=== PATIENT | male | born 1940 | race Caucasian/White ===

== ENCOUNTER 2017-06-21 17:42 | Inpatient (IN) ==
[2017-06-21] MEDS ORDERED: Nitroglycerin 0.4 MG TAB.SUBL SL ONE (17:59)
[2017-06-21] MEDS ORDERED: Nitroglycerin 1 INCH/GM PACKET TP ONE (18:01)
[2017-06-21] MEDS ORDERED: Furosemide 40 MG/4 ML VIAL IVP ONE (18:01)
[2017-06-21 18:12] LABS: Basophils # 0.1 K/mcL (0.0-0.2); Basophils % 1.2 %; Eosinophils # 0.5 K/mcL (0.0-0.6); Eosinophils % 6.7 %; Hematocrit 47.9 % (37.5-50.1); Hemoglobin 15.5 g/dL (12.9-16.9); Immature Granulocytes % 0.5 % (0-4); Lymphocytes # 1.6 K/mcL (0.6-4.6); Lymphocytes % 21.3 %; Mean Corpuscular HGB Conc 32.4 g/dL (31.6-35.5); Mean Corpuscular Hemoglobin 28.2 pg (28.0-33.3); Mean Corpuscular Volume 87.1 fL (83.0-100.0); Mean Platelet Volume 10.9 fL (9.4-12.4); Monocytes # 0.7 K/mcL (0.0-1.3); Monocytes % 9.5 %; Neutrophils # 4.5 K/mcL (1.6-8.9); Platelet Count 228 K/mcL (140-400); Red Cell Distribution Width 13.2 % (11.5-14.5); Segmented Neutrophils % 60.8 %
[2017-06-21] MEDS ORDERED: Ipratropium/Albuterol Neb 3 ML IH ONE (18:12)
--- NOTE | 2017-06-21 18:15 | Emergency Department Note ---
Disposition Clinical Impression: Chest pain Qualifiers: Chest pain type: unspecified Qualified Code(s): R07.9 - Chest pain, unspecified Disposition: Admitted As Inpatient Condition: Fair Chest Pain HPI - General Chief Complaint: ED Chest Pain Stated Complaint: Chest Pain Time Seen by Provider: 06/21/17 17:48 Source: family Vital Signs Reviewed: Yes Nursing Notes Reviewed: Yes - History of Present Illness HPI Narrative: Presents with chest pain and he is not able to describe the character and it began at 3:30 today and is constant and is worse with exertion. No radiation. No pleuritic aspect. Does have increased lower extremity peripheral edema. The patient was put on water pills one week ago and had the dose increased on Thursday, 2 days ago. I did review the previous record and he did have an echocardiogram in October of this year showing ejection fraction of 55%. He does have shortness of breath and this had been occurring intermittently for the last 1 month and had been on a course of antibiotics without improvement. He does have positive orthopnea. He does have a cough and rhinorrhea no hemoptysis. No sneezing. No fever or blurred vision. No blood in the urine or stool. No pain or numbness of the extremities. No skin rash or bruising of the skin. Social history: Stopped smoking 20 years ago. Is here with his Severity scale (1-10): 5 - Related Data Home Medications Medication Instructions Recorded Confirmed Aspirin [Lo-Dose Aspirin EC] 81 mg PO 06/21/17 Atorvastatin [Lipitor] 80 mg PO HS 06/21/17 06/21/17 Carvedilol 12.5 mg PO 06/21/17 Exenatide [Byetta] 10 mcg SQ 06/21/17 Ferrous Sulfate [Iron] 325 mg PO 06/21/17 Finasteride [Proscar] 5 mg PO 06/21/17 GlipiZIDE [Glipizide Xl] 5 mg PO 06/21/17 Quinapril HCl [Accupril] 20 mg PO 06/21/17 hydroCHLOROthiazide 12.5 mg PO 06/21/17 [Hydrochlorothiazide] Allergies Allergy/AdvReac Type Severity Reaction Status Date / Time No Known Allergies Allergy Verified 01/09/16 17:56 Review of Systems: As Per HPI Chest Pain PMH - Past Medical History Medical history: Reports: CVA, diabetes Psychiatric history: Reports: no psych history - Social History Smoking Status: Former smoker Alcohol use: Reports: none Drug use: Reports: none Physical Exam CONSTITUTIONAL: Alert and oriented X3, well-nourished, well appearing, in no apparent distress HEAD: Normocephalic; atraumatic. EYES: PERRL, no scleral icterus. NOSE: The nose is normal in appearance without rhinorrhea RESP: Normal chest excursion with respiration; breath sounds with bilateral wheezing which is symmetric CARD: Regular rhythm, without murmurs, rub or gallop ABD: Non-distended; non-tender, soft,without rigidity, rebound or guarding SKIN: Normal for age and race; warm and dry; no apparent lesions Extremities: Pulses 2+ and equal 4 extremities, does have 2+ bilateral lower extremity pretibial pitting edema, no calf muscle pain. No erythema or signs of infection - General General appearance: alert, anxious Course Vital Signs Temperature 98.8 F 06/21/17 17:46 Pulse Rate 77 06/21/17 17:46 Respiratory Rate 22 06/21/17 17:46 Blood Pressure 230/105 06/21/17 17:46 O2 Sat by Pulse Oximetry 92 06/21/17 17:46 Temperature 98.8 F 06/21/17 20:35 Pulse Rate 60 06/21/17 19:38 Respiratory Rate 18 06/21/17 20:35 Blood Pressure 162/82 06/21/17 20:35 O2 Sat by Pulse Oximetry 94 06/21/17 19:38 Oxygen Delivery Oxygen Delivery Room Air Chest Pain - MDM Narrative Medical decision making narrative: I did review the patient's EKG showing normal sinus rhythm with rate of 70 with evidence of anterior ST depression and T-wave inversion. Does have right bundle -branch block similar to previous EKG which was from June 2014. I did review the chest x-ray and the patient will be started on Lasix 40 mg IV as well as sublingual nitroglycerin and nitroglycerin paste. Likely symptoms are from either congestive heart failure or COPD exacerbation so the patient will receive a DuoNeb also. BNP level is pending. The patient did have significant respiratory difficulty when he arrived although this did improve when he sat up. Her oxygen saturation went from 90 on room air to 95 on 2 L nasal cannula. The patient will be admitted for further inpatient evaluation and management. 1816 We did speak with the hospitalist who accepted the patient for admission. Concerned about acute coronary syndrome with his history of CABG. Does have some pleural effusion but this is seem stable. 2010 - Lab Data Result diagrams: 06/21/17 17:53 06/21/17 17:53 Lab Results 06/21/17 06/21/17 06/21/17 Range/Units 17:53 17:53 17:53 WBC 7.5 (4.3-11.1) K/mcL RBC 5.50 (4.19-5.50) M/mcL Hgb 15.5 (12.9-16.9) g/dL Hct 47.9 (37.5-50.1) % MCV 87.1 (83.0-100.0) fL MCH 28.2 (28.0-33.3) pg MCHC 32.4 (31.6-35.5) g/dL RDW 13.2 (11.5-14.5) % Plt Count 228 (140-400) K/mcL MPV 10.9 (9.4-12.4) fL Immature Gran % 0.5 (0-4) % Seg Neutrophils % 60.8 % Lymphocytes % 21.3 % Monocytes % 9.5 % Eosinophils % 6.7 % Basophils % 1.2 % Neutrophils # 4.5 (1.6-8.9) K/mcL Lymphocytes # 1.6 (0.6-4.6) K/mcL Monocytes # 0.7 (0.0-1.3) K/mcL Eosinophils # 0.5 (0.0-0.6) K/mcL Basophils # 0.1 (0.0-0.2) K/mcL Sodium 140 (136-145) mEq/L Potassium 3.4 L (3.5-4.5) mEq/L Chloride 98 (98-109) mEq/L Carbon Dioxide 35 H (19-29) mEq/L BUN 19 (8-26) mg/dL Creatinine 1.56 H (0.72-1.25) mg/dL Est GFR ( Amer) 53 L (> 60) Est GFR (Non-Af Amer) 44 L (> 60) BUN/Creatinine Ratio 12 (6-26) Glucose 195 H (70-99) mg/dL Calculated Osmolality 298 (280-300) Calcium 9.5 (8.6-10.8) mg/dL Troponin I 0.03 (0-0.03) ng/mL B-Natriuretic Peptide (0-100) pg/mL Urine Color (Yellow) Urine Clarity (Clear) Urine pH (5.0-8.0) pH Units Ur Specific [place] (1.010-1.025) Urine Protein (Neg-Trace) mg/dL Urine Glucose (UA) (Normal) mg/dL Urine Ketones (Negative) mg/dL Urine Blood (Negative) Urine Nitrite (Negative) Urine Bilirubin (Negative) Urine Urobilinogen (Normal) mg/dL Ur Leukocyte Esterase (Negative) Urine Microscopic RBC (0-3) per hpf Urine Microscopic WBC (0-3) per hpf Ur Squamous Epith Cells (None-Few) per lpf Urine Bacteria (None-Few) per hpf Hyaline Casts (None-Few) per lpf 06/21/17 06/21/17 Range/Units 17:53 18:41 WBC (4.3-11.1) K/mcL RBC (4.19-5.50) M/mcL Hgb (12.9-16.9) g/dL Hct (37.5-50.1) % MCV (83.0-100.0) fL MCH (28.0-33.3) pg MCHC (31.6-35.5) g/dL RDW (11.5-14.5) % Plt Count (140-400) K/mcL MPV (9.4-12.4) fL Immature Gran % (0-4) % Seg Neutrophils % % Lymphocytes % % Monocytes % % Eosinophils % % Basophils % % Neutrophils # (1.6-8.9) K/mcL Lymphocytes # (0.6-4.6) K/mcL Monocytes # (0.0-1.3) K/mcL Eosinophils # (0.0-0.6) K/mcL Basophils # (0.0-0.2) K/mcL Sodium (136-145) mEq/L Potassium (3.5-4.5) mEq/L Chloride (98-109) mEq/L Carbon Dioxide (19-29) mEq/L BUN (8-26) mg/dL Creatinine (0.72-1.25) mg/dL Est GFR ( Amer) (> 60) Est GFR (Non-Af Amer) (> 60) BUN/Creatinine Ratio (6-26) Glucose (70-99) mg/dL Calculated Osmolality (280-300) Calcium (8.6-10.8) mg/dL Troponin I (0-0.03) ng/mL B-Natriuretic Peptide 282 H (0-100) pg/mL Urine Color Yellow (Yellow) Urine Clarity Clear (Clear) Urine pH 6.5 (5.0-8.0) pH Units Ur Specific [place] 1.011 (1.010-1.025) Urine Protein 30 H (Neg-Trace) mg/dL Urine Glucose (UA) Normal (Normal) mg/dL Urine Ketones Negative (Negative) mg/dL Urine Blood Negative (Negative) Urine Nitrite Negative (Negative) Urine Bilirubin Negative (Negative) Urine Urobilinogen Normal (Normal) mg/dL Ur Leukocyte Esterase Negative (Negative) Urine Microscopic RBC 0-3 (0-3) per hpf Urine Microscopic WBC 0-3 (0-3) per hpf Ur Squamous Epith Cells None Seen (None-Few) per lpf Urine Bacteria None Seen (None-Few) per hpf Hyaline Casts None Seen (None-Few) per lpf
[2017-06-21 18:32] LABS: Calcium 9.5 mg/dL (8.6-10.8); Potassium 3.4 mEq/L (3.5-4.5)
[2017-06-21 18:53] LABS: Bilirubin,Urine Negative (Negative); Blood,Urine Negative (Negative); Clarity,Urine Clear (Clear); Color,Urine Yellow (Yellow); Glucose,Urine (UA) Normal (Normal); Ketones,Urine Negative (Negative); Leukocyte Esterase,Urine Negative (Negative); Nitrite,Urine Negative (Negative); PH,Urine 6.5 pH Units (5.0-8.0); Protein,Urine 30 mg/dL (Neg-Trace); Specific Gravity,Urine 1.011 (1.010-1.025); Urobilinogen,Urine Normal (Normal)
[2017-06-21 18:56] LABS: Bacteria,Urine None Seen per hpf (None-Few); Hyaline Casts,Urine None Seen per lpf (None-Few); RBC,Urine 0-3 per hpf (0-3); Squamous Epithelial Cell,Urine None Seen per lpf (None-Few); WBC,Urine 0-3 per hpf (0-3)
[2017-06-21] MEDS ORDERED: Albuterol 2.5 MG/3 ML NEBULIZER IH PRN ×2 (21:33→21:59)
[2017-06-21] MEDS ORDERED: methylPREDNISolone 125 MG/2 ML VIAL IVP ONE (21:34)
[2017-06-21] MEDS ORDERED: Naloxone 0.4 MG/ML INJ IVP PRN (21:41)
[2017-06-21] MEDS ORDERED: Dextrose Gel 15 GM PO PRN ×2 (21:43)
[2017-06-21] MEDS ORDERED: *HR* Dextrose 50 % in Water (Syg) 50 ML SYRINGE IVP PRN (21:43)
[2017-06-21] MEDS ORDERED: D5% in Water 1,000 ML IVC PRN (21:43)
--- NOTE | 2017-06-21 21:48 | Internal Med History&Physical ---
<Alfonso Reyes - Last Filed: 06/21/17 21:45> Date of Encounter: 06/21/17 Time of Encounter: 21:45 Assessment and Plan (1) COPD exacerbation Current visit: Yes Status: Acute Patient continues to have inspiratory and expiratory wheezing throughout anterior and posterior bilateral lobes. Does not wear oxygen at home however does continue to require 2 L nasal cannula to maintain his saturations. He originally presented with chest pressure/tightness which has improved with bronchodilator. Appears to have acute exacerbation of COPD. Teeth in October 2013 indicated he had moderate restrictive pulmonary disease. Symptoms do not appear to be cardiac related at this time. Continue trend troponins, continuous telemetry for the rule out cardiac cause Continue bronchodilators, DuoNeb nebs every 4 hours scheduled Albuterol nebulizer every 2 hours when necessary 40 mg Solu-Medrol every 8 hours first dose now Continues to wear support, 2 L nasal cannula titrated as needed Continuous telemetry, continuous O2 monitoring CBC, BMP in the morning (2) Diabetes Current visit: Yes Status: Acute Discontinue oral hypoglycemic agents while inpatient. Start low-dose sliding scale insulin coverage with before meals and at bedtime Accu-Cheks and diabetic/ cardiac diet Qualifiers: Diabetes mellitus type: type 2 Diabetes mellitus complication status: without complication Diabetes mellitus care home insulin use: without intermediate frame tender use Qualified Code(s): E11.9 - Type 2 diabetes mellitus without complications (3) Chest pain Current visit: Yes Status: Resolved Denies any chest pain, however admitted that he did have chest pressure/ tightness which has resolved since treatment with bronchodilators. Troponin negative thus far. Continue to trend troponins, continuous telemetry Qualifiers: Chest pain type: unspecified Qualified Code(s): R07.9 - Chest pain, unspecified (4) CAD (coronary artery disease) Current visit: Yes Status: Acute Continue aspirin and statin. Qualifiers: Qualified Code(s): I25.10 - Atherosclerotic heart disease of [place] coronary artery without angina pectoris (5) DVT prophylaxis Current visit: Yes Status: Acute Heparin 5000 units subcutaneous twice a day Internal Medicine - H&P: HPI Chief complaint: difficulty breathing, cough x1m Admitted From: Home Plans for Post Hospital Care: Home History of present illness: Mr. Gayle is a 76 year old male with a PMH of CVA, DM, COPD, CABG, CKD with one kidney and CAD. He presents today to her and see with a one-month history of cough, wheezing, shortness of breath and chest pressure which began at 3:30 this afternoon. The patient reports that he has had chest discomfort described as a pressure, midsternal without radiation. Chest pressure does not increase with exertion but shortness of breath does. He denies any fever, chills, diaphoresis, nausea, unilateral extremity swelling or pain, abdominal pain. His primary care provider placed him on a Z-Jace in early May without resolution of symptoms. He has seen another nurse practitioner in addition to that which placed him on oral prednisone which she received minimal relief symptoms resuming shortly thereafter. No leukocytosis noted, chest x-ray shows chronic left pleural effusion. He was given a DuoNeb treatment in the emergency department reports feeling no longer has chest pressure/tightness but he does remain short of breath. Past Med Surg Social Fam HX - Past Medical History Medical history: CVA, diabetes Psychiatric history: no psych history - Past Surgical History Surgical History: cholecystectomy - Social History Smoking Status: Former smoker Smokeless Tobacco Status: No Alcohol use: none Drug use: none - Family History Father Hx Family Cardiac Disorders: Yes (HTN) Mother Hx Family Cancer: Yes (Pancreatic) Internal Medicine - H&P: Meds Aspirin [Lo-Dose Aspirin EC] 81 mg PO 06/21/17 [History] Atorvastatin [Lipitor] 80 mg PO HS 06/21/17 [History] Carvedilol 12.5 mg PO 06/21/17 [History] Exenatide [Byetta] 10 mcg SQ 06/21/17 [History] Ferrous Sulfate [Iron] 325 mg PO 06/21/17 [History] Finasteride [Proscar] 5 mg PO 06/21/17 [History] GlipiZIDE [Glipizide Xl] 5 mg PO 06/21/17 [History] Quinapril HCl [Accupril] 20 mg PO 06/21/17 [History] hydroCHLOROthiazide [Hydrochlorothiazide] 12.5 mg PO 06/21/17 [History] 3 Allergy/AdvReac Type Severity Reaction Status Date / Time No Known Allergies Allergy Verified 01/09/16 17:56 All Systems PM: A 10-system review of systems was performed and is negative for pertinent findings except as documented above in the HPI. - Constitutional Constitutional: fatigue, no chills, no fever(s), no night sweats, no weight gain , no weight loss - EENT Eyes: no change in vision, no discharge, no pain, no photophobia Ears: no ear discharge, no ear pain, no tinnitus Nose, mouth and throat: no dysphagia, no nasal discharge, no neck pain, no sore throat - Cardiovascular Cardiovascular ROS IM: chest pain (Pressure/tightness), dyspnea on exertion, edema, no diaphoresis, no dyspnea, no irregular heart rhythm, no lightheadedness , no palpitations, no syncope - Respiratory Respiratory: cough (Minimally productive with clear/foamy sputum), dyspnea on exertion, wheezing, no dyspnea, no hemoptysis, no stridor, no pain on inspiration, no chest congestion, no excessive phlegm production, no change in phlegm color, no pain with cough - Gastrointestinal Gastrointestinal: no abdominal pain, no diarrhea, no hematemesis, no hematochezia, no melena, no nausea, no vomiting - Musculoskeletal Musculoskeletal ROS IM: no numbness, no tingling - Integumentary Integumentary IM: no rash, no unusual bruising - Neurological Neurological ROS: no confusion, no convulsions, no focal weakness, no numbness, no tingling, no tremor(s) - Hematologic/Lymphatic Hematologic/Lymphatic: no easy bruising - Constitutional Vitals: Temp Pulse Resp BP Pulse Ox 98.8 F 60 18 162/82 94 06/21/17 20:35 06/21/17 19:38 06/21/17 20:35 06/21/17 20:35 06/21/17 19:38 General appearance: Present: cooperative, A&O X 3, no acute distress, answers questions appropriately - Head Head exam: Present: atraumatic, normocephalic - Neck Neck exam general surgery: Present: supple, trachea midline. Absent: lymphadenopathy - Respiratory Respiratory exam: Present: prolonged expiratory phase, respiratory distress ( Mild; difficulty conversation due to SOB), wheezes, tachypnea. Absent: rhonchi , stridor - Cardiovascular Cardiovascular exam: Present: RRR, +S1, +S2. Absent: diastolic murmur, gallop, rubs, systolic murmur - GI/Abdominal GI/Abdominal exam: Present: normal bowel sounds, soft, no peritoneal signs. Absent: distended, tenderness - Extremities Exam Extremities exam: Present: warm, radial pulses palpable and symmetrical. Absent : calf tenderness, cyanotic, pedal edema - Neurological Exam Neurological exam: Present: alert, oriented X3, no focal deficits. Absent: pronater drift, facial droop, speech deficit - Skin Skin exam: Present: dry, intact Internal Med - H&P Results - Labs CBC & Chem 7: 06/21/17 17:53 06/21/17 17:53 - EKG Data -: EKG Interpreted by Myself EKG shows normal: sinus rhythm Rate: normal - Diagnostic Studies Chest x-ray Status: image reviewed by me Additional comments: Chronic left pleural effusion. Left basilar opacities either atelectasis or possible aspiration pneumonia. <Hector Vera - Last Filed: 06/21/17 23:14> Date of Encounter: 06/21/17 Time of Encounter: 22:05 - Constitutional Constitutional: no chills, no fever(s) - Cardiovascular Cardiovascular ROS IM: chest pain, dyspnea on exertion - Respiratory Respiratory: cough, wheezing, chest congestion, no pain on inspiration, no excessive phlegm production - Genitourinary Genitourinary ROS male: no dysuria, no flank pain, no hematuria - Musculoskeletal Musculoskeletal ROS IM: no back pain, no myalgias - Neurological Neurological ROS: no dizziness, no focal weakness, no frequent falls, no headache(s) - Psychiatric Psychiatric: no anxiety, no depression - Endocrine Endocrine IM: no polydipsia, no polyuria - Allergic/Immunologic Allergic/Immunologic: wheezing, no GI upset with certain foods - Constitutional Vitals: Temp Pulse Resp BP Pulse Ox 98.3 F 57 16 162/83 96 06/21/17 22:09 06/21/17 22:09 06/21/17 22:09 06/21/17 22:09 06/21/17 22:09 General appearance: Present: A&O X 3, no acute distress - ENT ENT exam: Present: mucous membranes dry, normal exam - Neck Neck exam general surgery: Present: supple. Absent: tenderness - Respiratory Respiratory exam: Present: prolonged expiratory phase, respiratory distress ( mild), wheezes, tachypnea. Absent: chest wall tenderness, rales, rhonchi - Cardiovascular Cardiovascular exam: Present: RRR, +S1, +S2. Absent: diastolic murmur, systolic murmur - GI/Abdominal GI/Abdominal exam: Present: soft. Absent: tenderness - Extremities Exam Extremities exam: Present: warm, radial pulses palpable and symmetrical. Absent : pedal edema Internal Med - H&P Results - Labs CBC & Chem 7: 06/21/17 17:53 06/21/17 17:53 - EKG Data -: EKG Interpreted by Myself - EKG Data Prior EKG available for review: yes When compared to previous EKG: there is no significant change EKG comments: 06/21/17 23:06 NSR; old RBBB; unchanged - Diagnostic Studies Chest x-ray Status: image reviewed by me (negative; chronic left small effusion) - Attending Attestation I discussed the patient ALEKNAGIK, PMH, ROS, lab data, and exam findings with Alfonso Reyes CNP. I then saw and examined patient independently as well. Patient history and are consistent with AECOPD. He has no formal diagnosis of COPD, but he has a 40 pack year history of smoking (quit 20 years ago) and PFT's in the recent past confirming + bronchodilator response. As such, we'll treat him with steroids, aerosols, and antibiotics. He is not fluid overloaded and does not appear to be in CHF. He is chest pain free now. We will cycle troponins and consult cardiology if findings are concerning for ischemia. I suspect, however, his symptoms are mediated by respiratory compromise form COPD. Discussed with patient, , and RN. Other than my comments above and noted exam findings, I agree with Alfonso's assessment and plan.
[2017-06-21] MEDS: MethylPREDNISolone 40 MG/ML VIAL IVP SCH (22:17)
[2017-06-21] MEDS: Insulin LISPRO 300 UNITS/3 ML VIAL SQ SCH (22:18)
[2017-06-21] MEDS: Ipratropium/Albuterol Neb 3 ML IH SCH (23:03)
[2017-06-21] MEDS: Levofloxacin 500 MG/100 ML 500 MG/100 ML BAG IVPB SCH (23:55)
[2017-06-22 03:25] LABS: Basophils # 0.1 K/mcL (0.0-0.2); Basophils % 0.8 %; Eosinophils % 0.5 %; Hematocrit 41.8 % (37.5-50.1); Hemoglobin 13.5 g/dL (12.9-16.9); Immature Granulocytes % 0.6 % (0-4); Lymphocytes # 0.5 K/mcL (0.6-4.6); Lymphocytes % 6.8 %; Mean Corpuscular HGB Conc 32.3 g/dL (31.6-35.5); Mean Corpuscular Volume 86.5 fL (83.0-100.0); Mean Platelet Volume 11.3 fL (9.4-12.4); Monocytes # 0.2 K/mcL (0.0-1.3); Monocytes % 1.9 %; Neutrophils # 7.1 K/mcL (1.6-8.9); Platelet Count 196 K/mcL (140-400); Red Blood Count 4.83 M/mcL (4.19-5.50); Red Cell Distribution Width 13.3 % (11.5-14.5); Segmented Neutrophils % 89.4 %
[2017-06-22 03:40] LABS: Albumin 3.4 g/dL (3.5-5.0); Albumin/Globulin Ratio 0.9 (1.1-2.2); Bilirubin,Total 1.4 mg/dL (0.2-1.2); Calcium 8.8 mg/dL (8.6-10.8); Globulin 3.9 g/dL (2.4-3.5); Potassium 3.5 mEq/L (3.5-4.5); Total Protein 7.3 g/dL (6.0-8.3)
[2017-06-22] MEDS: Ipratropium/Albuterol Neb 3 ML IH SCH ×6 (04:17→23:01)
[2017-06-22] MEDS: *HR* Heparin 5,000 UNIT/ML VIAL SQ SCH ×2 (05:38→17:32)
[2017-06-22] MEDS: MethylPREDNISolone 40 MG/ML VIAL IVP SCH ×3 (05:38→21:19)
[2017-06-22] MEDS ORDERED: MethylPREDNISolone 40 MG/ML VIAL IVP SCH (06:00)
[2017-06-22] MEDS: Insulin LISPRO 300 UNITS/3 ML VIAL SQ SCH ×4 (08:12→20:26)
--- NOTE | 2017-06-22 16:13 | Internal Med Progress Note ---
Date of Encounter: 06/22/17 Time of Encounter: 16:09 - Assessment and plan (1) COPD exacerbation Current Visit: Yes Status: Acute Assessment and plan: Symptomatic with worsening shortness of breath and diffuse wheezing. CXR non- acute. Cont IV ATBs, steroids and breathing treatments (2) Essential hypertension Current Visit: Yes Status: Acute Assessment and plan: per hx. BP uncontrolled with SBP's in 200s. Home DANITA and HCTZ stopped with worsening renal function. Add amlodipine. Nephrology consulted (3) CKD (chronic kidney disease) Current Visit: Yes Status: Acute Assessment and plan: hx RCC with right nephrectomy. Follows with Nephrology. Cr peaked at 1.7 which appears worse than baseline. Holding home DANITA and HCTZ. Give small IV bolus. Nephrology consulted Qualifiers: Chronic kidney disease stage: stage 3 (moderate) Qualified Code(s): N18.3 - Chronic kidney disease, stage 3 (moderate) (4) CAD (coronary artery disease) Current Visit: Yes Status: Acute Assessment and plan: per hx. denied chest pain however reported chest tightness with cough. Suspect respiratory etiology. Serial troponin negative, EKG without acute ST changes. Continue home ASA, statin. Monitor on tele Qualifiers: Qualified Code(s): I25.10 - Atherosclerotic heart disease of [place] coronary artery without angina pectoris (5) Diabetes Current Visit: Yes Status: Acute Assessment and plan: per hx. Holding home oral hypoglycemics. SSI. Monitor sugar and titrate PRN Qualifiers: Diabetes mellitus type: type 2 Diabetes mellitus complication status: without complication Diabetes mellitus mcfp insulin use: without mcfp use Qualified Code(s): E11.9 - Type 2 diabetes mellitus without complications (6) DVT prophylaxis Current Visit: Yes Status: Acute Assessment and plan: Heparin - Subjective Interval history: Seen and examined at bedside. Patient is new to me, information obtained from chart review and patient report. Sitting up on edge of bed, patient says he feels significantly improved from when he presented. Still short of breath but overall better. No chest pain. - Constitutional Vitals: Temp Pulse Resp BP Pulse Ox 98.3 F 90 18 179/85 92 06/22/17 14:52 06/22/17 14:52 06/22/17 14:52 06/22/17 14:52 06/22/17 14:52 General appearance: Present: mild distress, A&O X 3, no acute distress - Head Head exam: Present: atraumatic, normocephalic - Eye Eye exam: Present: PERRL, conjuntiva pink, sclera anicteric Pupils: Present: PERRL - Neck Neck exam general surgery: Present: supple, trachea midline. Absent: lymphadenopathy - Respiratory Respiratory exam: Present: CTAB. Absent: accessory muscle use, rales, rhonchi, wheezes - Cardiovascular Cardiovascular exam: Present: RRR, +S1, +S2. Absent: diastolic murmur, gallop, rubs, systolic murmur - GI/Abdominal GI/Abdominal exam: Present: normal bowel sounds, soft, no peritoneal signs. Absent: distended, tenderness - Extremities Exam Extremities exam: Present: warm, radial pulses palpable and symmetrical. Absent : calf tenderness, cyanotic, pedal edema - Neurological Exam Neurological exam: Present: CN II-XII intact, oriented X3, no focal deficits. Absent: pronater drift, facial droop, speech deficit - Skin Skin exam: Present: dry, intact Internal Medicine: Result - Labs CBC & Chem 7: 06/22/17 02:47 06/22/17 02:47 Labs: Short CBC 06/22/17 Range/Units 02:47 WBC 7.9 (4.3-11.1) K/mcL Hgb 13.5 D (12.9-16.9) g/dL Hct 41.8 (37.5-50.1) % Plt Count 196 (140-400) K/mcL Neutrophils # 7.1 (1.6-8.9) K/mcL BMP 06/22/17 02:47 Sodium 141 Potassium 3.5 Chloride 97 L Carbon Dioxide 33 H BUN 22 Creatinine 1.71 H Glucose 321 H Calcium 8.8 Cardiac Enzymes 06/22/17 06/22/17 Range/Units 02:47 07:59 Troponin I 0.02 0.02 (0-0.03) ng/mL Liver Function 06/22/17 Range/Units 02:47 Total Bilirubin 1.4 H (0.2-1.2) mg/dL AST 21 (5-34) Units/L ALT 24 (0-55) Units/L Alkaline Phosphatase 98 (38-126) Units/L Albumin 3.4 L (3.5-5.0) g/dL - VTE Documentation of Mechanical Device: Graduated compression elastic hosiery Consult Discharge Plan - Plan Referrals: Vicki Fletcher, [employer] [Primary Care Provider] -
[2017-06-22] MEDS ORDERED: 0.9 % Sodium Chloride 500 ML IVC ONE (16:37)
[2017-06-22] MEDS: amLODIPine 5 MG TABLET PO SCH (17:17)
[2017-06-22] MEDS ORDERED: Lisinopril 20 MG TABLET PO SCH (21:00)
[2017-06-22] MEDS: Levofloxacin 500 MG/100 ML 500 MG/100 ML BAG IVPB SCH (23:30)
[2017-06-23] MEDS: Ipratropium/Albuterol Neb 3 ML IH SCH ×6 (04:09→23:05)
[2017-06-23 05:26] LABS: Calcium 9.2 mg/dL (8.6-10.8); Hematocrit 40.2 % (37.5-50.1); Hemoglobin 13.3 g/dL (12.9-16.9); Mean Corpuscular HGB Conc 33.1 g/dL (31.6-35.5); Mean Corpuscular Hemoglobin 27.9 pg (28.0-33.3); Mean Corpuscular Volume 84.5 fL (83.0-100.0); Mean Platelet Volume 11.2 fL (9.4-12.4); Platelet Count 208 K/mcL (140-400); Potassium 3.7 mEq/L (3.5-4.5); Red Blood Count 4.76 M/mcL (4.19-5.50); Red Cell Distribution Width 13.2 % (11.5-14.5)
[2017-06-23] MEDS: MethylPREDNISolone 40 MG/ML VIAL IVP SCH ×3 (06:09→21:40)
[2017-06-23] MEDS: *HR* Heparin 5,000 UNIT/ML VIAL SQ SCH ×2 (06:09→18:14)
[2017-06-23] MEDS ORDERED: hydroCHLOROthiazide 25 MG TABLET PO SCH (09:00)
[2017-06-23] MEDS: Insulin LISPRO 300 UNITS/3 ML VIAL SQ SCH ×5 (09:57→20:51)
[2017-06-23] MEDS: Aspirin Enteric Coated 81 MG Tablet PO SCH (09:59)
[2017-06-23] MEDS: Finasteride 5 MG TABLET PO SCH (09:59)
[2017-06-23] MEDS: amLODIPine 5 MG TABLET PO SCH (09:59)
[2017-06-23] MEDS ORDERED: Insulin LISPRO 300 UNITS/3 ML VIAL SQ SCH (12:16)
[2017-06-23] MEDS ORDERED: 0.9 % Sodium Chloride 1,000 ML IVC ONE (12:18)
--- NOTE | 2017-06-23 12:34 | Nephrology Consult Note ---
Date of Encounter: 06/23/17 Time of Encounter: 12:32 Assessment and Plan (1) Chronic kidney disease, stage III (moderate) Current Visit: Yes Status: Acute Patient has stage III chronic kidney disease in the setting of a solitary right kidney, hypertension, and insulin requiring diabetes. Blood pressure is poorly controlled both here in the hospital and at home his renal function is slightly worse than his usual baseline. The DANITA inhibitor hydrochlorothiazide and been placed on hold. We will make other adjustments to his antihypertensive regimen to try to improve his blood pressure control. We will monitor his renal function while he is here in the hospital. Nephrotoxins should be avoided. (2) Benign hypertension with chronic kidney disease, stage III Current Visit: Yes Status: Acute (3) COPD exacerbation Current Visit: Yes Status: Acute History of Present Illness - History of Present Illness This is a 76-year-old male who is followed as an outpatient for stage III chronic kidney disease and hypertension. Patient was admitted with worsening shortness of breath. His been diagnosed with an exacerbation of COPD. Here in the hospital his creatinine has gone up a little bit over his previous baseline. Current creatinine is 1.75. Baseline creatinine is 1.5-1.6. Blood pressure is been poorly controlled both in the hospital and at home. When he was admitted to the hospital to lisinopril and hydrochlorothiazide were placed on hold and was placed on amlodipine. Blood pressure at home ranges from 150- 180 systolic according to the patient. Current blood pressure here is 160/61. Patient is status post left nephrectomy and about 5 years ago. Moods coronary artery disease, status post CABG, COPD, and hypertension. Patient also reports she recently had a small stroke. He also has a history of insulin-requiring diabetes. Patient continues to experience exertional dyspnea, cough, and orthopnea. He denies any lower extremity swelling. He denies any difficulty in emptying his bladder. He does not have significant nocturia. Urinalysis is benign. Past Med Surg Social Fam HX - Past Medical History Medical history: CVA, diabetes Psychiatric history: no psych history - Past Surgical History Surgical History: cholecystectomy - Social History Smoking Status: Former smoker Smokeless Tobacco Status: No Alcohol use: none Drug use: none - Family History Mother Living Status: Age at : 67 Cause of : pancreatic cancer Hx Family Cardiac Disorders: No Hx Family Respiratory Disorders: Yes (asthma) Hx Family Cancer: Yes (pancreatic) Hx Family GI Disorders: No Hx Family Genitourinary Disorders: No Hx Family Endocrine Disorder: No Hx Family Musculoskeletal Disorders: No Hx Family Neuromuscular Disorders: No Hx Family Neurologic Disorders: No Hx Family HEENT Disorders: No Hx Family Autoimmune Disorders: No Hx Family Reproductive Disorders: No Hx Family Psychosocial Disorders: No Hx Family Medical Disorders: No Father Living Status: Age at : 79 Cause of : NE Hx Family Cardiac Disorders: Yes (NE, HTN) Hx Family Respiratory Disorders: No Hx Family Cancer: No Hx Family GI Disorders: No Hx Family Genitourinary Disorders: No Hx Family Endocrine Disorder: No Hx Family Musculoskeletal Disorders: No Hx Family Neuromuscular Disorders: No Hx Family Neurologic Disorders: No Hx Family HEENT Disorders: No Hx Family Autoimmune Disorders: No Hx Family Reproductive Disorders: No Hx Family Psychosocial Disorders: No Hx Family Medical Disorders: No Medications and Allergies Aspirin [Lo-Dose Aspirin EC] 81 mg PO DAILY 06/21/17 [History] Atorvastatin [Lipitor] 80 mg PO HS 06/21/17 [History] Exenatide [Byetta] 10 mcg SQ BID 06/21/17 [History] Finasteride [Proscar] 5 mg PO DAILY 06/21/17 [History] GlipiZIDE [Glipizide Xl] 5 mg PO BID 06/21/17 [History] Quinapril HCl [Accupril] 20 mg PO BID 06/21/17 [History] hydroCHLOROthiazide [Hydrochlorothiazide] 12.5 mg PO DAILY 06/21/17 [History] Albuterol Sulfate [Ventolin Hfa] 2 puff IH TID PRN 06/22/17 [History] Carvedilol [Coreg] 25 mg PO BID 06/22/17 [History] Ferrous Gluconate 324 mg PO DAILY 06/22/17 [History] Furosemide [Lasix] 20 mg PO DAILY 06/22/17 [History] Nitroglycerin [Nitrostat] 0.4 mg SL Q5M PRN 06/22/17 [History] hydrALAZINE [HydrALAZINE] 25 mg PO TID 06/22/17 [History] 3 Allergy/AdvReac Type Severity Reaction Status Date / Time No Known Allergies Allergy Verified 01/09/16 17:56 Review of Systems Constitutional: as per HPI Eyes: bilateral: blurred vision (patient denies), diplopia (patient denies) Nose, mouth and throat: no dizziness, no headache(s) Cardiovascular: chest pain, chest pain at rest, dyspnea, dyspnea on exertion, orthopnea Respiratory: cough, dyspnea, dyspnea on exertion Gastrointestinal: no abdominal pain, no change in bowel habits Musculoskeletal: no muscle weakness, no numbness Integumentary: no hirsutism, no striae Neurological: as per HPI Psychiatric: no depression, no difficulty concentrating Endocrine: as per HPI Hematologic/Lymphatic: no easy bruising, no lymphadenopathy Exam - Vital Signs Vital signs: Initial Vital Signs Temp Pulse Resp BP Pulse Ox 98.8 F 77 22 230/105 92 06/21/17 17:46 12 17:46 06/21/17 17:46 06/21/17 17:46 06/21/17 17:46 Vital Signs - Last 8 Hours Temp Pulse Resp BP Pulse Ox 06/23/17 11:30 16 92 06/23/17 11:10 98.2 F 75 16 160/61 92 06/23/17 07:51 15 91 06/23/17 06:54 97.9 F 73 15 189/81 91 Intake and Output 06/22/17 06/23/17 06/23/17 23:59 07:59 15:59 Intake Total 500 / 500 840 / 840 Output Total 1010 / 1010 900 / 900 Balance -510 / -510 -900 / -900 840 / 840 Intake: Oral 500 / 500 840 / 840 Output: Urine 1010 / 1010 900 / 900 Other: Meal Breakfast Percent of Meal Consumed 100% Weight 90.265 kg Blood Glucose* [phone] Patient Weight 06/23/17 23:59 Weight 90.265 kg - General Appearance Exam: Patient is alert and oriented. He is in no acute distress. Blood pressure is 160/61. Admitting blood pressure was 230/105. Neck is supple. Lungs demonstrate bilateral wheezing and rhonchi. Heart regular rate and rhythm. Abdomen shows normal bowel sounds bruits masses, megaly or tenderness. There is no significant lower extremity swelling. Results - Lab Results 06/23/17 04:46 06/23/17 04:46 Most recent lab results Calcium 9.2 mg/dL (8.6-10.8) 06/23/17 04:46 Consult Discharge Plan - Plan Referrals: Vicki Fletcher CNP [Primary Care Provider] - 07/07/17 10:40 am
--- NOTE | 2017-06-23 13:41 | Internal Med Progress Note ---
Date of Encounter: 06/23/17 Time of Encounter: 09:20 - Assessment and plan (1) COPD exacerbation Current Visit: Yes Status: Acute Assessment and plan: Pt reports 1 month history of cough, congestion, ARZATE, and wheezing. Pt does not wear home 02, was requiring supplemental 02 on admission, has been weaned since and is maintaining his sats > 92%. Pt with expiratory wheezing and productive cough. Chest xray shows atelectasis vs aspiration vs pneumonia. Continue 02 prn Continue Duonebs Continue Levaquin IV Continue Solumedrol 40mg IVP q8h Chest X-Ray 06/21/17 17:59 IMPRESSION: No substantial change in chronic left pleural effusion. Left basilar opacities favored to reflect a combination of atelectasis and fluid although difficult to exclude superimposed aspiration or pneumonia. D/ / Gerard Riley / Gerard Riley Interpreting Provider: Gerard Riley (2) Diabetes Current Visit: Yes Status: Acute Assessment and plan: Continue sliding scale insulin, diabetic diet, Accu-Cheks before meals at bedtime. Well controlled. A1c is 6.6% in March. Continue home medications on discharge. Qualifiers: Diabetes mellitus type: type 2 Diabetes mellitus complication status: without complication Diabetes mellitus jail insulin use: without jail use Qualified Code(s): E11.9 - Type 2 diabetes mellitus without complications (3) CAD (coronary artery disease) Current Visit: Yes Status: Acute Assessment and plan: Patient denies chest pain, does report chest tightness with cough. It is not reproducible with movement, deep inspiration, or palpation. Most likely respiratory in etiology. Troponins were negative, EKG without ST changes. Continue telemetry Continue aspirin, statin. Qualifiers: Qualified Code(s): I25.10 - Atherosclerotic heart disease of [place] coronary artery without angina pectoris (4) CKD (chronic kidney disease) Current Visit: Yes Status: Acute Assessment and plan: Serum creatinine 1.75, GFR 38. Patient states that he follows with primary care for CKD. Avoid nephrotoxins and NSAIDs. Gentle IVF hydration Qualifiers: Chronic kidney disease stage: stage 3 (moderate) Qualified Code(s): N18.3 - Chronic kidney disease, stage 3 (moderate) (5) Essential hypertension Current Visit: Yes Status: Acute Assessment and plan: Well controlled. Continue home medications. (6) DVT prophylaxis Current Visit: Yes Status: Acute Assessment and plan: Heparin SQ - Time Spent With Patient less than 15 minutes - Subjective Interval history: She was seen and assessed at bedside at 9:20 AM. Denies use of home oxygen and he is not wearing oxygen at this time. He reports having upper mid chest pain, cough, dyspnea on exertion, and shortness of breath at rest for the last month, the became worse over the last few days. Patient states that he is a former smoker, he quit approximately 20 years ago. He reports productive cough. He denies fever, chills, nausea, vomiting, diarrhea above his baseline. She reports that he has diarrhea daily. He denies blurred vision or headache, no dizziness. - Constitutional Vitals: Temp Pulse Resp BP Pulse Ox 98.2 F 75 16 160/61 92 06/23/17 11:10 06/23/17 11:10 06/23/17 11:30 06/23/17 11:10 06/23/17 11:30 General appearance: Present: cooperative, mild distress, A&O X 3, no acute distress, answers questions appropriately - Head Head exam: Present: atraumatic, normal inspection, normocephalic - Eye Eye exam: Present: normal appearance, conjuntiva pink, sclera anicteric - Neck Neck exam general surgery: Present: normal inspection, supple, trachea midline. Absent: lymphadenopathy - Respiratory Respiratory exam: Present: CTAB. Absent: accessory muscle use, rales, respiratory distress, rhonchi, wheezes - Cardiovascular Cardiovascular exam: Present: RRR, +S1, +S2. Absent: diastolic murmur, gallop, rubs, systolic murmur - GI/Abdominal GI/Abdominal exam: Present: normal bowel sounds, soft, no peritoneal signs. Absent: distended, hepatomegaly, tenderness - Extremities Exam Extremities exam: Present: warm, radial pulses palpable and symmetrical. Absent : calf tenderness, cyanotic, pedal edema, tenderness - Neurological Exam Neurological exam: Present: CN II-XII intact, oriented X3, no focal deficits. Absent: pronater drift, facial droop, speech deficit - Skin Skin exam: Present: dry, intact, normal color, warm. Absent: rash Internal Medicine: Result - Labs CBC & Chem 7: 06/23/17 04:46 06/23/17 04:46 Labs: Short CBC 06/23/17 Range/Units 04:46 WBC 12.7 H D (4.3-11.1) K/mcL Hgb 13.3 (12.9-16.9) g/dL Hct 40.2 (37.5-50.1) % Plt Count 208 (140-400) K/mcL BMP 06/23/17 04:46 Sodium 138 Potassium 3.7 Chloride 97 L Carbon Dioxide 29 BUN 32 H D Creatinine 1.75 H Glucose 399 H Calcium 9.2 - VTE Documentation of Mechanical Device: Graduated compression elastic hosiery Consult Discharge Plan - Plan Referrals: Vicki Fletcher CNP [Primary Care Provider] - 07/07/17 10:40 am
[2017-06-23] MEDS: hydrALAZINE 25 MG TABLET PO SCH ×2 (18:14→23:20)
[2017-06-23] MEDS: Levofloxacin 500 MG/100 ML 500 MG/100 ML BAG IVPB SCH (23:20)
[2017-06-24] MEDS: Ipratropium/Albuterol Neb 3 ML IH SCH ×6 (03:48→23:22)
[2017-06-24 04:49] LABS: Hematocrit 41.7 % (37.5-50.1); Hemoglobin 13.4 g/dL (12.9-16.9); Mean Corpuscular HGB Conc 32.1 g/dL (31.6-35.5); Mean Corpuscular Hemoglobin 27.4 pg (28.0-33.3); Mean Corpuscular Volume 85.3 fL (83.0-100.0); Mean Platelet Volume 11.3 fL (9.4-12.4); Platelet Count 195 K/mcL (140-400); Red Blood Count 4.89 M/mcL (4.19-5.50); Red Cell Distribution Width 13.4 % (11.5-14.5)
[2017-06-24 04:51] LABS: Calcium 9.2 mg/dL (8.6-10.8); Potassium 3.7 mEq/L (3.5-4.5)
[2017-06-24] MEDS: MethylPREDNISolone 40 MG/ML VIAL IVP SCH ×4 (05:34→18:07)
[2017-06-24] MEDS: *HR* Heparin 5,000 UNIT/ML VIAL SQ SCH ×2 (05:34→18:00)
--- NOTE | 2017-06-24 07:47 | Nephrology Progress Note ---
Date of Encounter: 06/24/17 Time of Encounter: 07:46 - Assessment and Plan (1) Chronic kidney disease, stage III (moderate) Current Visit: Yes Status: Acute The patient's renal function is stable. He is close to his baseline. Blood pressure remains suboptimal. I am going to resume his lisinopril. (2) Benign hypertension with chronic kidney disease, stage III Current Visit: Yes Status: Acute (3) COPD exacerbation Current Visit: Yes Status: Acute Subjective Interval history: The patient continues to experience coughing wheezing and shortness of breath. Blood pressure remains suboptimal. Renal function is slightly improved with a creatinine of 1.66 which is close to the patient's baseline. Objective - Vital Signs Vital signs: Vital Signs Temp Pulse Resp BP Pulse Ox 06/24/17 06:44 98.1 F 92 16 174/92 92 06/24/17 03:48 16 92 06/24/17 03:22 97.9 F 80 15 180/91 93 06/23/17 23:05 16 92 06/23/17 23:03 98.2 F 88 15 180/80 93 06/23/17 19:37 16 89 06/23/17 19:06 98.4 F 17 176/81 93 06/23/17 16:10 98.7 F 97 16 182/82 95 06/23/17 16:01 16 92 06/23/17 11:30 16 92 06/23/17 11:10 98.2 F 75 16 160/61 92 06/23/17 07:51 15 91 Intake and Output 06/23/17 06/23/17 06/24/17 15:59 23:59 07:59 Intake Total 960 / 960 Output Total 1450 / 1450 1300 / 1300 Balance 960 / 960 -1450 / -1450 -1300 / -1300 Intake: Oral 960 / 960 Output: Urine 1450 / 1450 1300 / 1300 Other: Meal Lunch Percent of Meal Consumed 100% Weight 95.98 kg Blood Glucose* [phone] Patient Weight 06/24/17 23:59 Weight 95.98 kg - General Appearance Exam: The patient is alert and oriented. He is in no acute distress. Lungs bilateral rhonchi and wheezing. Heart regular rate and rhythm. Abdomen is benign. There is no peripheral edema. - Lab 06/24/17 03:38 06/24/17 03:38 Most recent lab results Calcium 9.2 mg/dL (8.6-10.8) 06/24/17 03:38 - VTE Documentation of Mechanical Device: Graduated compression elastic hosiery Consult Discharge Plan - Plan Referrals: Vicki Fletcher, GUIDO [Primary Care Provider] - 07/07/17 10:40 am
[2017-06-24] MEDS: Aspirin Enteric Coated 81 MG Tablet PO SCH (07:49)
[2017-06-24] MEDS: Finasteride 5 MG TABLET PO SCH (07:49)
[2017-06-24] MEDS: amLODIPine 5 MG TABLET PO SCH (07:49)
[2017-06-24] MEDS: hydrALAZINE 25 MG TABLET PO SCH ×2 (07:50→15:32)
[2017-06-24] MEDS: Insulin LISPRO 300 UNITS/3 ML VIAL SQ SCH ×4 (07:50→20:43)
[2017-06-24 08:03] LABS: Adenovirus Not Detected (Not Detect); Bordetella Pertussis Not Detected (Not Detect); Chlamydophila pneumoniae Not Detected (Not Detect); Coronavirus 229E Not Detected (Not Detect); Coronavirus HKU1 Not Detected (Not Detect); Coronavirus NL63 Not Detected (Not Detect); Coronavirus OC43 Not Detected (Not Detect); Human Metapneumovirus Not Detected (Not Detect); Human Rhinovirus/Enterovirus Not Detected (Not Detect); Influenza A Subtype 2009 H1 Not Detected (Not Detect); Influenza A Untypeable Not Detected (Not Detect); Influenza B Not Detected (Not Detect); Mycoplasma pneumoniae Not Detected (Not Detect); Parainfluenza Virus 1 Not Detected (Not Detect); Parainfluenza Virus 2 Not Detected (Not Detect); Parainfluenza Virus 3 Not Detected (Not Detect); Parainfluenza Virus 4 Not Detected (Not Detect); Respiratory Syncytial Virus Not Detected (Not Detect)
[2017-06-24] MEDS: Lisinopril 20 MG TABLET PO SCH (09:17)
[2017-06-24] MEDS ORDERED: Benzonatate 100 MG CAPSULE PO PRN (16:13)
--- NOTE | 2017-06-24 16:36 | Internal Med Progress Note ---
Date of Encounter: 06/24/17 Time of Encounter: 09:50 - Assessment and plan (1) COPD exacerbation Current Visit: Yes Status: Acute (2) Diabetes Current Visit: Yes Status: Acute Qualifiers: Diabetes mellitus type: type 2 Diabetes mellitus complication status: without complication Diabetes mellitus group home insulin use: without terminologist use Qualified Code(s): E11.9 - Type 2 diabetes mellitus without complications (3) CAD (coronary artery disease) Current Visit: Yes Status: Acute Qualifiers: Qualified Code(s): I25.10 - Atherosclerotic heart disease of [place] coronary artery without angina pectoris (4) CKD (chronic kidney disease) Current Visit: Yes Status: Acute Qualifiers: Chronic kidney disease stage: stage 3 (moderate) Qualified Code(s): N18.3 - Chronic kidney disease, stage 3 (moderate) (5) Essential hypertension Current Visit: Yes Status: Acute (6) DVT prophylaxis Current Visit: Yes Status: Acute - Subjective Interval history: She was seen and assessed at bedside at 9:50 AM. He denies fever, chills, nausea, vomiting, diarrhea above his baseline. He denies blurred vision or headache, no dizziness. Pt with hyperglycemia currently, will monitor blood sugars overnight. I have decreased the IV steroids and will add IVF. Primary RN states that he has been eating orange sherbet frequently and I discussed his carb intake with this evening. - Constitutional Vitals: Temp Pulse Resp BP Pulse Ox 98.6 F 85 16 146/69 92 06/24/17 15:16 06/24/17 15:16 06/24/17 15:16 06/24/17 15:16 06/24/17 15:16 General appearance: Present: cooperative, mild distress, A&O X 3, no acute distress, answers questions appropriately Internal Medicine: Result - Labs CBC & Chem 7: 06/24/17 03:38 06/24/17 03:38 Labs: Short CBC 06/24/17 Range/Units 03:38 WBC 11.1 (4.3-11.1) K/mcL Hgb 13.4 (12.9-16.9) g/dL Hct 41.7 (37.5-50.1) % Plt Count 195 (140-400) K/mcL BMP 06/24/17 03:38 Sodium 137 Potassium 3.7 Chloride 97 L Carbon Dioxide 27 BUN 37 H Creatinine 1.66 H Glucose 364 H Calcium 9.2 - VTE Documentation of Mechanical Device: Graduated compression elastic hosiery Consult Discharge Plan - Plan Referrals: Vicki Fletcher CNP [Primary Care Provider] - 07/07/17 10:40 am
[2017-06-24] MEDS ORDERED: 0.9 % Sodium Chloride 1,000 ML IVC SCH (16:45)
--- NOTE | 2017-06-24 18:04 | Electrocardiograph Report ---
[place] [id number] Test Date: 2017-06-21 Pat Name: Landen Gayle Department: 104 Room: 3B24 Gender: M [employer]: SCOTT : 1940 Requested By: Sorin Smith Order Number: [id number] Reading MD: Mitch Hyman DO Measurements Intervals Calvin Rate: 70 P: 84 OR: 206 QRS: -74 QRSD: 152 T: 33 QT: 433 QTc: 453 Interpretive Statements SINUS RHYTHM RIGHT BUNDLE BRANCH BLOCK [120+ ms QRS DURATION, UPRIGHT V1, 40+ ms S IN I/aVL/V4/V5/V6] LEFT ANTERIOR FASCICULAR BLOCK [QRS AXIS <= -45, QR IN I, RS IN II] Electronically Signed On 06-24-2017 18:02:51 EST by Mitch Hyman DO
[2017-06-25] MEDS: hydrALAZINE 25 MG TABLET PO SCH ×3 (00:16→16:48)
[2017-06-25] MEDS: MethylPREDNISolone 40 MG/ML VIAL IVP SCH ×2 (00:16→06:06)
[2017-06-25] MEDS: Ipratropium/Albuterol Neb 3 ML IH SCH ×4 (03:29→15:38)
[2017-06-25 05:14] LABS: Hematocrit 39.8 % (37.5-50.1); Hemoglobin 12.8 g/dL (12.9-16.9); Mean Corpuscular HGB Conc 32.2 g/dL (31.6-35.5); Mean Corpuscular Hemoglobin 27.6 pg (28.0-33.3); Platelet Count 183 K/mcL (140-400); Red Blood Count 4.63 M/mcL (4.19-5.50); Red Cell Distribution Width 13.5 % (11.5-14.5)
[2017-06-25 05:24] LABS: Calcium 8.8 mg/dL (8.6-10.8); Potassium 4.1 mEq/L (3.5-4.5)
[2017-06-25] MEDS: *HR* Heparin 5,000 UNIT/ML VIAL SQ SCH (06:08)
[2017-06-25] MEDS: Aspirin Enteric Coated 81 MG Tablet PO SCH (08:06)
[2017-06-25] MEDS: amLODIPine 5 MG TABLET PO SCH (08:06)
[2017-06-25] MEDS: Finasteride 5 MG TABLET PO SCH (08:06)
[2017-06-25] MEDS: Lisinopril 20 MG TABLET PO SCH (08:06)
[2017-06-25] MEDS: Insulin LISPRO 300 UNITS/3 ML VIAL SQ SCH ×3 (08:12→16:49)
--- NOTE | 2017-06-25 08:44 | Nephrology Progress Note ---
Date of Encounter: 06/25/17 Time of Encounter: 08:10 - Assessment and Plan (1) CKD (chronic kidney disease) Current Visit: Yes Status: Acute Renal fct stable, not quite at baseline. SBP suboptimal 158-162. Will increase Lisinopril. Will stop IV fluids. Recommend evaluation for complaints of dysphagia times one month. Qualifiers: Chronic kidney disease stage: stage 3 (moderate) Qualified Code(s): N18.3 - Chronic kidney disease, stage 3 (moderate) (2) Essential hypertension Current Visit: Yes Status: Acute Subjective Interval history: Sitting up in chair, at bedside. States slept abot 3-4 hours in chair last night. Denies EMIL this morning. States feels swollen. IV 0.9 NS at 60cc/hr. Also presents new concern of dysphagia times one months that is worse in morning and improves as day progresses. States difficulty swallowing liquids and solids. Objective - Vital Signs Vital signs: Vital Signs Temp Pulse Resp BP Pulse Ox 06/25/17 08:01 97.6 F 98 15 181/85 91 06/25/17 07:45 18 93 06/25/17 03:06 98.0 F 78 18 162/74 90 06/24/17 23:58 98.0 F 83 16 157/72 92 06/24/17 23:25 16 91 06/24/17 20:15 98.2 F 93 16 173/87 91 06/24/17 19:47 18 91 Intake and Output 06/24/17 06/25/17 06/25/17 23:59 07:59 15:59 Other: Blood Glucose* [phone] - General Appearance General appearance: Present: well-developed, well-nourished, appears started age , obese EENT: Present: mucous membranes moist Neck: Present: no JVD Respiratory: Present: wheezing, rhonchi Cardiology: Present: edema, regular rate, regular rhythm Additional Comments: mild generalized swelling. Gastrointestinal: Present: normoactive bowel sounds, no tenderness Integumentary: Present: warm and dry Neurologic: Present: alert and oriented x3 Psychiatric: Present: mood/affect appropriate, cooperative - Lab 06/25/17 04:34 06/25/17 04:34 Most recent lab results Calcium 8.8 mg/dL (8.6-10.8) 06/25/17 04:34 - VTE Documentation of Mechanical Device: Intermittent pneumatic compression device Consult Discharge Plan - Plan Referrals: Vicki Fletcher CNP [Primary Care Provider] - 07/07/17 10:40 am
[2017-06-25] MEDS ORDERED: predniSONE 20 MG TABLET PO SCH (09:00)
[2017-06-25] MEDS ORDERED: levoFLOXacin 500 MG TABLET PO SCH (09:00)
[2017-06-25] MEDS ORDERED: Insulin DETEMIR 100 UNIT/ML X5UNITS SQ ONE (10:38)
[2017-06-25 14:56] VITALS: BP 135/65
[2017-06-25] MEDS ORDERED: Insulin DETEMIR 100 UNIT/ML X5UNITS SQ SCH (15:00)
--- NOTE | 2017-06-25 15:13 | Discharge Summary ---
Date of Encounter: 06/25/17 Time of Encounter: 08:45 - Discharge Diagnosis (1) COPD exacerbation Priority: Primary Status: Acute Comments: Patient reported one month history of cough, congestion, dyspnea on exertion, and wheezing. Patient does not wear home O2 and was requiring submental oxygen on admission, has been weaned off and is tolerating well. He is maintaining his sats greater than 92%. He has been ambulatory throughout the unit without any difficulty and is not requiring supplemental oxygen. Patient did not qualify for home oxygen. Initially, patient had expiratory wheezing and productive cough. Today his lungs are clear, but diminished without wheezing, rales, rhonchi or any respiratory distress. He reports that cough has improved. Chest x-ray showed atelectasis versus aspiration versus pneumonia. He has been treated with IV Levaquin, DuoNeb nebs, when necessary oxygen, and IV steroids. IV medications have been transitioned to by mouth medications. Patient will be sent home with prescriptions for by mouth Levaquin, by mouth Solu-Medrol, and Tessalon Perles. (2) Diabetes Priority: Secondary Status: Acute Comments: The diabetes is well controlled at home. His A1c was 6.6% in March. Continue home medications after discharge. Patient has been hyperglycemic, most likely due to steroids. He has been treated with basal insulin, as well as sliding scale. Accu-Chek was 245 on discharge. Qualifiers: Diabetes mellitus type: type 2 Diabetes mellitus complication status: without complication Diabetes mellitus detention insulin use: without detention use Qualified Code(s): E11.9 - Type 2 diabetes mellitus without complications (3) CAD (coronary artery disease) Priority: Secondary Status: Chronic Comments: Patient denies chest pain, he did report chest tightness with cough, this has resolved. It was not reproducible with movement, deep inspiration, or palpation. This is most likely respiratory in etiology. Troponins were negative, EKG without any ST changes. Patient will continue aspirin and statin after discharge. Qualifiers: Coronary Disease-Associated Artery/Lesion type: unspecified vessel or lesion type [place] vs. transplanted heart: [place] heart Associated angina: without angina Qualified Code(s): I25.10 - Atherosclerotic heart disease of [place] coronary artery without angina pectoris (4) CKD (chronic kidney disease) Priority: Secondary Status: Chronic Comments: Both serum creatinine and GFR have been at patient's baseline. Patient reports that he follows with primary care for his kidney disease. Continue to avoid nephrotoxins and NSAIDs at home. Patient was seen by nephrology while he was admitted. His renal function is stable. They have increased his lisinopril since systolic blood pressure is suboptimal. IV fluids have been stopped. Follow-up with primary care. Qualifiers: Chronic kidney disease stage: stage 3 (moderate) Qualified Code(s): N18.3 - Chronic kidney disease, stage 3 (moderate) (5) Essential hypertension Priority: Secondary Status: Chronic Comments: Patient has been borderline hypertensive. Nephrology has adjusted medications. Lisinopril was increased, blood pressure is within normal limits. (6) DVT prophylaxis Priority: Secondary Status: Acute Comments: Heparin subcutaneous daily. Patient has been ambulatory throughout the unit. (7) Dysphagia Priority: Secondary Status: Chronic Comments: Patient reports dysphasia "forever." Patient reports that happens every morning when he first awakens, it resolves within an hour or so of when he awakens. He has no difficulty containing fluids in his mouth, he is able to swallow, , he states he feels like things get stuck. He has had no significant weight loss due to this, he is not having to spit his saliva, he has no other deficits. He reports that he has been told in the past that he has scar tissue status post tonsillectomy and this is causing the problem. We will refer to ENT. Qualifiers: Dysphagia type: unspecified Qualified Code(s): R13.10 - Dysphagia, unspecified - Discharge Medications Prescriptions: Benzonatate [Tessalon] 200 mg PO TID PRN #30 capsule PRN Reason: Cough levoFLOXacin [Levaquin] 500 mg PO DAILY #5 tablet predniSONE [PredniSONE] 10 mg PO DAILY #19 tablet Home Medications: Aspirin [Lo-Dose Aspirin EC] 81 mg PO DAILY 06/21/17 [History] Atorvastatin [Lipitor] 80 mg PO HS 06/21/17 [History] Exenatide [Byetta] 10 mcg SQ BID 06/21/17 [History] Finasteride [Proscar] 5 mg PO DAILY 06/21/17 [History] GlipiZIDE [Glipizide Xl] 5 mg PO BID 06/21/17 [History] Quinapril HCl [Accupril] 20 mg PO BID 06/21/17 [History] hydroCHLOROthiazide [Hydrochlorothiazide] 12.5 mg PO DAILY 06/21/17 [History] Albuterol Sulfate [Ventolin Hfa] 2 puff IH TID PRN 06/22/17 [History] Carvedilol [Coreg] 25 mg PO BID 06/22/17 [History] Ferrous Gluconate 324 mg PO DAILY 06/22/17 [History] Furosemide [Lasix] 20 mg PO DAILY 06/22/17 [History] Nitroglycerin [Nitrostat] 0.4 mg SL Q5M PRN 06/22/17 [History] hydrALAZINE [HydrALAZINE] 25 mg PO TID 06/22/17 [History] Benzonatate [Tessalon] 200 mg PO TID PRN #30 capsule 06/25/17 [Rx] amLODIPine [Norvasc] 10 mg PO DAILY #0 tablet 06/25/17 [Rx] levoFLOXacin [Levaquin] 500 mg PO DAILY #5 tablet 06/25/17 [Rx] predniSONE [PredniSONE] 10 mg PO DAILY #19 tablet 06/25/17 [Rx] Allergies/Adverse Reactions: 3 Allergy/AdvReac Type Severity Reaction Status Date / Time No Known Allergies Allergy Verified 01/09/16 17:56 Date of admission: 06/24/17 18:24 Primary care physician: Vicki Fletcher CNP Discharging clinician: Rosa Lerma Anticipated date of discharge: 06/25/17 - Patient Status Disposition: Home, Self-Care Condition: Good Functional capacity at discharge: independent ambulation Overall status at discharge: patient is progressing back to baseline - Discharge Instructions Follow Up With: Vicki Fletcher CNP [Primary Care Provider] - 07/07/17 10:40 am Additional Instructions: Please follow-up with her primary care provider in the next 7-10 days for recheck. Closely monitor your blood sugar and maintain a lower calorie, lower carbohydrate diet. Make sure you are drinking plenty of fluids. Return to the ER as needed for any other problems or concerns, or if your symptoms return or worsen. REturn to your normal activities as tolerated. Your prescriptions are at your pharmacy. - Diet and Activity Activity: increase activity as tolerated Diet: diabetic diet Hospital course: Mr. Gayle is a 76 year old male with past medical history of stage III C KD, hypertension, diabetes, coronary artery disease. He presented to the emergency room with dyspnea on exertion and increasing shortness of breath. He was treated for COPD exacerbation with IV steroids, IV Levaquin, breathing treatments. He has improved significantly over the course of his visit and will be sent home with by mouth Levaquin, by mouth steroids, and Tessalon Perles. Patient has had hyperglycemia, most likely due to steroid use. He is treated with basal insulin and will be sent home to continue his normal medications. I am giving him a prescription for a new glucometer, strips, and lancets. Patient has agreed to closely monitor his blood sugars while he is on steroids. He reports a lengthy history of dysphagia first thing in the morning, every morning. This resolves on its own shortly after he awakens. He does not have any weight loss, he is able to swallow fluids, he is able to keep fluids in his mouth. He does not have difficulty with speech or chewing. He will be referred to ENT. Renal function is back at baseline. He will follow with primary care and nephrology for this. Patient is stable for discharge. - Time Spent with Patient Total time spent providing and/or coordinating discharge services: Less than 30 minutes - Constitutional Vitals: Temp Pulse Resp BP Pulse Ox 98.0 F 73 16 135/65 93 06/25/17 14:53 06/25/17 14:53 06/25/17 14:53 06/25/17 14:53 06/25/17 14:53 General appearance: Present: cooperative, mild distress, A&O X 3, pleasant, no acute distress, answers questions appropriately - Head Head exam: Present: atraumatic, normal inspection, normocephalic - Eye Eye exam: Present: normal appearance, conjuntiva pink, sclera anicteric - Neck Neck exam general surgery: Present: supple, trachea midline. Absent: lymphadenopathy - Respiratory Respiratory exam: Present: decreased breath sounds, CTAB. Absent: accessory muscle use, chest wall tenderness, rales, respiratory distress, rhonchi, wheezes - Cardiovascular Cardiovascular exam: Present: RRR, +S1, +S2. Absent: diastolic murmur, gallop, rubs, systolic murmur - GI/Abdominal GI/Abdominal exam: Present: normal bowel sounds, soft. Absent: distended, hepatomegaly, tenderness - Extremities Exam Extremities exam: Present: normal capillary refill, warm, radial pulses palpable and symmetrical. Absent: calf tenderness, cyanotic, pedal edema, tenderness - Neurological Exam Neurological exam: Present: alert, oriented X3, no focal deficits. Absent: altered, facial droop, speech deficit - Skin Skin exam: Present: dry, intact, normal color, warm. Absent: rash - VTE Documentation of Mechanical Device: Intermittent pneumatic compression device
[2017-06-25] MEDS ORDERED: Lisinopril 20 MG TABLET PO SCH (21:00)
== END 2017-06-25 17:59 | disposition home or self-care (01) | DRG 192 ==
LOC: 3BNU 17:42 → EMEROO 17:42 → 3BNU 20:37
PROVIDERS: ADMIT Internal Medicine Hematology & Oncology; ATTEND Registered Nurse

== ENCOUNTER 2017-07-16 08:08 | Observation (INO) ==
[2017-07-16] MEDS ORDERED: Ipratropium/Albuterol Neb 3 ML IH ONE (08:24)
[2017-07-16] MEDS ORDERED: methylPREDNISolone 125 MG/2 ML VIAL IVP ONE (08:24)
--- NOTE | 2017-07-16 08:29 | Emergency Department Note ---
Disposition Clinical Impression: COPD (chronic obstructive pulmonary disease) Qualifiers: COPD type: unspecified COPD Qualified Code(s): J44.9 - Chronic obstructive pulmonary disease, unspecified Dyspnea Qualifiers: Dyspnea type: dyspnea on exertion Qualified Code(s): R06.09 - Other forms of dyspnea Chronic kidney disease Qualifiers: Chronic kidney disease stage: unspecified stage Qualified Code(s): N18.9 - Chronic kidney disease, unspecified Disposition: Admitted As Inpatient Condition: Fair General Adult HPI - General Chief complaint: ED Shortness of Breath/Dyspnea Stated complaint: SOB/Cough Time Seen by Provider: 07/16/17 08:15 Source: patient, family Mode of arrival: ambulatory Limitations: no limitations Nursing Notes Reviewed: Yes Vital Signs Reviewed: Yes - History of Present Illness HPI Narrative: 76-year-old male with a history of hypertension, diabetes, chronic kidney disease (with one kidney) presents for evaluation of dyspnea. Patient states and to monitor was a couple days ago. States he has had a recent hospitalization 2 weeks ago where he was released after diagnosis of COPD. Patient is a former smoker. Patient's not oxygen dependent. Patient states that he was sent home on steroids as well as albuterol. States he has been using his albuterol every 4 hours. Notes a white productive cough. Denies fevers. Denies chest pain. Denies nausea vomiting or abdominal pain. Patient states that his dyspnea is worse on exertion. Denies history of DVTs or PEs. Pain Scale: 7 - Related Data Home Medications Medication Instructions Recorded Confirmed Aspirin [Lo-Dose Aspirin EC] 81 mg PO DAILY 06/21/17 07/16/17 Atorvastatin [Lipitor] 80 mg PO HS 06/21/17 07/16/17 Exenatide [Byetta] 10 mcg SQ BID 06/21/17 07/16/17 Finasteride [Proscar] 5 mg PO DAILY 06/21/17 07/16/17 GlipiZIDE [Glipizide Xl] 5 mg PO BID 06/21/17 07/16/17 Quinapril HCl [Accupril] 20 mg PO BID 06/21/17 07/16/17 hydroCHLOROthiazide 12.5 mg PO DAILY 06/21/17 07/16/17 [Hydrochlorothiazide] Albuterol Sulfate [Ventolin Hfa] 2 puff IH TID PRN 06/22/17 07/16/17 Carvedilol [Coreg] 25 mg PO BID 06/22/17 07/16/17 Ferrous Gluconate 324 mg PO DAILY 06/22/17 07/16/17 Nitroglycerin [Nitrostat] 0.4 mg SL Q5M PRN 06/22/17 07/16/17 hydrALAZINE [HydrALAZINE] 25 mg PO TID 06/22/17 07/16/17 Ascorbate Calcium [Vitamin C] 500 mg PO DAILY 07/16/17 07/16/17 Tiotropium [place] [Spiriva 2.5 mcg IH DAILY 07/16/17 07/16/17 Respimat] Previous Rx's Medication Instructions Recorded Benzonatate [Tessalon] 200 mg PO TID PRN #30 capsule 06/25/17 Allergies Allergy/AdvReac Type Severity Reaction Status Date / Time No Known Allergies Allergy Verified 01/09/16 17:56 All systems ED: reviewed and negative except as stated. Constitutional: Reports: as per HPI. Denies: fever Eyes: Reports: as per HPI ENT ED: Reports: as per HPI Cardiovascular: Reports: as per HPI. Denies: chest pain Respiratory: Reports: as per HPI, cough, dyspnea, sputum production Gastrointestinal: Reports: as per HPI. Denies: abdominal pain, nausea, vomiting Genitourinary: Reports: as per HPI Musculoskeletal: Reports: as per HPI Integumentary: Reports: as per HPI Neurological: Reports: as per HPI Psychiatric: Reports: as per HPI Endocrine: Reports: as per HPI Hematological/Lymphatic: Reports: as per HPI Past Medical History - Past Medical History Medical history: Reports: COPD, CVA, diabetes Surgical history: Reports: cholecystectomy Psychiatric history: Reports: no psych history - Social History Smoking Status: Former smoker Smokeless Tobacco Status: No Alcohol use: Reports: none Drug use: Reports: none Physical Exam - General Limitations: no limitations General appearance: alert, in no apparent distress - Head Head exam: atraumatic, normocephalic, normal inspection - Eye Eye exam: Present: normal appearance, EOMI. Absent: scleral icterus - ENT ENT exam: normal exam, mucous membranes moist - Neck Neck exam: Present: normal inspection. Absent: trachea midline - Chest Chest inspection: Present: normal inspection - Respiratory Respiratory exam: Present: wheezes (Scattered inspiratory expiratory wheezes), prolonged expiratory phase. Absent: respiratory distress - Cardiovascular Cardiovascular exam: Present: regular rate, normal rhythm. Absent: systolic murmur - Abdominal Exam Abdominal exam: Present: soft, Non-Tender. Absent: guarding, rebound - Extremities Exam Extremities exam: Present: normal inspection. Absent: pedal edema - Back Exam Back exam: Present: normal inspection - Neurological Exam Neurological exam: Present: alert, oriented X3 - Skin Skin exam: Present: warm, dry, intact, normal color Course Course Narrative: Patient seen and examined. Patient appears to be in no acute distress. Patient started requiring any oxygen supplementation. Patient does have scattered wheezing throughout. Patient will get aerosols, steroids, cardiopulmonary evaluation EKG, chest x-ray and labs. Disposition pending. - Reevaluation(s) Reevaluation #1: Patient seen and examined. Patient's lungs still sound tight. Patient will get a repeat breathing treatment. He given the patient's symptoms have not significantly improved. Pulmonary movement is also in the differential. Patient does have chronic kidney disease with one kidney. Patient will get a VQ scan. Time: 09:55 Reevaluation #2: Patient's lung seemed to slightly improve on aerosols. Patient was resting and was 88-90% on room air. Patient would likely be hypoxic with room air ambulation trial. Given the patient's symptoms patient would likely need a more thorough cardiopulmonary evaluation which would require admission. Patient is agreeable. Time: 11:19 Vital Signs Temperature 97.3 F L 07/16/17 08:12 Pulse Rate 70 07/16/17 08:12 Respiratory Rate 18 07/16/17 08:12 Blood Pressure 193/88 07/16/17 08:12 O2 Sat by Pulse Oximetry 94 07/16/17 08:12 Temperature 97.9 F 07/16/17 16:31 Pulse Rate 73 07/16/17 16:31 Respiratory Rate 24 07/16/17 16:31 Blood Pressure 168/78 07/16/17 16:31 O2 Sat by Pulse Oximetry 92 07/16/17 16:31 Oxygen Delivery Oxygen Delivery Room Air Medical Decision Making - [facility] Narrative Medical decision making narrative: 76-year-old male presents for dyspnea. Patient was recently hospitalized with a COPD exacerbation. completed a steroid taper as well as Levaquin. Patient required aerosols as well as steroids in the emergency department. Patient was found to be hypoxic on room air. Given the patient's symptoms the patient would likely require admission with a more thorough cardiopulmonary evaluation. Patient's chest x-ray was not suggestive pneumonia patient recently completed an antibiotic course. Antibiotics were not given in emergency department and was discussed with the hospitalist. Patient also had a VQ scan concerns of hypoxia which was negative. Patient will get influenza swab in the emergency department at the request of the hospitalist. - Lab Data Lab results reviewed: Yes I reviewed the patient's lab results. Result diagrams: 07/16/17 08:46 07/16/17 08:46 Lab Results 07/16/17 07/16/17 07/16/17 Range/Units 08:46 08:46 08:46 WBC 7.2 (4.3-11.1) K/mcL RBC 4.76 (4.19-5.50) M/mcL Hgb 13.2 (12.9-16.9) g/dL Hct 41.3 (37.5-50.1) % MCV 86.8 (83.0-100.0) fL MCH 27.7 L (28.0-33.3) pg MCHC 32.0 (31.6-35.5) g/dL RDW 14.0 (11.5-14.5) % Plt Count 175 (140-400) K/mcL MPV 10.2 (9.4-12.4) fL Immature Gran % 1.0 (0-4) % Seg Neutrophils % 81.0 % Lymphocytes % 6.6 % Monocytes % 5.9 % Eosinophils % 5.1 % Basophils % 0.4 % Neutrophils # 5.9 (1.6-8.9) K/mcL Lymphocytes # 0.5 L (0.6-4.6) K/mcL Monocytes # 0.4 (0.0-1.3) K/mcL Eosinophils # 0.4 (0.0-0.6) K/mcL Basophils # 0.0 (0.0-0.2) K/mcL D-Dimer (0-500) ng/mLFEU Sodium 137 (136-145) mEq/L Potassium 3.7 (3.5-5.1) mEq/L Chloride 101 (98-107) mEq/L Carbon Dioxide 31 H (23-29) mEq/L BUN 18 (8-23) mg/dL Creatinine 1.54 H (0.70-1.30) mg/dL Est GFR ( Amer) 54 L (> 60) Est GFR (Non-Af Amer) 44 L (> 60) BUN/Creatinine Ratio 12 (6-26) Glucose 316 H (70-105) mg/dL Calculated Osmolality 298 (280-300) Lactic Acid 1.3 (0.5-2.2) mmol/L Calcium 9.1 (8.6-10.3) mg/dL Troponin I (< 0.04) ng/mL B-Natriuretic Peptide (Less than 100) pg/mL 07/16/17 07/16/17 07/16/17 Range/Units 08:46 08:46 08:46 WBC (4.3-11.1) K/mcL RBC (4.19-5.50) M/mcL Hgb (12.9-16.9) g/dL Hct (37.5-50.1) % MCV (83.0-100.0) fL MCH (28.0-33.3) pg MCHC (31.6-35.5) g/dL RDW (11.5-14.5) % Plt Count (140-400) K/mcL MPV (9.4-12.4) fL Immature Gran % (0-4) % Seg Neutrophils % % Lymphocytes % % Monocytes % % Eosinophils % % Basophils % % Neutrophils # (1.6-8.9) K/mcL Lymphocytes # (0.6-4.6) K/mcL Monocytes # (0.0-1.3) K/mcL Eosinophils # (0.0-0.6) K/mcL Basophils # (0.0-0.2) K/mcL D-Dimer 1512 H (0-500) ng/mLFEU Sodium (136-145) mEq/L Potassium (3.5-5.1) mEq/L Chloride (98-107) mEq/L Carbon Dioxide (23-29) mEq/L BUN (8-23) mg/dL Creatinine (0.70-1.30) mg/dL Est GFR ( Amer) (> 60) Est GFR (Non-Af Amer) (> 60) BUN/Creatinine Ratio (6-26) Glucose (70-105) mg/dL Calculated Osmolality (280-300) Lactic Acid (0.5-2.2) mmol/L Calcium (8.6-10.3) mg/dL Troponin I 0.03 (< 0.04) ng/mL B-Natriuretic Peptide 302 H (Less than 100) pg/mL - Radiology Data Radiology results reviewed: Yes I reviewed the patient's radiology results. Chest X-Ray 07/16/17 08:25 IMPRESSION: Stable examination without acute focal process. Stable chronic left pleural effusion. D/ / Tru Zapata MD / Tru Zapata MD Interpreting Provider: Tru Zapata MD - EKG Data EKG #1 EKG attestation: Yes I reviewed and interpreted this EKG. EKG shows normal: sinus rhythm Rate: normal Rhythm: NSR Mildred/QRS: IVCD T wave inversions noted in: v1, v2, v3 Interpretation: unchanged when compared to prior tracing (date) (06/21/17) STheo - Kervin.Vinicio Situation: Demographics Background: Presenting Complaint Assessment: Vital Signs, Course and respsone to treatment, Patient/Family Expectation Recommendation: Barrier(s) to disposition, Recommendation based on pending studies, treatments, or consults S.Vinicio Report Given to: Hospitalist Pranav Repor Time: 11:17 Attestation Statement - Attestation Attestation: I examined this patient and my medical decision-making was reviewed with the Resident Physician. I agree with the documented findings, disposition and treatment plan as described except to the extent set forth below. Patient presents to the emergency department with a chief complaint of cough and shortness of breath. Onset Thursday. Coughing up clear phlegm. Dyspnea with exertion. Recent treatment for COPD exacerbation and finished a steroid course a couple of weeks ago. On examination he is in no distress. He has diffuse expiratory wheezing. Satting 93% on room air. Plan. Nebs and steroids. Patient has an elevated d-dimer and will have a VQ scan as he only has one kidney.
[2017-07-16 08:54] LABS: Basophils % 0.4 %; Eosinophils # 0.4 K/mcL (0.0-0.6); Eosinophils % 5.1 %; Hematocrit 41.3 % (37.5-50.1); Hemoglobin 13.2 g/dL (12.9-16.9); Lymphocytes # 0.5 K/mcL (0.6-4.6); Lymphocytes % 6.6 %; Mean Corpuscular Hemoglobin 27.7 pg (28.0-33.3); Mean Corpuscular Volume 86.8 fL (83.0-100.0); Mean Platelet Volume 10.2 fL (9.4-12.4); Monocytes # 0.4 K/mcL (0.0-1.3); Monocytes % 5.9 %; Neutrophils # 5.9 K/mcL (1.6-8.9); Platelet Count 175 K/mcL (140-400); Red Blood Count 4.76 M/mcL (4.19-5.50)
[2017-07-16 09:11] LABS: Calcium 9.1 mg/dL (8.6-10.3); Potassium 3.7 mEq/L (3.5-5.1)
[2017-07-16] MEDS ORDERED: Albuterol 2.5 MG/3 ML NEBULIZER IH ONE (09:55)
[2017-07-16] MEDS ORDERED: Naloxone 0.4 MG/ML INJ IVP PRN (13:22)
[2017-07-16] MEDS ORDERED: *HR* Dextrose 50 % in Water (Syg) 50 ML SYRINGE IVP PRN ×3 (13:22→19:16)
[2017-07-16] MEDS ORDERED: Dextrose Gel 15 GM/37.5 ML TUBE PO PRN ×6 (13:22→19:16)
[2017-07-16] MEDS ORDERED: D5% in Water 1,000 ML IVC PRN ×3 (13:22→19:16)
[2017-07-16] MEDS ORDERED: Benzonatate 100 MG CAPSULE PO PRN (13:25)
[2017-07-16] MEDS ORDERED: Nitroglycerin 0.4 MG TAB.SUBL SL PRN (13:25)
--- NOTE | 2017-07-16 14:15 | Internal Med History&Physical ---
<Alfonso Reyes - Last Filed: 07/16/17 19:36> Date of Encounter: 07/16/17 Time of Encounter: 14:13 Assessment and Plan (1) Chronic bronchitis with acute exacerbation Status: Acute Dyspnea due to acute exacerbation of chronic bronchitis. He had a PFT in 11/03 which revealed moderate restrictive disease however, he has never follow up with pulmonology since his PFT. Chest x-ray reveals stable left pleural effusion which he reports he has had since 2013. I do not feel that the pleural effusion is the cause of dyspnea at this time however will obtain a pulmonology consult for further evaluation. A VQ scan was obtained and found to be low probability for PE. Patient was admitted approximately 2 weeks ago and treated for COPD exacerbation as well as prophylactic treatment with antibiotics. Continues to report shortness of breath is worsened with activity. The patient to further work up potential cardiopulmonary causes. -Echocardiogram now -Consult pulmonology for additional evaluation and recommendations -Dueonebs every 4 hours scheduled, Albuterol Q2HRS PRN -Continuous tele, and spo2 monitoring -Resting comfortably on room air, nasal cannula when necessary to maintain SPO2 greater than 90% Pulmonology has seen the patient and believes that there is only modest COPD if any at all d/t results of prior PFT. Continue with plan of care. (2) Dyspnea Status: Acute continues to report Dyspnea on exertion. Has history of chronic left pleural effusion, is unclear at this time whether or not this is contributing to dyspnea. Additionally, patient has COPD. Was recently admitted and treated for COPD exacerbation as well as concern for pneumonia approximately 2 weeks ago. See plan above Qualifiers: Dyspnea type: dyspnea on exertion Qualified Code(s): R06.09 - Other forms of dyspnea (3) Diabetes Status: Acute *Low side scale insulin coverage with before meals and at bedtime Accu-Cheks and diabetic/cardiac diet Qualifiers: Diabetes mellitus type: type 2 Diabetes mellitus complication status: without complication Diabetes mellitus emt intermediate insulin use: without assisted use Qualified Code(s): E11.9 - Type 2 diabetes mellitus without complications (4) Hyperglycemia Status: Acute History of type 2 diabetes. Hyperglycemia metabolic panel. See plan above (5) CAD (coronary artery disease) Status: Chronic Resume beta bryan, aspirin, statin Qualifiers: Coronary Disease-Associated Artery/Lesion type: unspecified vessel or lesion type [place] vs. transplanted heart: [place] heart Associated angina: without angina Qualified Code(s): I25.10 - Atherosclerotic heart disease of [place] coronary artery without angina pectoris (6) CKD (chronic kidney disease) Status: Chronic History of CKD stage IIIB GFR and creatinine stable over the last 90 days. No acute kidney injury as of this admission. Recheck BMP morning Qualifiers: Chronic kidney disease stage: unspecified stage Qualified Code(s): N18.9 - Chronic kidney disease, unspecified (7) DVT prophylaxis Status: Acute Heparin 5000 units subcutaneous twice a day Internal Medicine - H&P: HPI Chief complaint: Dyspnea, hypoxia Admitted From: Home Plans for Post Hospital Care: Home History of present illness: Mr. Gayle is a 76 year old male history of HTN, diabetes, CKD. Presents today with dyspnea and hypoxia. Patient was recently admitted approximately 2 weeks ago for diagnosis of COPD. At that time he received bronchodilators, IV steroids and Levaquin. The patient was sent home on bronchodilators and steroids as well as Levaquin and has finished his treatment. However continues to have dyspnea. Patient admits to a cough productive of clear/white thin sputum. Denies any fever, chills, chest pain, nausea, vomiting, unilateral extremity swelling or pain. Patient admits that dyspnea is worse on exertion. No prior history of DVTs, OR PE's. He does have chronic Lt pleural effusion. He is being admitted for further workup of dyspnea. Past Med Surg Social Fam HX - Past Medical History Medical history: COPD, CVA, diabetes Psychiatric history: no psych history - Past Surgical History Surgical History: cholecystectomy - Social History Smoking Status: Former smoker Smokeless Tobacco Status: No Alcohol use: none Drug use: none - Family History Mother Living Status: Hx Family Cardiac Disorders: No Hx Family Respiratory Disorders: Yes (asthma) Hx Family Cancer: Yes (pancreatic) Hx Family GI Disorders: No Hx Family Endocrine Disorder: No Hx Family Neuromuscular Disorders: No Hx Family Neurologic Disorders: No Hx Family HEENT Disorders: No Hx Family Autoimmune Disorders: No Father Living Status: Hx Family Cardiac Disorders: Yes (NE, HTN) Hx Family Respiratory Disorders: No Hx Family Cancer: No Hx Family GI Disorders: No Hx Family Endocrine Disorder: No Hx Family Neuromuscular Disorders: No Hx Family Neurologic Disorders: No Hx Family HEENT Disorders: No Hx Family Autoimmune Disorders: No Internal Medicine - H&P: Meds Aspirin [Lo-Dose Aspirin EC] 81 mg PO DAILY 06/21/17 [History] Atorvastatin [Lipitor] 80 mg PO HS 06/21/17 [History] Exenatide [Byetta] 10 mcg SQ BID 06/21/17 [History] Finasteride [Proscar] 5 mg PO DAILY 06/21/17 [History] GlipiZIDE [Glipizide Xl] 5 mg PO BID 06/21/17 [History] Quinapril HCl [Accupril] 20 mg PO BID 06/21/17 [History] hydroCHLOROthiazide [Hydrochlorothiazide] 12.5 mg PO DAILY 06/21/17 [History] Albuterol Sulfate [Ventolin Hfa] 2 puff IH TID PRN 06/22/17 [History] Carvedilol [Coreg] 25 mg PO BID 06/22/17 [History] Ferrous Gluconate 324 mg PO DAILY 06/22/17 [History] Nitroglycerin [Nitrostat] 0.4 mg SL Q5M PRN 06/22/17 [History] hydrALAZINE [HydrALAZINE] 25 mg PO TID 06/22/17 [History] Benzonatate [Tessalon] 200 mg PO TID PRN #30 capsule 06/25/17 [Rx] Ascorbate Calcium [Vitamin C] 500 mg PO DAILY 07/16/17 [History] Tiotropium [place] [Spiriva Respimat] 2.5 mcg IH DAILY 07/16/17 [History] Azithromycin 250 mg PO DAILY #3 tablet 07/19/17 [Rx] Budesonide/Formoterol 160/4.5 [Symbicort 160/4.5] 1 puff IH BIDR #1 hfa.aer.ad 07/19/17 [Rx] predniSONE [PredniSONE] See Taper PO DAILY #20 tablet 07/19/17 [Rx] 3 Allergy/AdvReac Type Severity Reaction Status Date / Time No Known Allergies Allergy Verified 01/09/16 17:56 All Systems PM: A 10-system review of systems was performed and is negative for pertinent findings except as documented above in the HPI. Review of systems: REVIEW OF SYSTEMS GENERAL: Negative for any nausea, vomiting, fevers, chills, or weight loss. NEUROLOGIC: Negative for any blurry vision, blind spots, double vision, facial asymmetry, dysphagia, dysarthria, hemiparesis, hemisensory deficits, vertigo, ataxia. HEENT: Negative for any head trauma, neck trauma, neck stiffness, photophobia, phonophobia, sinusitis, rhinitis. CARDIAC: Negative for any chest pain, peripheral edema. Positive for dyspnea upon exertion and orthopnea PULMONARY: Positive; Shortness of breath and wheezing as well as dyspnea on exertion GASTROINTESTINAL: Negative for any abdominal pain, nausea, vomiting, bright red blood per rectum, melena. GENITOURINARY: Negative for any dysuria, hematuria, incontinence. INTEGUMENTARY: Negative for any rashes, cuts, insect bites. RHEUMATOLOGIC: Negative for any joint pains, photosensitive rashes, history of vasculitis or kidney problems. HEMATOLOGIC: Negative for any abnormal bruising, frequent infections or bleeding. - Constitutional Vitals: Temp Pulse Resp BP Pulse Ox 98.2 F 66 22 171/83 91 07/16/17 12:40 07/16/17 12:40 07/16/17 12:40 07/16/17 12:40 07/16/17 12:40 General appearance: Present: cooperative, mild distress, A&O X 3, answers questions appropriately Exam: GENERAL: The patient is a well-developed, well-nourished male in no apparent distress. He is alert and oriented x3. HEENT: Head is normocephalic and atraumatic. Extraocular muscles are intact. Pupils are equal, round, and reactive to light and accommodation. Nares appeared normal. Mouth is well hydrated and without lesions. Mucous membranes are moist. Posterior pharynx clear of any exudate or lesions. NECK: Supple. No carotid bruits. No lymphadenopathy or thyromegaly. LUNGS: Mild expiratory wheezing throughout. Tachypnea, mild respiratory distress, maintaining O2 saturations on room air. No accessory muscle usage HEART: Regular rate and rhythm without murmur. ABDOMEN: Soft, round, nontender, and nondistended. Positive bowel sounds. No hepatosplenomegaly was noted. EXTREMITIES: Without any cyanosis, clubbing, rash, lesions or edema. NEUROLOGIC: Cranial nerves II through XII are grossly intact. PSYCHIATRIC: Appropriate affect, denies suicidal or homicidal ideations. SKIN: No ulceration or induration present. Internal Med - H&P Results - Labs CBC & Chem 7: 07/16/17 08:46 07/16/17 08:46 Labs: Cardiac Enzymes 07/16/17 Range/Units 13:33 Troponin I 0.03 (< 0.04) ng/mL - EKG Data -: EKG Interpreted by Myself EKG shows normal: sinus rhythm - EKG Data Prior EKG available for review: yes When compared to previous EKG: there is no significant change Interpretation IM: normal EKG EKG comments: Normal sinus rhythm; of note there is T-wave inversion in leads V1, V2, V3 however they are present on prior EKGs as well without any changes 07/16/17 14:20 - Diagnostic Studies Chest x-ray Status: image reviewed by me Additional comments: Chest x-ray reveals stable left pleural effusion Other Images Status: image reviewed by me Additional comments: V/Q scan indicates low probability for PE <Heather Cai - Last Filed: 08/14/17 09:10> Date of Encounter: 08/14/17 Internal Medicine - H&P: HPI History of present illness: Mr. Gayle is a 76 year old male All Systems PM: A 10-system review of systems was performed and is negative for pertinent findings except as documented above in the HPI. - Constitutional Vitals: Temp Pulse Resp BP Pulse Ox 97.9 F 56 16 150/69 94 07/19/17 07:36 07/19/17 07:36 07/19/17 11:44 07/19/17 07:36 07/19/17 11:44 Internal Med - H&P Results - Labs CBC & Chem 7: 07/19/17 07:39 07/19/17 07:39 - Impressions ITS Impressions Echocardiogram 07/17/17 13:22 Impressions: LVEF 60%. Moderate left ventricular diastolic dysfunction. Mild concentric left ventricular hypertrophy. Normal right ventricular structure and function. Mild tricuspid regurgitation. Moderate pulmonary hypertension. Left Ventricular Wall Motion: Rest Echo Findings The mid inferior lateral and basal inferior lateral daniel were not visualized. All other wall segments showed normal motion. Findings: Study Quality * Technically adequate exam. ECG Findings * Sinus rhythm with BBB. Left Ventricle * LVEF 60%. * Moderate left ventricular diastolic dysfunction. * Mild concentric left ventricular hypertrophy. * Normal LV size. Right Ventricle * Normal right ventricular structure and function. Left Atrium * Mildly dilated left atrium. Right Atrium * Normal right atrial size. Aortic Valve * No aortic regurgitation. * Trileaflet aortic valve. * Mild focal calcification. * No aortic stenosis. Mitral Valve * No mitral regurgitation. * Normal mitral valve structure. * No mitral stenosis. Tricuspid Valve * Normal tricuspid valve structure. * Mild tricuspid regurgitation. * Estimated RA pressure is 8 mmHg. * Estimated RVSP is 57 mmHg. * Moderate pulmonary hypertension. Pulmonic Valve * Pulmonic valve is not well visualized. * No pulmonic stenosis. * Trace pulmonic regurgitation. Pulmonary Artery * Pulmonary artery not well visualized. Aorta * Normally sized aortic root. Interatrial Septum * No evidence of PFO by color Doppler. Pericardium * There is no pericardial effusion present. IVC * The IVC is not dilated. * < 50% respiratory change. - Attending Attestation I personally and independently interviewed and examined the patient with [facility] [employer] MGR, and I reviewed the patient's medical record with her. I am in agreement with the assessment and proposed treatment plan. I discussed my findings and recommendation with the patient and answer all questions. The patient's medical records were edited to accurately reflect this encounter.
[2017-07-16] MEDS: hydrALAZINE 25 MG TABLET PO SCH ×2 (14:48→20:12)
[2017-07-16] MEDS: Ipratropium/Albuterol Neb 3 ML IH SCH ×3 (16:04→23:38)
[2017-07-16] MEDS: Lisinopril 20 MG TABLET PO SCH (16:25)
[2017-07-16] MEDS ORDERED: Insulin LISPRO 300 UNITS/3 ML VIAL SQ SCH ×2 (16:30→21:00)
--- NOTE | 2017-07-16 17:19 | Pulmonology Consult Note ---
Date of Encounter: 07/16/17 Time of Encounter: 17:15 Assessment and Plan (1) Dyspnea Current Visit: Yes Status: Acute This is multifactorial acutely of the is related airway hyperreactivity chronically I think is more combination of his obesity deconditioning and heart failure with preserved ejection fraction Qualifiers: Dyspnea type: dyspnea on exertion Qualified Code(s): R06.09 - Other forms of dyspnea (2) COPD exacerbation Current Visit: Yes Status: Acute The PFTs from earlier this year show a moderate restrictive impairment with bronchodilator response this pattern would fit into an asthmatic-like picture. So the patient does have airways disease with his smoking history I suspect that there may be a component of underlying chronic bronchitis as part of his phenotype but appear definition standpoint it would be difficult to label this patient clearly with COPD without having of obstructive deficit noted on PFTs. Nevertheless he does have clear evidence of acute airway hyperreactivity and inflammation including wheezing. 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 This is likely related to an upper respiratory tract infection. There is no clear pattern of interstitial lung disease the chronic pleural effusion on the left may be contributing to restrictive lung disease modestly if at all. Recommend prednisone 40 mg daily with plan to taper over 2 weeks azithromycin 500 mg first day to 50 mg thereafter to complete 5 day course Schedule DuoNeb's while inpatient every 6 hours Patient should have ongoing nebulizer with GEGE/IGLESIA solution to be used q6 Hours Recommend starting Symbicort 160/4.52 puffs twice a day Walking pulse oximetry study. A discharge Outpatient pulmonary follow-up 2-4 weeks at the time of discharge for further evaluation (3) (HFpEF) heart failure with preserved ejection fraction Current Visit: Yes Status: Acute Patient with known diastolic dysfunction on last echocardiogram appears mildly volume overloaded would recommend continued diuresis optimal demonstration of blood pressure control and follow up with outpatient educational administrator. 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 (4) Pleural effusion Current Visit: Yes Status: Acute This is chronic I do not think this is acutely considering to his symptoms this can be followed up as an outpatient with possible thoracentesis as clinically warranted (5) Sleep disorder breathing Current Visit: Yes Status: Acute Patient has a high pretest possibility for sleep disordered breathing recommend formal outpatient polysomnogram which can be scheduled through the pulmonary clinic History of Present Illness Consult date: 07/16/17 Requesting physician: Alfonso Reyes Reason for consult: dyspnea Chief complaint: Shortness of breath History of present illness: This 76 gentleman past medical history of DM CKD coronary artery disease status post CABG former smoker with concern for possible COPD who presented for cough and wheezing. Describes the cough as productive of clear phlegm it started a couple of days prior to admission and patient has been around several family members who have been ill. He was admitted the early part of this month for similar presentation at that time he was treated for possible pneumonia and COPD exacerbation. 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 He has chronic hypertension and coronary disease which is followed by outside hospital educational administrator. He has had PFTs in 2014 which were suggestive of a moderate restrictive disease with bronchodilator response. He denies any childhood history of asthma or other respiratory illness. He does endorse daytime hypersomnolence frequent napping and loud snoring which is corroborated by his at bedside. Patient never had a formal sleep studies were of but says that he did have a "CPAP machine" in the past that he bought on his own. He is unable to tell me much more than this but says does not wear it. He has not been hypoxic since admission and does not wear home oxygen. D-dimer was elevated in the ED prompting VQ scan which was low probability for PE Past Med Surg Social Fam HX - Past Medical History Medical history: COPD, CVA, diabetes Psychiatric history: no psych history - Past Surgical History Surgical History: cholecystectomy - Social History Smoking Status: Former smoker Smokeless Tobacco Status: No Alcohol use: none Drug use: none - Family History Mother Living Status: Hx Family Cardiac Disorders: No Hx Family Respiratory Disorders: Yes (asthma) Hx Family Cancer: Yes (pancreatic) Hx Family GI Disorders: No Hx Family Endocrine Disorder: No Hx Family Neuromuscular Disorders: No Hx Family Neurologic Disorders: No Hx Family HEENT Disorders: No Hx Family Autoimmune Disorders: No Father Living Status: Hx Family Cardiac Disorders: Yes (OK, HTN) Hx Family Respiratory Disorders: No Hx Family Cancer: No Hx Family GI Disorders: No Hx Family Endocrine Disorder: No Hx Family Neuromuscular Disorders: No Hx Family Neurologic Disorders: No Hx Family HEENT Disorders: No Hx Family Autoimmune Disorders: No Medications and Allergies Aspirin [Lo-Dose Aspirin EC] 81 mg PO DAILY 06/21/17 [History] Atorvastatin [Lipitor] 80 mg PO HS 06/21/17 [History] Exenatide [Byetta] 10 mcg SQ BID 06/21/17 [History] Finasteride [Proscar] 5 mg PO DAILY 06/21/17 [History] GlipiZIDE [Glipizide Xl] 5 mg PO BID 06/21/17 [History] Quinapril HCl [Accupril] 20 mg PO BID 06/21/17 [History] hydroCHLOROthiazide [Hydrochlorothiazide] 12.5 mg PO DAILY 06/21/17 [History] Albuterol Sulfate [Ventolin Hfa] 2 puff IH TID PRN 06/22/17 [History] Carvedilol [Coreg] 25 mg PO BID 06/22/17 [History] Ferrous Gluconate 324 mg PO DAILY 06/22/17 [History] Nitroglycerin [Nitrostat] 0.4 mg SL Q5M PRN 06/22/17 [History] hydrALAZINE [HydrALAZINE] 25 mg PO TID 06/22/17 [History] Benzonatate [Tessalon] 200 mg PO TID PRN #30 capsule 06/25/17 [Rx] Ascorbate Calcium [Vitamin C] 500 mg PO DAILY 07/16/17 [History] Tiotropium [place] [Spiriva Respimat] 2.5 mcg IH DAILY 07/16/17 [History] 3 Allergy/AdvReac Type Severity Reaction Status Date / Time No Known Allergies Allergy Verified 01/09/16 17:56 All Systems: A 10-system review of systems was performed and is negative for pertinent findings except as documented above in the HPI. Physical Examination Vital Signs: Vital Signs, Last 4 Hours Temp Pulse Resp BP Pulse Ox 07/16/17 16:31 97.9 F 73 24 168/78 92 07/16/17 16:04 16 92 General appearance: no acute distress Eyes: nonicteric ENT: oropharynx moist Neck: supple, no lymphadenopathy Auscultation: left: diminished breath sounds, bilateral: wheezes (Faint expiratory wheeze that scattered) Cardiovascular: regular rate and rhythm Gastrointestinal: normoactive bowel sounds Extremities: edema Musculoskeletal: no deformities normal mental status, non-focal exam mood appropriate Results - Laboratory Findings CBC and BMP: 07/16/17 08:46 07/16/17 08:46 PT/INR, D-dimer D-Dimer 1512 ng/mLFEU (0-500) H 07/16/17 08:46 Abnormal lab findings: Abnormal lab results MCH 27.7 pg (28.0-33.3) L 07/16/17 08:46 Lymphocytes # 0.5 K/mcL (0.6-4.6) L 07/16/17 08:46 D-Dimer 1512 ng/mLFEU (0-500) H 07/16/17 08:46 Carbon Dioxide 31 mEq/L (23-29) H 07/16/17 08:46 Creatinine 1.54 mg/dL (0.70-1.30) H 07/16/17 08:46 Est GFR ( Amer) 54 (> 60) L 07/16/17 08:46 Est GFR (Non-Af Amer) 44 (> 60) L 07/16/17 08:46 Glucose 316 mg/dL (70-105) H 07/16/17 08:46 B-Natriuretic Peptide 302 pg/mL (Less than 100) H 07/16/17 08:46 - Microbiology Findings Microbiology Findings: Microbiology, Last 48 Hours 07/16/17 12:03 Influenza Types A,B Antigen (CHANELL) - Final Nasopharyngeal - Diagnostic Findings Chest x-ray: report reviewed, image reviewed - Clinical Findings Intake & Output: Intake & Output 07/16/17 07/16/17 07/16/17 07:59 15:59 23:59 Weight 96.275 kg Consult Discharge Plan - Plan Referrals: Vicki Fletcher, [facility] [Primary Care Provider] -
[2017-07-16] MEDS: MethylPREDNISolone 40 MG/ML VIAL IVP SCH ×2 (17:51→23:34)
[2017-07-16] MEDS: Insulin LISPRO 300 UNITS/3 ML VIAL SQ SCH ×2 (17:55→17:56)
[2017-07-16] MEDS: *HR* Heparin 5,000 UNIT/ML VIAL SQ SCH (18:32)
[2017-07-16 20:01] LABS: Adenovirus Not Detected (Not Detect); Bordetella Pertussis Not Detected (Not Detect); Chlamydophila pneumoniae Not Detected (Not Detect); Coronavirus 229E Not Detected (Not Detect); Coronavirus HKU1 Not Detected (Not Detect); Coronavirus NL63 Not Detected (Not Detect); Coronavirus OC43 Not Detected (Not Detect); Human Metapneumovirus Not Detected (Not Detect); Human Rhinovirus/Enterovirus Not Detected (Not Detect); Influenza A Subtype 2009 H1 Not Detected (Not Detect); Influenza A Untypeable Not Detected (Not Detect); Influenza B Not Detected (Not Detect); Mycoplasma pneumoniae Not Detected (Not Detect); Parainfluenza Virus 1 Not Detected (Not Detect); Parainfluenza Virus 2 Not Detected (Not Detect); Parainfluenza Virus 3 Not Detected (Not Detect); Parainfluenza Virus 4 Not Detected (Not Detect); Respiratory Syncytial Virus Not Detected (Not Detect)
[2017-07-16] MEDS ORDERED: 0.9 % Sodium Chloride 1,000 ML ONE (20:01)
[2017-07-16] MEDS: Insulin Human Regular 100 UNIT in 0.9 % Sodium Chloride 100 ML IVC SCH (20:07)
[2017-07-16] MEDS ORDERED: Insulin DETEMIR 100 UNIT/ML X5UNITS SQ SCH (21:00)
[2017-07-17] MEDS: Insulin Human Regular 100 UNIT in 0.9 % Sodium Chloride 100 ML IVC SCH (01:18)
[2017-07-17] MEDS: Ipratropium/Albuterol Neb 3 ML IH SCH ×6 (03:46→23:56)
[2017-07-17 04:51] LABS: Hemoglobin 13.2 g/dL (12.9-16.9); Mean Corpuscular Hemoglobin 28.3 pg (28.0-33.3); Mean Corpuscular Volume 85.8 fL (83.0-100.0); Mean Platelet Volume 11.1 fL (9.4-12.4); Platelet Count 222 K/mcL (140-400); Red Blood Count 4.66 M/mcL (4.19-5.50); Red Cell Distribution Width 13.7 % (11.5-14.5)
[2017-07-17 05:00] LABS: Calcium 9.2 mg/dL (8.6-10.3); Potassium 3.2 mEq/L (3.5-5.1)
[2017-07-17] MEDS: MethylPREDNISolone 40 MG/ML VIAL IVP SCH (05:24)
[2017-07-17] MEDS: *HR* Heparin 5,000 UNIT/ML VIAL SQ SCH ×2 (05:24→16:46)
[2017-07-17] MEDS ORDERED: Insulin LISPRO 300 UNITS/3 ML VIAL SQ SCH ×2 (07:30→21:00)
[2017-07-17] MEDS: Insulin LISPRO 300 UNITS/3 ML VIAL SQ SCH ×5 (08:48→23:58)
[2017-07-17] MEDS: Ascorbic Acid 500 MG TABLET PO SCH (08:52)
[2017-07-17] MEDS: Aspirin Enteric Coated 81 MG Tablet PO SCH (08:52)
[2017-07-17] MEDS: Lisinopril 20 MG TABLET PO SCH (08:52)
[2017-07-17] MEDS: hydrALAZINE 25 MG TABLET PO SCH ×3 (08:52→21:13)
[2017-07-17] MEDS: Finasteride 5 MG TABLET PO SCH (08:53)
[2017-07-17] MEDS ORDERED: hydroCHLOROthiazide 25 MG TABLET PO SCH (09:00)
--- NOTE | 2017-07-17 09:24 | Electrocardiograph Report ---
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
[2017-07-17] MEDS ORDERED: Azithromycin 250 MG TABLET PO ONE (11:32)
--- NOTE | 2017-07-17 15:17 | Internal Med Progress Note ---
Date of Encounter: 07/17/17 Time of Encounter: 11:00 - Assessment and plan (1) COPD exacerbation Current Visit: Yes Status: Acute Assessment and plan: Pulmonology input appreciated. Continue O2 supplementation. Continue bronchodilators. Continue systemic steroids. Placed patient on azithromycin per pulmonary recommendations. We will evaluate for home oxygen prior to discharge. Moderate risk for complications (2) Congestive heart failure Current Visit: Yes Status: Acute Assessment and plan: Patient with diastolic dysfunction per echocardiogram. patient does not have pedal edema or orthopnea but does have exertional dyspnea. Will start patient on Lasix. Stop hydrochlorothiazide. Qualifiers: Congestive heart failure type: diastolic Congestive heart failure chronicity: acute on chronic Qualified Code(s): I50.33 - Acute on chronic diastolic (congestive) heart failure (3) Pulmonary hypertension Current Visit: Yes Status: Chronic Assessment and plan: Moderate pulmonary hypertension per echocardiogram. symptomatic treatment. O2 supplementation as needed. Follow up outpatient with pulmonology heumatic treatment. (4) Diabetes Current Visit: Yes Status: Acute Assessment and plan: Blood sugars are better controlled today. We will continue to monitor and adjust insulin regimen accordingly. Qualifiers: Diabetes mellitus type: type 2 Diabetes mellitus complication status: without complication Diabetes mellitus residential insulin use: without residential use Qualified Code(s): E11.9 - Type 2 diabetes mellitus without complications (5) Essential hypertension Current Visit: Yes Status: Chronic Assessment and plan: Blood pressure is elevated. We will stop hydrochlorothiazide given patient's poor kidney function. Will place patient on Norvasc instead. (6) Chronic kidney disease, stage III (moderate) Current Visit: Yes Status: Chronic Assessment and plan: Renal function is stable. May worsen due to Lasix use. Will follow renal function closely. (7) Dyspnea Current Visit: Yes Status: Acute Assessment and plan: Multifactorial. Due to pulmonary hypertension, diastolic dysfunction and heart failure along with reactive airway disease. Qualifiers: Dyspnea type: dyspnea on exertion Qualified Code(s): R06.09 - Other forms of dyspnea (8) (HFpEF) heart failure with preserved ejection fraction Current Visit: Yes Status: Acute Assessment and plan: Management as above. - Subjective Interval history: Patient is awake and alert. Shortness of breath is somewhat improved but he does continue to have exertional dyspnea. Denies any wheezing at this time. No nausea or vomiting. No chest pain. No palpitations. No orthopnea or PND. - Constitutional Vitals: Temp Pulse Resp BP Pulse Ox 98 F 67 19 160/72 91 07/17/17 11:18 07/17/17 11:18 07/17/17 11:41 07/17/17 11:18 07/17/17 11:41 General appearance: Present: cooperative, mild distress, A&O X 3, answers questions appropriately - Neck Neck exam general surgery: Present: supple, trachea midline. Absent: lymphadenopathy - Respiratory Respiratory exam: Present: prolonged expiratory phase, wheezes (mild end expiratory). Absent: accessory muscle use, rales, rhonchi - Cardiovascular Cardiovascular exam: Present: RRR, +S1, +S2. Absent: diastolic murmur, gallop, rubs, systolic murmur - GI/Abdominal GI/Abdominal exam: Present: normal bowel sounds, soft, no peritoneal signs. Absent: distended, tenderness - Extremities Exam Extremities exam: Present: warm, radial pulses palpable and symmetrical. Absent : calf tenderness, cyanotic, pedal edema - Neurological Exam Neurological exam: Present: alert, oriented X3, no focal deficits. Absent: facial droop, speech deficit - Skin Skin exam: Present: dry, intact Internal Medicine: Result - Labs CBC & Chem 7: 07/17/17 03:59 07/17/17 03:59 Labs: Short CBC 07/17/17 Range/Units 03:59 WBC 8.7 (4.3-11.1) K/mcL Hgb 13.2 (12.9-16.9) g/dL Hct 40.0 (37.5-50.1) % Plt Count 222 (140-400) K/mcL [facility] 07/17/17 03:59 Sodium 138 Potassium 3.2 L Chloride 100 Carbon Dioxide 30 H BUN 26 H Creatinine 1.59 H Glucose 86 Calcium 9.2 Cardiac Enzymes 07/16/17 Range/Units 19:45 Troponin I < 0.03 (< 0.04) ng/mL - ABG Interpretation ABG results: PT/INR, D-dimer D-Dimer 1512 ng/mLFEU (0-500) H 07/16/17 08:46 - Impressions Impressions Echocardiogram 07/17/17 13:22 Impressions: LVEF 60%. Moderate left ventricular diastolic dysfunction. Mild concentric left ventricular hypertrophy. Normal right ventricular structure and function. Mild tricuspid regurgitation. Moderate pulmonary hypertension. Left Ventricular Wall Motion: Rest Echo Findings The mid inferior lateral and basal inferior lateral daniel were not visualized. All other wall segments showed normal motion. Findings: Study Quality * Technically adequate exam. ECG Findings * Sinus rhythm with BBB. Left Ventricle * LVEF 60%. * Moderate left ventricular diastolic dysfunction. * Mild concentric left ventricular hypertrophy. * Normal LV size. Right Ventricle * Normal right ventricular structure and function. Left Atrium * Mildly dilated left atrium. Right Atrium * Normal right atrial size. Aortic Valve * No aortic regurgitation. * Trileaflet aortic valve. * Mild focal calcification. * No aortic stenosis. Mitral Valve * No mitral regurgitation. * Normal mitral valve structure. * No mitral stenosis. Tricuspid Valve * Normal tricuspid valve structure. * Mild tricuspid regurgitation. * Estimated RA pressure is 8 mmHg. * Estimated RVSP is 57 mmHg. * Moderate pulmonary hypertension. Pulmonic Valve * Pulmonic valve is not well visualized. * No pulmonic stenosis. * Trace pulmonic regurgitation. Pulmonary Artery * Pulmonary artery not well visualized. Aorta * Normally sized aortic root. Interatrial Septum * No evidence of PFO by color Doppler. Pericardium * There is no pericardial effusion present. IVC * The IVC is not dilated. * < 50% respiratory change. Consult Discharge Plan - Plan Referrals: Vicki Fletcher, BRAKE SHOE REBUILDER [Primary Care Provider] -
[2017-07-17] MEDS ORDERED: Insulin Human Regular 5 UNIT in 0.9 % Sodium Chloride 10 ML IV ONE (16:30)
[2017-07-17] MEDS: amLODIPine 5 MG TABLET PO SCH (16:45)
[2017-07-17] MEDS ORDERED: Insulin DETEMIR 100 UNIT/ML X5UNITS SQ SCH (21:00)
[2017-07-17] MEDS ORDERED: Insulin LISPRO 300 UNITS/3 ML VIAL SQ ONE (23:42)
[2017-07-18] MEDS: Ipratropium/Albuterol Neb 3 ML IH SCH ×5 (04:44→20:45)
[2017-07-18] MEDS: *HR* Heparin 5,000 UNIT/ML VIAL SQ SCH ×2 (06:19→17:17)
[2017-07-18 06:30] LABS: Basophils % 0.4 %; Eosinophils # 0.1 K/mcL (0.0-0.6); Eosinophils % 0.4 %; Hemoglobin 12.6 g/dL (12.9-16.9); Immature Granulocytes % 0.8 % (0-4); Lymphocytes % 8.5 %; Mean Corpuscular HGB Conc 32.3 g/dL (31.6-35.5); Mean Corpuscular Hemoglobin 27.8 pg (28.0-33.3); Mean Corpuscular Volume 85.9 fL (83.0-100.0); Mean Platelet Volume 10.6 fL (9.4-12.4); Monocytes # 0.7 K/mcL (0.0-1.3); Monocytes % 6.5 %; Neutrophils # 9.3 K/mcL (1.6-8.9); Platelet Count 259 K/mcL (140-400); Red Blood Count 4.54 M/mcL (4.19-5.50); Red Cell Distribution Width 14.6 % (11.5-14.5); Segmented Neutrophils % 83.4 %
[2017-07-18 06:38] LABS: Potassium 3.9 mEq/L (3.5-5.1)
[2017-07-18] MEDS: Ascorbic Acid 500 MG TABLET PO SCH (08:27)
[2017-07-18] MEDS: Azithromycin 250 MG TABLET PO SCH (08:27)
[2017-07-18] MEDS: predniSONE 20 MG TABLET PO SCH (08:27)
[2017-07-18] MEDS: Aspirin Enteric Coated 81 MG Tablet PO SCH (08:27)
[2017-07-18] MEDS: hydrALAZINE 25 MG TABLET PO SCH ×3 (08:27→21:05)
[2017-07-18] MEDS: amLODIPine 5 MG TABLET PO SCH (08:27)
[2017-07-18] MEDS: Finasteride 5 MG TABLET PO SCH (08:28)
[2017-07-18] MEDS: Lisinopril 20 MG TABLET PO SCH (08:28)
[2017-07-18] MEDS: Insulin LISPRO 300 UNITS/3 ML VIAL SQ SCH ×7 (08:28→21:05)
[2017-07-18] MEDS ORDERED: Furosemide 20 MG TABLET PO SCH (09:00)
--- NOTE | 2017-07-18 11:02 | Internal Med Progress Note ---
Date of Encounter: 07/18/17 Time of Encounter: 11:02 - Assessment and plan (1) Diabetes Current Visit: Yes Status: Chronic Assessment and plan: Blood sugars are better controlled today. We will continue to monitor and adjust insulin regimen accordingly. Per patient A1C was 6.8 in last visit Qualifiers: Diabetes mellitus type: type 2 Diabetes mellitus complication status: without complication Diabetes mellitus usp insulin use: without usp use Qualified Code(s): E11.9 - Type 2 diabetes mellitus without complications (2) CAD (coronary artery disease) Current Visit: Yes Status: Chronic Assessment and plan: Chroni, stable, continue home meds Qualifiers: Coronary Disease-Associated Artery/Lesion type: unspecified vessel or lesion type [place] vs. transplanted heart: [place] heart Associated angina: without angina Qualified Code(s): I25.10 - Atherosclerotic heart disease of [place] coronary artery without angina pectoris (3) Benign hypertension with chronic kidney disease, stage III Current Visit: Yes Status: Chronic Assessment and plan: Continue current meds (4) (HFpEF) heart failure with preserved ejection fraction Current Visit: Yes Status: Acute Assessment and plan: Management as above. (5) Chronic bronchitis with acute exacerbation Current Visit: Yes Status: Acute Assessment and plan: Continue azithromycin, prednisone, nebs (6) Pulmonary hypertension Current Visit: Yes Status: Chronic Assessment and plan: Moderate pulmonary hypertension per echocardiogram. symptomatic treatment. O2 supplementation as needed. Follow up outpatient with pulmonology - Subjective Interval history: Seen and examined at bedside Wheezing diffusely - Constitutional Vitals: Temp Pulse Resp BP Pulse Ox 97.6 F 56 16 161/75 95 07/18/17 07:19 07/18/17 07:19 07/18/17 07:57 07/18/17 07:19 07/18/17 07:57 General appearance: Present: cooperative, mild distress, A&O X 3, answers questions appropriately - Head Head exam: Present: atraumatic, normocephalic - Eye Eye exam: Present: PERRL, conjuntiva pink, sclera anicteric Pupils: Present: PERRL - Neck Neck exam general surgery: Present: supple, trachea midline. Absent: lymphadenopathy - Respiratory Respiratory exam: Present: wheezes - Cardiovascular Cardiovascular exam: Present: RRR, +S1, +S2. Absent: diastolic murmur, gallop, rubs, systolic murmur - GI/Abdominal GI/Abdominal exam: Present: normal bowel sounds, soft, no peritoneal signs. Absent: distended, tenderness - Extremities Exam Extremities exam: Present: warm, radial pulses palpable and symmetrical. Absent : calf tenderness, cyanotic, pedal edema - Neurological Exam Neurological exam: Present: alert, CN II-XII intact, oriented X3, no focal deficits. Absent: pronater drift, facial droop, speech deficit - Skin Skin exam: Present: dry, intact Internal Medicine: Result - Labs CBC & Chem 7: 07/18/17 06:10 07/18/17 06:10 Labs: Short CBC 07/18/17 Range/Units 06:10 WBC 11.2 H (4.3-11.1) K/mcL Hgb 12.6 L (12.9-16.9) g/dL Hct 39.0 (37.5-50.1) % Plt Count 259 (140-400) K/mcL Neutrophils # 9.3 H (1.6-8.9) K/mcL BMP 07/17/17 07/18/17 23:09 06:10 Sodium 136 Potassium 3.9 Chloride 101 Carbon Dioxide 30 H BUN 44 H Creatinine 1.86 H Glucose 458 H 141 H Calcium 9.0 - ABG Interpretation ABG results: PT/INR, D-dimer D-Dimer 1512 ng/mLFEU (0-500) H 07/16/17 08:46 - Impressions Impressions Echocardiogram 07/17/17 13:22 Impressions: LVEF 60%. Moderate left ventricular diastolic dysfunction. Mild concentric left ventricular hypertrophy. Normal right ventricular structure and function. Mild tricuspid regurgitation. Moderate pulmonary hypertension. Left Ventricular Wall Motion: Rest Echo Findings The mid inferior lateral and basal inferior lateral daniel were not visualized. All other wall segments showed normal motion. Findings: Study Quality * Technically adequate exam. ECG Findings * Sinus rhythm with BBB. Left Ventricle * LVEF 60%. * Moderate left ventricular diastolic dysfunction. * Mild concentric left ventricular hypertrophy. * Normal LV size. Right Ventricle * Normal right ventricular structure and function. Left Atrium * Mildly dilated left atrium. Right Atrium * Normal right atrial size. Aortic Valve * No aortic regurgitation. * Trileaflet aortic valve. * Mild focal calcification. * No aortic stenosis. Mitral Valve * No mitral regurgitation. * Normal mitral valve structure. * No mitral stenosis. Tricuspid Valve * Normal tricuspid valve structure. * Mild tricuspid regurgitation. * Estimated RA pressure is 8 mmHg. * Estimated RVSP is 57 mmHg. * Moderate pulmonary hypertension. Pulmonic Valve * Pulmonic valve is not well visualized. * No pulmonic stenosis. * Trace pulmonic regurgitation. Pulmonary Artery * Pulmonary artery not well visualized. Aorta * Normally sized aortic root. Interatrial Septum * No evidence of PFO by color Doppler. Pericardium * There is no pericardial effusion present. IVC * The IVC is not dilated. * < 50% respiratory change. Consult Discharge Plan - Plan Referrals: Vicki Fletcher, ENGINE REPAIR SUPERVISOR [Primary Care Provider] -
[2017-07-18] MEDS ORDERED: Insulin DETEMIR 100 UNIT/ML X5UNITS SQ SCH (21:00)
[2017-07-18] MEDS ORDERED: Insulin LISPRO 300 UNITS/3 ML VIAL SQ ONE (23:42)
[2017-07-19] MEDS: Ipratropium/Albuterol Neb 3 ML IH SCH ×4 (00:57→11:42)
[2017-07-19] MEDS: *HR* Heparin 5,000 UNIT/ML VIAL SQ SCH (06:45)
[2017-07-19 07:37] VITALS: BP 150/69
[2017-07-19] MEDS: Finasteride 5 MG TABLET PO SCH (07:52)
[2017-07-19] MEDS: Lisinopril 20 MG TABLET PO SCH (07:52)
[2017-07-19] MEDS: predniSONE 20 MG TABLET PO SCH (07:52)
[2017-07-19] MEDS: amLODIPine 5 MG TABLET PO SCH (07:53)
[2017-07-19] MEDS: Aspirin Enteric Coated 81 MG Tablet PO SCH (07:54)
[2017-07-19] MEDS: hydrALAZINE 25 MG TABLET PO SCH (07:54)
[2017-07-19] MEDS: Ascorbic Acid 500 MG TABLET PO SCH (07:54)
[2017-07-19] MEDS: Azithromycin 250 MG TABLET PO SCH (07:55)
[2017-07-19] MEDS: Insulin LISPRO 300 UNITS/3 ML VIAL SQ SCH ×4 (07:55→13:04)
[2017-07-19 08:08] LABS: Basophils % 0.5 %; Eosinophils # 0.2 K/mcL (0.0-0.6); Eosinophils % 2.6 %; Hematocrit 40.6 % (37.5-50.1); Hemoglobin 12.9 g/dL (12.9-16.9); Immature Granulocytes % 1.2 % (0-4); Lymphocytes # 0.9 K/mcL (0.6-4.6); Lymphocytes % 11.3 %; Mean Corpuscular HGB Conc 31.8 g/dL (31.6-35.5); Mean Corpuscular Hemoglobin 27.8 pg (28.0-33.3); Mean Corpuscular Volume 87.5 fL (83.0-100.0); Mean Platelet Volume 10.5 fL (9.4-12.4); Monocytes # 0.7 K/mcL (0.0-1.3); Monocytes % 8.8 %; Neutrophils # 5.7 K/mcL (1.6-8.9); Platelet Count 240 K/mcL (140-400); Red Blood Count 4.64 M/mcL (4.19-5.50); Red Cell Distribution Width 14.6 % (11.5-14.5); Segmented Neutrophils % 75.6 %
[2017-07-19 08:20] LABS: Hemoglobin A1C 8.7 %
[2017-07-19 08:22] LABS: Calcium 8.9 mg/dL (8.6-10.3); Potassium 4.2 mEq/L (3.5-5.1)
--- NOTE | 2017-07-19 11:31 | Discharge Summary ---
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 transplanted heart: [place] heart Associated angina: without angina Qualified Code(s): I25.10 - Atherosclerotic heart disease of [place] coronary artery without angina pectoris (3) Benign hypertension with chronic kidney disease, stage III Priority: Secondary Status: Chronic (4) (HFpEF) heart failure with preserved ejection fraction Priority: Primary Status: Acute (5) Chronic bronchitis with acute exacerbation Priority: Primary Status: Acute (6) Pulmonary hypertension Priority: Secondary Status: Chronic - Discharge Medications Prescriptions: Azithromycin 250 mg PO DAILY #3 tablet Budesonide/Formoterol 160/4.5 [Symbicort 160/4.5] 1 puff IH BIDR #1 hfa.aer.ad predniSONE [PredniSONE] See Taper PO DAILY #20 tablet Home Medications: Aspirin [Lo-Dose Aspirin EC] 81 mg PO DAILY 06/21/17 [History] Atorvastatin [Lipitor] 80 mg PO HS 06/21/17 [History] Exenatide [Byetta] 10 mcg SQ BID 06/21/17 [History] Finasteride [Proscar] 5 mg PO DAILY 06/21/17 [History] GlipiZIDE [Glipizide Xl] 5 mg PO BID 06/21/17 [History] Quinapril HCl [Accupril] 20 mg PO BID 06/21/17 [History] hydroCHLOROthiazide [Hydrochlorothiazide] 12.5 mg PO DAILY 06/21/17 [History] Albuterol Sulfate [Ventolin Hfa] 2 puff IH TID PRN 06/22/17 [History] Carvedilol [Coreg] 25 mg PO BID 06/22/17 [History] Ferrous Gluconate 324 mg PO DAILY 06/22/17 [History] Nitroglycerin [Nitrostat] 0.4 mg SL Q5M PRN 06/22/17 [History] hydrALAZINE [HydrALAZINE] 25 mg PO TID 06/22/17 [History] Benzonatate [Tessalon] 200 mg PO TID PRN #30 capsule 06/25/17 [Rx] Ascorbate Calcium [Vitamin C] 500 mg PO DAILY 07/16/17 [History] Tiotropium [place] [Spiriva Respimat] 2.5 mcg IH DAILY 07/16/17 [History] Azithromycin 250 mg PO DAILY #3 tablet 07/19/17 [Rx] Budesonide/Formoterol 160/4.5 [Symbicort 160/4.5] 1 puff IH BIDR #1 hfa.aer.ad 07/19/17 [Rx] predniSONE [PredniSONE] See Taper PO DAILY #20 tablet 07/19/17 [Rx] Allergies/Adverse Reactions: 3 Allergy/AdvReac Type Severity Reaction Status Date / Time No Known Allergies Allergy Verified 01/09/16 17:56 Procedures/tests Complete & Pending: Procedures Performed prior 72 hours Category Date Time Status EV echocardiogram Routine Y 07/17/17 13:22 Completed Date of admission: 07/16/17 11:24 Primary care physician: Vicki Fletcher CNP Consults: 07/16/17 14:16 Consult to Pulmonology [CONS] Routine Consulting Provider: [facility] Reason for Consult: dyspnea, chronic left pleural effusion Time Notified: 14:16 Call Completed: Yes Discharging clinician: Cj Covarrubias Anticipated date of discharge: 07/19/17 - Patient Status Disposition: Home, Self-Care Condition: Good Functional capacity at discharge: independent ambulation Overall status at discharge: patient is back to baseline - Discharge Instructions Instructions: Heart Failure (DC), Chronic Obstructive Pulmonary Disease (DC), Diabetic Hyperglycemia (DC) Follow Up With: Adiel Herman MD [Partnered Physician] - (web request sent on 2016.) Vicki Fletcher CNP [Primary Care Provider] - (Web request sent 07/19/2017.) - Diet and Activity Activity: resume usual activities as tolerated Diet: advance to your usual diet Interval History: See below Hospital course: Mr. Gayle is a 76 year old male with CHFpEF, CAD, Moderate Pulm HTN, COPD, DM He was admitted to observation for management of COPDE, ECHO done also showed moderate Pulm HTN He has been improving gradually and has no new complains on eval this morning His FS was uncontrolled initially due to steroids but has improved with insulin , A1C 8.5, pulmonology was consulted and recommendations folowed patient has been without supplemental O2 he is stable ot be discharged on prednisone taper and azithromycin Continue other home meds and follow up with Pulmonology and PCP - Time Spent with Patient Total time spent providing and/or coordinating discharge services: Less than 30 minutes - Constitutional Vitals: Temp Pulse Resp BP Pulse Ox 97.9 F 56 16 150/69 94 07/19/17 07:36 07/19/17 07:36 07/19/17 08:30 07/19/17 07:36 07/19/17 08:30 General appearance: Present: cooperative, A&O X 3, pleasant, no acute distress, answers questions appropriately - Head Head exam: Present: atraumatic, normocephalic - Eye Eye exam: Present: PERRL, conjuntiva pink, sclera anicteric Pupils: Present: PERRL - Neck Neck exam general surgery: Present: supple, trachea midline. Absent: lymphadenopathy - Respiratory Respiratory exam: Present: CTAB. Absent: accessory muscle use, rales, rhonchi, wheezes - Cardiovascular Cardiovascular exam: Present: RRR, +S1, +S2. Absent: diastolic murmur, gallop, rubs, systolic murmur - GI/Abdominal GI/Abdominal exam: Present: normal bowel sounds, soft, no peritoneal signs. Absent: distended, tenderness - Extremities Exam Extremities exam: Present: warm, radial pulses palpable and symmetrical. Absent : calf tenderness, cyanotic, pedal edema - Neurological Exam Neurological exam: Present: alert, CN II-XII intact, oriented X3, no focal deficits. Absent: pronater drift, facial droop, speech deficit - Skin Skin exam: Present: dry, intact
== END 2017-07-19 13:38 | disposition home or self-care (01) ==
LOC: EMEROO 08:08 → 2ANU 08:08 → SUATTDRO 11:24 → 2ANU 11:28
PROVIDERS: ADMIT Nurse Practitioner; ATTEND Internal Medicine

== ENCOUNTER 2017-11-22 05:57 | Inpatient (IN) ==
--- NOTE | 2017-11-22 06:21 | Emergency Department Note ---
Disposition Clinical Impression: New onset a-fib Acute exacerbation of CHF (congestive heart failure) Qualifiers: Heart failure type: unspecified Qualified Code(s): I50.9 - Heart failure, unspecified Disposition: Still a Patient Condition: Undetermined Referrals: Vicki Fletcher AQUACULTURE FARM MANAGER [Primary Care Provider] - Forms: ED Satisfaction Letter Time of Disposition: 06:48 SOB HPI - General Chief Complaint: ED Shortness of Breath/Dyspnea Stated Complaint: aaron, retaining fluid Time Seen by Provider: 11/22/17 06:08 Source: patient Mode of arrival: ambulatory Limitations: no limitations Nursing Notes Reviewed: Yes Vital Signs Reviewed: Yes - History of Present Illness Patient is a 77-year-old male who presents to [facility] ED with a chief complaint of difficulty breathing. States his been worsening over the last 2 weeks. States he has seen his primary care physician for this and they have had him taking 20 mg of Lasix daily for the last week and a half. States he is still retaining fluid. He does have a history of chronic kidney disease and only has one kidney. He follows with the robotic toy inventor Dr. Martin. Denies any nausea, vomiting, fever or chills. Admits to intermittent chest pains with this. Denies any abdominal pain, problems with urination or bowel movements. States he has had worsening swelling of his lower extremities and feels like he is retaining fluid everywhere. Pt Subjective Complaint: shortness of breath Onset (ago): week(s) (2) Severity: moderate Consistency/Duration: gradually worsening Improves with: rest Worsens with: lying flat, exertion Known history of: congestive heart failure Associated symptoms: Reports: chest pain. Denies: fever, cough, wheezing, nausea/vomiting, abdominal pain Treatment prior to arrival: none Sputum Amount: None - Related Data Home oxygen amount: none Home Medications Medication Instructions Recorded Confirmed Aspirin [Lo-Dose Aspirin EC] 81 mg PO DAILY 06/21/17 07/16/17 Atorvastatin [Lipitor] 80 mg PO HS 06/21/17 07/16/17 Exenatide [Byetta] 10 mcg SQ BID 06/21/17 07/16/17 Finasteride [Proscar] 5 mg PO DAILY 06/21/17 07/16/17 GlipiZIDE [Glipizide Xl] 5 mg PO BID 06/21/17 07/16/17 Quinapril HCl [Accupril] 20 mg PO BID 06/21/17 07/16/17 hydroCHLOROthiazide 12.5 mg PO DAILY 06/21/17 07/16/17 [Hydrochlorothiazide] Albuterol Sulfate [Ventolin Hfa] 2 puff IH TID PRN 06/22/17 07/16/17 Carvedilol [Coreg] 25 mg PO BID 06/22/17 07/16/17 Ferrous Gluconate 324 mg PO DAILY 06/22/17 07/16/17 Nitroglycerin [Nitrostat] 0.4 mg SL Q5M PRN 06/22/17 07/16/17 hydrALAZINE [HydrALAZINE] 25 mg PO TID 06/22/17 07/16/17 Ascorbate Calcium [Vitamin C] 500 mg PO DAILY 07/16/17 07/16/17 Tiotropium [place] [Spiriva 2.5 mcg IH DAILY 07/16/17 07/16/17 Respimat] Previous Rx's Medication Instructions Recorded Benzonatate [Tessalon] 200 mg PO TID PRN #30 capsule 06/25/17 Azithromycin 250 mg PO DAILY #3 tablet 07/19/17 Budesonide/Formoterol 160/4.5 1 puff IH BIDR #1 hfa.aer.ad 07/19/17 [Symbicort 160/4.5] predniSONE [PredniSONE] See Taper PO DAILY #20 tablet 07/19/17 Allergies Allergy/AdvReac Type Severity Reaction Status Date / Time No Known Allergies Allergy Verified 01/09/16 17:56 All systems ED: reviewed and negative except as stated. Past Medical History - Past Medical History Attestation: Yes The following information was validated with the patient. Source: patient Medical history: Reports: CHF, COPD, CVA, diabetes, renal disease Surgical history: Reports: cholecystectomy, coronary bypass (CABG) Psychiatric history: Reports: no psych history - Social History Smoking Status: Former smoker Smokeless Tobacco Status: No Alcohol use: Reports: none Drug use: Reports: none Physical Exam - General Limitations: no limitations General appearance: alert - Head Head exam: atraumatic, normocephalic, normal inspection - Eye Eye exam: Present: normal appearance, EOMI - ENT ENT exam: normal exam, normal oropharynx, mucous membranes moist - Neck Neck exam: Present: normal inspection, full ROM, trachea midline - Chest Chest inspection: Present: normal inspection, symmetric chest wall rise - Respiratory Respiratory exam: Present: other (Crackles noted at the left lower base) - Cardiovascular Cardiovascular exam: Present: regular rate, irregular rhythm, normal heart sounds - Abdominal Exam Abdominal exam: Present: soft, Non-Tender. Absent: tenderness, distention, guarding, rebound, rigidity - Extremities Exam Extremities exam: Present: pedal edema (3+ pitting b/l) - Back Exam Back exam: Present: normal inspection, full ROM. Absent: tenderness - Neurological Exam Neurological exam: Present: alert, oriented X3 - Psychiatric Psychiatric exam: Present: normal affect, normal mood - Skin Skin exam: Present: warm, dry, intact, normal color Course Course Narrative: Patient seen and examined. Difficulty breathing over the last 2 weeks. History of congestive heart failure. Cardiopulmonary workup initiated. On room air, patient was saturating around 88% at triage, but did improve to 94% on 2 L of oxygen. He is not on any home oxygen. Patient is hypertensive during my exam with a systolic of 181. We will give sublingual nitroglycerin. Patient also appears to be in atrial fibrillation that is rate controlled at this time. Upon talking to the patient and his , they state he has never had any prior diagnosis of atrial fibrillation. This appears to be a new diagnosis for him. Patient will be signed out to day shift Dr. Mccollum pending lab work and imaging. Vital Signs Temperature 97.8 F 11/22/17 06:02 Pulse Rate 74 11/22/17 06:02 Respiratory Rate 22 11/22/17 06:02 Blood Pressure 181/91 11/22/17 06:02 O2 Sat by Pulse Oximetry 92 11/22/17 06:02 Temperature 97.8 F 11/22/17 06:02 Pulse Rate 74 11/22/17 06:02 Respiratory Rate 22 11/22/17 06:02 Blood Pressure 181/91 11/22/17 06:02 O2 Sat by Pulse Oximetry 92 11/22/17 06:02 Oxygen Delivery Oxygen Delivery Room Air Shortness of Breath/Dyspnea - Medical Records Medical records reviewed: Yes I reviewed the patient's medical records. - Lab Data Lab results reviewed: Yes I reviewed the patient's lab results. Result diagrams: 11/22/17 06:18 Lab Results 11/22/17 Range/Units 06:18 WBC 6.3 (4.3-11.1) K/mcL RBC 5.07 (4.19-5.50) M/mcL Hgb 13.5 (12.9-16.9) g/dL Hct 43.8 (37.5-50.1) % MCV 86.4 (83.0-100.0) fL MCH 26.6 L (28.0-33.3) pg MCHC 30.8 L (31.6-35.5) g/dL RDW 13.7 (11.5-14.5) % Plt Count 167 (140-400) K/mcL MPV 10.9 (9.4-12.4) fL Immature Gran % 0.3 (0-4) % Seg Neutrophils % 69.2 % Lymphocytes % 17.6 % Monocytes % 9.2 % Eosinophils % 2.9 % Basophils % 0.8 % Neutrophils # 4.4 (1.6-8.9) K/mcL Lymphocytes # 1.1 (0.6-4.6) K/mcL Monocytes # 0.6 (0.0-1.3) K/mcL Eosinophils # 0.2 (0.0-0.6) K/mcL Basophils # 0.1 (0.0-0.2) K/mcL - Radiology Data Radiology results reviewed: Yes I reviewed the patient's radiology results. - EKG Data EKG attestation: Yes I reviewed and interpreted this EKG. EKG results narrative: EKG done at 612 shows atrial fibrillation with a rate of 85 bpm. Right bundle branch block present. No acute ST elevation. Mild ST depression in leads V1 and V2 which are also demonstrated in prior EKG done 07/16/2017.
[2017-11-22 06:31] LABS: Basophils # 0.1 K/mcL (0.0-0.2); Basophils % 0.8 %; Eosinophils # 0.2 K/mcL (0.0-0.6); Eosinophils % 2.9 %; Hematocrit 43.8 % (37.5-50.1); Hemoglobin 13.5 g/dL (12.9-16.9); Immature Granulocytes % 0.3 % (0-4); Lymphocytes # 1.1 K/mcL (0.6-4.6); Lymphocytes % 17.6 %; Mean Corpuscular HGB Conc 30.8 g/dL (31.6-35.5); Mean Corpuscular Hemoglobin 26.6 pg (28.0-33.3); Mean Corpuscular Volume 86.4 fL (83.0-100.0); Mean Platelet Volume 10.9 fL (9.4-12.4); Monocytes # 0.6 K/mcL (0.0-1.3); Monocytes % 9.2 %; Neutrophils # 4.4 K/mcL (1.6-8.9); Platelet Count 167 K/mcL (140-400); Red Blood Count 5.07 M/mcL (4.19-5.50); Red Cell Distribution Width 13.7 % (11.5-14.5); Segmented Neutrophils % 69.2 %
--- NOTE | 2017-11-22 06:34 | Emergency Department Note ---
Disposition Clinical Impression: Acute exacerbation of CHF (congestive heart failure), New onset a-fib Disposition: Still a Patient Condition: Undetermined General Adult HPI - General Chief complaint: ED Shortness of Breath/Dyspnea Stated complaint: aaron, retaining fluid Time Seen by Provider: 11/22/17 06:08 Source: patient Mode of arrival: ambulatory Limitations: no limitations - History of Present Illness Pain Scale: 0 - Related Data Home Medications Medication Instructions Recorded Confirmed Aspirin [Lo-Dose Aspirin EC] 81 mg PO DAILY 06/21/17 11/22/17 Atorvastatin [Lipitor] 80 mg PO HS 06/21/17 11/22/17 Exenatide [Byetta] 10 mcg SQ BID 06/21/17 11/22/17 Finasteride [Proscar] 5 mg PO DAILY 06/21/17 11/22/17 Quinapril HCl [Accupril] 20 mg PO BID 06/21/17 11/22/17 hydroCHLOROthiazide 12.5 mg PO DAILY 06/21/17 11/22/17 [Hydrochlorothiazide] Albuterol Sulfate [Ventolin Hfa] 2 puff IH TID PRN 06/22/17 11/22/17 Carvedilol [Coreg] 25 mg PO BID 06/22/17 11/22/17 Ferrous Gluconate 324 mg PO DAILY 06/22/17 11/22/17 Nitroglycerin [Nitrostat] 0.4 mg SL Q5M PRN 06/22/17 11/22/17 hydrALAZINE [HydrALAZINE] 25 mg PO TID 06/22/17 11/22/17 Ascorbate Calcium [Vitamin C] 500 mg PO DAILY 07/16/17 11/22/17 Tiotropium [place] [Spiriva 2.5 mcg IH DAILY 07/16/17 11/22/17 Respimat] Furosemide [Lasix] 20 mg PO DAILY 11/22/17 11/22/17 glipiZIDE [Glucotrol] 5 mg PO BIDWM 11/22/17 11/22/17 Previous Rx's Medication Instructions Recorded Budesonide/Formoterol 160/4.5 1 puff IH BIDR #1 hfa.aer.ad 07/19/17 [Symbicort 160/4.5] Allergies Allergy/AdvReac Type Severity Reaction Status Date / Time No Known Allergies Allergy Verified 01/09/16 17:56 Past Medical History - Past Medical History Medical history: Reports: COPD, CVA, diabetes Surgical history: Reports: cholecystectomy Psychiatric history: Reports: no psych history - Social History Smoking Status: Former smoker Smokeless Tobacco Status: No Alcohol use: Reports: none Drug use: Reports: none Physical Exam - General Limitations: no limitations General appearance: alert Course Vital Signs Temperature 97.8 F 11/22/17 06:02 Pulse Rate 74 11/22/17 06:02 Respiratory Rate 22 11/22/17 06:02 Blood Pressure 181/91 11/22/17 06:02 O2 Sat by Pulse Oximetry 92 11/22/17 06:02 Temperature 98.2 F 11/23/17 04:37 Pulse Rate 81 11/23/17 04:37 Respiratory Rate 19 11/23/17 04:37 Blood Pressure 150/82 11/23/17 04:37 O2 Sat by Pulse Oximetry 95 11/23/17 04:37 Oxygen Delivery Oxygen Delivery Nasal Cannula Medical Decision Making - Lab Data Result diagrams: 11/23/17 04:23 11/23/17 04:23 Lab Results 11/22/17 11/22/17 11/22/17 Range/Units 06:18 06:18 06:18 WBC 6.3 (4.3-11.1) K/mcL RBC 5.07 (4.19-5.50) M/mcL Hgb 13.5 (12.9-16.9) g/dL Hct 43.8 (37.5-50.1) % MCV 86.4 (83.0-100.0) fL MCH 26.6 L (28.0-33.3) pg MCHC 30.8 L (31.6-35.5) g/dL RDW 13.7 (11.5-14.5) % Plt Count 167 (140-400) K/mcL MPV 10.9 (9.4-12.4) fL Immature Gran % 0.3 (0-4) % Seg Neutrophils % 69.2 % Lymphocytes % 17.6 % Monocytes % 9.2 % Eosinophils % 2.9 % Basophils % 0.8 % Neutrophils # 4.4 (1.6-8.9) K/mcL Lymphocytes # 1.1 (0.6-4.6) K/mcL Monocytes # 0.6 (0.0-1.3) K/mcL Eosinophils # 0.2 (0.0-0.6) K/mcL Basophils # 0.1 (0.0-0.2) K/mcL Sodium 140 (136-145) mEq/L Potassium 3.6 (3.5-5.1) mEq/L Chloride 100 (98-107) mEq/L Carbon Dioxide 33 H (23-29) mEq/L BUN 25 H (8-23) mg/dL Creatinine 1.53 H (0.70-1.30) mg/dL Est GFR ( Amer) 54 L (> 60) Est GFR (Non-Af Amer) 44 L (> 60) BUN/Creatinine Ratio 16 (6-26) Glucose 241 H (70-105) mg/dL POC Glucose (70-99) mg/dL Calculated Osmolality 302 H (280-300) Calcium 9.3 (8.6-10.3) mg/dL Troponin I 0.03 (< 0.04) ng/mL B-Natriuretic Peptide 481 H (Less than 100) pg/mL 11/22/17 Range/Units 08:02 WBC (4.3-11.1) K/mcL RBC (4.19-5.50) M/mcL Hgb (12.9-16.9) g/dL Hct (37.5-50.1) % MCV (83.0-100.0) fL MCH (28.0-33.3) pg MCHC (31.6-35.5) g/dL RDW (11.5-14.5) % Plt Count (140-400) K/mcL MPV (9.4-12.4) fL Immature Gran % (0-4) % Seg Neutrophils % % Lymphocytes % % Monocytes % % Eosinophils % % Basophils % % Neutrophils # (1.6-8.9) K/mcL Lymphocytes # (0.6-4.6) K/mcL Monocytes # (0.0-1.3) K/mcL Eosinophils # (0.0-0.6) K/mcL Basophils # (0.0-0.2) K/mcL Sodium (136-145) mEq/L Potassium (3.5-5.1) mEq/L Chloride (98-107) mEq/L Carbon Dioxide (23-29) mEq/L BUN (8-23) mg/dL Creatinine (0.70-1.30) mg/dL Est GFR ( Amer) (> 60) Est GFR (Non-Af Amer) (> 60) BUN/Creatinine Ratio (6-26) Glucose (70-105) mg/dL POC Glucose 247 H (70-99) mg/dL Calculated Osmolality (280-300) Calcium (8.6-10.3) mg/dL Troponin I (< 0.04) ng/mL B-Natriuretic Peptide (Less than 100) pg/mL Attestation Statement - Attestation Attestation: I examined this patient and my medical decision-making was reviewed with the Resident Physician. I agree with the documented findings, disposition and treatment plan as described except to the extent set forth below. Patient presents to emergency department with difficulty in breathing and leg swelling. Increasing over the past 3 weeks. He has been taking Lasix 20 mg daily. 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 Patient mildly tachypneic on examination. Lungs diminished. 3+ pedal edema bilaterally symmetric. Plan. CHF workup. Patient requiring oxygen at this time as his saturations were in the upper 80s. He does not have home O2. Likely admission. Patient signed out at shift change pending reevaluation labs and admission
[2017-11-22] MEDS ORDERED: Nitroglycerin 0.4 MG TAB.SUBL SL PRN ×2 (06:43→08:31)
[2017-11-22 06:47] LABS: Troponin I 0.03 ng/mL (< 0.04)
[2017-11-22 06:49] LABS: Calcium 9.3 mg/dL (8.6-10.3); Potassium 3.6 mEq/L (3.5-5.1)
--- NOTE | 2017-11-22 07:06 | Emergency Department Note ---
Disposition Clinical Impression: New onset a-fib Acute exacerbation of CHF (congestive heart failure) Qualifiers: Heart failure type: unspecified Qualified Code(s): I50.9 - Heart failure, unspecified Disposition: Still a Patient Condition: Undetermined Referrals: Vicki Fletcher CNP [Primary Care Provider] - Forms: ED Satisfaction Letter General Adult HPI - General Chief complaint: ED Shortness of Breath/Dyspnea Stated complaint: aaron, retaining fluid Time Seen by Provider: 11/22/17 06:08 Source: patient Mode of arrival: ambulatory Limitations: no limitations - History of Present Illness Pain Scale: 0 - Related Data Home Medications Medication Instructions Recorded Confirmed Aspirin [Lo-Dose Aspirin EC] 81 mg PO DAILY 06/21/17 07/16/17 Atorvastatin [Lipitor] 80 mg PO HS 06/21/17 07/16/17 Exenatide [Byetta] 10 mcg SQ BID 06/21/17 07/16/17 Finasteride [Proscar] 5 mg PO DAILY 06/21/17 07/16/17 GlipiZIDE [Glipizide Xl] 5 mg PO BID 06/21/17 07/16/17 Quinapril HCl [Accupril] 20 mg PO BID 06/21/17 07/16/17 hydroCHLOROthiazide 12.5 mg PO DAILY 06/21/17 07/16/17 [Hydrochlorothiazide] Albuterol Sulfate [Ventolin Hfa] 2 puff IH TID PRN 06/22/17 07/16/17 Carvedilol [Coreg] 25 mg PO BID 06/22/17 07/16/17 Ferrous Gluconate 324 mg PO DAILY 06/22/17 07/16/17 Nitroglycerin [Nitrostat] 0.4 mg SL Q5M PRN 06/22/17 07/16/17 hydrALAZINE [HydrALAZINE] 25 mg PO TID 06/22/17 07/16/17 Ascorbate Calcium [Vitamin C] 500 mg PO DAILY 07/16/17 07/16/17 Tiotropium [place] [Spiriva 2.5 mcg IH DAILY 07/16/17 07/16/17 Respimat] Previous Rx's Medication Instructions Recorded Benzonatate [Tessalon] 200 mg PO TID PRN #30 capsule 06/25/17 Azithromycin 250 mg PO DAILY #3 tablet 12/31/17 Budesonide/Formoterol 160/4.5 1 puff IH BIDR #1 hfa.aer.ad 07/19/17 [Symbicort 160/4.5] predniSONE [PredniSONE] See Taper PO DAILY #20 tablet 07/19/17 Allergies Allergy/AdvReac Type Severity Reaction Status Date / Time No Known Allergies Allergy Verified 01/09/16 17:56 Past Medical History - Past Medical History Medical history: Reports: CHF, COPD, CVA, diabetes, renal disease Surgical history: Reports: cholecystectomy, coronary bypass (CABG) Psychiatric history: Reports: no psych history - Social History Smoking Status: Former smoker Smokeless Tobacco Status: No Alcohol use: Reports: none Drug use: Reports: none Physical Exam - General Limitations: no limitations General appearance: alert Course Vital Signs Temperature 97.8 F 11/22/17 06:02 Pulse Rate 74 11/22/17 06:02 Respiratory Rate 22 11/22/17 06:02 Blood Pressure 181/91 11/22/17 06:02 O2 Sat by Pulse Oximetry 92 11/22/17 06:02 Temperature 97.8 F 11/22/17 06:02 Pulse Rate 74 11/22/17 06:02 Respiratory Rate 22 11/22/17 06:02 Blood Pressure 181/91 11/22/17 06:02 O2 Sat by Pulse Oximetry 92 11/22/17 06:02 Oxygen Delivery Oxygen Delivery Room Air Medical Decision Making - Lab Data Lab results reviewed: Yes I reviewed the patient's lab results. Result diagrams: 11/22/17 06:18 11/22/17 06:18 Lab Results 11/22/17 11/22/17 11/22/17 Range/Units 06:18 06:18 06:18 WBC 6.3 (4.3-11.1) K/mcL RBC 5.07 (4.19-5.50) M/mcL Hgb 13.5 (12.9-16.9) g/dL Hct 43.8 (37.5-50.1) % MCV 86.4 (83.0-100.0) fL MCH 26.6 L (28.0-33.3) pg MCHC 30.8 L (31.6-35.5) g/dL RDW 13.7 (11.5-14.5) % Plt Count 167 (140-400) K/mcL MPV 10.9 (9.4-12.4) fL Immature Gran % 0.3 (0-4) % Seg Neutrophils % 69.2 % Lymphocytes % 17.6 % Monocytes % 9.2 % Eosinophils % 2.9 % Basophils % 0.8 % Neutrophils # 4.4 (1.6-8.9) K/mcL Lymphocytes # 1.1 (0.6-4.6) K/mcL Monocytes # 0.6 (0.0-1.3) K/mcL Eosinophils # 0.2 (0.0-0.6) K/mcL Basophils # 0.1 (0.0-0.2) K/mcL Sodium 140 (136-145) mEq/L Potassium 3.6 (3.5-5.1) mEq/L Chloride 100 (98-107) mEq/L Carbon Dioxide 33 H (23-29) mEq/L BUN 25 H (8-23) mg/dL Creatinine 1.53 H (0.70-1.30) mg/dL Est GFR ( Amer) 54 L (> 60) Est GFR (Non-Af Amer) 44 L (> 60) BUN/Creatinine Ratio 16 (6-26) Glucose 241 H (70-105) mg/dL Calculated Osmolality 302 H (280-300) Calcium 9.3 (8.6-10.3) mg/dL Troponin I 0.03 (< 0.04) ng/mL B-Natriuretic Peptide 481 H (Less than 100) pg/mL - Radiology Data Radiology results reviewed: Yes I reviewed the patient's radiology results. Attestation Statement - Attestation Attestation: Care of patient assumed from Dr. rodríguez at 7 AM pending admission for suspected congestive heart failure and new onset atrial fibrillation, rate controlled. The patient has a history of coronary artery disease, previous CABG, unilateral nephrectomy. He is not conversationally dyspneic on exam. I did review his ECG , labs, chest x-ray. Patient to be admitted to the medicine service
[2017-11-22] MEDS ORDERED: *HR* HYDROcodone/Acet 5/325 mg TABLET PO PRN (08:15)
[2017-11-22] MEDS ORDERED: Naloxone 0.4 MG/ML INJ IVP PRN (08:15)
--- NOTE | 2017-11-22 08:52 | Internal Med History&Physical ---
Date of Encounter: 11/22/17 Time of Encounter: 08:44 Internal Medicine - H&P: HPI Chief complaint: worsening shortness of breath and leg swellling. Admitted From: Emergency Dept Plans for Post Hospital Care: Home History of present illness: Mr. Gayle is a 77 year old male Nephrology: Dr. Miranda background medical history of diabetes, hypertension, dyslipidemia, chronic kidney disease disease stage III, morbid obesity, coronary artery disease,. HPI :Patient has worsening shortness of breath for the past 6 weeks. Patient was initially evaluated by his primary care provider. Primary care provider recommended every third day 20 mg of Lasix.The reason for this kind of regimen as patient also has bilateral lower leg edema the swelling. In spite of taking every third day 20 mg Lasix, it did not help patient and patient's swelling started worsening gradually. Family Recommended every other day to 20 mg Lasix. That did not help either. In view of the persistent shortness of breath and worsening lower extremity edema patient decided to come to hospital for further evaluation. Patient denies chest pain, nausea, vomiting, abdominal pain, dizziness and diarrhea. Workup in the emergency room: Patient was evaluated in the emergency room. Basic labs were drawn. EKG showed new onset of atrial fibrillation. Chest x- ray was suggestive of a fluid overload. Reason for admission: ?New onset of heart failure with severe peripheral oedema , needs IV Diuresis as failed outpatient oral diuresis. Family history: Non-contributor Past Med Surg Social Fam HX - Past Medical History Medical history: CHF, COPD, CVA, diabetes, renal disease Psychiatric history: no psych history - Past Surgical History Surgical History: cholecystectomy, coronary bypass (CABG) - Social History Smoking Status: Former smoker Smokeless Tobacco Status: No Alcohol use: none Drug use: none - Family History Mother Living Status: Hx Family Cardiac Disorders: No Hx Family Respiratory Disorders: Yes (asthma) Hx Family Cancer: Yes (pancreatic) Hx Family GI Disorders: No Hx Family Endocrine Disorder: No Hx Family Neuromuscular Disorders: No Hx Family Neurologic Disorders: No Hx Family HEENT Disorders: No Hx Family Autoimmune Disorders: No Father Living Status: Hx Family Cardiac Disorders: Yes ([place], HTN) Hx Family Respiratory Disorders: No Hx Family Cancer: No Hx Family GI Disorders: No Hx Family Endocrine Disorder: No Hx Family Neuromuscular Disorders: No Hx Family Neurologic Disorders: No Hx Family HEENT Disorders: No Hx Family Autoimmune Disorders: No Internal Medicine - H&P: Meds Aspirin [Lo-Dose Aspirin EC] 81 mg PO DAILY 06/21/17 [History] Atorvastatin [Lipitor] 80 mg PO HS 06/21/17 [History] Exenatide [Byetta] 10 mcg SQ BID 06/21/17 [History] Finasteride [Proscar] 5 mg PO DAILY 06/21/17 [History] GlipiZIDE [Glipizide Xl] 5 mg PO BID 06/21/17 [History] Quinapril HCl [Accupril] 20 mg PO BID 06/21/17 [History] hydroCHLOROthiazide [Hydrochlorothiazide] 12.5 mg PO DAILY 06/21/17 [History] Albuterol Sulfate [Ventolin Hfa] 2 puff IH TID PRN 06/22/17 [History] Carvedilol [Coreg] 25 mg PO BID 06/22/17 [History] Ferrous Gluconate 324 mg PO DAILY 06/22/17 [History] Nitroglycerin [Nitrostat] 0.4 mg SL Q5M PRN 06/22/17 [History] hydrALAZINE [HydrALAZINE] 25 mg PO TID 06/22/17 [History] Benzonatate [Tessalon] 200 mg PO TID PRN #30 capsule 06/25/17 [Rx] Ascorbate Calcium [Vitamin C] 500 mg PO DAILY 07/16/17 [History] Tiotropium [place] [Spiriva Respimat] 2.5 mcg IH DAILY 07/16/17 [History] Azithromycin 250 mg PO DAILY #3 tablet 07/19/17 [Rx] Budesonide/Formoterol 160/4.5 [Symbicort 160/4.5] 1 puff IH BIDR #1 hfa.aer.ad 07/19/17 [Rx] predniSONE [PredniSONE] See Taper PO DAILY #20 tablet 07/19/17 [Rx] 3 Allergy/AdvReac Type Severity Reaction Status Date / Time No Known Allergies Allergy Verified 01/09/16 17:56 All Systems PM: A 10-system review of systems was performed and is negative for pertinent findings except as documented above in the HPI. - Constitutional Constitutional: no chills, no fever(s), no night sweats - EENT Eyes: no change in vision, no discharge, no pain, no photophobia Ears: no ear discharge, no ear pain, no tinnitus Nose, mouth and throat: no dysphagia, no nasal discharge, no neck pain, no sore throat - Cardiovascular Cardiovascular ROS IM: dyspnea, dyspnea on exertion, edema, no chest pain, no diaphoresis, no lightheadedness, no palpitations, no syncope - Respiratory Respiratory: no cough, no dyspnea, no wheezing, no excessive phlegm production - Gastrointestinal Gastrointestinal: no abdominal pain, no diarrhea, no hematemesis, no hematochezia, no melena, no nausea, no vomiting - Musculoskeletal Musculoskeletal ROS IM: no numbness, no tingling - Integumentary Integumentary IM: no rash, no unusual bruising - Neurological Neurological ROS: no confusion, no convulsions, no focal weakness, no numbness, no tingling, no tremor(s) - Hematologic/Lymphatic Hematologic/Lymphatic: no easy bruising - Constitutional Vitals: Temp Pulse Resp BP Pulse Ox 97.9 F 72 16 180/96 96 11/22/17 08:03 11/22/17 08:03 11/22/17 08:03 11/22/17 08:03 11/22/17 08:03 General appearance: Present: A&O X 3, pleasant, no acute distress, answers questions appropriately - Head Head exam: Present: atraumatic, normocephalic - Eye Eye exam: Present: PERRL, conjuntiva pink, sclera anicteric Pupils: Present: PERRL - Neck Neck exam general surgery: Present: supple, trachea midline. Absent: lymphadenopathy - Respiratory Respiratory exam: Present: CTAB. Absent: accessory muscle use, rales, rhonchi, wheezes - Cardiovascular Cardiovascular exam: Present: RRR, +S1, +S2. Absent: diastolic murmur, gallop, rubs, systolic murmur - GI/Abdominal GI/Abdominal exam: Present: normal bowel sounds, soft, no peritoneal signs. Absent: distended, tenderness - Extremities Exam Extremities exam: Present: warm, radial pulses palpable and symmetrical. Absent : calf tenderness, cyanotic, pedal edema - Neurological Exam Neurological exam: Present: CN II-XII intact, oriented X3, no focal deficits. Absent: pronater drift, facial droop, speech deficit - Skin Skin exam: Present: dry, intact Internal Med - H&P Results - Labs CBC & Chem 7: 11/22/17 06:18 11/22/17 06:18 - Assessment and plan (1) New onset a-fib Current Visit: Yes Status: Acute Assessment and plan: 77/M New onset of Afib [id number] score: 4 Anticoagulation: Weightbase, creatinine clearance adjusted Lovenox. Once social worker palliative care discussed with the patient's insurance status he might get appropriate anticoagulation. Rate control: Metoprolol at this point and patient's heart rate is within acceptable range. will get ECHO and cycle troponin if abnormal then please consider cardiology evaluation I examined this patient in the emergency department room #5. Plan of care explained to the patient and his . The verbalize understanding. (2) Congestive heart failure Current Visit: No Status: Acute Assessment and plan: Patient is a worsening bilateral edema feet. Etiology for bilateral lower extreme edema can be multifactorial. We will get bilateral lower extremity venous ultrasound to rule out DVT. We will get urine analysis. If there is a nephrotic range proteinuria then patient might need 24-hour urine protein. Nephrology is consulted. We will follow the recommendations in that case If there is no proteinuria and liver function is normal: Please see the plan below in terms of cardiac workup Qualifiers: Qualified Code(s): I50.33 - Acute on chronic diastolic (congestive) heart failure (3) Diabetes Current Visit: No Status: Chronic Assessment and plan: Patient is known to have diabetes mellitus. At this point his blood sugar is within acceptable range. We will is follow the recommendations from subcutaneous insulin order set. 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 At this point there is a possibility of a new underlying ischemic event. We will cycle troponin. We will get Echocardiogram. If there is no troponin elevation and echocardiogram is normal: Please consider stress test. Qualifiers: Coronary Disease-Associated Artery/Lesion type: unspecified vessel or lesion type [place] vs. transplanted heart: [place] heart Associated angina: without angina Qualified Code(s): I25.10 - Atherosclerotic heart disease of [place] coronary artery without angina pectoris (5) Essential hypertension Current Visit: No Status: Chronic Assessment and plan: Patient is known to have a hypertension. at this point patient is on 3 different antihypertensive medication. Patient's blood pressure is in the acceptable range. We will hold DANITA inhibitor. We will resume the rest antihypertensive. (6) DVT prophylaxis Current Visit: No Status: Acute Assessment and plan: Lovenox: Weight-based and adjusted to the creatinine clearance Medical decision making: This patient has a moderate to severe risk of worsening in spite of being on appropriate medication due to the underlying complex comorbid conditions - Time Spent With Patient Total time spent is greater than 50% in coordination of care (as documented) at patient's floor/unit and/or counseling patient:
[2017-11-22] MEDS ORDERED: Dextrose Gel 15 GM/37.5 ML TUBE PO PRN ×2 (08:53)
[2017-11-22] MEDS ORDERED: *HR* Dextrose 50 % in Water (Syg) 50 ML SYRINGE IVP PRN (08:53)
[2017-11-22] MEDS ORDERED: D5% in Water 1,000 ML IVC PRN (08:53)
[2017-11-22] MEDS ORDERED: *HR* Enoxaparin 120 MG/0.8 ML SYRINGE SQ SCH (09:00)
[2017-11-22] MEDS: Aspirin Enteric Coated 81 MG Tablet PO SCH (09:18)
[2017-11-22] MEDS: hydrALAZINE 25 MG TABLET PO SCH ×3 (09:18→19:57)
[2017-11-22] MEDS: Furosemide 40 MG/4 ML VIAL IVP SCH ×2 (09:18→19:57)
[2017-11-22] MEDS: Finasteride 5 MG TABLET PO SCH (09:18)
[2017-11-22] MEDS: Insulin LISPRO 300 UNITS/3 ML VIAL SQ SCH ×2 (11:28→16:35)
[2017-11-22 11:50] LABS: Bilirubin,Urine Negative (Negative); Blood,Urine Negative (Negative); Clarity,Urine Clear (Clear); Color,Urine Yellow (Yellow); Glucose,Urine (UA) 100 mg/dL (Normal); Ketones,Urine Negative (Negative); Leukocyte Esterase,Urine Negative (Negative); Nitrite,Urine Negative (Negative); PH,Urine 6.5 pH Units (5.0-8.0); Protein,Urine 30 mg/dL (Neg-Trace); Specific Gravity,Urine 1.018 (1.010-1.025); Urobilinogen,Urine Normal (Normal)
[2017-11-22 11:55] LABS: Bacteria,Urine None Seen per hpf (None-Few); Hyaline Casts,Urine None Seen per lpf (None-Few); RBC,Urine 0-3 per hpf (0-3); Squamous Epithelial Cell,Urine None Seen per lpf (None-Few); WBC,Urine 0-3 per hpf (0-3)
[2017-11-22] MEDS ORDERED: Insulin LISPRO 300 UNITS/3 ML VIAL SQ SCH (21:15)
[2017-11-22] MEDS: Fluticasone Propionate Nasal 50 MCG/SPRAY BOTTLE NS SCH (21:31)
[2017-11-23 05:12] LABS: INR 1.2; Prothrombin Time 12.7 Seconds (9.4-12.1)
[2017-11-23 05:13] LABS: Basophils # 0.1 K/mcL (0.0-0.2); Eosinophils # 0.2 K/mcL (0.0-0.6); Eosinophils % 2.9 %; Hematocrit 41.7 % (37.5-50.1); Hemoglobin 12.7 g/dL (12.9-16.9); Immature Granulocytes % 0.6 % (0-4); Lymphocytes # 1.1 K/mcL (0.6-4.6); Lymphocytes % 17.8 %; Mean Corpuscular HGB Conc 30.5 g/dL (31.6-35.5); Mean Corpuscular Hemoglobin 26.7 pg (28.0-33.3); Mean Corpuscular Volume 87.6 fL (83.0-100.0); Mean Platelet Volume 11.4 fL (9.4-12.4); Monocytes # 0.6 K/mcL (0.0-1.3); Neutrophils # 4.2 K/mcL (1.6-8.9); Platelet Count 152 K/mcL (140-400); Red Blood Count 4.76 M/mcL (4.19-5.50); Red Cell Distribution Width 13.7 % (11.5-14.5); Segmented Neutrophils % 67.7 %
[2017-11-23 05:15] LABS: Activated Partial Thrombo Time 31.4 Seconds (26.0-36.0)
[2017-11-23 05:30] LABS: Alanine Aminotransferase 15 Units/L (7-52); Albumin/Globulin Ratio 1.5 (1.1-2.2); Alkaline Phosphatase 102 Units/L (34-104); Aspartate Amino Transferase 13 Units/L (13-39); BUN/Creatinine Ratio 21 (6-26); Bilirubin,Total 1.2 mg/dL (0.3-1.0); Blood Urea Nitrogen 27 mg/dL (8-23); Calcium 9.2 mg/dL (8.6-10.3); Carbon Dioxide 31 mEq/L (23-29); Chloride 101 mEq/L (98-107); Chol/HDL Ratio 2.8 (0-4.9); Cholesterol 94 mg/dL (< 200); Globulin 2.7 g/dL (2.4-3.5); Glucose 282 mg/dL (70-105); HDL Cholesterol 34 mg/dL (40-59); LDL Cholesterol,Calculated 34 mg/dL (0-99); Osmolality,Calculated 303 (280-300); Potassium 3.6 mEq/L (3.5-5.1); Sodium 139 mEq/L (136-145); Total Protein 6.7 g/dL (6.4-8.9); Triglycerides 129 mg/dL (< 150); eGFR For African Americans > 60 (> 60); eGFR For Non-African Americans 55 (> 60)
[2017-11-23] MEDS ORDERED: *HR* Enoxaparin 120 MG/0.8 ML SYRINGE SQ SCH (08:00)
--- NOTE | 2017-11-23 09:16 | Nephrology Consult Note ---
Date of Encounter: 11/23/17 Time of Encounter: 09:14 Assessment and Plan (1) Chronic kidney disease, stage III (moderate) Current Visit: No Status: Chronic The patient has a history of stage III chronic kidney disease in the setting of diabetes, hypertension, and previous left nephrectomy. Renal function is relatively stable. Baseline creatinine is 1.5-1.7. He presents with several month history of worsening lower extremity swelling as well as exertional dyspnea and orthopnea. He has a history of pulmonary hypertension and a preserved left ventricular ejection fraction on a previous echocardiogram from June 2017. He has been noted to have new onset atrial fibrillation during this admission. I suspect he has worsening congestive heart failure and pulmonary hypertension that is contributing to his lower extremity swelling and fluid retention. I agree with the Lasix 40 mg IV twice daily. If he fails to have an effective diuresis we could add metolazone as well. He had an echocardiogram this morning that is currently pending as far as a result. We will continue to monitor his renal function. He does not have significant proteinuria therefore I doubt that his renal disease is contributing to his swelling. If his renal function remains stable he may benefit from initiation of an DANITA inhibitor or angiotensin bryan. (2) Type 2 diabetes mellitus with diabetic chronic kidney disease Current Visit: Yes Status: Acute Qualifiers: Diabetes mellitus terminal supervisor insulin use: with nursing home use Chronic kidney disease stage: stage 3 (moderate) Qualified Code(s): E11.22 - Type 2 diabetes mellitus with diabetic chronic kidney disease; N18.3 - Chronic kidney disease, stage 3 (moderate); N18.3 - Chronic kidney disease, stage 3 (moderate); Z79.4 - intermediate (current) use of insulin; Z79.4 - intermediate (current) use of insulin; Z79.4 - intermediate (current) use of insulin; Z79.4 - middle or intermediate school principal (current) use of insulin (3) Benign hypertension with chronic kidney disease, stage III Current Visit: Yes Status: Acute (4) Benign hypertension with chronic kidney disease, stage III Current Visit: No Status: Chronic (5) Pulmonary hypertension Current Visit: No Status: Chronic (6) New onset a-fib Current Visit: Yes Status: Acute History of Present Illness - History of Present Illness This is a 77-year-old male who is followed as an outpatient for stage III chronic kidney disease with a baseline creatinine of 1.5-1.7 in the setting of long-standing diabetes, hypertension, and 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 Patient was admitted with a one to 2 month history of worsening swelling along with complaints of exertional dyspnea and orthopnea. He denies any chest pain. He does have a history of coronary artery disease. He was taking some low-dose oral Lasix at home without any improvement. He has been having to sleep in a chair at home because of orthopnea. An echocardiogram done back in June 2017 showed a preserved left ventricular ejection fraction of 60% and findings of moderate pulmonary hypertension. He has seen pulmonary and has been told he has either emphysema and/or asthma. Patient quit smoking about 20 years ago he does have a 22-23-gfod-year history of smoking prior to that. He does have some coughing with occasional sputum production. He has a history of coronary artery disease and is status post CABG. He currently is undergoing a cardiac workup. Urinalysis shows 30 mg/dL of protein. Blood pressure is 150/82. He is currently on Lasix 40 mg IV twice a day and he put out 2.4 L of urine yesterday. The patient has been noted to be in atrial fibrillation during his hospital admission. This is a new development for him as well. Past Med Surg Social Fam HX - Past Medical History Medical history: COPD, CVA, diabetes Psychiatric history: no psych history - Past Surgical History Surgical History: cholecystectomy - Social History Smoking Status: Former smoker Smokeless Tobacco Status: No Alcohol use: none Drug use: none - Family History Mother Living Status: Hx Family Cardiac Disorders: No Hx Family Respiratory Disorders: Yes (asthma) Hx Family Cancer: Yes (pancreatic) Hx Family GI Disorders: No Hx Family Endocrine Disorder: No Hx Family Neuromuscular Disorders: No Hx Family Neurologic Disorders: No Hx Family HEENT Disorders: No Hx Family Autoimmune Disorders: No Father Living Status: Hx Family Cardiac Disorders: Yes ([place], HTN) Hx Family Respiratory Disorders: No Hx Family Cancer: No Hx Family GI Disorders: No Hx Family Endocrine Disorder: No Hx Family Neuromuscular Disorders: No Hx Family Neurologic Disorders: No Hx Family HEENT Disorders: No Hx Family Autoimmune Disorders: No Medications and Allergies Aspirin [Lo-Dose Aspirin EC] 81 mg PO DAILY 06/21/17 [History] Atorvastatin [Lipitor] 80 mg PO HS 06/21/17 [History] Exenatide [Byetta] 10 mcg SQ BID 06/21/17 [History] Finasteride [Proscar] 5 mg PO DAILY 06/21/17 [History] Quinapril HCl [Accupril] 20 mg PO BID 06/21/17 [History] hydroCHLOROthiazide [Hydrochlorothiazide] 12.5 mg PO DAILY 06/21/17 [History] Albuterol Sulfate [Ventolin Hfa] 2 puff IH TID PRN 06/22/17 [History] Carvedilol [Coreg] 25 mg PO BID 06/22/17 [History] Ferrous Gluconate 324 mg PO DAILY 06/22/17 [History] Nitroglycerin [Nitrostat] 0.4 mg SL Q5M PRN 06/22/17 [History] hydrALAZINE [HydrALAZINE] 25 mg PO TID 06/22/17 [History] Ascorbate Calcium [Vitamin C] 500 mg PO DAILY 07/16/17 [History] Tiotropium [place] [Spiriva Respimat] 2.5 mcg IH DAILY 07/16/17 [History] Budesonide/Formoterol 160/4.5 [Symbicort 160/4.5] 1 puff IH BIDR #1 [email or web address] 07/19/17 [Rx] Furosemide [Lasix] 20 mg PO DAILY 11/22/17 [History] glipiZIDE [Glucotrol] 5 mg PO BIDWM 11/22/17 [History] 3 Allergy/AdvReac Type Severity Reaction Status Date / Time No Known Allergies Allergy Verified 01/09/16 17:56 Review of Systems Constitutional: as per HPI Nose, mouth and throat: no dizziness, no headache(s) Cardiovascular: dyspnea, dyspnea on exertion, edema, leg edema, orthopnea, paroxysmal nocturnal dyspnea, no chest pain, no palpitations Respiratory: cough, dyspnea, dyspnea on exertion Gastrointestinal: no abdominal pain, no change in bowel habits Genitourinary Male: as per HPI Musculoskeletal: no muscle weakness, no numbness Integumentary: no hirsutism, no striae Neurological: as per HPI Psychiatric: no depression, no difficulty concentrating Endocrine: as per HPI Hematologic/Lymphatic: no easy bruising, no lymphadenopathy Exam - Vital Signs Vital signs: Initial Vital Signs Temp Pulse Resp BP Pulse Ox 97.8 F 74 22 181/91 92 11/22/17 06:02 11/22/17 06:02 11/22/17 06:02 11/22/17 06:02 11/22/17 06:02 Vital Signs - Last 8 Hours Temp Pulse Resp BP Pulse Ox 11/23/17 08:50 97.9 F 96 16 160/85 91 11/23/17 04:37 98.2 F 81 19 150/82 95 Intake and Output 11/22/17 11/23/17 11/23/17 23:59 07:59 15:59 Intake Total 290 / 290 240 / 240 Output Total 1050 / 1050 475 / 475 Balance -760 / -760 -475 / -475 240 / 240 Intake: Oral 290 / 290 240 / 240 Output: Urine 1050 / 1050 475 / 475 Other: Meal Dinner Breakfast Percent of Meal Consumed 100% 100% Weight 107.728 kg Blood Glucose* 223 262 Patient Weight 11/23/17 23:59 Weight 107.728 kg - General Appearance Exam: Patient is alert and oriented. He is sitting on the edge of the bed. He is in no acute distress. He has some mild conversational dyspnea. Lung sounds in the bases. Heart irregular rate and rhythm. Abdomen is somewhat distended and firm but nontender. There is no guarding nor rigidity. There is 3-4+ lower extremity edema up past the patient's knees. Results - Lab Results 11/23/17 04:23 11/23/17 04:23 Most recent lab results Calcium 9.2 mg/dL (8.6-10.3) 11/23/17 04:23 Phosphorus 4.0 mg/dL (2.7-4.5) 11/23/17 04:23 Magnesium 2.0 mg/dL (1.6-2.6) 11/23/17 04:23 Consult Discharge Plan - Plan Referrals: Vicki Fletcher, JOB FOREMAN [Primary Care Provider] -
[2017-11-23] MEDS: Furosemide 40 MG/4 ML VIAL IVP SCH ×2 (09:17→17:16)
[2017-11-23] MEDS: Fluticasone Propionate Nasal 50 MCG/SPRAY BOTTLE NS SCH (09:17)
[2017-11-23] MEDS: hydrALAZINE 25 MG TABLET PO SCH ×3 (09:17→21:06)
[2017-11-23] MEDS: Aspirin Enteric Coated 81 MG Tablet PO SCH (09:17)
[2017-11-23] MEDS: *HR* Enoxaparin 100 MG/ML SYRINGE SQ SCH ×2 (09:17→21:06)
[2017-11-23] MEDS: Finasteride 5 MG TABLET PO SCH (09:17)
[2017-11-23] MEDS: Insulin LISPRO 300 UNITS/3 ML VIAL SQ SCH ×4 (09:18→21:07)
--- NOTE | 2017-11-23 11:20 | Internal Med Progress Note ---
Date of Encounter: 11/23/17 Time of Encounter: 11:18 - Assessment and plan (1) CAD (coronary artery disease) of bypass graft Current Visit: Yes Status: Acute Assessment and plan: no chest pain Qualifiers: [place] vs. transplanted heart: [place] heart Associated angina: without angina Qualified Code(s): I25.810 - Atherosclerosis of coronary artery bypass graft(s) without angina pectoris (2) Obesity Current Visit: Yes Status: Chronic Assessment and plan: chronic Qualifiers: Obesity type: due to excess calories Obesity classification: unspecified obesity classification Serious obesity comorbidity presence: unspecified whether serious comorbidity present Qualified Code(s): E66.09 - Other obesity due to excess calories (3) CKD (chronic kidney disease) Current Visit: No Status: Chronic Assessment and plan: seen and followed by nephrology Qualifiers: Chronic kidney disease stage: unspecified stage Qualified Code(s): N18.9 - Chronic kidney disease, unspecified (4) Essential hypertension Current Visit: No Status: Chronic Assessment and plan: Blood pressure uncontrolled increase hydralazine from 25 200 3 times a day and added Imdur in view of congestive heart failure (5) COPD (chronic obstructive pulmonary disease) Current Visit: No Status: Acute Assessment and plan: No active wheezing at present will continue when necessary breathing treatment Qualifiers: COPD type: unspecified COPD Qualified Code(s): J44.9 - Chronic obstructive pulmonary disease, unspecified (6) Hyperglycemia Current Visit: No Status: Acute Assessment and plan: Diabetes with uncontrolled hyperglycemia sliding scale increased (7) New onset a-fib Current Visit: Yes Status: Acute Assessment and plan: Onset atrial fibrillation being anticoagulated will consult cardiology for management and follow-up (8) Acute exacerbation of CHF (congestive heart failure) Current Visit: Yes Status: Acute Assessment and plan: Acute on chronic congestive heart failure not enough negative diuresis will give extra Bumex 2 mg Qualifiers: Heart failure type: unspecified Qualified Code(s): I50.9 - Heart failure, unspecified (9) Diabetes Current Visit: No Status: Chronic Qualifiers: Diabetes mellitus type: type 2 Diabetes mellitus fpc insulin use: without fpc use Diabetes mellitus complication status: without complication Qualified Code(s): E11.9 - Type 2 diabetes mellitus without complications - Time Spent With Patient Total time spent is greater than 50% in coordination of care (as documented) at patient's floor/unit and/or counseling patient: - Subjective Interval history: Patient with history of diabetes, CAD had a CABG of three-vessel about 4 years ago, hypertension, high cholesterol, CK D, morbid obesity. Patient was admitted with progressive shortness of breath symptoms of congestive heart failure with leg swelling found to be in atrial fibrillation which is new onset BNP 533. Denies any chest pain today patient feels somewhat better diuresis is not negative rhythm is atrial fibrillation controlled at 80 bpm 2-D echo is done but pending result - Constitutional Vitals: Temp Pulse Resp BP Pulse Ox 98.3 F 95 15 149/85 97 11/23/17 11:07 11/23/17 11:07 11/23/17 11:07 11/23/17 11:11/23/17 11:07 General appearance: Present: A&O X 3, pleasant, no acute distress, answers questions appropriately - Head Head exam: Present: atraumatic, normocephalic - Eye Eye exam: Present: PERRL, conjuntiva pink, sclera anicteric Pupils: Present: PERRL - Respiratory Respiratory exam: Present: prolonged expiratory phase, rales, rhonchi - Cardiovascular Cardiovascular exam: Present: irregular rhythm, systolic murmur - GI/Abdominal GI/Abdominal exam: Present: normal bowel sounds, soft, no peritoneal signs. Absent: distended, tenderness - Extremities Exam Extremities exam: Present: pedal edema Internal Medicine: Result - Labs CBC & Chem 7: 11/23/17 04:23 11/23/17 04:23 Labs: Short CBC 11/23/17 Range/Units 04:23 WBC 6.2 (4.3-11.1) K/mcL Hgb 12.7 L (12.9-16.9) g/dL Hct 41.7 (37.5-50.1) % Plt Count 152 (140-400) K/mcL Neutrophils # 4.2 (1.6-8.9) K/mcL BMP 11/23/17 04:23 Sodium 139 Potassium 3.6 Chloride 101 Carbon Dioxide 31 H BUN 27 H Creatinine 1.28 Glucose 282 H Calcium 9.2 Cardiac Enzymes 11/22/17 11/22/17 Range/Units 15:27 21:13 Troponin I < 0.03 0.03 (< 0.04) ng/mL Liver Function 11/23/17 Range/Units 04:23 Total Bilirubin 1.2 H (0.3-1.0) mg/dL AST 13 (13-39) Units/L ALT 15 (7-52) Units/L Alkaline Phosphatase 102 (34-104) Units/L Albumin 4.0 (3.5-5.7) g/dL Urine 11/22/17 Range/Units 11:16 Urine Color Yellow (Yellow) Urine Clarity Clear (Clear) Urine pH 6.5 (5.0-8.0) pH Units Ur Specific [place] 1.018 (1.010-1.025) Urine Protein 30 H (Neg-Trace) mg/dL Urine Glucose (UA) 100 H (Normal) mg/dL - ABG Interpretation ABG results: PT/INR, D-dimer PT 12.7 Seconds (9.4-12.1) H 11/23/17 04:23 Consult Discharge Plan - Plan Referrals: Vicki Fletcher, FACILITY SECURITY OFFICER [Primary Care Provider] -
[2017-11-23] MEDS ORDERED: Bumetanide 1 MG/4 ML VIAL IVP ONE (11:30)
[2017-11-23 12:00] LABS: Estimated Average Glucose 226 mg/dl; Hemoglobin A1C 9.5 %
[2017-11-23] MEDS: Budesonide/Formoterol 160/4.5 MDI IH SCH (21:17)
[2017-11-24 04:44] LABS: Calcium 9.2 mg/dL (8.6-10.3); Potassium 4.3 mEq/L (3.5-5.1)
[2017-11-24] MEDS: Budesonide/Formoterol 160/4.5 MDI IH SCH ×2 (07:25→20:36)
--- NOTE | 2017-11-24 07:55 | Nephrology Progress Note ---
Date of Encounter: 11/24/17 Time of Encounter: 07:53 - Assessment and Plan (1) Chronic kidney disease, stage III (moderate) Current Visit: No Status: Chronic Patient is stable from a renal perspective. He continues to have a great deal of lower extremity swelling likely related to pulmonary hypertension. I am going to make some adjustments in his diuretic regimen. He may benefit from a pulmonary consultation as well as a cardiology consultation. (2) Type 2 diabetes mellitus with diabetic chronic kidney disease Current Visit: Yes Status: Acute Qualifiers: Diabetes mellitus oil heaterman insulin use: with intermediate use Chronic kidney disease stage: stage 3 (moderate) Qualified Code(s): E11.22 - Type 2 diabetes mellitus with diabetic chronic kidney disease; N18.3 - Chronic kidney disease, stage 3 (moderate); N18.3 - Chronic kidney disease, stage 3 (moderate); Z79.4 - intermediate frame tender (current) use of insulin; Z79.4 - senior living (current) use of insulin; Z79.4 - intermediate frame tender (current) use of insulin; Z79.4 - intermediate frame tender (current) use of insulin (3) Benign hypertension with chronic kidney disease, stage III Current Visit: Yes Status: Acute (4) Benign hypertension with chronic kidney disease, stage III Current Visit: No Status: Chronic (5) Pulmonary hypertension Current Visit: No Status: Chronic (6) New onset a-fib Current Visit: Yes Status: Acute Subjective Interval history: Patient is clinically about the same. He continues to have quite a bit of lower extremity swelling. He has intermittent shortness of breath. Serum creatinine is a little bit higher than yesterday at 1.48. Urine output is 2.7 L with 1.6 L intake. Echocardiogram shows a left ventricular ejection fraction 55%, there is moderate pulmonary hypertension as was noted in the previous echo. Objective - Vital Signs Vital signs: Vital Signs Temp Pulse Resp BP Pulse Ox 11/24/17 07:27 20 95 11/24/17 06:47 98.7 F 83 16 150/84 93 11/24/17 03:18 99.5 F 97 17 138/77 94 11/24/17 00:04 98.8 F 84 18 126/67 91 11/23/17 21:17 18 95 11/23/17 21:14 98.6 F 112 18 140/78 96 11/23/17 16:04 98.2 F 91 15 160/78 96 11/23/17 11:07 98.3 F 95 15 149/85 97 11/23/17 09:42 91 11/23/17 08:50 97.9 F 96 16 160/85 91 Intake and Output 11/23/17 11/23/17 11/24/17 15:59 23:59 07:59 Intake Total 930 / 930 700 / 700 200 / 200 Output Total 1375 / 1375 850 / 850 600 / 600 Balance -445 / -445 -150 / -150 -400 / -400 Intake: Oral 930 / 930 700 / 700 200 / 200 Output: Urine 1375 / 1375 850 / 850 600 / 600 Other: Meal Lunch Percent of Meal Consumed 100% # Voids 1 Weight 106.197 kg Blood Glucose* 422 239 252 Patient Weight 11/24/17 23:59 Weight 106.197 kg - General Appearance Exam: The patient is sitting up in a chair. He is alert and oriented. He is in no acute distress. Lungs diminished breath sounds in the bases. Heart irregular rate and rhythm consistent with atrial fibrillation. Abdomen is distended but nontender. There is 3+ lower extremity swelling up past the knees bilaterally. - Lab 11/23/17 04:23 11/24/17 04:06 Most recent lab results Calcium 9.2 mg/dL (8.6-10.3) 11/24/17 04:06 Phosphorus 4.0 mg/dL (2.7-4.5) 11/23/17 04:23 Magnesium 2.0 mg/dL (1.6-2.6) 11/23/17 04:23 - VTE Documentation of Mechanical Device: Graduated compression elastic hosiery Consult Discharge Plan - Plan Referrals: Vicki Fletcher, LANDSCAPE CREW LEADER [Primary Care Provider] -
[2017-11-24] MEDS: Finasteride 5 MG TABLET PO SCH (08:02)
[2017-11-24] MEDS: Furosemide 40 MG/4 ML VIAL IVP SCH ×2 (08:02→17:15)
[2017-11-24] MEDS: Aspirin Enteric Coated 81 MG Tablet PO SCH (08:02)
[2017-11-24] MEDS: hydrALAZINE 25 MG TABLET PO SCH ×3 (08:02→20:55)
[2017-11-24] MEDS: Fluticasone Propionate Nasal 50 MCG/SPRAY BOTTLE NS SCH (08:02)
[2017-11-24] MEDS: Isosorbide MONOnitrate (24 HR) 60 MG TAB.ER.24H PO SCH (08:02)
[2017-11-24] MEDS: *HR* Enoxaparin 100 MG/ML SYRINGE SQ SCH (08:03)
[2017-11-24] MEDS: Insulin LISPRO 300 UNITS/3 ML VIAL SQ SCH ×4 (08:03→20:58)
--- NOTE | 2017-11-24 08:17 | Internal Med Progress Note ---
Date of Encounter: 11/24/17 Time of Encounter: 08:15 - Assessment and plan (1) CAD (coronary artery disease) of bypass graft Current Visit: Yes Status: Acute Assessment and plan: no chest pain Qualifiers: [place] vs. transplanted heart: [place] heart Associated angina: without angina Qualified Code(s): I25.810 - Atherosclerosis of coronary artery bypass graft(s) without angina pectoris (2) Obesity Current Visit: Yes Status: Chronic Qualifiers: Obesity type: due to excess calories Obesity classification: unspecified obesity classification Serious obesity comorbidity presence: unspecified whether serious comorbidity present Qualified Code(s): E66.09 - Other obesity due to excess calories (3) CKD (chronic kidney disease) Current Visit: No Status: Chronic Assessment and plan: nephrology following Qualifiers: Chronic kidney disease stage: unspecified stage Qualified Code(s): N18.9 - Chronic kidney disease, unspecified (4) Essential hypertension Current Visit: No Status: Chronic Assessment and plan: chronic well controlled (5) COPD (chronic obstructive pulmonary disease) Current Visit: No Status: Acute Assessment and plan: chronic with mod-severe pulm htn will consult pulm for further treatment and arsenio OP follow up Qualifiers: COPD type: unspecified COPD Qualified Code(s): J44.9 - Chronic obstructive pulmonary disease, unspecified (6) Hyperglycemia Current Visit: No Status: Acute (7) New onset a-fib Current Visit: Yes Status: Acute Assessment and plan: rate controlled and on anticoagulation (8) Acute exacerbation of CHF (congestive heart failure) Current Visit: Yes Status: Acute Assessment and plan: diuresis being managed by nephrology Qualifiers: Heart failure type: unspecified Qualified Code(s): I50.9 - Heart failure, unspecified (9) Diabetes Current Visit: No Status: Chronic Qualifiers: Diabetes mellitus type: type 2 Diabetes mellitus shelter insulin use: without terminal make up operator use Diabetes mellitus complication status: without complication Qualified Code(s): E11.9 - Type 2 diabetes mellitus without complications - Time Spent With Patient Total time spent is greater than 50% in coordination of care (as documented) at patient's floor/unit and/or counseling patient: - Subjective Interval history: Patient with history of diabetes, CAD had a CABG of three-vessel about 4 years ago, hypertension, high cholesterol, CK D, morbid obesity. Patient was admitted with progressive shortness of breath symptoms of congestive heart failure with leg swelling found to be in atrial fibrillation which is new onset BNP 533. Denies any chest pain today patient feels somewhat better diuresis is not negative rhythm is atrial fibrillation controlled at 80 bpm 2-D echo is done but pending result today echo results noted normal LV function with moderate to severe pulmonary hypertension nephrology evaluation noted suggest pulmonary and Cardiologic consult patient said he feels better but still short of breath no chest pain heart rate is controlled at about 90 bpm - Constitutional Vitals: Temp Pulse Resp BP Pulse Ox 98.7 F 83 20 150/84 95 11/24/17 06:47 11/24/17 06:47 11/24/17 07:27 11/24/17 06:47 11/24/17 07:27 General appearance: Present: A&O X 3, pleasant, no acute distress, answers questions appropriately - Eye Eye exam: Present: PERRL, conjuntiva pink, sclera anicteric Pupils: Present: PERRL - Respiratory Respiratory exam: Present: rhonchi, wheezes - Cardiovascular Cardiovascular exam: Present: irregular rhythm, systolic murmur - GI/Abdominal GI/Abdominal exam: Present: normal bowel sounds, soft, no peritoneal signs. Absent: distended, tenderness - Extremities Exam Extremities exam: Present: warm, radial pulses palpable and symmetrical. Absent : calf tenderness, cyanotic, pedal edema Internal Medicine: Result - Labs CBC & Chem 7: 11/23/17 04:23 11/24/17 04:06 Labs: BMP 11/24/17 04:06 Sodium 143 Potassium 4.3 Chloride 102 Carbon Dioxide 27 BUN 29 H Creatinine 1.48 H Glucose 253 H Calcium 9.2 - ABG Interpretation ABG results: PT/INR, D-dimer PT 12.7 Seconds (9.4-12.1) H 11/23/17 04:23 - Impressions Impressions Echocardiogram 11/23/17 08:37 Impressions: LVEF 55%. Normal LV chamber size and function. Mild concentric left ventricular hypertrophy. Indeterminate diastolic function. Atypical septal motion consistent with bundle branch block. Mildly dilated and hypokinetic right ventricle. Severely dilated left atrium. Moderate pulmonary hypertension. Estimated RVSP 60-65 mmHg, including an estimated RA pressure of 15-20 mmHg. No significant valvular dysfunction. Left Ventricular Wall Motion: Rest Echo Findings All wall segments showed normal motion. Findings: Study Quality * Technically sub-optimal due to poor echocardiographic windows. ECG Findings * Rhythm appeared to be atrial fibrillation. Bundle branch block noted. Left Ventricle * LVEF 55%. * Normal LV chamber size and function. * Mild concentric left ventricular hypertrophy. * Indeterminate diastolic function. * Atypical septal motion consistent with bundle branch block. Right Ventricle * Mildly dilated right ventricle. * Mild right ventricular hypokinesis. Left Atrium * Severely dilated left atrium. Right Atrium * Moderately dilated right atrium. Aortic Valve * Trileaflet aortic valve. * Mildly calcified aortic valve leaflets. * No aortic regurgitation. * No aortic stenosis. Mitral Valve * Mildly thickened mitral valve leaflets. * Mild mitral annular calcification * Trace mitral regurgitation. * No mitral stenosis. Tricuspid Valve * Normal tricuspid valve structure and function. * Trace tricuspid regurgitation. * Moderate pulmonary hypertension. Estimated RVSP 60-65 mmHg, including an estimated RA pressure of 15-20 mmHg. Pulmonic Valve * Normal pulmonic valve structure and function. * Trace pulmonic regurgitation. Aorta * Normally sized aortic root. Pericardium * The pericardium appears normal. Pulmonary Artery * Normal visualized portions of the main pulmonary artery. IVC * The IVC is dilated. * < 50% respiratory change. - VTE Documentation of Mechanical Device: Graduated compression elastic hosiery Consult Discharge Plan - Plan Referrals: Vicki Fletcher, WET PROCESS MILLER HEAD ASSISTANT [Primary Care Provider] -
[2017-11-24] MEDS: metOLazone 5 MG TABLET PO SCH ×2 (08:23→17:15)
[2017-11-24] MEDS: Ipratropium/Albuterol Neb 3 ML IH PRN (09:43)
[2017-11-24] MEDS ORDERED: Tiotropium 18 MCG inhalation IH SCH (10:00)
--- NOTE | 2017-11-24 10:19 | Pulmonology Consult Note ---
Date of Encounter: 11/24/17 Time of Encounter: 08:10 Assessment and Plan (1) Pulmonary hypertension Current Visit: No Status: Chronic I suspect this is group 2 from underlying diastolic dysfunction and even groups 3 pulmonary hypertension which could be related to underlying sleep disorder breathing. Patient needs to be qualified for oxygen before discharge this time. I will order sleep study for him and explained to him about sleep apnea especially with him having risk factors. I feel his right heart catheterization can be postponed at that this time. Diuresis is important since patient clearly has evidence of volume overload. The condition is even more complicated with his underlying chronic kidney disease. (2) COPD (chronic obstructive pulmonary disease) Current Visit: No Status: Suspected Patient has previous history of smoking and I do not feel he has COPD exacerbation and no need for systemic steroid or even antibiotics in my opinion. She can have follow-up as outpatient. Bronchodilators are reasonable. Qualifiers: COPD type: unspecified COPD Qualified Code(s): J44.9 - Chronic obstructive pulmonary disease, unspecified (3) Sleep disorder breathing Current Visit: No Status: Suspected History of Present Illness Consult date: 11/24/17 Requesting physician: Andres Toth Reason for consult: pulmonary hypertension Chief complaint: Shortness of breath History of present illness: Mrs. echols 77-year-old male with significant history of chronic kidney disease and he is a former smoker who presented to the hospital with worsening of shortness of breath. He also has history of coronary artery disease. Patient stated he is on diuretics and is not able to sleep at night and he is not sure why and he has history of snoring but denies or he is not sure about sleep apnea. Patient does not feel good during daytime and he is feeling better now. He has been evaluated by pulmonary in the past with less sedation and sleep study was recommended but he never had it done. Patient denies any significant productive cough and no wheezing but he has worsening lower extremity edema. Patient denies any fever or chills or nausea or vomiting. Patient also was found to have new onset atrial fibrillation with chest x-ray suggestive of volume overload. Patient stated he is not on home oxygen. Echocardiogram showed evidence of pulmonary hypertension. Past Med Surg Social Fam HX - Past Medical History Medical history: COPD, CVA, diabetes Psychiatric history: no psych history - Past Surgical History Surgical History: cholecystectomy - Social History Smoking Status: Former smoker Smokeless Tobacco Status: No Alcohol use: none Drug use: none - Family History Mother Living Status: Hx Family Cardiac Disorders: No Hx Family Respiratory Disorders: Yes (asthma) Hx Family Cancer: Yes (pancreatic) Hx Family GI Disorders: No Hx Family Endocrine Disorder: No Hx Family Neuromuscular Disorders: No Hx Family Neurologic Disorders: No Hx Family HEENT Disorders: No Hx Family Autoimmune Disorders: No Father Living Status: Hx Family Cardiac Disorders: Yes ([place], HTN) Hx Family Respiratory Disorders: No Hx Family Cancer: No Hx Family GI Disorders: No Hx Family Endocrine Disorder: No Hx Family Neuromuscular Disorders: No Hx Family Neurologic Disorders: No Hx Family HEENT Disorders: No Hx Family Autoimmune Disorders: No Medications and Allergies Aspirin [Lo-Dose Aspirin EC] 81 mg PO DAILY 06/21/17 [History] Atorvastatin [Lipitor] 80 mg PO HS 06/21/17 [History] Exenatide [Byetta] 10 mcg SQ BID 06/21/17 [History] Finasteride [Proscar] 5 mg PO DAILY 06/21/17 [History] Quinapril HCl [Accupril] 20 mg PO BID 06/21/17 [History] hydroCHLOROthiazide [Hydrochlorothiazide] 12.5 mg PO DAILY 06/21/17 [History] Albuterol Sulfate [Ventolin Hfa] 2 puff IH TID PRN 06/22/17 [History] Carvedilol [Coreg] 25 mg PO BID 06/22/17 [History] Ferrous Gluconate 324 mg PO DAILY 06/22/17 [History] Nitroglycerin [Nitrostat] 0.4 mg SL Q5M PRN 06/22/17 [History] hydrALAZINE [HydrALAZINE] 25 mg PO TID 06/22/17 [History] Ascorbate Calcium [Vitamin C] 500 mg PO DAILY 07/16/17 [History] Tiotropium [place] [Spiriva Respimat] 2.5 mcg IH DAILY 07/16/17 [History] Budesonide/Formoterol 160/4.5 [Symbicort 160/4.5] 1 puff IH BIDR #1 hfa.aer.ad 07/19/17 [Rx] Furosemide [Lasix] 20 mg PO DAILY 11/22/17 [History] glipiZIDE [Glucotrol] 5 mg PO BIDWM 11/22/17 [History] 3 Allergy/AdvReac Type Severity Reaction Status Date / Time No Known Allergies Allergy Verified 01/09/16 17:56 All Systems: The remainder of the systems were reviewed and are negative Physical Examination Vital Signs: Vital Signs, Last 4 Hours Temp Pulse Resp BP Pulse Ox 11/24/17 07:27 20 95 11/24/17 06:47 98.7 F 83 16 150/84 93 General appearance: no acute distress Eyes: nonicteric ENT: oropharynx moist Mallampati (class): 3 Neck: supple, JVD Effort: mildly labored Auscultation: bilateral: rales Percussion: bilateral: not dull Cardiovascular: irregular rhythm, murmur noted Gastrointestinal: normoactive bowel sounds, non-distended Extremities: no cyanosis, edema normal mental status, non-focal exam mood appropriate Results - Laboratory Findings CBC and BMP: 11/23/17 04:23 11/24/17 04:06 PT/INR, D-dimer PT 12.7 Seconds (9.4-12.1) H 11/23/17 04:23 Abnormal lab findings: Abnormal lab results Hgb 12.7 g/dL (12.9-16.9) L 11/23/17 04:23 MCH 26.7 pg (28.0-33.3) L 11/23/17 04:23 MCHC 30.5 g/dL (31.6-35.5) L 11/23/17 04:23 PT 12.7 Seconds (9.4-12.1) H 11/23/17 04:23 BUN 29 mg/dL (8-23) H 11/24/17 04:06 Creatinine 1.48 mg/dL (0.70-1.30) H 11/24/17 04:06 Est GFR ( Amer) 56 (> 60) L 11/24/17 04:06 Est GFR (Non-Af Amer) 46 (> 60) L 11/24/17 04:06 Glucose 253 mg/dL (70-105) H 11/24/17 04:06 POC Glucose 202 mg/dL (70-99) H 11/23/17 17:03 Hemoglobin A1c 9.5 % (-5.6) H 11/23/17 11:32 Calculated Osmolality 310 (280-300) H 11/24/17 04:06 Total Bilirubin 1.2 mg/dL (0.3-1.0) H 11/23/17 04:23 B-Natriuretic Peptide 533 pg/mL (Less than 100) H 11/23/17 04:23 HDL Cholesterol 34 mg/dL (40-59) L 11/23/17 04:23 Urine Protein 30 mg/dL (Neg-Trace) H 11/22/17 11:16 Urine Glucose (UA) 100 mg/dL (Normal) H 11/22/17 11:16 - Diagnostic Findings Chest x-ray: report reviewed, image reviewed - Clinical Findings Intake & Output: Intake & Output 11/23/17 11/24/17 11/24/17 23:59 07:59 15:59 Intake Total 700 / 700 200 / 200 240 / 240 Output Total 850 / 850 600 / 600 Balance -150 / -150 -400 / -400 240 / 240 Weight 106.197 kg Consult Discharge Plan - Plan Referrals: Vicki Fletcher, UTILIZATION COORDINATOR [Primary Care Provider] -
--- NOTE | 2017-11-24 15:01 | Cardiology Consult Note ---
Date of Encounter: 11/24/17 Time of Encounter: 12:00 Assessment and Plan (1) Atrial fibrillation Current Visit: Yes Status: Acute New diagnosis of afib. Denies previous history. Seen one month ago and afib not seen. Currently rate controlled. TSH was normal. TTE -EF 55% . Mild LVH. Indeterminate diastolic function. Severely dilated LA. Moderate pulmonary hypertension. Continue carvedilol. Currently on lovenox. CHADS VASc= 7. High risk for CVA. Recommended anticoagulation with coumadin or NOAC. He agrees with anticoagulation. I will send eliquis through his pharmacy. Start eliquis 5 mg BID if affordable. Monitor BMP. Qualifiers: Atrial fibrillation type: unspecified Qualified Code(s): I48.91 - Unspecified atrial fibrillation (2) (HFpEF) heart failure with preserved ejection fraction Current Visit: No Status: Acute CHFpEF. TTE shows EF 55%. Acute diastolic CHF. Complicated by CKD and solitary kidney. Nephrology following. Metolazone ordered by nephrology. Continues to have significant fluid overload on exam. BLE edema. Venous doppler negative. BNP 588. Net negative 3265. CHF education reviewed. Low sodium diet. Daily weights. Strict I&O. Continue IV lasix.Appreciate recs from nephrology with known solitary kidney. (3) CAD (coronary artery disease) Current Visit: No Status: Chronic H/o 3 vessel CABG in 2013. Denies chest pain. No WMA on TTE. EF 55%. Troponin negative. Continue asa, statin, and bb. Qualifiers: Coronary Disease-Associated Artery/Lesion type: unspecified vessel or lesion type [place] vs. transplanted heart: [place] heart Associated angina: without angina Qualified Code(s): I25.10 - Atherosclerotic heart disease of [place] coronary artery without angina pectoris Discussion w patient/family: The assessment and plan as outlined above was discussed with the patient and/or family members who expressed understanding and agreement. All questions were answered. Thank you for involving us in the care of your patient. Please call with any questions. History of Present Illness Consult date: 11/24/17 Requesting physician: Andres Toth Consult reason: atrial fibrillation Chief complaint: SOB History of present illness: Mr. Gayle is a 77 year old male with past medical history of 3V CABG in 2013, HTN, DM, solitary kidney, CKD, and TIA who presented with the c/o SOB for two weeks. Reprts 20 lb weight gain and BLE edema. States he was hospitalized one month ago with SOB and was diagnosed with COPD. During his stay he was also found to have rate controlled atrial fibrillation. He denies previous history of atrial fibrillation. Past Med Surg Social Fam HX - Past Medical History Medical history: COPD, coronary artery disease, CVA, diabetes, hypertension Psychiatric history: no psych history - Past Surgical History Surgical History: cholecystectomy - Social History Smoking Status: Former smoker Smokeless Tobacco Status: No Alcohol use: none Drug use: none - Family History Mother Living Status: Hx Family Cardiac Disorders: No Hx Family Respiratory Disorders: Yes (asthma) Hx Family Cancer: Yes (pancreatic) Hx Family GI Disorders: No Hx Family Endocrine Disorder: No Hx Family Neuromuscular Disorders: No Hx Family Neurologic Disorders: No Hx Family HEENT Disorders: No Hx Family Autoimmune Disorders: No Father Living Status: Hx Family Cardiac Disorders: Yes ([place], HTN) Hx Family Respiratory Disorders: No Hx Family Cancer: No Hx Family GI Disorders: No Hx Family Endocrine Disorder: No Hx Family Neuromuscular Disorders: No Hx Family Neurologic Disorders: No Hx Family HEENT Disorders: No Hx Family Autoimmune Disorders: No Medications and Allergies Aspirin [Lo-Dose Aspirin EC] 81 mg PO DAILY 06/21/17 [History] Atorvastatin [Lipitor] 80 mg PO HS 06/21/17 [History] Exenatide [Byetta] 10 mcg SQ BID 06/21/17 [History] Finasteride [Proscar] 5 mg PO DAILY 06/21/17 [History] Quinapril HCl [Accupril] 20 mg PO BID 06/21/17 [History] hydroCHLOROthiazide [Hydrochlorothiazide] 12.5 mg PO DAILY 06/21/17 [History] Albuterol Sulfate [Ventolin Hfa] 2 puff IH TID PRN 06/22/17 [History] Carvedilol [Coreg] 25 mg PO BID 06/22/17 [History] Ferrous Gluconate 324 mg PO DAILY 06/22/17 [History] Nitroglycerin [Nitrostat] 0.4 mg SL Q5M PRN 06/22/17 [History] hydrALAZINE [HydrALAZINE] 25 mg PO TID 06/22/17 [History] Ascorbate Calcium [Vitamin C] 500 mg PO DAILY 07/16/17 [History] Tiotropium [place] [Spiriva Respimat] 2.5 mcg IH DAILY 07/16/17 [History] Budesonide/Formoterol 160/4.5 [Symbicort 160/4.5] 1 puff IH BIDR #1 hfa.aer.ad 07/19/17 [Rx] Furosemide [Lasix] 20 mg PO DAILY 11/22/17 [History] glipiZIDE [Glucotrol] 5 mg PO BIDWM 11/22/17 [History] 3 Allergy/AdvReac Type Severity Reaction Status Date / Time No Known Allergies Allergy Verified 01/09/16 17:56 All Systems Review: The remainder of the systems were reviewed and are negative Physical Examination Vital Signs Temp Pulse Resp BP Pulse Ox 11/24/17 10:29 98.1 F 76 18 108/68 93 11/24/17 09:43 20 95 11/24/17 09:35 93 11/24/17 07:27 20 95 11/24/17 06:47 98.7 F 83 16 150/84 93 11/24/17 03:18 99.5 F 97 17 138/77 94 11/24/17 00:04 98.8 F 84 18 126/67 91 11/23/17 21:17 18 95 11/23/17 21:14 98.6 F 112 18 140/78 96 11/23/17 16:04 98.2 F 91 15 160/78 96 Intake and Output 11/23/17 11/24/17 11/24/17 23:59 07:59 15:59 Intake Total 700 / 700 200 / 200 360 / 360 Output Total 850 / 850 600 / 600 225 / 225 Balance -150 / -150 -400 / -400 135 / 135 Intake: Oral 700 / 700 200 / 200 360 / 360 Output: Urine 850 / 850 600 / 600 225 / 225 Other: Meal Lunch Percent of Meal Consumed 70% # Voids 1 0 # Bowel Movements 0 Weight 106.197 kg Blood Glucose* 239 252 340 Patient Weight 11/24/17 23:59 Weight 106.197 kg General: Conversant, No Apparent Distress HEENT: Atraumatic, Normocephaly, Mucus Membranes Moist Neck: No JVD, Normal carotid pulses Cardiac: Other (Irregularly irregular. ) Lungs: Normal Breath Sounds, No Wheeze, Rales, Rhonchi, Other (diminished bases) Neuro: Alert and responsive, No focal deficits noted Abdomen: Soft, Non-Tender Skin: No rashes noted on visualized skin Musculoskeletal: No Chest Wall Tenderness Extremities: No Clubbing, No Cyanosis, Normal Pulses, Other (3+ BLE edema) Results 11/23/17 04:23 11/24/17 04:06 Lab Results 11/24/17 04:06 Sodium 143 Potassium 4.3 Chloride 102 Carbon Dioxide 27 BUN 29 H Creatinine 1.48 H Glucose 253 H Calcium 9.2 - Imaging and Cardiology Echo: report reviewed - EKG Interpretation EKG results cardiology: personally reviewed Consult Discharge Plan - Plan Referrals: Vicki Fletcher, MILL OPERATOR HELPER [Primary Care Provider] -
--- NOTE | 2017-11-24 16:50 | Event Note ---
Date of Encounter: 11/24/17 Time of Encounter: 14:37 - Cardiology Event Note Eliquis fleming was $ 30.00 a month. Patient notified and he is agreeable to start. D/c lovenox.
--- NOTE | 2017-11-24 17:00 | Electrocardiograph Report ---
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
[2017-11-24] MEDS ORDERED: Ondansetron 4 MG/2 ML VIAL IVP ONE (18:05)
[2017-11-24] MEDS: Apixaban 5 MG TABLET PO SCH (20:55)
[2017-11-24] MEDS: Ondansetron 4 MG/2 ML VIAL IVP PRN (23:54)
[2017-11-25] MEDS: Acetaminophen 325 MG TABLET PO PRN (00:42)
[2017-11-25 04:55] LABS: Albumin 3.7 g/dL (3.5-5.7); Albumin/Globulin Ratio 1.4 (1.1-2.2); Bilirubin,Total 2.1 mg/dL (0.3-1.0); Calcium 9.3 mg/dL (8.6-10.3); Globulin 2.7 g/dL (2.4-3.5); Potassium 4.3 mEq/L (3.5-5.1); Total Protein 6.4 g/dL (6.4-8.9)
[2017-11-25] MEDS: Budesonide/Formoterol 160/4.5 MDI IH SCH ×2 (07:55→22:09)
[2017-11-25] MEDS: Ipratropium/Albuterol Neb 3 ML IH PRN (07:58)
--- NOTE | 2017-11-25 08:08 | Nephrology Progress Note ---
Date of Encounter: 11/25/17 Time of Encounter: 08:06 - Assessment and Plan (1) Chronic kidney disease, stage III (moderate) Current Visit: No Status: Chronic Patient's renal function is worsening in his urine output seems to be decreasing despite starting metolazone yesterday. I am going to check a renal ultrasound and make sure he is not doing his bladder appropriately. If there are are no post renal issues we may need to switch him to a Lasix drip. 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 insulin use: with middle or intermediate school principal use Chronic kidney disease stage: stage 3 (moderate) Qualified Code(s): E11.22 - Type 2 diabetes mellitus with diabetic chronic kidney disease; N18.3 - Chronic kidney disease, stage 3 (moderate); N18.3 - Chronic kidney disease, stage 3 (moderate); Z79.4 - penitentiary (current) use of insulin; Z79.4 - penitentiary (current) use of insulin; Z79.4 - middle or intermediate school principal (current) use of insulin; Z79.4 - penitentiary (current) use of insulin (3) Benign hypertension with chronic kidney disease, stage III Current Visit: Yes Status: Acute (4) Benign hypertension with chronic kidney disease, stage III Current Visit: No Status: Chronic (5) Pulmonary hypertension Current Visit: No Status: Chronic (6) New onset a-fib Current Visit: Yes Status: Acute Subjective Interval history: Patient is complaining of nausea and lower abdominal pain. His urine output is actually less compared to the previous 24 hours even though he was placed on metolazone yesterday. Renal function is worse. Input from pulmonary and cardiology has been reviewed. Objective - Vital Signs Vital signs: Vital Signs Temp Pulse Resp BP Pulse Ox 11/25/17 04:22 98.8 F 109 18 113/61 94 11/24/17 23:56 100.3 F H 84 14 124/86 98 11/24/17 20:36 16 95 11/24/17 18:57 98.6 F 72 18 120/68 93 11/24/17 15:16 98.5 F 81 18 120/69 95 11/24/17 10:29 98.1 F 76 18 108/68 93 11/24/17 09:43 20 95 11/24/17 09:35 93 Intake and Output 11/24/17 11/25/17 11/25/17 23:59 07:59 15:59 Intake Total 600 / 600 Output Total 550 / 550 Balance 50 / 50 Intake: Oral 600 / 600 Output: Urine 550 / 550 Other: Stool Size Moderate Stool Consistency formed Stool Characteristics Normal for Patient # Voids 0 # Bowel Movements 0 Blood Glucose* 116 - General Appearance Exam: Patient sitting in a chair. He is alert and oriented. He is in no acute distress. Temperature is been as high as 100.3. Lungs managed breath sounds in the bases. Heart irregular rate and rhythm. The patient continues to have 3 + lower extremity swelling up past the knees. Abdomen appears to be less distended. - Lab 11/23/17 04:23 11/25/17 04:09 Most recent lab results Calcium 9.3 mg/dL (8.6-10.3) 11/25/17 04:09 Phosphorus 4.0 mg/dL (2.7-4.5) 11/23/17 04:23 Magnesium 2.0 mg/dL (1.6-2.6) 11/23/17 04:23 - VTE Documentation of Mechanical Device: Graduated compression elastic hosiery Consult Discharge Plan - Plan Referrals: Vicki Fletcher CNP [Primary Care Provider] - Prescriptions: Apixaban [Eliquis] 5 mg PO BID #60 tablet
[2017-11-25] MEDS: Ondansetron 4 MG/2 ML VIAL IVP PRN ×2 (08:46→17:25)
[2017-11-25] MEDS ORDERED: Patient Taking Own Medication 1 EACH IH SCH (10:00)
[2017-11-25] MEDS: Insulin LISPRO 300 UNITS/3 ML VIAL SQ SCH ×4 (10:17→21:31)
[2017-11-25] MEDS: metOLazone 5 MG TABLET PO SCH ×2 (10:31→17:32)
[2017-11-25] MEDS: Ascorbic Acid 500 MG TABLET PO SCH (10:31)
[2017-11-25] MEDS: Aspirin Enteric Coated 81 MG Tablet PO SCH (10:32)
[2017-11-25] MEDS: Fluticasone Propionate Nasal 50 MCG/SPRAY BOTTLE NS SCH (10:32)
[2017-11-25] MEDS: Furosemide 40 MG/4 ML VIAL IVP SCH (10:32)
[2017-11-25] MEDS: Finasteride 5 MG TABLET PO SCH (10:32)
[2017-11-25] MEDS: Apixaban 5 MG TABLET PO SCH ×2 (10:32→21:30)
[2017-11-25] MEDS: Isosorbide MONOnitrate (24 HR) 60 MG TAB.ER.24H PO SCH (10:32)
[2017-11-25] MEDS: hydrALAZINE 25 MG TABLET PO SCH ×3 (10:37→21:30)
--- NOTE | 2017-11-25 10:47 | Cardiology Progress Note ---
Date of Encounter: 11/25/17 Time of Encounter: 10:46 Assessment and Plan (1) (HFpEF) heart failure with preserved ejection fraction Current Visit: No Status: Acute CHFpEF. TTE shows EF 55%. Acute diastolic CHF, but also with RV dysfunction noted. Complicated by CKD and solitary kidney. Nephrology following. Metolazone ordered by nephrology and started yesterday. Continues to have significant fluid overload on exam. BLE edema. Venous doppler negative. BNP 588. Renal function has worsened. Creatinine was 1.48 yesterday, 2.04 today. Per nephrology, renal US today and if no post renal issues, may need to switch him to Lasix drip. Net negative 3570. CHF education reviewed. Low sodium diet. Daily weights. Strict I&O. Continue IV lasix. Appreciate recs from nephrology with known solitary kidney. Continue to follow. (2) Atrial fibrillation Current Visit: Yes Status: Acute New diagnosis of afib. Denies previous history. Seen one month ago and afib not seen. Currently rate controlled. 12 hr tele AVG HR 89, A-Fib. TSH was normal. TTE -EF 55% . Mild LVH. Indeterminate diastolic function. Severely dilated LA. Moderate pulmonary hypertension. Continue carvedilol. CHADS VASc= 7. High risk for CVA. Recommended anticoagulation with coumadin or NOAC. He agrees with anticoagulation, eliquis 5mg BID was fle[place] checked and affordable. Qualifiers: Atrial fibrillation type: unspecified Qualified Code(s): I48.91 - Unspecified atrial fibrillation (3) CAD (coronary artery disease) Current Visit: No Status: Chronic H/o 3 vessel CABG in 2013. Denies chest pain. No WMA on TTE. EF 55%. Troponin negative. Continue asa, statin, and bb. Qualifiers: Coronary Disease-Associated Artery/Lesion type: unspecified vessel or lesion type [place] vs. transplanted heart: [place] heart Associated angina: without angina Qualified Code(s): I25.10 - Atherosclerotic heart disease of [place] coronary artery without angina pectoris Discussion w patient/family: The assessment and plan as outlined above was discussed with the patient and/or family members who expressed understanding and agreement. All questions were answered. Thank you for involving us in the care of your patient. Please call with any questions. I will discuss all the above with Dr. Menezes and make changes as necessary. Subjective Principal diagnosis: CHF Interval history: Creatinine has worsened today--was 1.48 yesterday, 2.08 today. Pt reports being very nauseous and dry heaving this AM. Objective Vital Signs, Last 4 Hours Temp Pulse Resp BP Pulse Ox 11/25/17 08:07 98.5 F 105 18 151/67 97 Vital Signs Temp Pulse Resp BP Pulse Ox 11/25/17 08:07 98.5 F 105 18 151/67 97 11/25/17 04:22 98.8 F 109 18 113/61 94 11/24/17 23:56 100.3 F H 84 14 124/86 98 11/24/17 20:36 16 95 11/24/17 18:57 98.6 F 72 18 120/68 93 11/24/17 15:16 98.5 F 81 18 120/69 95 Intake and Output 11/24/17 11/25/17 11/25/17 23:59 07:59 15:59 Intake Total 600 / 600 Output Total 550 / 550 Balance 50 / 50 Intake: Oral 600 / 600 Output: Urine 550 / 550 Other: Stool Size Moderate Moderate Stool Consistency formed soft Stool Characteristics Normal for Patient Normal for Patient Stool Color Brown # Voids 0 1 # Bowel Movements 0 1 Blood Glucose* 116 194 General: Conversant, No Apparent Distress HEENT: Atraumatic, Normocephaly, Mucus Membranes Moist Neck: Normal carotid pulses Cardiac: Other (irregularly irregular) Lungs: Other (rhonchi, diminished) Neuro: Alert and responsive, No focal deficits noted Abdomen: Soft, Non-Tender Skin: No rashes noted on visualized skin Musculoskeletal: No Chest Wall Tenderness Extremities: Other (significant 3+ BLE edema) Results 11/23/17 04:23 11/25/17 04:09 Lab Results 11/25/17 04:09 Sodium 139 Potassium 4.3 Chloride 99 Carbon Dioxide 29 BUN 35 H Creatinine 2.08 H Glucose 203 H Calcium 9.3 Total Bilirubin 2.1 H AST 15 ALT 13 Alkaline Phosphatase 84 - Imaging and Cardiology Echo: report reviewed - EKG Interpretation EKG results cardiology: other (12 hr tele AVG HR 89, A-Fib) - VTE Documentation of Mechanical Device: Graduated compression elastic hosiery Consult Discharge Plan - Plan Referrals: Vicki Fletcher, WINE AND SPIRITS CLERK [Primary Care Provider] - (WEB REQUEST SENT ON 11/25/17) Prescriptions: Apixaban [Eliquis] 5 mg PO BID #60 tablet
[2017-11-25] MEDS: Patient Taking Own Medication 1 EACH IH SCH (11:51)
[2017-11-25] MEDS ORDERED: *HR* Promethazine 25 MG/ML VIAL IM ONE (13:30)
[2017-11-25] MEDS ORDERED: *HR* Promethazine 25 MG/ML VIAL IM PRN (16:12)
[2017-11-25] MEDS ORDERED: 0.9 % Sodium Chloride 250 ML ONE (17:56)
[2017-11-25] MEDS: Furosemide 240 MG in D5% in Water 96 ML IVC SCH (18:05)
--- NOTE | 2017-11-25 21:18 | Internal Med Progress Note ---
Date of Encounter: 11/25/17 Time of Encounter: 16:47 - Assessment and plan (1) New onset a-fib Current Visit: Yes Status: Acute Assessment and plan: Cardiology consulted; appreciate input. Currently rate controlled. Cardiac enzymes trended negative x 3. ECHO showed LVEF 55% with mild LVH, indeterminate diastolic function, severely dilated LA, and moderate pulmonary hypertension. Continue metoprolol and eliquis. (2) (HFpEF) heart failure with preserved ejection fraction Current Visit: Yes Status: Acute Assessment and plan: Worsening edema. BLE venous doppler negative for DVT. Cardiology and nephrology consulted; appreciate input. Diuresis per nephrology; on IV lasix now but considering lasix drip due to worsening renal function. Continue metolazone. Continue low sodium and fluid restriction diet. Continue strict I& Os and daily weights. (3) Chronic kidney disease, stage III (moderate) Current Visit: Yes Status: Chronic Assessment and plan: Worsening renal function. Nephrology consulted; appreciate input. Renal ultrasound pending. Diuresis recommendations per nephrology; considering lasix drip. Recheck CMP in AM. (4) Diabetes Current Visit: Yes Status: Chronic Assessment and plan: Continue accuchecks and moderate dose SSI QID AC/HS. Qualifiers: Diabetes mellitus type: type 2 Diabetes mellitus adjunct faculty for medical terminology insulin use: without adjunct faculty for medical terminology use Diabetes mellitus complication status: without complication Qualified Code(s): E11.9 - Type 2 diabetes mellitus without complications (5) CAD (coronary artery disease) Current Visit: Yes Status: Chronic Assessment and plan: Cardiac enzymes trended negative x 3. ECHO results as per above. Cardiology consulted; appreciate input. Considering cath after acute issues addressed. Continue aspirin, statin, and beta bryan. Qualifiers: Coronary Disease-Associated Artery/Lesion type: unspecified vessel or lesion type [place] vs. transplanted heart: [place] heart Associated angina: without angina Qualified Code(s): I25.10 - Atherosclerotic heart disease of [place] coronary artery without angina pectoris (6) Essential hypertension Current Visit: Yes Status: Chronic Assessment and plan: Continue home medications except lisinopril. (7) DVT prophylaxis Current Visit: Yes Status: Acute Assessment and plan: Continue eliquis. - Time Spent With Patient Total time spent is greater than 50% in coordination of care (as documented) at patient's floor/unit and/or counseling patient: less than 15 minutes - Subjective Interval history: Patient had no acute events overnight. Still complains of significant BLE edema that is painful. He denies SOB at this time. He has had some nausea/ vomiting throughout the day today; some of it likely due to renal ultrasound prep of drinking 1L fluids. He denies chest pain, palpitations, fever, chills, or abdominal pain. He has no other complaints at this time. Plan of care discussed with , who is in room today. - Constitutional Vitals: Temp Pulse Resp BP Pulse Ox 99.1 F 90 19 127/71 94 11/25/17 18:45 11/25/17 18:45 11/25/17 18:45 11/25/17 18:45 11/25/17 18:45 General appearance: Present: cooperative, A&O X 3, pleasant, no acute distress, answers questions appropriately - Respiratory Respiratory exam: Present: CTAB. Absent: accessory muscle use, rales, rhonchi, wheezes Additional comments: Normal WOB - Cardiovascular Cardiovascular exam: Present: JVD, RRR, +S1, +S2. Absent: diastolic murmur, gallop, rubs, systolic murmur Additional comments: 3+ pitting BLE edema with weeping - GI/Abdominal GI/Abdominal exam: Present: normal bowel sounds, soft. Absent: distended, hepatomegaly, mass, splenomegaly, tenderness - Psychiatric Psychiatric exam: Present: normal affect, normal mood. Absent: agitated, anxious, depressed - Skin Skin exam: Present: dry, intact, warm. Absent: cyanosis, rash Internal Medicine: Result - Labs CBC & Chem 7: 11/23/17 04:23 11/25/17 04:09 Labs: BMP 11/25/17 04:09 Sodium 139 Potassium 4.3 Chloride 99 Carbon Dioxide 29 BUN 35 H Creatinine 2.08 H Glucose 203 H Calcium 9.3 Liver Function 11/25/17 Range/Units 04:09 Total Bilirubin 2.1 H (0.3-1.0) mg/dL AST 15 (13-39) Units/L ALT 13 (7-52) Units/L Alkaline Phosphatase 84 (34-104) Units/L Albumin 3.7 (3.5-5.7) g/dL - ABG Interpretation ABG results: PT/INR, D-dimer PT 12.7 Seconds (9.4-12.1) H 11/23/17 04:23 - Impressions Impressions Retroperitoneum Ultrasound 11/25/17 14:30 IMPRESSION: 1. Patient is status post left nephrectomy. 2. Normal sonographic appearance of the right kidney. 3. Unremarkable sonographic appearance of the urinary bladder. However, the patient was unable to void for the study. 4. Nonspecific prostatomegaly. D/ / 11/25/2017 16:01:37 Sae Bridges MD / [facility]ailyn Interpreting Provider: Sae Bridges MD - VTE Contraindication No Overlap Therapy: Admin of oral Factor Xa Inhibitor Consult Discharge Plan - Plan Referrals: Vicki Fletcher, SOFTWARE BUSINESS ANALYST [Primary Care Provider] - (WEB REQUEST SENT ON 11/25/17) Prescriptions: Apixaban [Eliquis] 5 mg PO BID #60 tablet
[2017-11-26 02:09] LABS: Albumin 3.5 g/dL (3.5-5.7); Albumin/Globulin Ratio 1.3 (1.1-2.2); Bilirubin,Total 2.9 mg/dL (0.3-1.0); Calcium 9.2 mg/dL (8.6-10.3); Globulin 2.8 g/dL (2.4-3.5); Total Protein 6.3 g/dL (6.4-8.9)
[2017-11-26] MEDS: Ipratropium/Albuterol Neb 3 ML IH PRN (07:35)
[2017-11-26] MEDS: Budesonide/Formoterol 160/4.5 MDI IH SCH ×2 (07:35→21:37)
[2017-11-26] MEDS: Isosorbide MONOnitrate (24 HR) 60 MG TAB.ER.24H PO SCH (07:42)
[2017-11-26] MEDS: hydrALAZINE 25 MG TABLET PO SCH ×3 (07:42→21:14)
[2017-11-26] MEDS: metOLazone 5 MG TABLET PO SCH ×2 (07:42→16:14)
[2017-11-26] MEDS: Finasteride 5 MG TABLET PO SCH (07:42)
[2017-11-26] MEDS: Apixaban 5 MG TABLET PO SCH ×2 (07:42→21:13)
[2017-11-26] MEDS: Aspirin Enteric Coated 81 MG Tablet PO SCH (07:42)
[2017-11-26] MEDS: Ascorbic Acid 500 MG TABLET PO SCH (07:42)
[2017-11-26] MEDS: Insulin LISPRO 300 UNITS/3 ML VIAL SQ SCH ×4 (07:43→21:15)
[2017-11-26] MEDS: Fluticasone Propionate Nasal 50 MCG/SPRAY BOTTLE NS SCH (07:50)
--- NOTE | 2017-11-26 09:36 | Nephrology Progress Note ---
Date of Encounter: 11/26/17 Time of Encounter: 09:10 - Assessment and Plan (1) ENRIQUE (acute kidney injury) Current Visit: Yes Status: Acute ENRIQUE superimposed on CKD, baseline 1.5-1.7 in setting of volume overload, pulm HTN, CHF-D. New onset Afib. Renal US unclear on bladder outlet obstruction. Prostamegaly, "inability to void" but does not say if badder full/empty. Renal fct worsening, urine output decreasing despite Lasix drip and Metolazone. Will place Hathaway catheter. Accurate I&O. Will continue to monitor. Subjective Principal diagnosis: CHF Interval history: Sitting up in a chair, somewhat somnolent. at bedside, states received pain Rx earlier. Patient denies SOB. Lasix drip. Objective - Vital Signs Vital signs: Vital Signs Temp Pulse Resp BP Pulse Ox 11/26/17 08:03 97 11/26/17 06:50 98.6 F 88 18 148/89 97 11/26/17 05:40 98.3 F 86 18 157/79 95 11/26/17 00:10 98.4 F 83 18 127/67 92 11/25/17 22:10 20 94 11/25/17 18:45 99.1 F 90 19 127/71 94 11/25/17 16:53 99.5 F 105 18 136/68 96 11/25/17 11:29 98.6 F 98 18 126/75 94 Intake and Output 11/25/17 11/26/17 11/26/17 23:59 07:59 15:59 Intake Total 240 / 240 500 / 500 360 / 360 Output Total 550 / 550 1300 / 1300 300 / 300 Balance -310 / -310 -800 / -800 60 / 60 Intake: Oral 240 / 240 500 / 500 360 / 360 Output: Urine 550 / 550 1300 / 1300 300 / 300 Other: Meal Dinner Breakfast Percent of Meal Consumed 100% 100% # Voids 1 2 Weight 108.068 kg 108.068 kg Blood Glucose* 277 273 Patient Weight 11/26/17 23:59 Weight 108.068 kg - General Appearance General appearance: Present: well-developed, well-nourished, appears started age , obese EENT: Present: mucous membranes moist Neck: Present: no JVD Respiratory: Present: clear Cardiology: Present: edema, regular rate, regular rhythm Additional Comments: 1-2+ pitting Gastrointestinal: Present: normoactive bowel sounds, no tenderness Integumentary: Present: warm and dry Neurologic: Present: alert and oriented x3 - Lab 11/23/17 04:23 11/26/17 01:33 Most recent lab results Calcium 9.2 mg/dL (8.6-10.3) 11/26/17 01:33 Phosphorus 4.0 mg/dL (2.7-4.5) 11/23/17 04:23 Magnesium 2.0 mg/dL (1.6-2.6) 11/23/17 04:23 - VTE Documentation of Mechanical Device: Graduated compression elastic hosiery Contraindication No Overlap Therapy: Admin of oral Factor Xa Inhibitor Consult Discharge Plan - Plan Referrals: Vicki Fletcher CORE CHECKER [Primary Care Provider] - (WEB REQUEST SENT ON 11/25/17) Prescriptions: Apixaban [Eliquis] 5 mg PO BID #60 tablet
[2017-11-26 09:40] LABS: Calcium 8.9 mg/dL (8.6-10.3); Potassium 3.5 mEq/L (3.5-5.1)
[2017-11-26] MEDS ORDERED: Lidocaine Jelly 6ml 1 APPL/6 ML JEL.PF.APP MM ONE (10:15)
--- NOTE | 2017-11-26 10:26 | Cardiology Progress Note ---
Date of Encounter: 11/26/17 Time of Encounter: 10:21 Assessment and Plan (1) (HFpEF) heart failure with preserved ejection fraction Current Visit: Yes Status: Acute CHFpEF. TTE shows EF 55%. Acute diastolic CHF, but also with RV dysfunction noted. Complicated by CKD and solitary kidney. Nephrology following. Metolazone started by nephrology 5mg BID. Continues to have significant fluid overload on exam. BLE edema. Venous doppler negative. BNP 588. Renal function has worsened. Creatinine 2.04 yesterday, 2.37 today. Nephrology switched pt to Lasix gtt and chew inserted. Net negative 4850. CHF education reviewed. Low sodium diet. Daily weights. Strict I&O. Continue IV lasix. Appreciate recs and management from nephrology with known solitary kidney. Continue to follow. Will recheck BMP. (2) Atrial fibrillation Current Visit: Yes Status: Acute New diagnosis of afib. Denies previous history. Seen one month ago and afib not seen. Currently rate controlled. 12 hr tele AVG HR 86, A-Fib. TSH was normal. TTE -EF 55% . Mild LVH. Indeterminate diastolic function. Severely dilated LA. Moderate pulmonary hypertension. Continue carvedilol 25mg BID. CHADS VASc= 7. High risk for CVA. Recommended anticoagulation with coumadin or NOAC. He agrees with anticoagulation, eliquis 5mg BID was fle[place] checked and affordable, started. Qualifiers: Atrial fibrillation type: unspecified Qualified Code(s): I48.91 - Unspecified atrial fibrillation (3) CAD (coronary artery disease) Current Visit: Yes Status: Chronic H/o 3 vessel CABG in 2013. Denies chest pain. No WMA on TTE. EF 55%. Troponin negative. Continue asa, statin, and bb. Qualifiers: Coronary Disease-Associated Artery/Lesion type: unspecified vessel or lesion type [place] vs. transplanted heart: [place] heart Associated angina: without angina Qualified Code(s): I25.10 - Atherosclerotic heart disease of [place] coronary artery without angina pectoris Discussion w patient/family: The assessment and plan as outlined above was discussed with the patient and/or family members who expressed understanding and agreement. All questions were answered. Thank you for involving us in the care of your patient. Please call with any questions. I will discuss all the above with Dr. Menezes and make changes as necessary. Subjective Principal diagnosis: CHF Interval history: Creatinine has worsened today--was 2.08 yesterday, 2.37 today. Cumulative I/O - 4850mL. Denies dyspnea, but still significant LE edema. Currently on Lasix gtt at 10mg/hr. Nephrology following, chew placed. Objective Vital Signs, Last 4 Hours Temp Pulse Resp BP Pulse Ox 11/26/17 09:59 18 94 11/26/17 09:50 97 11/26/17 08:03 97 11/26/17 06:50 98.6 F 88 18 148/89 97 Vital Signs Temp Pulse Resp BP Pulse Ox 11/26/17 09:59 18 94 11/26/17 09:50 97 11/26/17 08:03 97 11/26/17 06:50 98.6 F 88 18 148/89 97 11/26/17 05:40 98.3 F 86 18 157/79 95 11/26/17 00:10 98.4 F 83 18 127/67 92 11/25/17 22:10 20 94 11/25/17 18:45 99.1 F 90 19 127/71 94 11/25/17 16:53 99.5 F 105 18 136/68 96 11/25/17 11:29 98.6 F 98 18 126/75 94 Intake and Output 11/25/17 11/26/17 11/26/17 23:59 07:59 15:59 Intake Total 240 / 240 500 / 500 360 / 360 Output Total 550 / 550 1300 / 1300 300 / 300 Balance -310 / -310 -800 / -800 60 / 60 Intake: Oral 240 / 240 500 / 500 360 / 360 Output: Urine 550 / 550 1300 / 1300 300 / 300 Other: Meal Dinner Breakfast Percent of Meal Consumed 100% 100% # Voids 1 2 Weight 108.068 kg 108.068 kg Blood Glucose* 277 273 Patient Weight 11/26/17 23:59 Weight 108.068 kg General: Conversant, No Apparent Distress HEENT: Atraumatic, Normocephaly, Mucus Membranes Moist Neck: Normal carotid pulses Cardiac: Other (irregularly irregular) Lungs: Other (diminished, rhonchi) Neuro: No focal deficits noted Abdomen: Soft, Non-Tender Skin: No rashes noted on visualized skin Musculoskeletal: No Chest Wall Tenderness Extremities: Other (3+ BLE edema) Results 11/23/17 04:23 11/26/17 09:05 Lab Results 11/26/17 11/26/17 01:33 09:05 Sodium 135 L 134 L Potassium 4.0 3.5 Chloride 92 L 90 L Carbon Dioxide 31 H 32 H BUN 43 H 44 H Creatinine 2.37 H 2.37 H Glucose 270 H 336 H Calcium 9.2 8.9 Total Bilirubin 2.9 H AST 11 L ALT 12 Alkaline Phosphatase 80 BMP 11/26/17 11/26/17 Range/Units 09:05 01:33 Sodium 134 L 135 L (136-145) mEq/L Potassium 3.5 4.0 (3.5-5.1) mEq/L Chloride 90 L 92 L (98-107) mEq/L Carbon Dioxide 32 H 31 H (23-29) mEq/L BUN 44 H 43 H (8-23) mg/dL Creatinine 2.37 H 2.37 H (0.70-1.30) mg/dL Glucose 336 H 270 H (70-105) mg/dL Calcium 8.9 9.2 (8.6-10.3) mg/dL Liver Function 11/26/17 Range/Units 01:33 Total Bilirubin 2.9 H (0.3-1.0) mg/dL AST 11 L (13-39) Units/L ALT 12 (7-52) Units/L Alkaline Phosphatase 80 (34-104) Units/L Albumin 3.5 (3.5-5.7) g/dL Impressions Retroperitoneum Ultrasound 11/25/17 14:30 IMPRESSION: 1. Patient status post left nephrectomy. 2. Normal sonographic appearance of the right kidney. 3. Unremarkable sonographic appearance of the urinary bladder. However, the patient was unable to void for the study. 4. Nonspecific prostatomegaly. D/ / 11/25/2017 16:01:37 Sae Bridges MD / [facility] Interpreting Provider: Sae Bridges MD Active Medications Acetaminophen (Tylenol) 650 mg PO Q6HR PRN PRN Reason: Fever Stop: 05/27/18 00:35 Last Admin: 11/25/17 00:42 Dose: 650 mg Hydrocodone Bitart/Acetaminophen ([place] 5-325 Mg) 1 tab PO Q6HR PRN PRN Reason: Moderate Pain Stop: 05/24/18 08:16 Last Admin: 11/25/17 21:30 Dose: 1 tab Albuterol/Ipratropium (Duoneb) 3 ml IH [id number] PRN PRN Reason: Shortness Of Breath/Wheezing Stop: 05/26/18 07:56 Last Admin: 11/26/17 07:35 Dose: 3 ml Apixaban (Eliquis) 5 mg PO BID HERNAN Stop: 05/26/18 21:01 Last Admin: 11/26/17 07:42 Dose: 5 mg Ascorbic Acid (Vitamin C) 500 mg PO DAILY HERNAN Stop: 05/27/18 09:01 Last Admin: 11/26/17 07:42 Dose: 500 mg Aspirin (Aspirin Ec) 81 mg PO DAILY HERNAN Stop: 05/24/18 09:01 Last Admin: 11/26/17 07:42 Dose: 81 mg Atorvastatin Calcium (Lipitor) 80 mg PO HS HERNAN Stop: 05/24/18 21:01 Last Admin: 11/25/17 21:30 Dose: 80 mg Budesonide/Formoterol Fumarate (Symbicort) 2 puff IH BIDR HERNAN PRN Reason: Protocol Stop: 05/25/18 22:01 Last Admin: 11/26/17 07:35 Dose: 2 puff Carvedilol (Coreg) 25 mg PO BIDWM HERNAN PRN Reason: Protocol Stop: 05/24/18 08:46 Last Admin: 11/26/17 07:42 Dose: 25 mg Dextrose/Water (Dextrose 50% (Syg)) 25 ml IVP AD PRN PRN Reason: Hypoglycemia Stop: 05/24/18 08:54 Ferrous Sulfate (Ferrous Sulfate) 325 mg PO DAILY@0800 HERNAN Stop: 05/28/18 08:01 Last Admin: 11/26/17 07:42 Dose: 325 mg Finasteride (Proscar) 5 mg PO DAILY HERNAN PRN Reason: Protocol Stop: 05/24/18 09:01 Last Admin: 11/26/17 07:42 Dose: 5 mg Fluticasone Propionate (Flonase) 50 mcg NS DAILY HERNAN PRN Reason: Protocol Stop: 05/24/18 20:16 Last Admin: 11/26/17 07:50 Dose: 50 mcg Glucagon (Glucagen) 1 mg IM ONCE PRN PRN Reason: Hypoglycemia Stop: 05/24/18 08:54 Glucose (Gluctose) 15 gm PO ONCE PRN PRN Reason: Hypoglycemia Stop: 05/24/18 08:54 Glucose (Gluctose) 30 gm PO ONCE PRN PRN Reason: Hypoglycemia Stop: 05/24/18 08:54 Hydralazine HCl (Hydralazine) 100 mg PO TID [facility] Stop: 05/25/18 11:11 Last Admin: 11/26/17 07:42 Dose: 100 mg Dextrose (Dextrose 5%) 1,000 mls @ 100 mls/hr IVC .Q10H PRN PRN Reason: HYPOGLYCEMIA Stop: 05/24/18 08:54 Furosemide 240 mg/ Dextrose 120 mls @ 5 mls/hr IVC .Q24H HERNAN PRN Reason: 10 MG/HR Stop: 05/27/18 16:31 Last Admin: 11/25/17 18:05 Dose: 10 mg/hr, 5 mls/hr Insulin Human Lispro (Humalog) 0 units SQ HS [facility] PRN Reason: Protocol Stop: 05/25/18 21:01 Last Admin: 11/25/17 21:31 Dose: 5 units Insulin Human Lispro (Humalog) 0 units SQ TIDAC [facility] PRN Reason: Protocol Stop: 05/25/18 11:31 Last Admin: 11/26/17 07:43 Dose: 10 units Isosorbide Mononitrate (Imdur) 60 mg PO DAILY [facility] Stop: 05/26/18 09:01 Last Admin: 11/26/17 07:42 Dose: 60 mg Metolazone (Zaroxolyn) 5 mg PO BIDDIURETIC [facility] Stop: 05/26/18 08:01 Last Admin: 11/26/17 07:42 Dose: 5 mg Naloxone HCl (Narcan) 0.4 mg IVP Q2MIN PRN PRN Reason: SEE COMMENTS Stop: 05/24/18 08:16 Nitroglycerin (Nitroglycerin) 0.4 mg SL Q5MIN PRN PRN Reason: Chest Pain Stop: 05/24/18 06:44 Last Admin: 11/22/17 07:11 Dose: 0.4 mg Ondansetron HCl (Zofran) 4 mg IVP Q6HR PRN; Protocol PRN Reason: Nausea And Vomiting Stop: 05/26/18 23:46 Last Admin: 11/25/17 17:25 Dose: 4 mg Pharmacy Profile Note (Patient Taking Own Medication) 2 each IH DAILYR [facility] Stop: 05/27/18 10:01 Last Admin: 11/25/17 11:51 Dose: 2 each Potassium Chloride (Potassium Chloride) 20 meq PO BIDWM [facility] Stop: 05/25/18 08:01 Last Admin: 11/26/17 07:42 Dose: 20 meq Promethazine HCl (Phenergan) 25 mg IM Q8HR PRN PRN Reason: Nausea And Vomiting Stop: 05/27/18 16:13 - Imaging and Cardiology Echo: report reviewed - EKG Interpretation EKG results cardiology: other (12 hr tele AVG HR 86, A-Fib) - VTE Documentation of Mechanical Device: Graduated compression elastic hosiery Contraindication No Overlap Therapy: Admin of oral Factor Xa Inhibitor Consult Discharge Plan - Plan Referrals: Vicki Fletcher SENIOR NETWORK ARCHITECT [Primary Care Provider] - (WEB REQUEST SENT ON 11/25/17) Prescriptions: Apixaban [Eliquis] 5 mg PO BID #60 tablet
[2017-11-26] MEDS: Patient Taking Own Medication 1 EACH IH SCH (11:09)
[2017-11-26] MEDS: Furosemide 240 MG in D5% in Water 96 ML IVC SCH (13:56)
[2017-11-26] MEDS ORDERED: Albuterol 2.5 MG/3 ML NEBULIZER IH PRN (15:24)
[2017-11-26] MEDS: Ipratropium/Albuterol Neb 3 ML IH SCH ×2 (15:42→21:37)
--- NOTE | 2017-11-26 16:02 | Urology - Consult Note ---
Date of Encounter: 11/26/17 Time of Encounter: 16:00 - Assessment and Plan (1) (HFpEF) heart failure with preserved ejection fraction Current Visit: Yes Status: Acute Assessment and plan: 77-year-old man with a history of heart failure is seen in consultation. I was able to place a catheter. The primary team can manage as needed. If they wish to discharge him home with a catheter, he can follow up with Dr. Valenzuela for a voiding trial. Please call with any questions. Urology CN:HPI Consult date: 11/26/17 Reason for consult Urology: Difficult [place] History of present illness: 77-year-old man was admitted for acute renal insufficiency and heart failure. He has required diuresis. He has a known history of BPH status post TURP. The primary team was not successful placing a catheter and requested assistance. History was difficult to obtain from the patient. The nurses were recently trying to place a catheter, but were not successful. Past Med Surg Social Fam HX - Past Medical History Medical history: COPD, coronary artery disease, CVA, diabetes, hypertension Psychiatric history: no psych history - Past Surgical History Surgical History: cholecystectomy - Social History Smoking Status: Former smoker Smokeless Tobacco Status: No Alcohol use: none Drug use: none - Family History Mother Living Status: Hx Family Cardiac Disorders: No Hx Family Respiratory Disorders: Yes (asthma) Hx Family Cancer: Yes (pancreatic) Hx Family GI Disorders: No Hx Family Endocrine Disorder: No Hx Family Neuromuscular Disorders: No Hx Family Neurologic Disorders: No Hx Family HEENT Disorders: No Hx Family Autoimmune Disorders: No Father Living Status: Hx Family Cardiac Disorders: Yes ([place], HTN) Hx Family Respiratory Disorders: No Hx Family Cancer: No Hx Family GI Disorders: No Hx Family Endocrine Disorder: No Hx Family Neuromuscular Disorders: No Hx Family Neurologic Disorders: No Hx Family HEENT Disorders: No Hx Family Autoimmune Disorders: No Medications and Allergies Aspirin [Lo-Dose Aspirin EC] 81 mg PO DAILY 06/21/17 [History] Atorvastatin [Lipitor] 80 mg PO HS 06/21/17 [History] Exenatide [Byetta] 10 mcg SQ BID 06/21/17 [History] Finasteride [Proscar] 5 mg PO DAILY 06/21/17 [History] Quinapril HCl [Accupril] 20 mg PO BID 06/21/17 [History] hydroCHLOROthiazide [Hydrochlorothiazide] 12.5 mg PO DAILY 06/21/17 [History] Albuterol Sulfate [Ventolin Hfa] 2 puff IH TID PRN 06/22/17 [History] Carvedilol [Coreg] 25 mg PO BID 06/22/17 [History] Ferrous Gluconate 324 mg PO DAILY 06/22/17 [History] Nitroglycerin [Nitrostat] 0.4 mg SL Q5M PRN 06/22/17 [History] hydrALAZINE [HydrALAZINE] 25 mg PO TID 06/22/17 [History] Ascorbate Calcium [Vitamin C] 500 mg PO DAILY 07/16/17 [History] Tiotropium [place] [Spiriva Respimat] 2.5 mcg IH DAILY 07/16/17 [History] Budesonide/Formoterol 160/4.5 [Symbicort 160/4.5] 1 puff IH BIDR #1 hfa.aer.ad 07/19/17 [Rx] Furosemide [Lasix] 20 mg PO DAILY 11/22/17 [History] glipiZIDE [Glucotrol] 5 mg PO BIDWM 11/22/17 [History] Apixaban [Eliquis] 5 mg PO BID #60 tablet 11/24/17 [Rx] 3 Allergy/AdvReac Type Severity Reaction Status Date / Time No Known Allergies Allergy Verified 01/09/16 17:56 Review of Systems ROS unobtainable: due to mental status Exam Initial Vital Signs Temp Pulse Resp BP Pulse Ox 97.8 F 74 22 181/91 92 11/22/17 06:02 11/22/17 06:02 11/22/17 06:02 11/22/17 06:02 11/22/17 06:02 - General physical appearance Present: obese - Eyes Absent: icteric - ENT Present: normal nares - Neck Present: trachea midline - Respiratory Present: normal respiratory effort - Cardiovascular Cardiovascular exam IM: RRR - Abdomen Abdomen: Present: soft, non tender - Genitourinary normal penis with no external lesions - Integumentary Present: no rash - Neurologic Present: disoriented - Musculoskeletal Present: other (edema noted.) Urology Results - Labs 11/23/17 04:23 11/26/17 09:05 Abnormal lab results Hgb 12.7 g/dL (12.9-16.9) L 11/23/17 04:23 MCH 26.7 pg (28.0-33.3) L 11/23/17 04:23 MCHC 30.5 g/dL (31.6-35.5) L 11/23/17 04:23 PT 12.7 Seconds (9.4-12.1) H 11/23/17 04:23 Sodium 134 mEq/L (136-145) L 11/26/17 09:05 Chloride 90 mEq/L (98-107) L 11/26/17 09:05 Carbon Dioxide 32 mEq/L (23-29) H 11/26/17 09:05 BUN 44 mg/dL (8-23) H 11/26/17 09:05 Creatinine 2.37 mg/dL (0.70-1.30) H 11/26/17 09:05 Est GFR ( Amer) 33 (> 60) L 11/26/17 09:05 Est GFR (Non-Af Amer) 27 (> 60) L 11/26/17 09:05 Glucose 336 mg/dL (70-105) H 11/26/17 09:05 POC Glucose 277 mg/dL (70-99) H 11/25/17 20:45 Hemoglobin A1c 9.5 % (-5.6) H 11/23/17 11:32 Calculated Osmolality 302 (280-300) H 11/26/17 09:05 Total Bilirubin 2.9 mg/dL (0.3-1.0) H 11/26/17 01:33 AST 11 Units/L (13-39) L 11/26/17 01:33 B-Natriuretic Peptide 533 pg/mL (Less than 100) H 11/23/17 04:23 Serum Total Protein 6.3 g/dL (6.4-8.9) L 11/26/17 01:33 HDL Cholesterol 34 mg/dL (40-59) L 11/23/17 04:23 Urine Protein 30 mg/dL (Neg-Trace) H 11/22/17 11:16 Urine Glucose (UA) 100 mg/dL (Normal) H 11/22/17 11:16 Diabetes panel 11/26/17 11/26/17 Range/Units 01:33 09:05 Sodium 135 L 134 L (136-145) mEq/L Potassium 4.0 3.5 (3.5-5.1) mEq/L Chloride 92 L 90 L (98-107) mEq/L Carbon Dioxide 31 H 32 H (23-29) mEq/L BUN 43 H 44 H (8-23) mg/dL Creatinine 2.37 H 2.37 H (0.70-1.30) mg/dL Glucose 270 H 336 H (70-105) mg/dL Calcium 9.2 8.9 (8.6-10.3) mg/dL AST 11 L (13-39) Units/L ALT 12 (7-52) Units/L Alkaline Phosphatase 80 (34-104) Units/L Albumin 3.5 (3.5-5.7) g/dL Calcium panel 11/26/17 11/26/17 Range/Units 01:33 09:05 Calcium 9.2 8.9 (8.6-10.3) mg/dL Albumin 3.5 (3.5-5.7) g/dL Pituitary panel 11/26/17 11/26/17 Range/Units 01:33 09:05 Sodium 135 L 134 L (136-145) mEq/L Potassium 4.0 3.5 (3.5-5.1) mEq/L Chloride 92 L 90 L (98-107) mEq/L Carbon Dioxide 31 H 32 H (23-29) mEq/L BUN 43 H 44 H (8-23) mg/dL Creatinine 2.37 H 2.37 H (0.70-1.30) mg/dL Glucose 270 H 336 H (70-105) mg/dL Calcium 9.2 8.9 (8.6-10.3) mg/dL Adrenal panel 11/26/17 11/26/17 Range/Units 01:33 09:05 Sodium 135 L 134 L (136-145) mEq/L Potassium 4.0 3.5 (3.5-5.1) mEq/L Chloride 92 L 90 L (98-107) mEq/L Carbon Dioxide 31 H 32 H (23-29) mEq/L BUN 43 H 44 H (8-23) mg/dL Creatinine 2.37 H 2.37 H (0.70-1.30) mg/dL Glucose 270 H 336 H (70-105) mg/dL Calcium 9.2 8.9 (8.6-10.3) mg/dL Total Bilirubin 2.9 H (0.3-1.0) mg/dL AST 11 L (13-39) Units/L ALT 12 (7-52) Units/L Alkaline Phosphatase 80 (34-104) Units/L Albumin 3.5 (3.5-5.7) g/dL All other labs normal. Procedures:Urology - Catheter Insertion (Urinary) Additional comments: Under sterile conditions I placed a 16-[place] coude-tip catheter. He tolerated the procedure well. Clear urine returned. Consult Discharge Plan - Plan Referrals: Vicki Fletcher, ELECTROTYPER HELPER [Primary Care Provider] - (WEB REQUEST SENT ON 11/25/17) Prescriptions: Apixaban [Eliquis] 5 mg PO BID #60 tablet
[2017-11-26 18:32] LABS: Calcium 9.2 mg/dL (8.6-10.3); Potassium 3.2 mEq/L (3.5-5.1)
--- NOTE | 2017-11-26 21:27 | Internal Med Progress Note ---
Date of Encounter: 11/26/17 Time of Encounter: 15:57 - Assessment and plan (1) New onset a-fib Current Visit: Yes Status: Acute Assessment and plan: Cardiology consulted; appreciate input. Currently rate controlled. Cardiac enzymes trended negative x 3. ECHO showed LVEF 55% with mild LVH, indeterminate diastolic function, severely dilated LA, and moderate pulmonary hypertension. Continue metoprolol and eliquis. (2) (HFpEF) heart failure with preserved ejection fraction Current Visit: Yes Status: Acute Assessment and plan: Slowly improving edema. BLE venous doppler negative for DVT. Cardiology and nephrology consulted; appreciate input. Diuresis per nephrology; on IV lasix drip now. Continue metolazone. Continue low sodium and fluid restriction diet. Continue strict I&Os and daily weights. (3) Chronic kidney disease, stage III (moderate) Current Visit: Yes Status: Chronic Assessment and plan: Worsening renal function. Nephrology consulted; appreciate input. Renal ultrasound showed enlarged prostate. Diuretics likely playing a part. Post- renal obstruction now in differential. Urology consulted; appreciate input. Hathaway cather placed today and now with better urine output. Diuresis recommendations per nephrology; currently on IV lasix drip. Recheck BMP in AM. (4) Diabetes Current Visit: Yes Status: Chronic Assessment and plan: Continue accuchecks and moderate dose SSI QID AC/HS. Qualifiers: Diabetes mellitus type: type 2 Diabetes mellitus mcc insulin use: without terminal worker use Diabetes mellitus complication status: without complication Qualified Code(s): E11.9 - Type 2 diabetes mellitus without complications (5) CAD (coronary artery disease) Current Visit: Yes Status: Chronic Assessment and plan: Cardiac enzymes trended negative x 3. ECHO results as per above. Cardiology consulted; appreciate input. Considering cath after acute issues addressed. Continue aspirin, statin, and beta bryan. Qualifiers: Coronary Disease-Associated Artery/Lesion type: unspecified vessel or lesion type [place] vs. transplanted heart: [place] heart Associated angina: without angina Qualified Code(s): I25.10 - Atherosclerotic heart disease of [place] coronary artery without angina pectoris (6) Essential hypertension Current Visit: Yes Status: Chronic Assessment and plan: Continue home medications except lisinopril. (7) DVT prophylaxis Current Visit: Yes Status: Acute Assessment and plan: Continue eliquis. - Time Spent With Patient Total time spent is greater than 50% in coordination of care (as documented) at patient's floor/unit and/or counseling patient: less than 15 minutes - Subjective Interval history: Patient had no acute events overnight. BLE edema is improving per both patient and . He denies SOB at this time. No further N/V. He denies chest pain, palpitations, fever, chills, or abdominal pain. He has no other complaints at this time. Plan of care discussed with , who is in room today. - Constitutional Vitals: Temp Pulse Resp BP Pulse Ox 98.6 F 82 18 181/84 94 11/26/17 20:00 11/26/17 20:00 11/26/17 20:00 11/26/17 20:00 11/26/17 20:00 General appearance: Present: cooperative, A&O X 3, pleasant, no acute distress, answers questions appropriately - Respiratory Respiratory exam: Absent: accessory muscle use, rales, rhonchi Additional comments: Normal WOB, mild intermittent expiratory wheezing bilaterally - Cardiovascular Cardiovascular exam: Present: RRR, +S1, +S2. Absent: diastolic murmur, gallop, rubs, systolic murmur Additional comments: 2+ pitting BLE edema, mildly improved from yesterday - GI/Abdominal GI/Abdominal exam: Present: normal bowel sounds, soft. Absent: distended, hepatomegaly, mass, splenomegaly, tenderness - Psychiatric Psychiatric exam: Present: normal affect, normal mood. Absent: agitated, anxious, depressed - Skin Skin exam: Present: dry, intact, warm. Absent: cyanosis, rash Internal Medicine: Result - Labs CBC & Chem 7: 11/23/17 04:23 11/26/17 16:39 Labs: BMP 11/26/17 11/26/17 11/26/17 01:33 09:05 16:39 Sodium 135 L 134 L 134 L Potassium 4.0 3.5 3.2 L Chloride 92 L 90 L 90 L Carbon Dioxide 31 H 32 H 43 H* BUN 43 H 44 H 47 H Creatinine 2.37 H 2.37 H 2.42 H Glucose 270 H 336 H 236 H Calcium 9.2 8.9 9.2 Liver Function 11/26/17 Range/Units 01:33 Total Bilirubin 2.9 H (0.3-1.0) mg/dL AST 11 L (13-39) Units/L ALT 12 (7-52) Units/L Alkaline Phosphatase 80 (34-104) Units/L Albumin 3.5 (3.5-5.7) g/dL - ABG Interpretation ABG results: PT/INR, D-dimer PT 12.7 Seconds (9.4-12.1) H 11/23/17 04:23 - Impressions Impressions Retroperitoneum Ultrasound 11/25/17 14:30 IMPRESSION: 1. Patient status post left nephrectomy. 2. Normal sonographic appearance of the right kidney. 3. Unremarkable sonographic appearance of the urinary bladder. However, the patient was unable to void for the study. 4. Nonspecific prostatomegaly. D/ / 11/25/2017 16:01:37 S[facility] Bridges MD [facility] Interpreting Provider: Sae Bridges MD - VTE Documentation of Mechanical Device: Graduated compression elastic hosiery Contraindication No Overlap Therapy: Admin of oral Factor Xa Inhibitor Consult Discharge Plan - Plan Referrals: Vicki Fletcher, REHABILITATION CLERK [Primary Care Provider] - (WEB REQUEST SENT ON 11/25/17) Prescriptions: Apixaban [Eliquis] 5 mg PO BID #60 tablet
[2017-11-27 01:26] LABS: Calcium 9.3 mg/dL (8.6-10.3); Potassium 3.2 mEq/L (3.5-5.1)
[2017-11-27] MEDS: Acetaminophen 325 MG TABLET PO PRN ×2 (07:51→15:19)
[2017-11-27] MEDS: Ondansetron 4 MG/2 ML VIAL IVP PRN ×2 (07:54→13:20)
[2017-11-27] MEDS: Fluticasone Propionate Nasal 50 MCG/SPRAY BOTTLE NS SCH (07:56)
[2017-11-27] MEDS: Insulin LISPRO 300 UNITS/3 ML VIAL SQ SCH ×4 (07:56→21:59)
[2017-11-27] MEDS: hydrALAZINE 25 MG TABLET PO SCH ×3 (07:57→21:50)
[2017-11-27] MEDS: Apixaban 5 MG TABLET PO SCH ×2 (07:58→21:50)
[2017-11-27] MEDS: Isosorbide MONOnitrate (24 HR) 60 MG TAB.ER.24H PO SCH (07:58)
[2017-11-27] MEDS: Finasteride 5 MG TABLET PO SCH (07:58)
[2017-11-27] MEDS: metOLazone 5 MG TABLET PO SCH ×2 (07:58→16:21)
[2017-11-27] MEDS: Aspirin Enteric Coated 81 MG Tablet PO SCH (07:58)
[2017-11-27] MEDS: Ascorbic Acid 500 MG TABLET PO SCH (07:58)
[2017-11-27 08:16] LABS: BUN/Creatinine Ratio 20 (6-26); Blood Urea Nitrogen 50 mg/dL (8-23); Calcium 9.3 mg/dL (8.6-10.3); Carbon Dioxide > 45 mEq/L (23-29); Chloride 87 mEq/L (98-107); Glucose 231 mg/dL (70-105); Osmolality,Calculated 299 (280-300); Potassium 3.4 mEq/L (3.5-5.1); Sodium 134 mEq/L (136-145); eGFR For African Americans 31 (> 60); eGFR For Non-African Americans 26 (> 60)
--- NOTE | 2017-11-27 09:08 | Cardiology Progress Note ---
Date of Encounter: 11/27/17 Time of Encounter: 09:06 Assessment and Plan (1) (HFpEF) heart failure with preserved ejection fraction Current Visit: Yes Status: Acute CHFpEF. TTE shows EF 55%. Acute diastolic CHF, but also with RV dysfunction noted. Complicated by CKD and solitary kidney. Nephrology following. Metolazone started by nephrology 5mg BID. Continues to have significant fluid overload on exam, but starting to improve. BLE edema. Venous doppler negative. BNP 588. Renal function improved since last check. Creatinine went from 2.42 to 2.33. Nephrology switched pt to Lasix gtt and chew inserted. Lasix gtt at 10mg/hr. Net negative 8080. Output improving on Lasix gtt and with chew insertion. CHF education reviewed. Low sodium diet. Daily weights. Strict I&O. Continue IV lasix gtt. Appreciate recs and management from nephrology with known solitary kidney. Continue to follow. (2) Atrial fibrillation Current Visit: Yes Status: Acute New diagnosis of afib. Denies previous history. Seen one month ago and afib not seen. Currently rate controlled. 12 hr tele AVG HR 86, A-Fib. TSH was normal. TTE -EF 55% . Mild LVH. Indeterminate diastolic function. Severely dilated LA. Moderate pulmonary hypertension. Continue carvedilol 25mg BID. CHADS VASc= 7. High risk for CVA. Recommended anticoagulation with coumadin or NOAC. He agrees with anticoagulation, eliquis 5mg BID was [place] checked and affordable, started. Qualifiers: Atrial fibrillation type: unspecified Qualified Code(s): I48.91 - Unspecified atrial fibrillation (3) CAD (coronary artery disease) Current Visit: Yes Status: Chronic H/o 3 vessel CABG in 2013. Denies chest pain. No WMA on TTE. EF 55%. Troponin negative. Continue asa, statin, and bb. Qualifiers: Coronary Disease-Associated Artery/Lesion type: unspecified vessel or lesion type [place] vs. transplanted heart: [place] heart Associated angina: without angina Qualified Code(s): I25.10 - Atherosclerotic heart disease of [place] coronary artery without angina pectoris Discussion w patient/family: The assessment and plan as outlined above was discussed with the patient and/or family members who expressed understanding and agreement. All questions were answered. Thank you for involving us in the care of your patient. Please call with any questions. I will discuss all the above with Dr. Menezes and make changes as necessary. Subjective Principal diagnosis: CHF Interval history: Creatinine has now mildly improved from prior check, was 2.42, now 2.33. Cumulative I/O -8080mL. Experienced dyspnea overnight, still significant LE edema, but mildly improved. Currently on Lasix gtt at 10mg/hr. Nephrology following, chew placed yesterday. Objective Vital Signs, Last 4 Hours Temp Pulse Resp BP Pulse Ox 11/27/17 08:35 93 11/27/17 07:10 98.2 F 82 18 135/66 93 Vital Signs Temp Pulse Resp BP Pulse Ox 11/27/17 08:35 93 11/27/17 07:10 98.2 F 82 18 135/66 93 11/27/17 03:27 99.4 F 89 18 117/69 95 11/27/17 00:28 98.8 F 92 16 127/71 94 11/27/17 00:03 18 93 11/26/17 21:37 18 94 11/26/17 20:00 98.6 F 82 18 181/84 94 11/26/17 16:12 101 123/65 11/26/17 15:53 18 97 11/26/17 14:27 98.3 F 91 18 113/66 93 11/26/17 10:44 98.4 F 89 20 120/74 92 11/26/17 09:59 18 94 11/26/17 09:50 97 Intake and Output 11/26/17 11/27/17 11/27/17 23:59 07:59 15:59 Intake Total 240 / 240 400 / 400 440 / 440 Output Total 1350 / 1350 1950 / 1950 Balance -1110 / -1110 -1550 / -1550 440 / 440 Intake: Oral 240 / 240 400 / 400 440 / 440 Output: Catheter 1350 / 1350 1950 / 1950 Other: Meal Breakfast Percent of Meal Consumed 50% Weight 105.9 kg Blood Glucose* 172 224 Patient Weight 11/27/17 23:59 Weight 105.9 kg General: Conversant, No Apparent Distress HEENT: Atraumatic, Normocephaly, Mucus Membranes Moist Neck: Normal carotid pulses Cardiac: Other (irregularly irregular) Lungs: Other (rhonchi, wheezes) Neuro: Alert and responsive, No focal deficits noted Abdomen: Soft, Non-Tender Skin: No rashes noted on visualized skin Musculoskeletal: No Chest Wall Tenderness Extremities: Other (2+ BLE edema) Results 11/23/17 04:23 11/27/17 07:30 Lab Results 11/26/17 11/26/17 11/27/17 09:05 16:39 00:17 Sodium 134 L 134 L 133 L Potassium 3.5 3.2 L 3.2 L Chloride 90 L 90 L 88 L Carbon Dioxide 32 H 43 H* 36 H BUN 44 H 47 H 49 H Creatinine 2.37 H 2.42 H 2.33 H Glucose 336 H 236 H 200 H Calcium 8.9 9.2 9.3 11/27/17 07:30 Sodium 134 L Potassium 3.4 L Chloride 87 L Carbon Dioxide > 45 H* BUN 50 H Creatinine 2.47 H Glucose 231 H Calcium 9.3 BMP 11/27/17 11/27/17 11/26/17 Range/Units 07:30 00:17 16:39 Sodium 134 L 133 L 134 L (136-145) mEq/L Potassium 3.4 L 3.2 L 3.2 L (3.5-5.1) mEq/L Chloride 87 L 88 L 90 L (98-107) mEq/L Carbon Dioxide > 45 H* 36 H 43 H* (23-29) mEq/L BUN 50 H 49 H 47 H (8-23) mg/dL Creatinine 2.47 H 2.33 H 2.42 H (0.70-1.30) mg/dL Glucose 231 H 200 H 236 H (70-105) mg/dL Calcium 9.3 9.3 9.2 (8.6-10.3) mg/dL 11/26/17 Range/Units 09:05 Sodium 134 L (136-145) mEq/L Potassium 3.5 (3.5-5.1) mEq/L Chloride 90 L (98-107) mEq/L Carbon Dioxide 32 H (23-29) mEq/L BUN 44 H (8-23) mg/dL Creatinine 2.37 H (0.70-1.30) mg/dL Glucose 336 H (70-105) mg/dL Calcium 8.9 (8.6-10.3) mg/dL Active Medications Acetaminophen (Tylenol) 650 mg PO Q6HR PRN PRN Reason: Fever Stop: 05/27/18 00:35 Last Admin: 11/27/17 07:51 Dose: 650 mg Albuterol Sulfate (Proventil Neb) 2.5 mg IH Q2H PRN; Protocol PRN Reason: Shortness Of Breath/Wheezing Stop: 05/28/18 15:25 Last Admin: 11/27/17 00:03 Dose: 2.5 mg Albuterol/Ipratropium (Duoneb) 3 ml IH Q6HWA HERNAN Stop: 05/28/18 15:25 Last Admin: 11/26/17 21:37 Dose: 3 ml Apixaban (Eliquis) 5 mg PO BID HERNAN Stop: 05/26/18 21:01 Last Admin: 11/27/17 07:58 Dose: 5 mg Ascorbic Acid (Vitamin C) 500 mg PO DAILY HERNAN Stop: 05/27/18 09:01 Last Admin: 11/27/17 07:58 Dose: 500 mg Aspirin (Aspirin Ec) 81 mg PO DAILY HERNAN Stop: 05/24/18 09:01 Last Admin: 11/27/17 07:58 Dose: 81 mg Atorvastatin Calcium (Lipitor) 80 mg PO HS HERNAN Stop: 05/24/18 21:01 Last Admin: 11/26/17 21:13 Dose: 80 mg Budesonide/Formoterol Fumarate (Symbicort) 2 puff IH BIDR HERNAN PRN Reason: Protocol Stop: 05/25/18 22:01 Last Admin: 11/26/17 21:37 Dose: 2 puff Carvedilol (Coreg) 25 mg PO BIDWM HERNAN PRN Reason: Protocol Stop: 05/24/18 08:46 Last Admin: 11/27/17 07:57 Dose: 25 mg Dextrose/Water (Dextrose 50% (Syg)) 25 ml IVP AD PRN PRN Reason: Hypoglycemia Stop: 05/24/18 08:54 Ferrous Sulfate (Ferrous Sulfate) 325 mg PO DAILY@0800 HERNAN Stop: 05/28/18 08:01 Last Admin: 11/27/17 07:58 Dose: 325 mg Finasteride (Proscar) 5 mg PO DAILY HERNAN PRN Reason: Protocol Stop: 05/24/18 09:01 Last Admin: 11/27/17 07:58 Dose: 5 mg Fluticasone Propionate (Flonase) 50 mcg NS DAILY HERNAN PRN Reason: Protocol Stop: 05/24/18 20:16 Last Admin: 11/27/17 07:56 Dose: 50 mcg Glucagon (Glucagen) 1 mg IM ONCE PRN PRN Reason: Hypoglycemia Stop: 05/24/18 08:54 Glucose (Gluctose) 15 gm PO ONCE PRN PRN Reason: Hypoglycemia Stop: 05/24/18 08:54 Glucose (Gluctose) 30 gm PO ONCE PRN PRN Reason: Hypoglycemia Stop: 05/24/18 08:54 Hydralazine HCl (Hydralazine) 100 mg PO TID COUNT INCLUDES THE [facility] Stop: 05/25/18 11:11 Last Admin: 11/27/17 07:57 Dose: 100 mg Dextrose (Dextrose 5%) 1,000 mls @ 100 mls/hr IVC .Q10H PRN PRN Reason: HYPOGLYCEMIA Stop: 05/24/18 08:54 Furosemide 240 mg/ Dextrose 120 mls @ 5 mls/hr IVC .Q24H HERNAN PRN Reason: 10 MG/HR Stop: 05/27/18 16:31 Last Admin: 11/26/17 13:56 Dose: 10 mg/hr, 5 mls/hr Insulin Human Lispro (Humalog) 0 units SQ HS COUNT INCLUDES THE [facility] PRN Reason: Protocol Stop: 05/25/18 21:01 Last Admin: 11/26/17 21:15 Dose: Not Given Insulin Human Lispro (Humalog) 0 units SQ TIDAC COUNT INCLUDES THE [facility] PRN Reason: Protocol Stop: 05/25/18 11:31 Last Admin: 11/27/17 07:56 Dose: 8 units Isosorbide Mononitrate (Imdur) 60 mg PO DAILY COUNT INCLUDES THE [facility] Stop: 05/26/18 09:01 Last Admin: 11/27/17 07:58 Dose: 60 mg Metolazone (Zaroxolyn) 5 mg PO BIDDIURETIC COUNT INCLUDES THE [facility] Stop: 05/26/18 08:01 Last Admin: 11/27/17 07:58 Dose: 5 mg Naloxone HCl (Narcan) 0.4 mg IVP Q2MIN PRN PRN Reason: SEE COMMENTS Stop: 05/24/18 08:16 Nitroglycerin (Nitroglycerin) 0.4 mg SL Q5MIN PRN PRN Reason: Chest Pain Stop: 05/24/18 06:44 Last Admin: 11/22/17 07:11 Dose: 0.4 mg Ondansetron HCl (Zofran) 4 mg IVP Q6HR PRN; Protocol PRN Reason: Nausea And Vomiting Stop: 05/26/18 23:46 Last Admin: 11/27/17 07:54 Dose: 4 mg Potassium Chloride (Potassium Chloride) 20 meq PO BIDWM HERNAN Stop: 05/25/18 08:01 Last Admin: 11/27/17 07:58 Dose: 20 meq Promethazine HCl (Phenergan) 25 mg IM Q8HR PRN PRN Reason: Nausea And Vomiting Stop: 05/27/18 16:13 - Imaging and Cardiology Echo: report reviewed - EKG Interpretation EKG results cardiology: other (12 hr tele AVG HR 91, A-Fib) - VTE Documentation of Mechanical Device: Graduated compression elastic hosiery Contraindication No Overlap Therapy: Admin of oral Factor Xa Inhibitor Consult Discharge Plan - Plan Referrals: Vicki Fletcher, LITHOGRAPHY CONTACT WORKER [Primary Care Provider] - (WEB REQUEST SENT ON 11/25/17) Prescriptions: Apixaban [Eliquis] 5 mg PO BID #60 tablet
[2017-11-27] MEDS: Ipratropium/Albuterol Neb 3 ML IH SCH ×3 (09:15→22:01)
[2017-11-27] MEDS: Budesonide/Formoterol 160/4.5 MDI IH SCH ×2 (09:15→22:24)
--- NOTE | 2017-11-27 09:40 | Nephrology Progress Note ---
Date of Encounter: 11/27/17 Time of Encounter: 09:05 - Assessment and Plan (1) ENRIQUE (acute kidney injury) Current Visit: Yes Status: Acute ENRIQUE superimposed on CKD, baseline 1.5-1.7 in setting of volume overload, pulm HTN, CHF-D. New onset Afib. Renal US unclear on bladder outlet obstruction. Prostamegaly, "inability to void" but does not say if badder full/empty. Renal fct somewhat worse, creat 2.47, Documented urine output 3850cc, indwelling Hathaway. Will continue Lasix drip and Metolazone. Accurate I&O. Will continue to monitor. Subjective Principal diagnosis: CHF Interval history: Sitting up in a chair, Patient denies SOB. Lasix drip. at bedside. Hathaway placed per Urology yesterday. Objective - Vital Signs Vital signs: Vital Signs Temp Pulse Resp BP Pulse Ox 11/27/17 09:17 20 95 11/27/17 08:35 93 11/27/17 07:10 98.2 F 82 18 135/66 93 11/27/17 03:27 99.4 F 89 18 117/69 95 11/27/17 00:28 98.8 F 92 16 127/71 94 11/27/17 00:03 18 93 11/26/17 21:37 18 94 11/26/17 20:00 98.6 F 82 18 181/84 94 11/26/17 16:12 101 123/65 11/26/17 15:53 18 97 11/26/17 14:27 98.3 F 91 18 113/66 93 11/26/17 10:44 98.4 F 89 20 120/74 92 11/26/17 09:59 18 94 11/26/17 09:50 97 Intake and Output 11/26/17 11/27/17 11/27/17 23:59 07:59 15:59 Intake Total 240 / 240 400 / 400 440 / 440 Output Total 1350 / 1350 1950 / 1950 Balance -1110 / -1110 -1550 / -1550 440 / 440 Intake: Oral 240 / 240 400 / 400 440 / 440 Output: Catheter 1350 / 1350 1950 / 1950 Other: Meal Breakfast Percent of Meal Consumed 50% Weight 105.9 kg Blood Glucose* 172 224 Patient Weight 05/11/18 23:59 Weight 105.9 kg - General Appearance General appearance: Present: well-developed, well-nourished, appears started age EENT: Present: mucous membranes moist Neck: Present: no JVD Respiratory: Present: rhonchi Cardiology: Present: edema, regular rate, regular rhythm Additional Comments: 2-3+ LE Gastrointestinal: Present: normoactive bowel sounds, no tenderness Integumentary: Present: warm and dry Neurologic: Present: alert and oriented x3 - Lab 11/23/17 04:23 11/27/17 07:30 Most recent lab results Calcium 9.3 mg/dL (8.6-10.3) 11/27/17 07:30 Phosphorus 4.0 mg/dL (2.7-4.5) 11/23/17 04:23 Magnesium 2.0 mg/dL (1.6-2.6) 11/23/17 04:23 - VTE Documentation of Mechanical Device: Graduated compression elastic hosiery Contraindication No Overlap Therapy: Admin of oral Factor Xa Inhibitor Consult Discharge Plan - Plan Referrals: Vicki Fletcher VETERINARY TECHNOLOGY INSTRUCTOR [Primary Care Provider] - (WEB REQUEST SENT ON 11/25/17) Prescriptions: Apixaban [Eliquis] 5 mg PO BID #60 tablet
[2017-11-27] MEDS: Furosemide 240 MG in D5% in Water 96 ML IVC SCH (15:11)
[2017-11-27] MEDS: *HR* HYDROcodone/Acet 5/325 mg TABLET PO PRN (16:31)
[2017-11-27 17:29] LABS: Potassium 3.4 mEq/L (3.5-5.1)
--- NOTE | 2017-11-27 20:00 | Internal Med Progress Note ---
Date of Encounter: 11/27/17 Time of Encounter: 14:07 - Assessment and plan (1) New onset a-fib Current Visit: Yes Status: Acute Assessment and plan: Cardiology consulted; appreciate input. Currently rate controlled. Cardiac enzymes trended negative x 3. ECHO showed LVEF 55% with mild LVH, indeterminate diastolic function, severely dilated LA, and moderate pulmonary hypertension. Continue metoprolol and eliquis. (2) (HFpEF) heart failure with preserved ejection fraction Current Visit: Yes Status: Acute Assessment and plan: Slowly improving edema. BLE venous doppler negative for DVT. Cardiology and nephrology consulted; appreciate input. Diuresis per nephrology; on IV lasix drip now. Continue metolazone. Continue low sodium and fluid restriction diet. Continue strict I&Os and daily weights. (3) Chronic kidney disease, stage III (moderate) Current Visit: Yes Status: Chronic Assessment and plan: Worsening renal function, but seems to be plateauing. Baseline creatinine around 1.5-1.7. Nephrology consulted; appreciate input. Renal ultrasound showed enlarged prostate. Diuretics likely playing a part. Post-renal obstruction now in differential. Urology consulted; appreciate input. Hathaway cather placed yesterday and now with better urine output. Diuresis recommendations per nephrology; currently on IV lasix drip. Recheck BMP in AM. (4) Diabetes Current Visit: Yes Status: Chronic Assessment and plan: Continue accuchecks and moderate dose SSI QID AC/HS. Qualifiers: Diabetes mellitus type: type 2 Diabetes mellitus alf insulin use: without alf use Diabetes mellitus complication status: without complication Qualified Code(s): E11.9 - Type 2 diabetes mellitus without complications (5) CAD (coronary artery disease) Current Visit: Yes Status: Chronic Assessment and plan: Cardiac enzymes trended negative x 3. ECHO results as per above. Cardiology consulted; appreciate input. Considering cath after acute issues addressed. Continue aspirin, statin, and beta bryan. Qualifiers: Coronary Disease-Associated Artery/Lesion type: unspecified vessel or lesion type [place] vs. transplanted heart: [place] heart Associated angina: without angina Qualified Code(s): I25.10 - Atherosclerotic heart disease of [place] coronary artery without angina pectoris (6) Essential hypertension Current Visit: Yes Status: Chronic Assessment and plan: Continue home medications except lisinopril. (7) DVT prophylaxis Current Visit: Yes Status: Acute Assessment and plan: Continue eliquis. - Time Spent With Patient Total time spent is greater than 50% in coordination of care (as documented) at patient's floor/unit and/or counseling patient: less than 15 minutes - Subjective Interval history: Patient had no acute events overnight. BLE edema is improving per both patient and . He denies SOB at this time. More awake this AM. Wore Bipap for 1 hour this AM. No further N/V. He denies chest pain, palpitations, fever, chills, or abdominal pain. He has no other complaints at this time. Plan of care discussed with , who is in room today. - Constitutional Vitals: Temp Pulse Resp BP Pulse Ox 98.5 F 86 18 122/56 94 11/27/17 18:45 11/27/17 18:45 11/27/17 18:45 11/27/17 18:45 11/27/17 18:45 General appearance: Present: cooperative, A&O X 3, pleasant, no acute distress, obese, answers questions appropriately - Respiratory Respiratory exam: Absent: accessory muscle use, rales, rhonchi, wheezes Additional comments: Mildly labored WOB, coarse breath sounds bilaterally - Cardiovascular Cardiovascular exam: Present: RRR, +S1, +S2. Absent: diastolic murmur, gallop, rubs, systolic murmur Additional comments: 2+ BLE edema, improved from yesterday - GI/Abdominal GI/Abdominal exam: Present: normal bowel sounds, soft. Absent: distended, hepatomegaly, mass, splenomegaly, tenderness - Psychiatric Psychiatric exam: Present: normal affect, normal mood. Absent: agitated, anxious, depressed - Skin Skin exam: Present: dry, intact, warm. Absent: cyanosis, rash Internal Medicine: Result - Labs CBC & Chem 7: 11/23/17 04:23 11/27/17 16:17 Labs: BMP 11/27/17 11/27/17 11/27/17 00:17 07:30 16:17 Sodium 133 L 134 L 132 L Potassium 3.2 L 3.4 L 3.4 L Chloride 88 L 87 L 86 L Carbon Dioxide 36 H > 45 H* 37 H BUN 49 H 50 H 56 H Creatinine 2.33 H 2.47 H 2.46 H Glucose 200 H 231 H 376 H Calcium 9.3 9.3 9.0 - ABG Interpretation ABG results: PT/INR, D-dimer PT 12.7 Seconds (9.4-12.1) H 11/23/17 04:23 - VTE Documentation of Mechanical Device: Graduated compression elastic hosiery Contraindication No Overlap Therapy: Admin of oral Factor Xa Inhibitor Consult Discharge Plan - Plan Referrals: Vicki Fletcher, MOTOR RACER [Primary Care Provider] - (WEB REQUEST SENT ON 11/25/17) Prescriptions: Apixaban [Eliquis] 5 mg PO BID #60 tablet
[2017-11-28 01:36] LABS: Calcium 9.2 mg/dL (8.6-10.3); Potassium 3.2 mEq/L (3.5-5.1)
--- NOTE | 2017-11-28 08:30 | Nephrology Progress Note ---
Date of Encounter: 11/28/17 Time of Encounter: 08:00 - Assessment and Plan (1) ENRIQUE (acute kidney injury) Current Visit: Yes Status: Acute ENRIQUE superimposed on CKD, baseline 1.5-1.7 in setting of volume overload, pulm HTN, CHF-D. New onset Afib. Renal US unclear on bladder outlet obstruction. Prostamegaly, "inability to void" but does not say if badder full/empty. Renal fct simproving, creat 2.30, Documented urine output 3450cc, indwelling Hathaway. Will continue Lasix drip and Metolazone. Accurate I&O. Will continue to monitor. Subjective Principal diagnosis: CHF Interval history: Sitting up in a chair, Patient denies SOB. Lasix drip. at bedside. Hathaway. Complains of right medial calf pain with swelling. Denies trauma. Nursing aware and has area marked. Raised, no erythema, no temp differentiated. Afebrile. Objective - Vital Signs Vital signs: Vital Signs Temp Pulse Resp BP Pulse Ox 11/28/17 08:10 98.2 F 90 18 142/79 95 11/28/17 05:42 98.6 F 73 17 138/69 97 11/28/17 00:02 98.9 F 83 18 123/64 95 11/27/17 22:24 18 94 11/27/17 18:45 98.5 F 86 18 122/56 94 11/27/17 16:04 17 98 11/27/17 15:08 97.3 F L 92 18 117/63 97 11/27/17 11:07 98.3 F 83 16 121/64 97 11/27/17 09:17 20 95 11/27/17 08:35 93 Intake and Output 11/27/17 11/28/17 11/28/17 23:59 07:59 15:59 Intake Total 240 / 240 225 / 225 Output Total 1000 / 999 Balance -760 / -760 -1725 / -1725 Intake: Oral 240 / 240 225 / 225 Output: Catheter 999 / 999 Other: Meal Dinner Percent of Meal Consumed 80% Blood Glucose* [phone] - General Appearance General appearance: Present: well-developed, well-nourished, appears started age , obese EENT: Present: mucous membranes moist Neck: Present: no JVD Respiratory: Present: wheezing, rhonchi Cardiology: Present: edema, regular rate, regular rhythm Additional Comments: 1-2+ pitting LE Gastrointestinal: Present: normoactive bowel sounds, no tenderness Integumentary: Present: warm and dry Neurologic: Present: alert and oriented x3 - Lab 11/23/17 04:23 11/28/17 00:41 Most recent lab results Calcium 9.2 mg/dL (8.6-10.3) 11/28/17 00:41 Phosphorus 4.0 mg/dL (2.7-4.5) 11/23/17 04:23 Magnesium 2.0 mg/dL (1.6-2.6) 11/23/17 04:23 - VTE Documentation of Mechanical Device: Graduated compression elastic hosiery Contraindication No Overlap Therapy: Admin of oral Factor Xa Inhibitor Consult Discharge Plan - Plan Referrals: Vicki Fletcher, SURGICAL SERVICES ASST [Primary Care Provider] - (WEB REQUEST SENT ON 11/25/17) Prescriptions: Apixaban [Eliquis] 5 mg PO BID #60 tablet
[2017-11-28] MEDS: Ipratropium/Albuterol Neb 3 ML IH SCH ×3 (09:11→21:26)
[2017-11-28] MEDS: Budesonide/Formoterol 160/4.5 MDI IH SCH ×2 (09:11→21:26)
[2017-11-28 09:24] LABS: Calcium 9.1 mg/dL (8.6-10.3)
[2017-11-28] MEDS: hydrALAZINE 25 MG TABLET PO SCH ×3 (09:34→20:44)
[2017-11-28] MEDS: Isosorbide MONOnitrate (24 HR) 60 MG TAB.ER.24H PO SCH (09:34)
[2017-11-28] MEDS: Ascorbic Acid 500 MG TABLET PO SCH (09:34)
[2017-11-28] MEDS: metOLazone 5 MG TABLET PO SCH ×2 (09:35→18:38)
[2017-11-28] MEDS: Finasteride 5 MG TABLET PO SCH (09:35)
[2017-11-28] MEDS: Apixaban 5 MG TABLET PO SCH ×2 (09:35→20:44)
[2017-11-28] MEDS: Aspirin Enteric Coated 81 MG Tablet PO SCH (09:35)
[2017-11-28] MEDS: Insulin LISPRO 300 UNITS/3 ML VIAL SQ SCH ×4 (09:36→20:56)
[2017-11-28] MEDS: Fluticasone Propionate Nasal 50 MCG/SPRAY BOTTLE NS SCH (09:36)
[2017-11-28] MEDS: Furosemide 240 MG in D5% in Water 96 ML IVC SCH (09:37)
[2017-11-28] MEDS: *HR* HYDROcodone/Acet 5/325 mg TABLET PO PRN (09:37)
[2017-11-28] MEDS: Ondansetron 4 MG/2 ML VIAL IVP PRN (12:37)
[2017-11-28 17:31] LABS: Calcium 9.2 mg/dL (8.6-10.3); Potassium 3.4 mEq/L (3.5-5.1)
[2017-11-28] MEDS: Acetaminophen 325 MG TABLET PO PRN (18:38)
--- NOTE | 2017-11-28 20:19 | Internal Med Progress Note ---
Date of Encounter: 11/28/17 Time of Encounter: 16:27 - Assessment and plan (1) New onset a-fib Current Visit: Yes Status: Acute Assessment and plan: Cardiology consulted; appreciate input. Currently rate controlled. Cardiac enzymes trended negative x 3. ECHO showed LVEF 55% with mild LVH, indeterminate diastolic function, severely dilated LA, and moderate pulmonary hypertension. Continue metoprolol and eliquis. (2) (HFpEF) heart failure with preserved ejection fraction Current Visit: Yes Status: Acute Assessment and plan: Slowly improving edema. BLE venous doppler negative for DVT. Cardiology and nephrology consulted; appreciate input. Diuresis per nephrology; on IV lasix drip now. Continue metolazone. Continue low sodium and fluid restriction diet. Continue strict I&Os and daily weights. (3) Chronic kidney disease, stage III (moderate) Current Visit: Yes Status: Chronic Assessment and plan: Renal function now slowly improving. Baseline creatinine around 1.5-1.7. Nephrology consulted; appreciate input. Renal ultrasound showed enlarged prostate. Diuretics likely playing a part. Post-renal obstruction now in differential. Urology consulted; appreciate input. Hathaway cather placed and now with better urine output. Diuresis recommendations per nephrology; currently on IV lasix drip. Recheck BMP Q8H per their recommendations. (4) Diabetes Current Visit: Yes Status: Chronic Assessment and plan: Continue accuchecks and moderate dose SSI QID AC/HS. Qualifiers: Diabetes mellitus type: type 2 Diabetes mellitus mcc insulin use: without mcc use Diabetes mellitus complication status: without complication Qualified Code(s): E11.9 - Type 2 diabetes mellitus without complications (5) CAD (coronary artery disease) Current Visit: Yes Status: Chronic Assessment and plan: Cardiac enzymes trended negative x 3. ECHO results as per above. Cardiology consulted; appreciate input. Considering cath after acute issues addressed. Continue aspirin, statin, and beta bryan. Qualifiers: Coronary Disease-Associated Artery/Lesion type: unspecified vessel or lesion type [place] vs. transplanted heart: [place] heart Associated angina: without angina Qualified Code(s): I25.10 - Atherosclerotic heart disease of [place] coronary artery without angina pectoris (6) Essential hypertension Current Visit: Yes Status: Chronic Assessment and plan: Continue home medications except lisinopril. (7) DVT prophylaxis Current Visit: Yes Status: Acute Assessment and plan: Continue eliquis. - Time Spent With Patient Total time spent is greater than 50% in coordination of care (as documented) at patient's floor/unit and/or counseling patient: less than 15 minutes - Subjective Interval history: Patient had no acute events overnight. BLE edema still improving per both patient and . He denies SOB at this time. More awake this AM; eating in chair Wore Bipap for few hours this AM, but nurse states that he was not happy about this. I advised him on the importance of Bipap for CO2 retention, but ultimately will defer to patient autonomy. Some mild N/V back this AM, but controlled with IV zofran. He denies chest pain, palpitations, fever, chills, or abdominal pain. He has no other complaints at this time. Plan of care discussed with , who is in room today. - Constitutional Vitals: Temp Pulse Resp BP Pulse Ox 97.6 F 86 18 123/71 97 11/28/17 19:17 11/28/17 19:17 11/28/17 19:17 11/28/17 19:17 11/28/17 19:17 General appearance: Present: cooperative, A&O X 3, pleasant, no acute distress, obese, answers questions appropriately - Respiratory Respiratory exam: Present: CTAB. Absent: accessory muscle use, rales, rhonchi, wheezes Additional comments: Normal WOB - Cardiovascular Cardiovascular exam: Present: RRR, +S1, +S2. Absent: diastolic murmur, gallop, rubs, systolic murmur Additional comments: 2+ pitting BLE edema, now with less weeping - GI/Abdominal GI/Abdominal exam: Present: normal bowel sounds, soft. Absent: distended, hepatomegaly, mass, splenomegaly, tenderness - Psychiatric Psychiatric exam: Present: normal affect, normal mood. Absent: agitated, anxious, depressed - Skin Skin exam: Present: dry, intact, warm. Absent: cyanosis, rash Internal Medicine: Result - Labs CBC & Chem 7: 11/23/17 04:23 11/28/17 16:46 Labs: BMP 11/28/17 11/28/17 11/28/17 00:41 08:45 16:46 Sodium 134 L 133 L 133 L Potassium 3.2 L 3.0 L 3.4 L Chloride 86 L 83 L 83 L Carbon Dioxide 40 H* 41 H* 44 H* BUN 57 H 61 H 59 H Creatinine 2.30 H 2.17 H 2.26 H Glucose 234 H 361 H 257 H Calcium 9.2 9.1 9.2 - ABG Interpretation ABG results: PT/INR, D-dimer PT 12.7 Seconds (9.4-12.1) H 11/23/17 04:23 - VTE Documentation of Mechanical Device: Graduated compression elastic hosiery Contraindication No Overlap Therapy: Admin of oral Factor Xa Inhibitor Consult Discharge Plan - Plan Referrals: Vicki Fletcher, BISCUIT MAKER [Primary Care Provider] - (WEB REQUEST SENT ON 11/25/17) Prescriptions: Apixaban [Eliquis] 5 mg PO BID #60 tablet
[2017-11-29 00:54] LABS: Calcium 9.2 mg/dL (8.6-10.3); Potassium 3.1 mEq/L (3.5-5.1)
[2017-11-29] MEDS: Acetaminophen 325 MG TABLET PO PRN (03:36)
--- NOTE | 2017-11-29 08:15 | Nephrology Progress Note ---
Date of Encounter: 11/29/17 Time of Encounter: 08:00 - Assessment and Plan (1) ENRIQUE (acute kidney injury) Current Visit: Yes Status: Acute ENRIQUE superimposed on CKD, baseline 1.5-1.7 in setting of volume overload, pulm HTN, CHF-D. New onset Afib. Renal US unclear on bladder outlet obstruction. Prostamegaly, "inability to void" but does not say if badder full/empty. Renal fct simproving, creat 2.23, Documented urine output 5000cc, indwelling Hathaway. Will stop Lasix drip and Metolazone. Start on PO Lasix 40mg BID and order KRider for K 3.1. Accurate I&O. Will continue to monitor. Subjective Principal diagnosis: CHF Interval history: Sitting up in a chair, Patient denies SOB. Lasix drip. at bedside. Hathaway. States right medial calf pain with swelling is improving. Denies trauma. Nursing aware and has area marked. Raised, no erythema, no temp differentiated. Afebrile. Objective - Vital Signs Vital signs: Vital Signs Temp Pulse Resp BP Pulse Ox 11/29/17 06:55 98.1 F 92 18 133/75 91 11/29/17 04:04 98.0 F 85 18 128/63 96 11/28/17 23:43 97.4 F L 85 17 137/67 96 11/28/17 21:27 18 95 11/28/17 21:11 97 11/28/17 19:17 97.6 F 86 18 123/71 97 11/28/17 15:56 97.4 F L 75 17 130/66 97 11/28/17 15:15 16 96 11/28/17 11:51 97.6 F 83 14 130/67 95 11/28/17 11:08 18 96 11/28/17 09:11 16 95 Intake and Output 11/28/17 11/29/17 11/29/17 23:59 07:59 15:59 Intake Total 120 / 120 Output Total 1350 / 1350 1350 / 1350 Balance -1230 / -1230 -1350 / -1350 Intake: Oral 120 / 120 Output: Urine 600 / 600 Catheter 750 / 750 1350 / 1350 Other: Meal Dinner Percent of Meal Consumed 100% Blood Glucose* 312 221 - General Appearance General appearance: Present: well-developed, well-nourished, appears started age , obese EENT: Present: mucous membranes moist Neck: Present: no JVD Respiratory: Present: clear Cardiology: Present: edema, regular rate, regular rhythm Additional Comments: mild ankle/pedal Gastrointestinal: Present: normoactive bowel sounds, no tenderness Integumentary: Present: warm and dry Neurologic: Present: alert and oriented x3 - Lab 11/23/17 04:23 11/29/17 00:25 Most recent lab results Calcium 9.2 mg/dL (8.6-10.3) 11/29/17 00:25 Phosphorus 4.0 mg/dL (2.7-4.5) 11/23/17 04:23 Magnesium 2.0 mg/dL (1.6-2.6) 11/23/17 04:23 - VTE Documentation of Mechanical Device: Graduated compression elastic hosiery Contraindication No Overlap Therapy: Admin of oral Factor Xa Inhibitor Consult Discharge Plan - Plan Referrals: Vicki Fletcher, TECHNICAL SUPERVISOR [Primary Care Provider] - (WEB REQUEST SENT ON 11/25/17) Prescriptions: Apixaban [Eliquis] 5 mg PO BID #60 tablet
[2017-11-29] MEDS: hydrALAZINE 25 MG TABLET PO SCH ×3 (08:37→21:01)
[2017-11-29] MEDS: Insulin LISPRO 300 UNITS/3 ML VIAL SQ SCH ×4 (08:37→21:02)
[2017-11-29] MEDS: Finasteride 5 MG TABLET PO SCH (08:37)
[2017-11-29] MEDS: Ascorbic Acid 500 MG TABLET PO SCH (08:38)
[2017-11-29] MEDS: Fluticasone Propionate Nasal 50 MCG/SPRAY BOTTLE NS SCH (08:38)
[2017-11-29] MEDS: Apixaban 5 MG TABLET PO SCH ×2 (08:38→21:01)
[2017-11-29] MEDS: Isosorbide MONOnitrate (24 HR) 60 MG TAB.ER.24H PO SCH (08:38)
[2017-11-29] MEDS: Aspirin Enteric Coated 81 MG Tablet PO SCH (08:38)
[2017-11-29 09:12] LABS: Calcium 9.3 mg/dL (8.6-10.3); Potassium 2.9 mEq/L (3.5-5.1)
--- NOTE | 2017-11-29 09:59 | Cardiology Progress Note ---
Date of Encounter: 11/29/17 Time of Encounter: 10:00 Assessment and Plan (1) Acute exacerbation of CHF (congestive heart failure) Current Visit: Yes Status: Acute Right sided, combined LV systolic diastolic CHF. Diuresis is working with stable renal function. 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 transplanted heart: [place] heart Associated angina: without angina Qualified Code(s): I25.810 - Atherosclerosis of coronary artery bypass graft(s) without angina pectoris Discussion w patient/family: The assessment and plan as outlined above was discussed with the patient and/or family members who expressed understanding and agreement. All questions were answered. Thank you for involving us in the care of your patient. Please call with any questions. Subjective Principal diagnosis: CHF Interval history: diuresing overnight without issues. relatively comfortable on bipap. Denies chest discomfort or palpitations Objective Vital Signs, Last 4 Hours Temp Pulse Resp BP Pulse Ox 11/29/17 09:04 91 11/29/17 06:55 98.1 F 92 18 133/75 91 General: No Apparent Distress HEENT: Atraumatic Neck: No JVD Cardiac: Other (irr irr) Lungs: Other (basilar crackles) Neuro: Alert and responsive Abdomen: Soft Skin: No rashes noted on visualized skin Musculoskeletal: No Chest Wall Tenderness Extremities: Other (1+ edema bl) Results 11/23/17 04:23 11/29/17 08:40 Lab Results 11/28/17 11/29/17 11/29/17 16:46 00:25 08:40 Sodium 133 L 134 L 134 L Potassium 3.4 L 3.1 L 2.9 L Chloride 83 L 84 L 81 L Carbon Dioxide 44 H* 43 H* 43 H* BUN 59 H 64 H 60 H Creatinine 2.26 H 2.23 H 1.91 H Glucose 257 H 194 H 288 H Calcium 9.2 9.2 9.3 - VTE Documentation of Mechanical Device: Graduated compression elastic hosiery Contraindication No Overlap Therapy: Admin of oral Factor Xa Inhibitor Consult Discharge Plan - Plan Referrals: Vicki Fletcher, HEAD OF MARKETING [employer]NALYTICS [Primary Care Provider] - (WEB REQUEST SENT ON 11/25/17) Prescriptions: Apixaban [Eliquis] 5 mg PO BID #60 tablet
[2017-11-29] MEDS: metOLazone 5 MG TABLET PO SCH (10:06)
[2017-11-29] MEDS: Budesonide/Formoterol 160/4.5 MDI IH SCH ×2 (10:43→20:17)
[2017-11-29] MEDS: Ipratropium/Albuterol Neb 3 ML IH SCH ×3 (10:43→20:17)
[2017-11-29] MEDS: Furosemide 40 MG TABLET PO SCH (16:47)
[2017-11-29 17:16] LABS: Calcium 9.2 mg/dL (8.6-10.3); Potassium 3.4 mEq/L (3.5-5.1)
[2017-11-29] MEDS: *HR* HYDROcodone/Acet 5/325 mg TABLET PO PRN (18:33)
[2017-11-29] MEDS: Ondansetron 4 MG/2 ML VIAL IVP PRN (18:33)
--- NOTE | 2017-11-29 20:01 | Internal Med Progress Note ---
Date of Encounter: 11/29/17 Time of Encounter: 14:47 - Assessment and plan (1) New onset a-fib Current Visit: Yes Status: Acute Assessment and plan: Cardiology consulted; appreciate input. Currently rate controlled. Cardiac enzymes trended negative x 3. ECHO showed LVEF 55% with mild LVH, indeterminate diastolic function, severely dilated LA, and moderate pulmonary hypertension. Continue metoprolol and eliquis. (2) (HFpEF) heart failure with preserved ejection fraction Current Visit: Yes Status: Acute Assessment and plan: Slowly improving edema. BLE venous doppler negative for DVT. Cardiology and nephrology consulted; appreciate input. Diuresis per nephrology; on PO lasix BID now. Metolazone discontinued. Nephrology addressing hypokalemia with K- riders. Will recheck BMP in AM. This is complicated by the fact that we are now correcting his hyperglycemia. Continue low sodium and fluid restriction diet. Continue strict I&Os and daily weights. I spoke with liquid hydrogen plant operator Dr. Menezes today; he feels patient can discharge home once acute CHF stable and nephrology OK with renal function; he will follow up with them outpatient and consider [facility] at that time. (3) Chronic kidney disease, stage III (moderate) Current Visit: Yes Status: Chronic Assessment and plan: Renal function with big improvement overnight; creatinine now at 1.91. Baseline creatinine around 1.5-1.7. Nephrology consulted; appreciate input. Renal ultrasound showed enlarged prostate. Diuretics likely playing a part. Post-renal obstruction now in differential. Urology consulted; appreciate input. Hathaway cather placed and now with better urine output. Diuresis recommendations per nephrology; now on lasix 40 mg PO BID. Recheck BMP Q8H per their recommendations. (4) Diabetes Current Visit: Yes Status: Chronic Assessment and plan: Continue accuchecks and increase to high dose SSI QID AC/HS. Qualifiers: Diabetes mellitus type: type 2 Diabetes mellitus manager long term care insulin use: without penitentiary use Diabetes mellitus complication status: without complication Qualified Code(s): E11.9 - Type 2 diabetes mellitus without complications (5) CAD (coronary artery disease) Current Visit: Yes Status: Chronic Assessment and plan: Cardiac enzymes trended negative x 3. ECHO results as per above. Cardiology consulted; appreciate input. Considering cath after acute issues addressed. Continue aspirin, statin, and beta bryan. Qualifiers: Coronary Disease-Associated Artery/Lesion type: unspecified vessel or lesion type [place] vs. transplanted heart: [place] heart Associated angina: without angina Qualified Code(s): I25.10 - Atherosclerotic heart disease of [place] coronary artery without angina pectoris (6) Essential hypertension Current Visit: Yes Status: Chronic Assessment and plan: Continue home medications except lisinopril. (7) DVT prophylaxis Current Visit: Yes Status: Acute Assessment and plan: Continue eliquis. Some concern for possible RLE DVT; will order stat BLE U/S. He is already anticoagulated. - Time Spent With Patient Total time spent is greater than 50% in coordination of care (as documented) at patient's floor/unit and/or counseling patient: less than 15 minutes - Subjective Interval history: Patient had no acute events overnight. BLE edema still improving per both patient and . He denies SOB at this time. More awake this AM; up in chair wearing Bipap. He seems to be a little more compliant with Bipap after our discussion yesterday. If his somnolence resolves and mentation remains good, I am not sure we really need to continue Bipap at this point. He may just have a mild, chronic hypercarbia given his poor respiratory status. Some mild N/V again this AM, but controlled with IV zofran. Nurse did note that nausea starts after he gets PO potassium chloride. He denies chest pain, palpitations , fever, chills, or abdominal pain. His only complaint is right calf pain, subjective more painful from yesterday. We will order RLE u/s to rule out DVT. He had BLE u/s done at the beginning of this admission, and he is also already anticoagulated, but will get RLE u/s to check for the patient. We have restarted pain medication now that he is more awake, but advised of risks of respiratory depression. Plan of care discussed with , who is in room today. - Constitutional Vitals: Temp Pulse Resp BP Pulse Ox 97.6 F 87 19 118/68 95 11/29/17 19:51 11/29/17 19:51 11/29/17 19:51 11/29/17 19:51 11/29/17 19:51 General appearance: Present: cooperative, A&O X 3, pleasant, no acute distress, obese, answers questions appropriately - Respiratory Respiratory exam: Present: decreased breath sounds. Absent: accessory muscle use, rales, rhonchi, wheezes Additional comments: Mildly labored WOB on Bipap, coarse breath sounds bilaterally with diminished breath sounds at bases - Cardiovascular Cardiovascular exam: Present: RRR, +S1, +S2. Absent: diastolic murmur, gallop, rubs, systolic murmur - GI/Abdominal GI/Abdominal exam: Present: normal bowel sounds, soft. Absent: hepatomegaly, mass, splenomegaly, tenderness Additional comments: Mild abdominal distension, no fluid wave - Psychiatric Psychiatric exam: Present: normal affect, normal mood. Absent: agitated, anxious, depressed - Skin Skin exam: Present: dry, intact, rash (4 cm diameter round area with increased erythema and moderate TTP), warm. Absent: cyanosis Internal Medicine: Result - Labs CBC & Chem 7: 11/23/17 04:23 11/29/17 16:13 Labs: BMP 11/29/17 11/29/17 11/29/17 00:25 08:40 16:13 Sodium 134 L 134 L 133 L Potassium 3.1 L 2.9 L 3.4 L Chloride 84 L 81 L 82 L Carbon Dioxide 43 H* 43 H* 44 H* BUN 64 H 60 H 61 H Creatinine 2.23 H 1.91 H 2.36 H Glucose 194 H 288 H 265 H Calcium 9.2 9.3 9.2 - ABG Interpretation ABG results: PT/INR, D-dimer PT 12.7 Seconds (9.4-12.1) H 11/23/17 04:23 - VTE Documentation of Mechanical Device: Graduated compression elastic hosiery Contraindication No Overlap Therapy: Admin of oral Factor Xa Inhibitor Consult Discharge Plan - Plan Referrals: Vicki Fletcher, SUPERVISOR WOOD ROOM [Primary Care Provider] - (WEB REQUEST SENT ON 11/25/17) Prescriptions: Apixaban [Eliquis] 5 mg PO BID #60 tablet
[2017-11-30] MEDS: Ondansetron 4 MG/2 ML VIAL IVP PRN ×2 (00:26→09:56)
[2017-11-30 00:54] LABS: Calcium 9.3 mg/dL (8.6-10.3); Potassium 3.2 mEq/L (3.5-5.1)
[2017-11-30] MEDS: Aspirin Enteric Coated 81 MG Tablet PO SCH (07:54)
[2017-11-30] MEDS: Isosorbide MONOnitrate (24 HR) 60 MG TAB.ER.24H PO SCH (07:54)
[2017-11-30] MEDS: Ascorbic Acid 500 MG TABLET PO SCH (07:54)
[2017-11-30] MEDS: Apixaban 5 MG TABLET PO SCH ×2 (07:54→20:53)
[2017-11-30] MEDS: Insulin LISPRO 300 UNITS/3 ML VIAL SQ SCH ×4 (07:54→20:59)
[2017-11-30] MEDS: Fluticasone Propionate Nasal 50 MCG/SPRAY BOTTLE NS SCH (07:54)
[2017-11-30] MEDS: hydrALAZINE 25 MG TABLET PO SCH ×3 (07:54→20:53)
[2017-11-30] MEDS: Finasteride 5 MG TABLET PO SCH (07:54)
[2017-11-30] MEDS: Furosemide 40 MG TABLET PO SCH ×2 (07:56→16:44)
--- NOTE | 2017-11-30 08:00 | Nephrology Progress Note ---
Date of Encounter: 11/30/17 Time of Encounter: 07:58 - Assessment and Plan (1) Chronic kidney disease, stage III (moderate) Current Visit: Yes Status: Chronic The patient's renal function is stable. Urine output yesterday was 3.2 L. He has been changed to oral Lasix. My give him additional potassium supplementation. He has metabolic alkalosis related to the diuretics. I am going to start him on Diamox as well. If his urine output drops off significantly we may have to resume the IV Lasix. (2) Type 2 diabetes mellitus with diabetic chronic kidney disease Current Visit: Yes Status: Acute Qualifiers: Diabetes mellitus oil heaterman insulin use: with fpc use Chronic kidney disease stage: stage 3 (moderate) Qualified Code(s): E11.22 - Type 2 diabetes mellitus with diabetic chronic kidney disease; N18.3 - Chronic kidney disease, stage 3 (moderate); N18.3 - Chronic kidney disease, stage 3 (moderate); Z79.4 - intermediate (current) use of insulin; Z79.4 - lobsterman (current) use of insulin; Z79.4 - lobsterman (current) use of insulin; Z79.4 - intermediate (current) use of insulin (3) Benign hypertension with chronic kidney disease, stage III Current Visit: Yes Status: Acute (4) Benign hypertension with chronic kidney disease, stage III Current Visit: No Status: Chronic (5) Pulmonary hypertension Current Visit: No Status: Chronic (6) New onset a-fib Current Visit: Yes Status: Acute Subjective Principal diagnosis: CHF Interval history: The patient reports overall he is feeling better. His swelling continues to improve and is shortness of breath has improved as well. He does continue to experience some nausea. He is going for a venous duplex to evaluate a swollen painful area of the right lower extremity. Unction is stable. He does have hypokalemia and metabolic alkalosis related to the diuretics. Objective - Vital Signs Vital signs: Vital Signs Temp Pulse Resp BP Pulse Ox 11/30/17 07:30 98.3 F 86 16 135/72 97 11/30/17 04:37 98.5 F 88 19 112/61 97 11/30/17 00:30 98.2 F 82 19 132/76 97 11/29/17 21:16 95 11/29/17 20:21 19 95 11/29/17 19:51 97.6 F 87 19 118/68 95 11/29/17 16:23 16 96 11/29/17 15:13 97.3 F L 93 18 109/61 96 11/29/17 10:56 98.0 F 68 18 124/70 96 11/29/17 10:43 10 96 11/29/17 09:04 91 Intake and Output 11/29/17 11/29/17 11/30/17 15:59 23:59 07:59 Intake Total 1000 / 1000 480 / 480 Output Total 1500 / 1500 350 / 350 1300 / 1300 Balance -500 / -500 130 / 130 -1300 / -1300 Intake: IV Fluids 520 / 520 Lasix 240 MG In Dextrose 5% 96 120 / 120 ML @ 10 MG/HR 5 mls/hr IVC . Q24H HERNAN Rx#:[id number] Potassium Chloride 10 mEq/100mL 400 / 400 10 meq In 100 ml @ 100 mls/hr IVPB Q1H HERNAN Rx#:[id number] Oral 480 / 480 480 / 480 Output: Catheter 1500 / 1500 350 / 350 1300 / 1300 Other: Meal Lunch Dinner Percent of Meal Consumed 50% 100% Weight 101.208 kg Blood Glucose* 412 314 242 Patient Weight 11/30/17 23:59 Weight 101.208 kg - General Appearance Exam: Patient is alert and oriented. He is in no acute distress. Lungs diminished breath sounds otherwise clear. Heart regular rate and rhythm. Abdomen is benign. He continues to have 2+ lower extremity swelling although it is improved compared to previous exams. He has a tender erythematous area on the right calf. Hathaway catheter is in place. Gross hematuria is present. - Lab 11/23/17 04:23 11/30/17 00:22 Most recent lab results Calcium 9.3 mg/dL (8.6-10.3) 11/30/17 00:22 Phosphorus 4.0 mg/dL (2.7-4.5) 11/23/17 04:23 Magnesium 2.0 mg/dL (1.6-2.6) 11/23/17 04:23 - VTE Documentation of Mechanical Device: Graduated compression elastic hosiery Contraindication No Overlap Therapy: Admin of oral Factor Xa Inhibitor Consult Discharge Plan - Plan Referrals: Vicki Fletcher, DIGITAL AD TRAFFICKER [Primary Care Provider] - (WEB REQUEST SENT ON 11/25/17) Prescriptions: Apixaban [Eliquis] 5 mg PO BID #60 tablet
--- NOTE | 2017-11-30 08:41 | Cardiology Progress Note ---
Date of Encounter: 11/30/17 Time of Encounter: 08:38 Assessment and Plan (1) (HFpEF) heart failure with preserved ejection fraction Current Visit: Yes Status: Acute CHFpEF. TTE shows EF 55%. Acute diastolic CHF, but also with RV dysfunction noted. Complicated by CKD and solitary kidney. Nephrology following. Was on Lasix gtt and PO Metolazone and has diuresed well--net negative - [id number]. Lasix gtt and PO Metolazone now stopped. Dyspnea and LE edema significantly improved. Near euvolemic on exam. Highest weight 110.6kg and weight today 101.208kg. Currently on PO Lasix 40mg BID. Creatinine 2.31 this AM, was 2.36 yesterday. Mild RLE edema, calf tenderness and swelling--dopplers ordered. Management per primary team. K 3.2--being replaced. CHF education reviewed. Low sodium diet. Daily weights. Strict I&O. Continue IV lasix gtt. Appreciate recs and management from nephrology with known solitary kidney. Cardiology signing off. Reconsult PRN. Pt follows with Dr. Zapata in [place]. Follow-up in 1-2 weeks. (2) Atrial fibrillation Current Visit: Yes Status: Acute New diagnosis of afib. Denies previous history. Seen one month ago and afib not seen. Currently rate controlled. 12 hr tele AVG HR 79, A-Fib. TSH was normal. TTE -EF 55% . Mild LVH. Indeterminate diastolic function. Severely dilated LA. Moderate pulmonary hypertension. Continue carvedilol 25mg BID. CHADS VASc= 7. High risk for CVA. Recommended anticoagulation with coumadin or NOAC. He agrees with anticoagulation, eliquis 5mg BID was fle[place] checked and affordable, started. Hematuria noted in chew. Check CBC. Qualifiers: Atrial fibrillation type: unspecified Qualified Code(s): I48.91 - Unspecified atrial fibrillation (3) CAD (coronary artery disease) Current Visit: Yes Status: Chronic H/o 3 vessel CABG in 2013. Denies chest pain. No WMA on TTE. EF 55%. Troponin negative. Continue asa, statin, and bb. Qualifiers: Coronary Disease-Associated Artery/Lesion type: unspecified vessel or lesion type [place] vs. transplanted heart: [place] heart Associated angina: without angina Qualified Code(s): I25.10 - Atherosclerotic heart disease of [place] coronary artery without angina pectoris Discussion w patient/family: The assessment and plan as outlined above was discussed with the patient and/or family members who expressed understanding and agreement. All questions were answered. Thank you for involving us in the care of your patient. Please call with any questions. I will discuss all the above with Dr. Vilchis and make changes as necessary. Subjective Principal diagnosis: CHF Interval history: Pt has diuresed well--net negative -[id number]. Highest weight was 110.6kg and is 101.208 today. Dyspnea and LE edema have significantly improved. Only complaint is an area of right calf pain and swelling. Hematuria noted in chew. Pt is off Lasix gtt, now on PO Lasix 40mg BID. Objective Vital Signs, Last 4 Hours Temp Pulse Resp BP Pulse Ox 11/30/17 07:30 98.3 F 86 16 135/72 97 Vital Signs Temp Pulse Resp BP Pulse Ox 11/30/17 07:30 98.3 F 86 16 135/72 97 11/30/17 04:37 98.5 F 88 19 112/61 97 11/30/17 00:30 98.2 F 82 19 132/76 97 11/29/17 21:16 95 11/29/17 20:21 19 95 11/29/17 19:51 97.6 F 87 19 118/68 95 11/29/17 16:23 16 96 11/29/17 15:13 97.3 F L 93 18 109/61 96 11/29/17 10:56 98.0 F 68 18 124/70 96 11/29/17 10:43 10 96 11/29/17 09:04 91 Intake and Output 11/29/17 11/30/17 11/30/17 23:59 07:59 15:59 Intake Total 480 / 480 0 / 0 Output Total 350 / 350 1300 / 1300 0 / 0 Balance 130 / 130 -1300 / -1300 0 / 0 Intake: Oral 480 / 480 0 / 0 Output: Urine 0 / 0 Catheter 350 / 350 1300 / 1300 Other: Meal Dinner Percent of Meal Consumed 100% Weight 101.208 kg Blood Glucose* 314 242 Patient Weight 11/30/17 23:59 Weight 101.208 kg General: Conversant, No Apparent Distress HEENT: Atraumatic, Normocephaly, Mucus Membranes Moist Neck: No JVD, Normal carotid pulses Cardiac: Reg Rate and Rhythm, Normal S1 and S2, No Murmur Lungs: Normal Breath Sounds, No Wheeze, Rales, Rhonchi Neuro: Alert and responsive, No focal deficits noted Abdomen: Soft, Non-Tender Skin: No rashes noted on visualized skin Musculoskeletal: No Chest Wall Tenderness Extremities: Other (mild RLE edema, right calf tenderness and swelling) Results 11/23/17 04:23 11/30/17 00:22 Lab Results 11/29/17 11/29/17 11/30/17 08:40 16:13 00:22 Sodium 134 L 133 L 134 L Potassium 2.9 L 3.4 L 3.2 L Chloride 81 L 82 L 82 L Carbon Dioxide 43 H* 44 H* 45 H* BUN 60 H 61 H 64 H Creatinine 1.91 H 2.36 H 2.31 H Glucose 288 H 265 H 222 H Calc ium 9.3 9.2 9.3 Active Medications Acetaminophen (Tylenol) 650 mg PO Q6HR PRN PRN Reason: Fever Stop: 05/27/18 00:35 Last Admin: 11/29/17 03:36 Dose: 650 mg Hydrocodone Bitart/Acetaminophen ([place] 5-325 Mg) 1 tab PO Q8HR PRN PRN Reason: Severe Pain Stop: 05/29/18 16:26 Last Admin: 11/29/17 18:33 Dose: 1 tab Acetazolamide (Diamox) 125 mg PO BID HERNAN PRN Reason: Protocol Stop: 06/01/18 09:01 Albuterol Sulfate (Proventil Neb) 2.5 mg IH Q2H PRN; Protocol PRN Reason: Shortness Of Breath/Wheezing Stop: 05/28/18 15:25 Last Admin: 11/27/17 00:03 Dose: 2.5 mg Albuterol/Ipratropium (Duoneb) 3 ml IH Q6HWA [facility] Stop: 05/28/18 15:25 Last Admin: 11/29/17 20:17 Dose: 3 ml Apixaban (Eliquis) 5 mg PO BID [facility] Stop: 05/26/18 21:01 Last Admin: 11/30/17 07:54 Dose: 5 mg Ascorbic Acid (Vitamin C) 500 mg PO DAILY [facility] Stop: 05/27/18 09:01 Last Admin: 11/30/17 07:54 Dose: 500 mg Aspirin (Aspirin Ec) 81 mg PO DAILY [facility] Stop: 05/24/18 09:01 Last Admin: 11/30/17 07:54 Dose: 81 mg Atorvastatin Calcium (Lipitor) 80 mg PO HS [facility] Stop: 05/24/18 21:01 Last Admin: 11/29/17 21:01 Dose: 80 mg Budesonide/Formoterol Fumarate (Symbicort) 2 puff IH BIDR [facility] PRN Reason: Protocol Stop: 05/25/18 22:01 Last Admin: 11/29/17 20:17 Dose: 2 puff Carvedilol (Coreg) 25 mg PO BIDWM [facility] PRN Reason: Protocol Stop: 05/24/18 08:46 Last Admin: 11/30/17 07:54 Dose: 25 mg Dextrose/Water (Dextrose 50% (Syg)) 25 ml IVP AD PRN PRN Reason: Hypoglycemia Stop: 05/24/18 08:54 Finasteride (Proscar) 5 mg PO DAILY [facility] PRN Reason: Protocol Stop: 05/24/18 09:01 Last Admin: 11/30/17 07:54 Dose: 5 mg Fluticasone Propionate (Flonase) 50 mcg NS DAILY [facility] PRN Reason: Protocol Stop: 05/24/18 20:16 Last Admin: 11/30/17 07:54 Dose: 50 mcg Furosemide (Lasix) 40 mg PO BIDDIURETIC [facility] Stop: 05/31/18 17:01 Last Admin: 11/30/17 07:56 Dose: 40 mg Glucagon (Glucagen) 1 mg IM ONCE PRN PRN Reason: Hypoglycemia Stop: 05/24/18 08:54 Glucose (Gluctose) 15 gm PO ONCE PRN PRN Reason: Hypoglycemia Stop: 05/24/18 08:54 Glucose (Gluctose) 30 gm PO ONCE PRN PRN Reason: Hypoglycemia Stop: 05/24/18 08:54 Hydralazine HCl (Hydralazine) 100 mg PO TID [facility] Stop: 05/25/18 11:11 Last Admin: 11/30/17 07:54 Dose: 100 mg Dextrose (Dextrose 5%) 1,000 mls @ 100 mls/hr IVC .Q10H PRN PRN Reason: HYPOGLYCEMIA Stop: 05/24/18 08:54 Potassium Chloride (Potassium Chloride 10 Meq/100ml) 10 meq in 100 mls @ 100 mls/hr IVPB Q1H [facility] Stop: 11/30/17 12:14 Insulin Human Lispro (Humalog) 0 units SQ TIDAC [facility] PRN Reason: Protocol Stop: 05/25/18 11:31 Last Admin: 11/30/17 07:54 Dose: 10 units Insulin Human Lispro (Humalog) 0 units SQ HS [facility] PRN Reason: Protocol Stop: 05/25/18 21:01 Last Admin: 11/29/17 21:02 Dose: 7 units Isosorbide Mononitrate (Imdur) 60 mg PO DAILY [facility] Stop: 05/26/18 09:01 Last Admin: 11/30/17 07:54 Dose: 60 mg Naloxone HCl (Narcan) 0.4 mg IVP Q2MIN PRN PRN Reason: SEE COMMENTS Stop: 05/24/18 08:16 Nitroglycerin (Nitroglycerin) 0.4 mg SL Q5MIN PRN PRN Reason: Chest Pain Stop: 05/24/18 06:44 Last Admin: 11/22/17 07:11 Dose: 0.4 mg Ondansetron HCl (Zofran) 4 mg IVP Q6HR PRN; Protocol PRN Reason: Nausea And Vomiting Stop: 05/26/18 23:46 Last Admin: 11/30/17 00:26 Dose: 4 mg Potassium Chloride (Potassium Chloride) 20 meq PO TIDWM [facility] Stop: 06/01/18 12:01 Promethazine HCl (Phenergan) 25 mg IM Q8HR PRN PRN Reason: Nausea And Vomiting Stop: 05/27/18 16:13 - Imaging and Cardiology Echo: report reviewed - EKG Interpretation EKG results cardiology: other (12 hr tele AVG HR 79, A-Fib) - VTE Documentation of Mechanical Device: Graduated compression elastic hosiery Contraindication No Overlap Therapy: Admin of oral Factor Xa Inhibitor Consult Discharge Plan - Plan Referrals: Vicki Fletchre CNP [Primary Care Provider] - (WEB REQUEST SENT ON 11/25/17) Prescriptions: Apixaban [Eliquis] 5 mg PO BID #60 tablet
[2017-11-30 09:00] LABS: Potassium 3.2 mEq/L (3.5-5.1)
[2017-11-30 09:01] LABS: Calcium 9.4 mg/dL (8.6-10.3)
[2017-11-30] MEDS: acetaZOLAMIDE 250 MG TABLET PO SCH ×2 (09:51→20:53)
[2017-11-30 10:04] LABS: Basophils # 0.1 K/mcL (0.0-0.2); Basophils % 0.7 %; Eosinophils # 0.2 K/mcL (0.0-0.6); Eosinophils % 2.5 %; Hematocrit 34.5 % (37.5-50.1); Hemoglobin 11.5 g/dL (12.9-16.9); Immature Granulocytes % 0.5 % (0-4); Lymphocytes # 1.3 K/mcL (0.6-4.6); Lymphocytes % 12.9 %; Mean Corpuscular HGB Conc 33.3 g/dL (31.6-35.5); Mean Corpuscular Hemoglobin 27.8 pg (28.0-33.3); Mean Corpuscular Volume 83.5 fL (83.0-100.0); Mean Platelet Volume 11.1 fL (9.4-12.4); Monocytes % 9.9 %; Neutrophils # 7.2 K/mcL (1.6-8.9); Platelet Count 184 K/mcL (140-400); Red Blood Count 4.13 M/mcL (4.19-5.50); Segmented Neutrophils % 73.5 %
[2017-11-30] MEDS: Budesonide/Formoterol 160/4.5 MDI IH SCH ×2 (10:50→21:52)
[2017-11-30] MEDS: Ipratropium/Albuterol Neb 3 ML IH SCH ×3 (10:50→21:52)
[2017-11-30 16:36] LABS: Calcium 9.2 mg/dL (8.6-10.3); Potassium 3.3 mEq/L (3.5-5.1)
[2017-11-30] MEDS ORDERED: *HR* Promethazine 25 MG/ML VIAL IM PRN (16:38)
--- NOTE | 2017-11-30 20:10 | Internal Med Progress Note ---
Date of Encounter: 11/30/17 Time of Encounter: 11:47 - Assessment and plan (1) New onset a-fib Current Visit: Yes Status: Acute Assessment and plan: Cardiology consulted; appreciate input. Currently rate controlled. Cardiac enzymes trended negative x 3. ECHO showed LVEF 55% with mild LVH, indeterminate diastolic function, severely dilated LA, and moderate pulmonary hypertension. Continue metoprolol and eliquis. (2) (HFpEF) heart failure with preserved ejection fraction Current Visit: Yes Status: Acute Assessment and plan: Slowly improving edema. Repeat RLE venous doppler negative for DVT today. Cardiology and nephrology consulted; appreciate input. Diuresis per nephrology ; on PO lasix BID now. Metolazone discontinued. Nephrology addressing hypokalemia with K-riders. Nephrology also address alkalosis with diamox. Will recheck BMP in AM. TContinue low sodium and fluid restriction diet. Continue strict I&Os and daily weights. I spoke with shoe repairer helper Dr. Menezes yesterday; he feels patient can discharge home once acute CHF stable and nephrology OK with renal function; he will follow up with them outpatient and consider C at that time. (3) Chronic kidney disease, stage III (moderate) Current Visit: Yes Status: Chronic Assessment and plan: Renal function with interval worsening. Baseline creatinine around 1.5-1.7. Nephrology consulted; appreciate input. Renal ultrasound showed enlarged prostate. Diuretics likely playing a part. Urology consulted; appreciate input. [place] cather placed and now with better urine output. Diuresis recommendations per nephrology; now on lasix 40 mg PO BID. Recheck BMP Q8H per their recommendations. (4) Diabetes Current Visit: Yes Status: Chronic Assessment and plan: Continue accuchecks and increase to high dose SSI QID AC/HS. Qualifiers: Diabetes mellitus type: type 2 Diabetes mellitus prison insulin use: without flake miller wheat and oats use Diabetes mellitus complication status: without complication Qualified Code(s): E11.9 - Type 2 diabetes mellitus without complications (5) CAD (coronary artery disease) Current Visit: Yes Status: Chronic Assessment and plan: Cardiac enzymes trended negative x 3. ECHO results as per above. Cardiology consulted; appreciate input. Considering cath as outpatient after acute issues addressed. Continue aspirin, statin, and beta bryan. Qualifiers: Coronary Disease-Associated Artery/Lesion type: unspecified vessel or lesion type [place] vs. transplanted heart: [place] heart Associated angina: without angina Qualified Code(s): I25.10 - Atherosclerotic heart disease of [place] coronary artery without angina pectoris (6) Essential hypertension Current Visit: Yes Status: Chronic Assessment and plan: Continue home medications except lisinopril. (7) DVT prophylaxis Current Visit: Yes Status: Acute Assessment and plan: Continue eliquis. - Time Spent With Patient Total time spent is greater than 50% in coordination of care (as documented) at patient's floor/unit and/or counseling patient: less than 15 minutes - Subjective Interval history: Patient had no acute events overnight. BLE edema still improving per both patient and . He denies SOB at this time. Complaining of nausea again this AM. He is eating fine in room at this time without any issues. Asked pharmacist about nausea and if any medications can cause it, and he suggested that he was given different iron supplement here (not the ferrous gluconate that he takes at home). Still complains of right calf pain. Erythema of calf seems less today, and he does state that the pain is better. RLE U/S negative for DVT today. He denies chest pain, palpitations, fever, chills, or abdominal pain. Plan of care discussed with , who is in room today. - Constitutional Vitals: Temp Pulse Resp BP Pulse Ox 98.7 F 83 16 119/70 98 11/30/17 16:12 11/30/17 16:12 11/30/17 16:12 11/30/17 16:12 11/30/17 16:12 General appearance: Present: cooperative, A&O X 3, pleasant, no acute distress, obese, answers questions appropriately - Respiratory Respiratory exam: Present: CTAB. Absent: accessory muscle use, rales, rhonchi, wheezes Additional comments: Normal WOB - Cardiovascular Cardiovascular exam: Present: RRR, +S1, +S2. Absent: diastolic murmur, gallop, rubs, systolic murmur Additional comments: 2+ pitting BLE edema - GI/Abdominal GI/Abdominal exam: Present: normal bowel sounds, soft. Absent: distended, hepatomegaly, mass, splenomegaly, tenderness - Psychiatric Psychiatric exam: Present: normal affect, normal mood. Absent: agitated, anxious, depressed - Skin Skin exam: Present: dry, intact, warm. Absent: cyanosis Additional comments: Mild erythema and TTP of right medial calf Internal Medicine: Result - Labs CBC & Chem 7: 11/30/17 09:42 11/30/17 16:05 Labs: Short CBC 11/30/17 Range/Units 09:42 WBC 9.8 (4.3-11.1) K/mcL Hgb 11.5 L (12.9-16.9) g/dL Hct 34.5 L (37.5-50.1) % Plt Count 184 (140-400) K/mcL Neutrophils # 7.2 (1.6-8.9) K/mcL BMP 11/30/17 11/30/17 11/30/17 00:22 08:34 16:05 Sodium 134 L 133 L 133 L Potassium 3.2 L 3.2 L 3.3 L Chloride 82 L 82 L 82 L Carbon Dioxide 45 H* 42 H* 43 H* BUN 64 H 60 H 61 H Creatinine 2.31 H 2.28 H 2.36 H Glucose 222 H 263 H 278 H Calcium 9.3 9.4 9.2 - ABG Interpretation ABG results: PT/INR, D-dimer PT 12.7 Seconds (9.4-12.1) H 11/23/17 04:23 - VTE Documentation of Mechanical Device: Graduated compression elastic hosiery Contraindication No Overlap Therapy: Admin of oral Factor Xa Inhibitor Consult Discharge Plan - Plan Referrals: Vicki Fletcher, [employer] [Primary Care Provider] - (WEB REQUEST SENT ON 11/25/17) Prescriptions: Apixaban [Eliquis] 5 mg PO BID #60 tablet
[2017-12-01 01:26] LABS: Calcium 9.2 mg/dL (8.6-10.3)
[2017-12-01 04:49] LABS: ABG Base Excess 20 mEq/L (-2 to 3); ABG HCO3 46 mEq/L (21-27); ABG Oxygen Saturation 99 % (95-98); ABG PCO2 57 mmHg (35-45); ABG PH 7.52 pH Units (7.32-7.45); ABG PO2 113 mmHg (85-104); ABG TCO2 48 mEq/L (20-26); Blood Gas Modality BiLevel; Blood Gas Respiration Rate 24
[2017-12-01 05:30] LABS: Albumin 3.7 g/dL (3.5-5.7); Albumin/Globulin Ratio 1.4 (1.1-2.2); Bilirubin,Total 1.5 mg/dL (0.3-1.0); Calcium 9.3 mg/dL (8.6-10.3); Globulin 2.6 g/dL (2.4-3.5); Potassium 2.9 mEq/L (3.5-5.1); Total Protein 6.3 g/dL (6.4-8.9)
--- NOTE | 2017-12-01 08:01 | Nephrology Progress Note ---
Date of Encounter: 12/01/17 Time of Encounter: 07:59 - Assessment and Plan (1) Chronic kidney disease, stage III (moderate) Current Visit: Yes Status: Chronic We will continue with the same diuretic regimen. I am going to give him additional potassium supplementation. He was started on Diamox yesterday to try and assist with a metabolic alkalosis. (2) Type 2 diabetes mellitus with diabetic chronic kidney disease Current Visit: Yes Status: Acute Qualifiers: Diabetes mellitus fdc insulin use: with superintendent container terminal use Chronic kidney disease stage: stage 3 (moderate) Qualified Code(s): E11.22 - Type 2 diabetes mellitus with diabetic chronic kidney disease; N18.3 - Chronic kidney disease, stage 3 (moderate); N18.3 - Chronic kidney disease, stage 3 (moderate); Z79.4 - rat exterminator (current) use of insulin; Z79.4 - rat exterminator (current) use of insulin; Z79.4 - rat exterminator (current) use of insulin; Z79.4 - rat exterminator (current) use of insulin (3) Benign hypertension with chronic kidney disease, stage III Current Visit: Yes Status: Acute (4) Benign hypertension with chronic kidney disease, stage III Current Visit: No Status: Chronic (5) Pulmonary hypertension Current Visit: No Status: Chronic (6) New onset a-fib Current Visit: Yes Status: Acute Subjective Principal diagnosis: CHF Interval history: The patient swelling continues to improve. Apparently did have some confusion last night. He is placed on BiPAP. He does exhibit metabolic alkalosis with appropriate respiratory compensation related to the diuretics and hypokalemia. Urine output is 3.4 L. Potassium remains low. Renal function is stable. Objective - Vital Signs Vital signs: Vital Signs Temp Pulse Resp BP Pulse Ox 12/01/17 04:53 13 94 12/01/17 04:14 99.1 F 83 16 121/62 97 11/30/17 23:38 98.6 F 78 16 127/66 96 11/30/17 21:59 18 97 11/30/17 21:54 98.8 F 97 17 127/66 95 11/30/17 21:00 98 11/30/17 16:12 98.7 F 83 16 119/70 98 11/30/17 15:38 18 95 11/30/17 11:56 98.3 F 82 18 117/74 96 11/30/17 10:51 18 98 11/30/17 10:25 94 Intake and Output 11/30/17 11/30/17 12/01/17 15:59 23:59 07:59 Intake Total 540 / 540 240 / 240 Output Total 0 / 0 2099 / 2100 1600 / 1600 Balance 540 / 540 -1860 / -1860 -1600 / -1600 Intake: IV Fluids 300 / 300 Potassium Chloride 10 mEq/100mL 300 / 300 10 meq In 100 ml @ 100 mls/hr IVPB Q1H [facility] Rx#:[id number] Oral 240 / 240 240 / 240 Output: Urine 0 / 0 Catheter 2099 1600 / 1600 Other: Meal Breakfast Dinner Percent of Meal Consumed 65% 100% Weight 102 kg Blood Glucose* 305 385 Patient Weight 12/01/17 23:59 Weight 102 kg - General Appearance Exam: Patient is alert and oriented. He is in no acute distress. Lungs mange breath sounds otherwise clear. Heart irregular rate and rhythm. Abdomen is benign. There is less lower extremity swelling. This is especially noticeable on the left. Patient continues to have an area of localized swelling and tenderness on the right lower extremity. - Lab 11/30/17 09:42 12/01/17 04:39 Most recent lab results ABG pH 7.52 pH Units (7.32-7.45) H 12/01/17 04:45 ABG pCO2 57 mmHg (35-45) H 12/01/17 04:45 ABG pO2 113 mmHg (85-104) H 12/01/17 04:45 ABG HCO3 46 mEq/L (21-27) H 12/01/17 04:45 ABG O2 Saturation 99 % (95-98) H 12/01/17 04:45 Calcium 9.3 mg/dL (8.6-10.3) 12/01/17 04:39 Phosphorus 4.0 mg/dL (2.7-4.5) 11/23/17 04:23 Magnesium 2.0 mg/dL (1.6-2.6) 11/23/17 04:23 - VTE Documentation of Mechanical Device: Graduated compression elastic hosiery Contraindication No Overlap Therapy: Admin of oral Factor Xa Inhibitor Consult Discharge Plan - Plan Referrals: Vicki Fletcher, GAS ENGINE REPAIRER [Primary Care Provider] - (WEB REQUEST SENT ON 11/25/17) Prescriptions: Apixaban [Eliquis] 5 mg PO BID #60 tablet
[2017-12-01] MEDS: Isosorbide MONOnitrate (24 HR) 60 MG TAB.ER.24H PO SCH (08:27)
[2017-12-01] MEDS: Ascorbic Acid 500 MG TABLET PO SCH (08:27)
[2017-12-01] MEDS: Aspirin Enteric Coated 81 MG Tablet PO SCH (08:27)
[2017-12-01] MEDS: Finasteride 5 MG TABLET PO SCH (08:27)
[2017-12-01] MEDS: Insulin LISPRO 300 UNITS/3 ML VIAL SQ SCH ×5 (08:44→21:36)
[2017-12-01] MEDS: hydrALAZINE 25 MG TABLET PO SCH ×4 (08:52→21:35)
[2017-12-01 08:53] LABS: ABG Base Excess 20 mEq/L (-2 to 3); ABG HCO3 46 mEq/L (21-27); ABG Oxygen Saturation 94 % (95-98); ABG PCO2 58 mmHg (35-45); ABG PH 7.51 pH Units (7.32-7.45); ABG PO2 68 mmHg (85-104); ABG TCO2 48 mEq/L (20-26)
[2017-12-01] MEDS: Apixaban 5 MG TABLET PO SCH (09:12)
[2017-12-01 09:26] LABS: Hematocrit 32.4 % (37.5-50.1); Hemoglobin 10.7 g/dL (12.9-16.9); Mean Corpuscular Hemoglobin 28.1 pg (28.0-33.3); Mean Platelet Volume 12.3 fL (9.4-12.4); Platelet Count 151 K/mcL (140-400); Red Blood Count 3.81 M/mcL (4.19-5.50)
[2017-12-01] MEDS: Ipratropium/Albuterol Neb 3 ML IH SCH ×3 (09:48→20:27)
[2017-12-01] MEDS: Budesonide/Formoterol 160/4.5 MDI IH SCH ×2 (09:48→20:28)
[2017-12-01] MEDS ORDERED: Furosemide 40 MG/4 ML VIAL IVP SCH ×2 (11:45→17:00)
[2017-12-01] MEDS ORDERED: Sennosides 8.6 MG TABLET PO SCH (12:15)
[2017-12-01] MEDS: Sennosides/Docusate Sodium TABLET PO SCH ×2 (14:10→21:36)
[2017-12-01] MEDS: Furosemide 40 MG/4 ML VIAL IVP SCH ×2 (14:10→17:14)
[2017-12-01] MEDS: Doxycycline 100 MG in 0.9 % Sodium Chloride Mini Bag 100 ML IVPB SCH ×2 (14:10→18:47)
--- NOTE | 2017-12-01 15:29 | Urology Progress Note ---
Date of Encounter: 12/01/17 Time of Encounter: 15:27 - Assessment and Plan (1) Gross hematuria Current Visit: Yes Status: Acute Assessment and plan: This is likely secondary to prosthetic irritation from the catheter and starting blood thinning medication. We will recommend to hold tonight's dose of medication and restart tomorrow. Patient are ready on finasteride. Patient will likely need cystoscopic evaluation at follow-up. We will continue to follow along closely. Progress Note Narrative: Landen is a 77-year-old male with a history of recently starting anticoagulation who developed hematuria today. Patient's catheter has been draining but does have some blood in it. It does appear to be improving after holding this morning's dose of Eliquis. Objective Initial Vital Signs Temp Pulse Resp BP Pulse Ox 97.8 F 74 22 181/91 92 11/22/17 06:02 11/22/17 06:02 11/22/17 06:02 11/22/17 06:02 11/22/17 06:02 - General physical appearance Present: well developed, well nourished - Abdomen Present: soft. Absent: tender - Genitourinary Present: other (Catheter in place with slightly bloody urine in tubing, normal phallus and scrotum.) - Labs 12/01/17 04:39 12/01/17 04:39 Diabetes panel 11/30/17 12/01/17 12/01/17 Range/Units 16:05 00:25 04:39 Sodium 133 L 131 L 134 L (136-145) mEq/L Potassium 3.3 L 3.0 L 2.9 L (3.5-5.1) mEq/L Chloride 82 L 82 L 83 L (98-107) mEq/L Carbon Dioxide 43 H* 43 H* 44 H* (23-29) mEq/L BUN 61 H 65 H 62 H (8-23) mg/dL Creatinine 2.36 H 2.50 H 2.44 H (0.70-1.30) mg/dL Glucose 278 H 355 H 295 H (70-105) mg/dL Calcium 9.2 9.2 9.3 (8.6-10.3) mg/dL AST 12 L (13-39) Units/L ALT 10 (7-52) Units/L Alkaline Phosphatase 80 (34-104) Units/L Albumin 3.7 (3.5-5.7) g/dL Calcium panel 11/30/17 12/01/17 12/01/17 Range/Units 16:05 00:25 04:39 Calcium 9.2 9.2 9.3 (8.6-10.3) mg/dL Albumin 3.7 (3.5-5.7) g/dL Pituitary panel 11/30/17 12/01/17 12/01/17 Range/Units 16:05 00:25 04:39 Sodium 133 L 131 L 134 L (136-145) mEq/L Potassium 3.3 L 3.0 L 2.9 L (3.5-5.1) mEq/L Chloride 82 L 82 L 83 L (98-107) mEq/L Carbon Dioxide 43 H* 43 H* 44 H* (23-29) mEq/L BUN 61 H 65 H 62 H (8-23) mg/dL Creatinine 2.36 H 2.50 H 2.44 H (0.70-1.30) mg/dL Glucose 278 H 355 H 295 H (70-105) mg/dL Calcium 9.2 9.2 9.3 (8.6-10.3) mg/dL Adrenal panel 11/30/17 12/01/17 12/01/17 Range/Units 16:05 00:25 04:39 Sodium 133 L 131 L 134 L (136-145) mEq/L Potassium 3.3 L 3.0 L 2.9 L (3.5-5.1) mEq/L Chloride 82 L 82 L 83 L (98-107) mEq/L Carbon Dioxide 43 H* 43 H* 44 H* (23-29) mEq/L BUN 61 H 65 H 62 H (8-23) mg/dL Creatinine 2.36 H 2.50 H 2.44 H (0.70-1.30) mg/dL Glucose 278 H 355 H 295 H (70-105) mg/dL Calcium 9.2 9.2 9.3 (8.6-10.3) mg/dL Total Bilirubin 1.5 H (0.3-1.0) mg/dL AST 12 L (13-39) Units/L ALT 10 (7-52) Units/L Alkaline Phosphatase 80 (34-104) Units/L Albumin 3.7 (3.5-5.7) g/dL - VTE Documentation of Mechanical Device: Graduated compression elastic hosiery Contraindication No Overlap Therapy: Admin of oral Factor Xa Inhibitor Consult Discharge Plan - Plan Referrals: Vicki Fletcher CNP [Primary Care Provider] - (WEB REQUEST SENT ON 11/25/17) Prescriptions: Apixaban [Eliquis] 5 mg PO BID #60 tablet
[2017-12-01 17:07] LABS: Calcium 9.1 mg/dL (8.6-10.3); Potassium 3.2 mEq/L (3.5-5.1)
[2017-12-01] MEDS: Insulin DETEMIR 100 UNIT/ML X5UNITS SQ SCH (17:14)
--- NOTE | 2017-12-01 17:41 | Internal Med Progress Note ---
Date of Encounter: 12/01/17 Time of Encounter: 09:00 - Assessment and plan (1) Hematuria Current Visit: Yes Status: Acute Assessment and plan: Cont chew Held eliquis cont close monitoring so far stable Hb Re consulted Urology Qualifiers: Hematuria type: gross Qualified Code(s): R31.0 - Gross hematuria (2) Cellulitis of leg Current Visit: Yes Status: Acute Assessment and plan: started him on empirical abx Doxy Qualifiers: Laterality: right Qualified Code(s): L03.115 - Cellulitis of right lower limb (3) New onset a-fib Current Visit: Yes Status: Acute Assessment and plan: Cardiology consulted; appreciate input. Currently rate controlled. Cardiac enzymes trended negative x 3. ECHO showed LVEF 55% with mild LVH, indeterminate diastolic function, severely dilated LA, and moderate pulmonary hypertension. Continue metoprolol and eliquis. (4) CAD (coronary artery disease) Current Visit: Yes Status: Chronic Assessment and plan: Cardiology consulted; appreciate input. Considering cath as outpatient after acute issues addressed. Continue aspirin, statin, and beta bryan. Qualifiers: Coronary Disease-Associated Artery/Lesion type: unspecified vessel or lesion type [place] vs. transplanted heart: [place] heart Associated angina: without angina Qualified Code(s): I25.10 - Atherosclerotic heart disease of [place] coronary artery without angina pectoris (5) Diabetes Current Visit: Yes Status: Chronic Assessment and plan: Continue accuchecks and SSI QID AC/HS. Qualifiers: Diabetes mellitus type: type 2 Diabetes mellitus keno terminal operator insulin use: without keno terminal operator use Diabetes mellitus complication status: without complication Qualified Code(s): E11.9 - Type 2 diabetes mellitus without complications (6) Essential hypertension Current Visit: Yes Status: Chronic Assessment and plan: Continue home medications except lisinopril. (7) DVT prophylaxis Current Visit: Yes Status: Acute Assessment and plan: Held eliquis due to hematuria (8) Chronic kidney disease, stage III (moderate) Current Visit: Yes Status: Chronic Assessment and plan: Renal function with interval worsening. Baseline creatinine around 1.5-1.7 Nephrology consulted; appreciate input. Diuresis recommendations per nephrology Switched to IV Lasix 40 BID and Cont Diamox (9) (HFpEF) heart failure with preserved ejection fraction Current Visit: Yes Status: Acute Assessment and plan: cont IV diuresis cont Coreg, ASA and statin - Time Spent With Patient Total time spent is greater than 50% in coordination of care (as documented) at patient's floor/unit and/or counseling patient: - Subjective Interval history: This is a 77-year-old male who is followed as an outpatient for stage III chronic kidney disease with a baseline creatinine of 1.5-1.7 in the setting of long-standing diabetes, hypertension, and 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 Patient was admitted with a one to 2 month history of worsening swelling along with complaints of exertional dyspnea and orthopnea. He was admitted here for CHF exacerbation and new onset Afib. Pt was started on IV diuresis and Coreg. He does have BPH s/p TURP, developd urinary retention here so chew placed in. Now he started having hematuria. He does c/o Rt leg erythema, pain and swelling. Denied dagmar CP. SOB seems to be slightly better. - Constitutional Vitals: Temp Pulse Resp BP Pulse Ox 98.1 F 71 16 121/67 98 12/01/17 15:58 12/01/17 15:58 12/01/17 16:19 12/01/17 15:58 12/01/17 16:19 General appearance: Present: cooperative, A&O X 3, obese, answers questions appropriately - Head Head exam: Present: atraumatic, normal inspection - Neck Neck exam general surgery: Present: supple - Respiratory Respiratory exam: Present: decreased breath sounds. Absent: rales, respiratory distress, rhonchi, wheezes - Cardiovascular Cardiovascular exam: Present: irregular rhythm, +S1, +S2. Absent: tachycardia - GI/Abdominal GI/Abdominal exam: Present: normal bowel sounds, soft. Absent: rebound, rigid, tenderness - Extremities Exam Extremities exam: Present: pedal edema, tenderness. Absent: calf tenderness Additional comments: Mild erythema noticed in Rt lower leg posteriorly and medially - Back Exam Back exam: Absent: CVA tenderness (L), CVA tenderness (R) - Neurological Exam Neurological exam: Present: alert, oriented X3 - Psychiatric Psychiatric exam: Present: normal affect, normal mood Internal Medicine: Result - Labs CBC & Chem 7: 12/01/17 04:39 12/01/17 16:10 Labs: Short CBC 12/01/17 Range/Units 04:39 WBC 7.1 (4.3-11.1) K/mcL Hgb 10.7 L (12.9-16.9) g/dL Hct 32.4 L (37.5-50.1) % Plt Count 151 (140-400) K/mcL BMP 12/01/17 12/01/17 12/01/17 00:25 04:39 16:10 Sodium 131 L 134 L 134 L Potassium 3.0 L 2.9 L 3.2 L Chloride 82 L 83 L 85 L Carbon Dioxide 43 H* 44 H* 43 H* BUN 65 H 62 H 60 H Creatinine 2.50 H 2.44 H 2.35 H Glucose 355 H 295 H 310 H Calcium 9.2 9.3 9.1 Liver Function 12/01/17 Range/Units 04:39 Total Bilirubin 1.5 H (0.3-1.0) mg/dL AST 12 L (13-39) Units/L ALT 10 (7-52) Units/L Alkaline Phosphatase 80 (34-104) Units/L Albumin 3.7 (3.5-5.7) g/dL - ABG Interpretation ABG results: ABG ABG pH 7.51 pH Units (7.32-7.45) H 12/01/17 08:33 ABG pCO2 58 mmHg (35-45) H 12/01/17 08:33 ABG pO2 68 mmHg (85-104) L D 12/01/17 08:33 ABG O2 Saturation 94 % (95-98) L 12/01/17 08:33 PT/INR, D-dimer PT 12.7 Seconds (9.4-12.1) H 11/23/17 04:23 - VTE Documentation of Mechanical Device: Graduated compression elastic hosiery Contraindication No Overlap Therapy: Admin of oral Factor Xa Inhibitor Consult Discharge Plan - Plan Referrals: Vicki Fletcher, SUPERVISOR PAINT [Primary Care Provider] - (WEB REQUEST SENT ON 11/25/17) Prescriptions: Apixaban [Eliquis] 5 mg PO BID #60 tablet
[2017-12-01] MEDS ORDERED: Fluticasone Propionate Nasal 50 MCG/SPRAY BOTTLE NS SCH (21:00)
[2017-12-01] MEDS: acetaZOLAMIDE 250 MG TABLET PO SCH (21:34)
[2017-12-01] MEDS: Fluticasone Propionate Nasal 50 MCG/SPRAY BOTTLE NS SCH (21:36)
[2017-12-01] MEDS ORDERED: Acetaminophen 325 MG TABLET PO PRN (23:21)
[2017-12-01] MEDS: Acetaminophen 325 MG TABLET PO PRN (23:50)
[2017-12-02] MEDS: Doxycycline 100 MG in 0.9 % Sodium Chloride Mini Bag 100 ML IVPB SCH ×2 (05:45→17:25)
[2017-12-02 07:28] LABS: Basophils # 0.1 K/mcL (0.0-0.2); Basophils % 0.6 %; Eosinophils # 0.3 K/mcL (0.0-0.6); Hematocrit 31.6 % (37.5-50.1); Hemoglobin 10.1 g/dL (12.9-16.9); Immature Granulocytes % 0.9 % (0-4); Lymphocytes # 1.3 K/mcL (0.6-4.6); Lymphocytes % 16.3 %; Mean Corpuscular Volume 84.5 fL (83.0-100.0); Mean Platelet Volume 11.7 fL (9.4-12.4); Monocytes # 0.9 K/mcL (0.0-1.3); Monocytes % 11.5 %; Neutrophils # 5.2 K/mcL (1.6-8.9); Platelet Count 159 K/mcL (140-400); Red Blood Count 3.74 M/mcL (4.19-5.50); Segmented Neutrophils % 66.7 %
[2017-12-02 07:45] LABS: Albumin 3.5 g/dL (3.5-5.7); Albumin/Globulin Ratio 1.5 (1.1-2.2); Bilirubin,Total 1.2 mg/dL (0.3-1.0); Calcium 9.1 mg/dL (8.6-10.3); Globulin 2.4 g/dL (2.4-3.5); Potassium 2.9 mEq/L (3.5-5.1); Total Protein 5.9 g/dL (6.4-8.9)
[2017-12-02] MEDS: Insulin LISPRO 300 UNITS/3 ML VIAL SQ SCH ×7 (07:53→20:46)
[2017-12-02] MEDS: Insulin DETEMIR 100 UNIT/ML X5UNITS SQ SCH (07:53)
[2017-12-02] MEDS: acetaZOLAMIDE 250 MG TABLET PO SCH ×2 (07:54→20:46)
[2017-12-02] MEDS: hydrALAZINE 25 MG TABLET PO SCH ×3 (07:54→20:46)
[2017-12-02] MEDS: Fluticasone Propionate Nasal 50 MCG/SPRAY BOTTLE NS SCH ×2 (07:54→20:45)
[2017-12-02] MEDS: Isosorbide MONOnitrate (24 HR) 60 MG TAB.ER.24H PO SCH (07:55)
[2017-12-02] MEDS: Sennosides/Docusate Sodium TABLET PO SCH ×2 (07:55→20:46)
[2017-12-02] MEDS: Ascorbic Acid 500 MG TABLET PO SCH (07:55)
[2017-12-02] MEDS: Aspirin Enteric Coated 81 MG Tablet PO SCH (07:55)
[2017-12-02] MEDS: Finasteride 5 MG TABLET PO SCH (07:55)
[2017-12-02] MEDS: Furosemide 40 MG/4 ML VIAL IVP SCH ×2 (07:55→17:24)
--- NOTE | 2017-12-02 08:43 | Nephrology Progress Note ---
Date of Encounter: 12/02/17 Time of Encounter: 08:41 - Assessment and Plan (1) Chronic kidney disease, stage III (moderate) Current Visit: Yes Status: Chronic We will continue with the same diuretic regimen. He will require additional potassium supplementation. His metabolic alkalosis is improving with the Diamox. (2) Type 2 diabetes mellitus with diabetic chronic kidney disease Current Visit: Yes Status: Acute Qualifiers: Diabetes mellitus ferry terminal agent insulin use: with ferry terminal agent use Chronic kidney disease stage: stage 3 (moderate) Qualified Code(s): E11.22 - Type 2 diabetes mellitus with diabetic chronic kidney disease; N18.3 - Chronic kidney disease, stage 3 (moderate); N18.3 - Chronic kidney disease, stage 3 (moderate); Z79.4 - ferry terminal agent (current) use of insulin; Z79.4 - senior care (current) use of insulin; Z79.4 - ferry terminal agent (current) use of insulin; Z79.4 - ferry terminal agent (current) use of insulin (3) Benign hypertension with chronic kidney disease, stage III Current Visit: Yes Status: Acute (4) Benign hypertension with chronic kidney disease, stage III Current Visit: No Status: Chronic (5) Pulmonary hypertension Current Visit: No Status: Chronic (6) New onset a-fib Current Visit: Yes Status: Acute Subjective Principal diagnosis: CHF Interval history: The patient reports she is feeling better. Renal function is starting to improve as is his metabolic alkalosis. Urine output is 3.3 L. Potassium remains low. He apparently is been started on antibiotics. Objective - Vital Signs Vital signs: Vital Signs Temp Pulse Resp BP Pulse Ox 12/02/17 08:13 97 12/02/17 07:28 98.0 F 83 13 132/71 97 12/02/17 03:52 97.8 F 77 16 122/65 97 12/01/17 20:27 16 96 12/01/17 19:32 98.8 F 73 16 125/69 97 12/01/17 16:19 16 98 12/01/17 15:58 98.1 F 71 15 121/67 98 12/01/17 10:55 98.1 F 76 15 124/65 98 12/01/17 09:48 16 94 12/01/17 08:55 98.0 F 88 15 135/77 94 Intake and Output 12/01/17 12/02/17 12/02/17 23:59 07:59 15:59 Intake Total 600 / 600 Output Total 1000 / 1000 800 / 800 Balance -400 / -400 -800 / -800 Intake: IV Fluids 0 / 0 Doxycycline 100 MG In 0.9 % 0 / 0 Sodium Chloride (Mini-Bag +) 100 ML @ 100 mls/hr IVPB Q12HR [facility] Rx#:[id number] Oral 600 / 600 Output: Urine 800 / 800 Catheter 1000 / 1000 Other: Meal Dinner Percent of Meal Consumed 75% Blood Glucose* 406 167 - General Appearance Exam: Patient is alert and oriented. He is in no acute distress. Lungs managed breath sounds otherwise clear. Heart irregular rate and rhythm. Abdomen was benign. He still has lower extremity swelling but it continues to improve. He continues to demonstrate the erythematous tender indurated area on the right calf area. - Lab 12/02/17 06:41 12/02/17 06:41 Most recent lab results ABG pH 7.51 pH Units (7.32-7.45) H 12/01/17 08:33 ABG pCO2 58 mmHg (35-45) H 12/01/17 08:33 ABG pO2 68 mmHg (85-104) L D 12/01/17 08:33 ABG HCO3 46 mEq/L (21-27) H 12/01/17 08:33 ABG O2 Saturation 94 % (95-98) L 12/01/17 08:33 Calcium 9.1 mg/dL (8.6-10.3) 12/02/17 06:41 Phosphorus 4.0 mg/dL (2.7-4.5) 11/23/17 04:23 Magnesium 2.1 mg/dL (1.6-2.6) 12/02/17 06:41 - VTE Documentation of Mechanical Device: Graduated compression elastic hosiery Contraindication No Overlap Therapy: Admin of oral Factor Xa Inhibitor Consult Discharge Plan - Plan Referrals: Vicki Fletcher, DIGITAL ADVERTISING ANALYST [Primary Care Provider] - (WEB REQUEST SENT ON 11/25/17) Prescriptions: Apixaban [Eliquis] 5 mg PO BID #60 tablet
--- NOTE | 2017-12-02 11:02 | Urology Progress Note ---
Date of Encounter: 12/02/17 Time of Encounter: 11:00 - Assessment and Plan (1) Gross hematuria Current Visit: Yes Status: Acute Assessment and plan: Hematuria appears resolved at this time. Okay to slowly resume blood thinning medication. Patient will need to keep with catheter at this time. Progress Note Subjective: hematuria Narrative: Patient seen this morning. Hematuria has resolved. Patient feeling better. Catheter draining well. Objective Initial Vital Signs Temp Pulse Resp BP Pulse Ox 97.8 F 74 22 181/91 92 11/22/17 06:02 11/22/17 06:02 11/22/17 06:02 11/22/17 06:02 11/22/17 06:02 - General physical appearance Present: well developed, well nourished - Respiratory Present: normal expansion, normal respiratory effort - Abdomen Present: soft - Genitourinary Present: normal penis with no external lesions, other (clear urine and catheter) - Labs 12/02/17 06:41 12/02/17 06:41 Diabetes panel 12/01/17 12/02/17 Range/Units 16:10 06:41 Sodium 134 L 139 (136-145) mEq/L Potassium 3.2 L 2.9 L (3.5-5.1) mEq/L Chloride 85 L 89 L (98-107) mEq/L Carbon Dioxide 43 H* 39 H (23-29) mEq/L BUN 60 H 58 H (8-23) mg/dL Creatinine 2.35 H 2.19 H (0.70-1.30) mg/dL Glucose 310 H 153 H (70-105) mg/dL Calcium 9.1 9.1 (8.6-10.3) mg/dL AST 14 (13-39) Units/L ALT 10 (7-52) Units/L Alkaline Phosphatase 80 (34-104) Units/L Albumin 3.5 (3.5-5.7) g/dL Calcium panel 12/01/17 12/02/17 Range/Units 16:10 06:41 Calcium 9.1 9.1 (8.6-10.3) mg/dL Albumin 3.5 (3.5-5.7) g/dL Pituitary panel 12/01/17 12/02/17 Range/Units 16:10 06:41 Sodium 134 L 139 (136-145) mEq/L Potassium 3.2 L 2.9 L (3.5-5.1) mEq/L Chloride 85 L 89 L (98-107) mEq/L Carbon Dioxide 43 H* 39 H (23-29) mEq/L BUN 60 H 58 H (8-23) mg/dL Creatinine 2.35 H 2.19 H (0.70-1.30) mg/dL Glucose 310 H 153 H (70-105) mg/dL Calcium 9.1 9.1 (8.6-10.3) mg/dL Adrenal panel 12/01/17 12/02/17 Range/Units 16:10 06:41 Sodium 134 L 139 (136-145) mEq/L Potassium 3.2 L 2.9 L (3.5-5.1) mEq/L Chloride 85 L 89 L (98-107) mEq/L Carbon Dioxide 43 H* 39 H (23-29) mEq/L BUN 60 H 58 H (8-23) mg/dL Creatinine 2.35 H 2.19 H (0.70-1.30) mg/dL Glucose 310 H 153 H (70-105) mg/dL Calcium 9.1 9.1 (8.6-10.3) mg/dL Total Bilirubin 1.2 H (0.3-1.0) mg/dL AST 14 (13-39) Units/L ALT 10 (7-52) Units/L Alkaline Phosphatase 80 (34-104) Units/L Albumin 3.5 (3.5-5.7) g/dL - VTE Documentation of Mechanical Device: Graduated compression elastic hosiery Contraindication No Overlap Therapy: Admin of oral Factor Xa Inhibitor Consult Discharge Plan - Plan Referrals: Vicki Fletcher, ARBORICULTURE TEACHER [Primary Care Provider] - (WEB REQUEST SENT ON 11/25/17) Prescriptions: Apixaban [Eliquis] 5 mg PO BID #60 tablet
[2017-12-02] MEDS: Budesonide/Formoterol 160/4.5 MDI IH SCH ×2 (11:09→20:14)
[2017-12-02] MEDS: Ipratropium/Albuterol Neb 3 ML IH SCH ×3 (11:10→20:14)
[2017-12-02] MEDS: Acetaminophen 325 MG TABLET PO PRN ×2 (13:48→20:46)
--- NOTE | 2017-12-02 16:43 | Internal Med Progress Note ---
Date of Encounter: 12/02/17 Time of Encounter: 16:41 - Assessment and plan (1) Hematuria Current Visit: Yes Status: Acute Assessment and plan: Resolved Cont chew Stable Hb @ 10.1 cont close monitoring Talked to urology who cleared him to start on Eliquis so will resume his eliquis tonight Qualifiers: Hematuria type: gross Qualified Code(s): R31.0 - Gross hematuria (2) Cellulitis of leg Current Visit: Yes Status: Acute Assessment and plan: Cont him on empirical abx Doxy Qualifiers: Laterality: right Qualified Code(s): L03.115 - Cellulitis of right lower limb (3) New onset a-fib Current Visit: Yes Status: Acute Assessment and plan: Cardiology consulted; appreciate input. Currently rate controlled. Cardiac enzymes trended negative x 3. ECHO showed LVEF 55% with mild LVH, indeterminate diastolic function, severely dilated LA, and moderate pulmonary hypertension. Continue metoprolol and eliquis. (4) CAD (coronary artery disease) Current Visit: Yes Status: Chronic Assessment and plan: Cardiology consulted; appreciate input. Considering cath as outpatient after acute issues addressed. Continue aspirin, statin, and beta bryan. Qualifiers: Coronary Disease-Associated Artery/Lesion type: unspecified vessel or lesion type [place] vs. transplanted heart: [place] heart Associated angina: without angina Qualified Code(s): I25.10 - Atherosclerotic heart disease of [place] coronary artery without angina pectoris (5) Diabetes Current Visit: Yes Status: Chronic Assessment and plan: Continue accuchecks and SSI QID AC/HS. Qualifiers: Diabetes mellitus type: type 2 Diabetes mellitus middle or intermediate school principal insulin use: without middle or intermediate school principal use Diabetes mellitus complication status: without complication Qualified Code(s): E11.9 - Type 2 diabetes mellitus without complications (6) Essential hypertension Current Visit: Yes Status: Chronic Assessment and plan: Continue home medications except lisinopril. (7) DVT prophylaxis Current Visit: Yes Status: Acute Assessment and plan: Held eliquis due to hematuria (8) Chronic kidney disease, stage III (moderate) Current Visit: Yes Status: Chronic Assessment and plan: Renal function with interval worsening. Baseline creatinine around 1.5-1.7 Nephrology consulted; appreciate input. Diuresis recommendations per nephrology Switched to IV Lasix 40 BID and Cont Diamox (9) (HFpEF) heart failure with preserved ejection fraction Current Visit: Yes Status: Acute Assessment and plan: cont IV diuresis cont Coreg, ASA and statin - Time Spent With Patient Total time spent is greater than 50% in coordination of care (as documented) at patient's floor/unit and/or counseling patient: - Subjective Interval history: This is a 77-year-old male who is followed as an outpatient for stage III chronic kidney disease with a baseline creatinine of 1.5-1.7 in the setting of long-standing diabetes, hypertension, and 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 Patient was admitted with a one to 2 month history of worsening swelling along with complaints of exertional dyspnea and orthopnea. He was admitted here for CHF exacerbation and new onset Afib. Pt was started on IV diuresis and Coreg. He does have BPH s/p TURP, developd urinary retention here so chew placed in. His hematuria also improved. His Rt leg erythema, pain and swelling are little better today. Denied any CP. SOB seems to be slightly better. - Constitutional Vitals: Temp Pulse Resp BP Pulse Ox 98.3 F 80 14 118/56 97 12/02/17 16:06 12/02/17 16:06 12/02/17 16:06 12/02/17 16:06 12/02/17 16:06 General appearance: Present: cooperative, A&O X 3, obese, answers questions appropriately - Head Head exam: Present: atraumatic, normal inspection - Neck Neck exam general surgery: Present: supple - Respiratory Respiratory exam: Present: decreased breath sounds. Absent: rales, respiratory distress, rhonchi, wheezes - Cardiovascular Cardiovascular exam: Present: irregular rhythm, +S1, +S2. Absent: tachycardia - GI/Abdominal GI/Abdominal exam: Present: normal bowel sounds, soft. Absent: rebound, rigid, tenderness - Extremities Exam Extremities exam: Present: pedal edema (b/l LE), tenderness (Mild tenderness in Rt leg). Absent: calf tenderness - Back Exam Back exam: Absent: CVA tenderness (L), CVA tenderness (R) - Neurological Exam Neurological exam: Present: alert, oriented X3 - Psychiatric Psychiatric exam: Present: normal affect, normal mood - Skin Skin exam: Absent: rash Internal Medicine: Result - Labs CBC & Chem 7: 12/02/17 06:41 12/02/17 06:41 Labs: Short CBC 12/02/17 Range/Units 06:41 WBC 7.7 (4.3-11.1) K/mcL Hgb 10.1 L (12.9-16.9) g/dL Hct 31.6 L (37.5-50.1) % Plt Count 159 (140-400) K/mcL Neutrophils # 5.2 (1.6-8.9) K/mcL BMP 12/01/17 12/02/17 16:10 06:41 Sodium 134 L 139 Potassium 3.2 L 2.9 L Chloride 85 L 89 L Carbon Dioxide 43 H* 39 H BUN 60 H 58 H Creatinine 2.35 H 2.19 H Glucose 310 H 153 H Calcium 9.1 9.1 Liver Function 12/02/17 Range/Units 06:41 Total Bilirubin 1.2 H (0.3-1.0) mg/dL AST 14 (13-39) Units/L ALT 10 (7-52) Units/L Alkaline Phosphatase 80 (34-104) Units/L Albumin 3.5 (3.5-5.7) g/dL - ABG Interpretation ABG results: ABG ABG pH 7.51 pH Units (7.32-7.45) H 12/01/17 08:33 ABG pCO2 58 mmHg (35-45) H 12/01/17 08:33 ABG pO2 68 mmHg (85-104) L D 12/01/17 08:33 ABG O2 Saturation 94 % (95-98) L 12/01/17 08:33 PT/INR, D-dimer PT 12.7 Seconds (9.4-12.1) H 11/23/17 04:23 - VTE Documentation of Mechanical Device: Graduated compression elastic hosiery Contraindication No Overlap Therapy: Admin of oral Factor Xa Inhibitor Consult Discharge Plan - Plan Referrals: Vicki Fletcher, TELETYPEWRITER OPERATOR [Primary Care Provider] - (WEB REQUEST SENT ON 11/25/17) Prescriptions: Apixaban [Eliquis] 5 mg PO BID #60 tablet
[2017-12-02] MEDS: Apixaban 5 MG TABLET PO SCH (20:46)
[2017-12-02] MEDS ORDERED: Melatonin 3 MG TABLET PO PRN (21:08)
[2017-12-03] MEDS: *HR* HYDROcodone/Acet 5/325 mg TABLET PO PRN ×2 (02:45→22:38)
[2017-12-03] MEDS: Doxycycline 100 MG in 0.9 % Sodium Chloride Mini Bag 100 ML IVPB SCH ×2 (05:31→18:09)
[2017-12-03 06:41] LABS: Basophils # 0.1 K/mcL (0.0-0.2); Basophils % 0.9 %; Eosinophils # 0.3 K/mcL (0.0-0.6); Eosinophils % 3.9 %; Hematocrit 31.3 % (37.5-50.1); Hemoglobin 9.9 g/dL (12.9-16.9); Lymphocytes # 1.1 K/mcL (0.6-4.6); Lymphocytes % 16.2 %; Mean Corpuscular HGB Conc 31.6 g/dL (31.6-35.5); Mean Corpuscular Hemoglobin 27.2 pg (28.0-33.3); Mean Platelet Volume 12.1 fL (9.4-12.4); Monocytes # 0.9 K/mcL (0.0-1.3); Monocytes % 12.4 %; Neutrophils # 4.5 K/mcL (1.6-8.9); Platelet Count 160 K/mcL (140-400); Red Blood Count 3.64 M/mcL (4.19-5.50); Segmented Neutrophils % 65.6 %
[2017-12-03 06:58] LABS: Albumin 3.4 g/dL (3.5-5.7); Albumin/Globulin Ratio 1.2 (1.1-2.2); Globulin 2.8 g/dL (2.4-3.5); Total Protein 6.2 g/dL (6.4-8.9)
[2017-12-03] MEDS: Furosemide 40 MG/4 ML VIAL IVP SCH ×2 (08:52→18:11)
[2017-12-03] MEDS: Insulin LISPRO 300 UNITS/3 ML VIAL SQ SCH ×7 (08:52→22:28)
[2017-12-03] MEDS: Insulin DETEMIR 100 UNIT/ML X5UNITS SQ SCH (08:52)
[2017-12-03] MEDS: Fluticasone Propionate Nasal 50 MCG/SPRAY BOTTLE NS SCH ×2 (08:52→22:28)
[2017-12-03] MEDS: Finasteride 5 MG TABLET PO SCH (08:53)
[2017-12-03] MEDS: hydrALAZINE 25 MG TABLET PO SCH ×3 (08:53→22:27)
[2017-12-03] MEDS: acetaZOLAMIDE 250 MG TABLET PO SCH ×2 (08:53→22:27)
[2017-12-03] MEDS: Aspirin Enteric Coated 81 MG Tablet PO SCH (08:54)
[2017-12-03] MEDS: Sennosides/Docusate Sodium TABLET PO SCH ×2 (08:54→22:27)
[2017-12-03] MEDS: Apixaban 5 MG TABLET PO SCH ×2 (08:54→22:27)
[2017-12-03] MEDS: Ascorbic Acid 500 MG TABLET PO SCH (08:54)
[2017-12-03] MEDS: Isosorbide MONOnitrate (24 HR) 60 MG TAB.ER.24H PO SCH (08:54)
[2017-12-03] MEDS: Potassium Chloride 10 MEQ in 0.9 % Sodium Chloride 100 ML IVPB SCH ×5 (08:55→14:05)
--- NOTE | 2017-12-03 09:27 | Nephrology Progress Note ---
Date of Encounter: 12/03/17 Time of Encounter: 09:10 - Assessment and Plan (1) ENRIQUE (acute kidney injury) Current Visit: Yes Status: Acute ENRIQUE superimposed on CKD, baseline 1.5-1.7 in setting of volume overload, pulm HTN, CHF-D. New onset Afib. Renal US unclear on bladder outlet obstruction. Prostamegaly, "inability to void" but does not say if badder full/empty. Creat 2.35 Documented urine output 2500cc, indwelling Hathaway. Continue IV Lasix 40mg BID and order KRider for K 3.0. Accurate I&O. Will continue to monitor. Subjective Principal diagnosis: CHF Interval history: Sitting up in a chair, Patient denies SOB. at bedside. Hathaway. States right medial calf pain with swelling is improving. Edema remains 1+ in LE. Objective - Vital Signs Vital signs: Vital Signs Temp Pulse Resp BP Pulse Ox 12/03/17 07:56 97.7 F 87 16 130/69 99 12/03/17 04:48 98.5 F 79 18 120/67 97 12/03/17 00:39 97.8 F 81 19 124/76 97 12/02/17 23:20 18 98 12/02/17 20:54 97.5 F L 76 19 111/63 98 12/02/17 20:14 15 98 12/02/17 16:06 98.3 F 80 14 118/56 97 12/02/17 15:22 14 94 12/02/17 11:49 97.4 F L 84 14 110/63 94 12/02/17 11:10 13 97 Intake and Output 12/02/17 12/03/17 12/03/17 23:59 07:59 15:59 Intake Total 577 / 577 240 / 240 Output Total 1700 / 1700 850 / 850 Balance -1123 / -1123 -850 / -850 240 / 240 Intake: IV Fluids 100 / 100 Doxycycline 100 MG In 0.9 % 100 / 100 Sodium Chloride (Mini-Bag +) 100 ML @ 100 mls/hr IVPB Q12HR [facility] Rx#:[id number] Oral 477 / 477 240 / 240 Output: Catheter 1700 / 1700 850 / 850 Urethral (Hathaway) 550 / 550 Other: Meal Dinner Breakfast Percent of Meal Consumed 100% 100% Blood Glucose* 327 282 - General Appearance General appearance: Present: well-developed, well-nourished, appears started age , obese EENT: Present: mucous membranes moist Neck: Present: no JVD Respiratory: Present: clear Cardiology: Present: edema, regular rate, regular rhythm Gastrointestinal: Present: normoactive bowel sounds, no tenderness Integumentary: Present: warm and dry Neurologic: Present: alert and oriented x3 - Lab 12/03/17 05:58 12/03/17 05:58 Most recent lab results ABG pH 7.51 pH Units (7.32-7.45) H 12/01/17 08:33 ABG pCO2 58 mmHg (35-45) H 12/01/17 08:33 ABG pO2 68 mmHg (85-104) L D 12/01/17 08:33 ABG HCO3 46 mEq/L (21-27) H 12/01/17 08:33 ABG O2 Saturation 94 % (95-98) L 12/01/17 08:33 Calcium 9.0 mg/dL (8.6-10.3) 12/03/17 05:58 Phosphorus 4.0 mg/dL (2.7-4.5) 11/23/17 04:23 Magnesium 2.3 mg/dL (1.6-2.6) 12/03/17 05:58 - VTE Documentation of Mechanical Device: Graduated compression elastic hosiery Contraindication No Overlap Therapy: Admin of oral Factor Xa Inhibitor Consult Discharge Plan - Plan Referrals: Vicki Fletcher, SURVEILLANCE OFFICER [Primary Care Provider] - (WEB REQUEST SENT ON 11/25/17) Prescriptions: Apixaban [Eliquis] 5 mg PO BID #60 tablet
[2017-12-03] MEDS: Budesonide/Formoterol 160/4.5 MDI IH SCH ×2 (10:48→20:01)
[2017-12-03] MEDS: Ipratropium/Albuterol Neb 3 ML IH SCH ×3 (10:48→20:01)
--- NOTE | 2017-12-03 14:03 | Internal Med Progress Note ---
Date of Encounter: 12/03/17 Time of Encounter: 09:00 - Assessment and plan (1) Hematuria Current Visit: Yes Status: Acute Assessment and plan: Resolved Cont chew Stable Hb @ 9.9 cont close monitoring Talked to urology who cleared him to start on Eliquis so started him eliquis y/d Qualifiers: Hematuria type: gross Qualified Code(s): R31.0 - Gross hematuria (2) Cellulitis of leg Current Visit: Yes Status: Acute Assessment and plan: Cont him on empirical abx Doxy Qualifiers: Laterality: right Qualified Code(s): L03.115 - Cellulitis of right lower limb (3) New onset a-fib Current Visit: Yes Status: Acute Assessment and plan: Cardiology consulted; appreciate input. Currently rate controlled. Cardiac enzymes trended negative x 3. ECHO showed LVEF 55% with mild LVH, indeterminate diastolic function, severely dilated LA, and moderate pulmonary hypertension. Continue metoprolol and eliquis. (4) CAD (coronary artery disease) Current Visit: Yes Status: Chronic Assessment and plan: Cardiology consulted; appreciate input. Considering cath as outpatient after acute issues addressed. Continue aspirin, statin, and beta bryan. Qualifiers: Coronary Disease-Associated Artery/Lesion type: unspecified vessel or lesion type [place] vs. transplanted heart: [place] heart Associated angina: without angina Qualified Code(s): I25.10 - Atherosclerotic heart disease of [place] coronary artery without angina pectoris (5) Diabetes Current Visit: Yes Status: Chronic Assessment and plan: Continue accuchecks and SSI QID AC/HS. Qualifiers: Diabetes mellitus type: type 2 Diabetes mellitus long line teamster insulin use: without long line teamster use Diabetes mellitus complication status: without complication Qualified Code(s): E11.9 - Type 2 diabetes mellitus without complications (6) Essential hypertension Current Visit: Yes Status: Chronic Assessment and plan: Continue home medications except lisinopril. (7) DVT prophylaxis Current Visit: Yes Status: Acute Assessment and plan: Held eliquis due to hematuria (8) Chronic kidney disease, stage III (moderate) Current Visit: Yes Status: Chronic Assessment and plan: Renal function with interval worsening. Baseline creatinine around 1.5-1.7 Nephrology consulted; appreciate input. Diuresis recommendations per nephrology Switched to IV Lasix 40 BID and Cont Diamox (9) (HFpEF) heart failure with preserved ejection fraction Current Visit: Yes Status: Acute Assessment and plan: cont IV diuresis cont Coreg, ASA and statin - Time Spent With Patient Total time spent is greater than 50% in coordination of care (as documented) at patient's floor/unit and/or counseling patient: - Subjective Interval history: This is a 77-year-old male who is followed as an outpatient for stage III chronic kidney disease with a baseline creatinine of 1.5-1.7 in the setting of long-standing diabetes, hypertension, and 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 Patient was admitted with a one to 2 month history of worsening swelling in legs along with complaints of exertional dyspnea and orthopnea. He was admitted here for CHF exacerbation and new onset Afib. Pt was started on IV diuresis and Coreg. He does have BPH s/p TURP, developd urinary retention here so chew placed in. Later he developed hematuria. His hematuria completely resolved now. His Rt leg erythema, pain and swelling are little better today. Denied any CP. SOB seems to be slightly better. - Constitutional Vitals: Temp Pulse Resp BP Pulse Ox 97.6 F 67 16 118/69 99 12/03/17 11:45 12/03/17 11:45 12/03/17 11:45 12/03/17 11:45 12/03/17 11:45 General appearance: Present: cooperative, A&O X 3, obese, answers questions appropriately - Head Head exam: Present: atraumatic, normal inspection - Neck Neck exam general surgery: Present: supple - Respiratory Respiratory exam: Present: decreased breath sounds. Absent: rales, respiratory distress, rhonchi, wheezes - Cardiovascular Cardiovascular exam: Present: RRR, +S1, +S2. Absent: tachycardia - GI/Abdominal GI/Abdominal exam: Present: normal bowel sounds, soft. Absent: rebound, rigid, tenderness - Extremities Exam Extremities exam: Present: pedal edema (improving), tenderness. Absent: calf tenderness Additional comments: improving erythema - Back Exam Back exam: Absent: CVA tenderness (L), CVA tenderness (R) - Neurological Exam Neurological exam: Present: alert, oriented X3 - Psychiatric Psychiatric exam: Present: normal affect, normal mood Internal Medicine: Result - Labs CBC & Chem 7: 12/03/17 05:58 12/03/17 05:58 Labs: Short CBC 12/03/17 Range/Units 05:58 WBC 6.9 (4.3-11.1) K/mcL Hgb 9.9 L (12.9-16.9) g/dL Hct 31.3 L (37.5-50.1) % Plt Count 160 (140-400) K/mcL Neutrophils # 4.5 (1.6-8.9) K/mcL BMP 12/03/17 05:58 Sodium 135 L Potassium 3.0 L Chloride 88 L Carbon Dioxide 37 H BUN 62 H Creatinine 2.35 H Glucose 250 H Calcium 9.0 Liver Function 12/03/17 Range/Units 05:58 Total Bilirubin 1.0 (0.3-1.0) mg/dL AST 16 (13-39) Units/L ALT 13 (7-52) Units/L Alkaline Phosphatase 80 (34-104) Units/L Albumin 3.4 L (3.5-5.7) g/dL - ABG Interpretation ABG results: ABG ABG pH 7.51 pH Units (7.32-7.45) H 12/01/17 08:33 ABG pCO2 58 mmHg (35-45) H 12/01/17 08:33 ABG pO2 68 mmHg (85-104) L D 12/01/17 08:33 ABG O2 Saturation 94 % (95-98) L 12/01/17 08:33 PT/INR, D-dimer PT 12.7 Seconds (9.4-12.1) H 11/23/17 04:23 - VTE Documentation of Mechanical Device: Graduated compression elastic hosiery Contraindication No Overlap Therapy: Admin of oral Factor Xa Inhibitor Consult Discharge Plan - Plan Referrals: Vicki Fletcher FURNIT[employer]AMPOOER [Primary Care Provider] - (WEB REQUEST SENT ON 11/25/17) Prescriptions: Apixaban [Eliquis] 5 mg PO BID #60 tablet
--- NOTE | 2017-12-03 17:07 | Urology Progress Note ---
Date of Encounter: 12/03/17 Time of Encounter: 17:06 - Assessment and Plan (1) Gross hematuria Current Visit: Yes Status: Acute Assessment and plan: Appears resolved at this time. Patient can follow-up with me next week for catheter removal. Call with any questions. Progress Note Narrative: Patient seen this afternoon. Urine clear Objective Initial Vital Signs Temp Pulse Resp BP Pulse Ox 97.8 F 74 22 181/91 92 11/22/17 06:02 11/22/17 06:02 11/22/17 06:02 11/22/17 06:02 11/22/17 06:02 - General physical appearance Present: well developed, well nourished - Abdomen Present: soft. Absent: tender - Genitourinary Present: normal penis with no external lesions (Urine clear in tubing) - Labs 12/03/17 05:58 12/03/17 05:58 Diabetes panel 12/03/17 Range/Units 05:58 Sodium 135 L (136-145) mEq/L Potassium 3.0 L (3.5-5.1) mEq/L Chloride 88 L (98-107) mEq/L Carbon Dioxide 37 H (23-29) mEq/L BUN 62 H (8-23) mg/dL Creatinine 2.35 H (0.70-1.30) mg/dL Glucose 250 H (70-105) mg/dL Calcium 9.0 (8.6-10.3) mg/dL AST 16 (13-39) Units/L ALT 13 (7-52) Units/L Alkaline Phosphatase 80 (34-104) Units/L Albumin 3.4 L (3.5-5.7) g/dL Calcium panel 12/03/17 Range/Units 05:58 Calcium 9.0 (8.6-10.3) mg/dL Albumin 3.4 L (3.5-5.7) g/dL Pituitary panel 12/03/17 Range/Units 05:58 Sodium 135 L (136-145) mEq/L Potassium 3.0 L (3.5-5.1) mEq/L Chloride 88 L (98-107) mEq/L Carbon Dioxide 37 H (23-29) mEq/L BUN 62 H (8-23) mg/dL Creatinine 2.35 H (0.70-1.30) mg/dL Glucose 250 H (70-105) mg/dL Calcium 9.0 (8.6-10.3) mg/dL Adrenal panel 12/03/17 Range/Units 05:58 Sodium 135 L (136-145) mEq/L Potassium 3.0 L (3.5-5.1) mEq/L Chloride 88 L (98-107) mEq/L Carbon Dioxide 37 H (23-29) mEq/L BUN 62 H (8-23) mg/dL Creatinine 2.35 H (0.70-1.30) mg/dL Glucose 250 H (70-105) mg/dL Calcium 9.0 (8.6-10.3) mg/dL Total Bilirubin 1.0 (0.3-1.0) mg/dL AST 16 (13-39) Units/L ALT 13 (7-52) Units/L Alkaline Phosphatase 80 (34-104) Units/L Albumin 3.4 L (3.5-5.7) g/dL - VTE Documentation of Mechanical Device: Graduated compression elastic hosiery Contraindication No Overlap Therapy: Admin of oral Factor Xa Inhibitor Consult Discharge Plan - Plan Referrals: Vicki Fletcher CNP [Primary Care Provider] - 12/16/17 3:00 pm (WEB REQUEST SENT ON 11/25/17) Prescriptions: Apixaban [Eliquis] 5 mg PO BID #60 tablet
[2017-12-04 05:45] LABS: Calcium 9.3 mg/dL (8.6-10.3); Magnesium 2.2 mg/dL (1.6-2.6); Potassium 3.4 mEq/L (3.5-5.1)
[2017-12-04] MEDS: Doxycycline 100 MG in 0.9 % Sodium Chloride Mini Bag 100 ML IVPB SCH (06:47)
[2017-12-04] MEDS: *HR* HYDROcodone/Acet 5/325 mg TABLET PO PRN (06:48)
[2017-12-04 08:24] VITALS: BP 130/78
[2017-12-04] MEDS: hydrALAZINE 25 MG TABLET PO SCH ×2 (08:49→15:31)
[2017-12-04] MEDS: acetaZOLAMIDE 250 MG TABLET PO SCH (08:49)
[2017-12-04] MEDS: Ascorbic Acid 500 MG TABLET PO SCH (08:49)
[2017-12-04] MEDS: Sennosides/Docusate Sodium TABLET PO SCH (08:50)
[2017-12-04] MEDS: Apixaban 5 MG TABLET PO SCH (08:50)
[2017-12-04] MEDS: Furosemide 40 MG/4 ML VIAL IVP SCH (08:50)
[2017-12-04] MEDS: Aspirin Enteric Coated 81 MG Tablet PO SCH (08:50)
[2017-12-04] MEDS: Finasteride 5 MG TABLET PO SCH (08:50)
[2017-12-04] MEDS: Isosorbide MONOnitrate (24 HR) 60 MG TAB.ER.24H PO SCH (08:50)
[2017-12-04] MEDS: Insulin LISPRO 300 UNITS/3 ML VIAL SQ SCH ×4 (08:51→11:42)
--- NOTE | 2017-12-04 09:25 | Discharge Summary ---
- NOTES TO OUTPATIENT PROVIDER Notes to Outpatient Provider: f/u with PCP in one week. f/u with Nephro Dr. Corley in one week. f/u with Urologist Dr. Valenzuela in one week.. And continue Chew catheter for now. Please go for BMP on 12/10/17 and f/u with Dr. Martin for results. Please stop taking HCTZ. Please take Lasix 40 mg BID x 5 days then continue daily. Also take Acetazolamide 125mg PO BID until you see your blood bank attendant Date of Encounter: 12/04/17 Time of Encounter: 09:21 - Discharge Diagnosis (1) (HFpEF) heart failure with preserved ejection fraction Priority: Secondary Status: Acute (2) Hematuria Priority: Primary Status: Acute Qualifiers: Hematuria type: gross Qualified Code(s): R31.0 - Gross hematuria (3) New onset a-fib Priority: Primary Status: Acute (4) Cellulitis of leg Priority: Secondary Status: Acute Qualifiers: Laterality: right Qualified Code(s): L03.115 - Cellulitis of right lower limb (5) CAD (coronary artery disease) Priority: Secondary Status: Chronic Qualifiers: Coronary Disease-Associated Artery/Lesion type: unspecified vessel or lesion type [place] vs. transplanted heart: [place] heart Associated angina: without angina Qualified Code(s): I25.10 - Atherosclerotic heart disease of [place] coronary artery without angina pectoris (6) Diabetes Priority: Secondary Status: Chronic Qualifiers: Diabetes mellitus type: type 2 Diabetes mellitus terminal superintendent insulin use: without terminal superintendent use Diabetes mellitus complication status: without complication Qualified Code(s): E11.9 - Type 2 diabetes mellitus without complications (7) Essential hypertension Priority: Secondary Status: Chronic (8) Chronic kidney disease, stage III (moderate) Priority: Secondary Status: Chronic (9) Urinary retention due to benign prostatic hyperplasia Priority: Primary Status: Acute (10) DVT prophylaxis Priority: Secondary Status: Acute Hospital course: This is a 77-year-old male who is followed as an outpatient for stage III chronic kidney disease with a baseline creatinine of 1.5-1.7 in the setting of long-standing diabetes, hypertension, and 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 Patient was admitted with a one to 2 month history of worsening swelling in legs along with complaints of exertional dyspnea and orthopnea. He was admitted here for CHF exacerbation and new onset Afib. Pt was started on IV diuresis and Coreg. He does have BPH s/p TURP, developd urinary retention here so chew placed in. Later he developed hematuria. Which resolved in 1 days after holding Eliquis. After talking to Urologist I resumed his Eliquis 2 days ago since then he has been doing well, his hematuria resolved completely and his Hb stayed stable. He does have Rt leg cellulities, venous doppler negative for DVT. Started him on Doxycycline. Regarding his CHF exacrbation, volume status reynoso he was on Lasix gtt initially then switched to IV Lasix. Nephro followed on him closely. Nephro recommend to send him home on PO Lasix 40 BID and Acetazolamide 125mg BID and f.u with them as an out pt in one week - Time Spent with Patient Total time spent providing and/or coordinating discharge services: Greater than 30 minutes (Spent 45 minutes on this patient's discharge summary due to complex medical problems and patient needed a lot of education regarding discharge instructions) - Discharge Medications Prescriptions: acetaZOLAMIDE [Diamox] 125 mg PO BID #60 tablet Apixaban [Eliquis] 5 mg PO BID #60 tablet Doxycycline Monohydrate [Avidoxy] 100 mg PO BID #14 tablet Furosemide [Lasix] 40 mg PO BID #60 tablet Isosorbide MONOnitrate (24 HR) [Imdur] 60 mg PO DAILY #30 tab.er.24h Potassium Chloride 20 meq PO BID #60 tab.er.prt Home Medications: Aspirin [Lo-Dose Aspirin EC] 81 mg PO DAILY 06/21/17 [History] Atorvastatin [Lipitor] 80 mg PO HS 06/21/17 [History] Exenatide [Byetta] 10 mcg SQ BID 06/21/17 [History] Finasteride [Proscar] 5 mg PO DAILY 06/21/17 [History] Quinapril HCl [Accupril] 20 mg PO BID 06/21/17 [History] Albuterol Sulfate [Ventolin Hfa] 2 puff IH TID PRN 06/22/17 [History] Carvedilol [Coreg] 25 mg PO BID 06/22/17 [History] Ferrous Gluconate 324 mg PO DAILY 06/22/17 [History] Nitroglycerin [Nitrostat] 0.4 mg SL Q5M PRN 06/22/17 [History] hydrALAZINE [HydrALAZINE] 25 mg PO TID 06/22/17 [History] Ascorbate Calcium [Vitamin C] 500 mg PO DAILY 07/16/17 [History] Tiotropium [place] [Spiriva Respimat] 2.5 mcg IH DAILY 07/16/17 [History] Budesonide/Formoterol 160/4.5 [Symbicort 160/4.5] 1 puff IH BIDR #1 hfa.aer.ad 07/19/17 [Rx] glipiZIDE [Glucotrol] 5 mg PO BIDWM 11/22/17 [History] Apixaban [Eliquis] 5 mg PO BID #60 tablet 11/24/17 [Rx] Doxycycline Monohydrate [Avidoxy] 100 mg PO BID #14 tablet 12/04/17 [Rx] Furosemide [Lasix] 40 mg PO BID #60 tablet 12/04/17 [Rx] Isosorbide MONOnitrate (24 HR) [Imdur] 60 mg PO DAILY #30 tab.er.24h 12/04/17 [ Rx] Potassium Chloride 20 meq PO BID #60 tab.er.prt 12/04/17 [Rx] acetaZOLAMIDE [Diamox] 125 mg PO BID #60 tablet 12/04/17 [Rx] Allergies/Adverse Reactions: 3 Allergy/AdvReac Type Severity Reaction Status Date / Time No Known Allergies Allergy Verified 01/09/16 17:56 Date of admission: 11/22/17 08:15 Primary care physician: Vicki Fletcher CNP Consults: 11/22/17 08:39 Consult to Nephrology [CONS] Routine Consulting Provider: [facility] HTN [facility] MAYUR Reason for Consult: WOrseing lower extremity oedema and new onset of Afib Call Completed: Yes 11/24/17 08:07 Consult to Cardiology [CONS] Routine Comment: Consulting Provider: Cardiology Braymer Reason for Consult: new onset atrial fib and chf Call Completed: No 11/24/17 08:08 Consult to Pulmonology [CONS] Routine Consulting Provider: Pulm Crit Care & Sleep B[facility]mer Reason for Consult: mod-severe pulm htn and history of copd Call Completed: No 11/26/17 10:40 Consult to Urology [CONS] Routine Consulting Provider: Urology Jenna Reason for Consult: Chew placement Time Notified: 10:40 Call Completed: Yes 11/27/17 07:30 Consult to Nurse Navigator [CONS] Routine Comment: CHF - Constitutional Vitals: Temp Pulse Resp BP Pulse Ox 97.6 F 93 18 130/78 98 12/04/17 08:08 12/04/17 08:08 12/04/17 08:08 12/04/17 08:08 12/04/17 08:08 General appearance: Present: cooperative, A&O X 3, obese, answers questions appropriately - Head Head exam: Present: atraumatic, normal inspection - Neck Neck exam general surgery: Present: supple - Respiratory Respiratory exam: Present: decreased breath sounds. Absent: rales, respiratory distress, rhonchi, wheezes - Cardiovascular Cardiovascular exam: Present: RRR, +S1, +S2. Absent: tachycardia - GI/Abdominal GI/Abdominal exam: Present: normal bowel sounds, soft. Absent: rebound, rigid, tenderness - Extremities Exam Extremities exam: Present: pedal edema. Absent: tenderness Additional comments: Improved erythema and swelling in both legs - Back Exam Back exam: Absent: CVA tenderness (L), CVA tenderness (R) - Neurological Exam Neurological exam: Present: alert, oriented X3 - Psychiatric Psychiatric exam: Present: normal affect, normal mood - Patient Status Disposition: Home, Self-Care Condition: Good Overall status at discharge: patient is back to baseline - Discharge Instructions Follow Up With: Vicki Fletcher CNP [Primary Care Provider] - 12/16/17 3:00 pm (WEB REQUEST SENT ON 11/25/17) Ector Valnezuela MD [Partnered Physician] - Shaji Martin DO [Non-Partnered Physician] - - Diet and Activity Activity: increase activity as tolerated Diet: low salt diet - VTE Documentation of Mechanical Device: Graduated compression elastic hosiery Contraindication No Overlap Therapy: Admin of oral Factor Xa Inhibitor
--- NOTE | 2017-12-04 10:11 | Nephrology Progress Note ---
Date of Encounter: 12/04/17 Time of Encounter: 09:40 - Assessment and Plan (1) ENRIQUE (acute kidney injury) Current Visit: Yes Status: Acute ENRIQUE superimposed on CKD, baseline 1.5-1.7 in setting of volume overload, pulm HTN, CHF-D. New onset Afib. Renal US unclear on bladder outlet obstruction. Prostamegaly, "inability to void" but does not say if badder full/empty. Creat 2.22. Documented urine output 3125cc, indwelling [place]. Accurate I&O. Will continue to monitor. Subjective Principal diagnosis: CHF Interval history: Sitting up in a chair, Patient denies SOB. [place]. States right medial calf pain with swelling is improving. Edema remains 1+ in LE. States not drinking large amounts fluid but is having several large cups of ice chips during day. Objective - Vital Signs Vital signs: Vital Signs Temp Pulse Resp BP Pulse Ox 12/04/17 08:08 97.6 F 93 18 130/78 98 12/04/17 04:33 97.7 F 73 18 131/75 97 12/04/17 00:17 98.3 F 88 18 130/75 98 12/03/17 22:50 98 12/03/17 20:48 98 F 66 18 117/66 98 12/03/17 20:01 18 99 12/03/17 15:09 18 98 12/03/17 14:58 97.7 F 78 18 105/69 98 12/03/17 11:45 97.6 F 67 16 118/69 99 12/03/17 10:48 16 99 Intake and Output 12/03/17 12/04/17 12/04/17 23:59 07:59 15:59 Intake Total 460 / 460 240 / 240 Output Total 1200 / 1200 875 / 875 Balance -740 / -740 -875 / -875 240 / 240 Intake: IV Fluids 100 / 100 Doxycycline 100 MG In 0.9 % 100 / 100 Sodium Chloride (Mini-Bag +) 100 ML @ 100 mls/hr IVPB Q12HR HERNAN Rx#:[id number] Oral 360 / 360 240 / 240 Output: Catheter 1200 / 1200 875 / 875 Other: Meal Dinner Breakfast Percent of Meal Consumed 100% 100% Weight 102.682 kg 102.682 kg Blood Glucose* 288 381 Patient Weight 12/04/17 23:59 Weight 102.682 kg - General Appearance General appearance: Present: well-developed, well-nourished, appears started age , obese EENT: Present: mucous membranes moist Neck: Present: no JVD Respiratory: Present: clear Cardiology: Present: edema, irregular rhythm Additional Comments: 1-2+ knees down Gastrointestinal: Present: normoactive bowel sounds, no tenderness Integumentary: Present: warm and dry Neurologic: Present: alert and oriented x3 - Lab 12/03/17 05:58 12/04/17 05:03 Most recent lab results ABG pH 7.51 pH Units (7.32-7.45) H 12/01/17 08:33 ABG pCO2 58 mmHg (35-45) H 12/01/17 08:33 ABG pO2 68 mmHg (85-104) L D 12/01/17 08:33 ABG HCO3 46 mEq/L (21-27) H 12/01/17 08:33 ABG O2 Saturation 94 % (95-98) L 12/01/17 08:33 Calcium 9.3 mg/dL (8.6-10.3) 12/04/17 05:03 Phosphorus 4.0 mg/dL (2.7-4.5) 11/23/17 04:23 Magnesium 2.2 mg/dL (1.6-2.6) 12/04/17 05:03 - VTE Documentation of Mechanical Device: Graduated compression elastic hosiery Contraindication No Overlap Therapy: Admin of oral Factor Xa Inhibitor Consult Discharge Plan - Plan Referrals: Ector Valenzuela MD [Partnered Physician] - Shaji Martin DO [Non-Partnered Physician] - Vicki Fletcher CNP [Primary Care Provider] - 12/16/17 3:00 pm (WEB REQUEST SENT ON 11/25/17) Prescriptions: acetaZOLAMIDE [Diamox] 125 mg PO BID #60 tablet Apixaban [Eliquis] 5 mg PO BID #60 tablet Doxycycline Monohydrate [Avidoxy] 100 mg PO BID #14 tablet Furosemide [Lasix] 40 mg PO BID #60 tablet Isosorbide MONOnitrate (24 HR) [Imdur] 60 mg PO DAILY #30 tab.er.24h Potassium Chloride 20 meq PO BID #60 tab.er.prt
[2017-12-04] MEDS: Budesonide/Formoterol 160/4.5 MDI IH SCH (10:46)
[2017-12-04] MEDS: Ipratropium/Albuterol Neb 3 ML IH SCH (10:46)
[2017-12-04] MEDS: Fluticasone Propionate Nasal 50 MCG/SPRAY BOTTLE NS SCH (11:43)
[2017-12-04] MEDS: Insulin DETEMIR 100 UNIT/ML X5UNITS SQ SCH (12:10)
== END 2017-12-04 15:51 | disposition home or self-care (01) | DRG 291 ==
LOC: EMEROO 05:57 → 2ANU 05:57 → SUATTDRO 08:15
PROVIDERS: ADMIT Internal Medicine; ATTEND Family Medicine

== ENCOUNTER 2019-08-16 11:53 | Inpatient (IN) ==
[2019-08-16 12:58] LABS: Basophils # 0.1 K/mcL (0.0-0.2); Eosinophils # 0.2 K/mcL (0.0-0.6); Eosinophils % 3.8 %; Hematocrit 45.8 % (37.5-50.1); Hemoglobin 13.9 g/dL (12.9-16.9); Immature Granulocytes % 0.3 % (0-4); Lymphocytes # 0.9 K/mcL (0.6-4.6); Lymphocytes % 14.9 %; Mean Corpuscular HGB Conc 30.3 g/dL (31.6-35.5); Mean Corpuscular Hemoglobin 28.3 pg (28.0-33.3); Mean Corpuscular Volume 93.3 fL (83.0-100.0); Mean Platelet Volume 11.5 fL (9.4-12.4); Monocytes # 0.6 K/mcL (0.0-1.3); Monocytes % 9.1 %; Neutrophils # 4.3 K/mcL (1.6-8.9); Platelet Count 168 K/mcL (140-400); Red Blood Count 4.91 M/mcL (4.19-5.50); Red Cell Distribution Width 14.5 % (11.5-14.5); Segmented Neutrophils % 70.9 %
[2019-08-16 12:59] LABS: Bilirubin,Urine Negative (Negative); Blood,Urine Negative (Negative); Clarity,Urine Clear (Clear); Color,Urine Yellow (Yellow); Glucose,Urine (UA) Normal (Normal); Ketones,Urine Negative (Negative); Leukocyte Esterase,Urine Small (Negative); Nitrite,Urine Negative (Negative); Protein,Urine 100 mg/dL (Neg-Trace); Specific Gravity,Urine 1.024 (1.010-1.025); Urobilinogen,Urine Normal (Normal)
[2019-08-16 13:00] LABS: INR 1.5; Prothrombin Time 16.7 Seconds (9.4-12.1)
[2019-08-16 13:04] LABS: Bacteria,Urine None Seen per hpf (None-Few); Hyaline Casts,Urine None Seen per lpf (None-Few); RBC,Urine 0-3 per hpf (0-3); Squamous Epithelial Cell,Urine Many per lpf (None-Few); WBC,Urine 15-30 per hpf (0-3)
[2019-08-16 13:12] LABS: BUN/Creatinine Ratio 10 (6-26); Blood Urea Nitrogen 17 mg/dL (8-23); Carbon Dioxide 29 mEq/L (23-29); Chloride 103 mEq/L (98-107); Glucose 300 mg/dL (70-105); Osmolality,Calculated 305 (280-300); Potassium 3.7 mEq/L (3.5-5.1); Sodium 141 mEq/L (136-145); Troponin I < 0.03 ng/mL (< 0.04); eGFR For African Americans 50 (> 60); eGFR For Non-African Americans 41 (> 60)
[2019-08-16] MEDS ORDERED: Furosemide 40 MG/4 ML VIAL IVP ONE ×2 (13:38→18:00)
[2019-08-16 13:55] LABS: Alanine Aminotransferase 14 Units/L (7-52); Albumin 4.1 g/dL (3.5-5.7); Albumin/Globulin Ratio 1.5 (1.1-2.2); Alkaline Phosphatase 119 Units/L (34-104); Aspartate Amino Transferase 20 Units/L (13-39); Bilirubin,Direct 0.3 mg/dL (0.0-0.2); Bilirubin,Indirect 0.7 mg/dL (0.0-1.0); Globulin 2.8 g/dL (2.4-3.5); Total Protein 6.9 g/dL (6.4-8.9)
[2019-08-16] MEDS ORDERED: Naloxone 0.4 MG/ML INJ IVP PRN (14:53)
[2019-08-16] MEDS ORDERED: *HR* Dextrose 50 % in Water (Syg) 50 ML SYRINGE IVP PRN (14:57)
[2019-08-16] MEDS ORDERED: D5% in Water 1,000 ML IVC PRN (14:57)
[2019-08-16] MEDS ORDERED: Dextrose Gel 15 GM/37.5 ML TUBE PO PRN ×2 (14:57)
[2019-08-16] MEDS ORDERED: Ipratropium/Albuterol Neb 3 ML IH PRN (15:43)
[2019-08-16] MEDS ORDERED: Nitroglycerin 0.4 MG TAB.SUBL SL PRN (15:44)
[2019-08-16 17:39] LABS: Basophils # 0.1 K/mcL (0.0-0.2); Basophils % 0.9 %; Eosinophils # 0.3 K/mcL (0.0-0.6); Hematocrit 43.9 % (37.5-50.1); Immature Granulocytes % 0.3 % (0-4); Lymphocytes # 1.1 K/mcL (0.6-4.6); Lymphocytes % 16.2 %; Mean Corpuscular HGB Conc 29.6 g/dL (31.6-35.5); Mean Corpuscular Hemoglobin 28.6 pg (28.0-33.3); Mean Corpuscular Volume 96.7 fL (83.0-100.0); Mean Platelet Volume 11.8 fL (9.4-12.4); Monocytes # 0.8 K/mcL (0.0-1.3); Monocytes % 10.8 %; Neutrophils # 4.7 K/mcL (1.6-8.9); Platelet Count 154 K/mcL (140-400); Red Blood Count 4.54 M/mcL (4.19-5.50); Red Cell Distribution Width 14.5 % (11.5-14.5); Segmented Neutrophils % 67.8 %; White Blood Count 6.9 K/mcL (4.3-11.1)
[2019-08-16] MEDS ORDERED: *HR* Heparin 5,000 UNIT/ML VIAL SQ SCH (18:00)
[2019-08-16] MEDS: Insulin LISPRO 300 UNITS/3 ML VIAL SQ SCH (18:39)
[2019-08-16] MEDS ORDERED: carvediloL 25 MG TABLET PO SCH (21:00)
[2019-08-16] MEDS: Apixaban 5 MG TABLET PO SCH (21:15)
[2019-08-16] MEDS ORDERED: Budesonide/Formoterol 160/4.5 1 PUFF INH IH SCH (22:00)
[2019-08-17 00:50] LABS: Basophils # 0.1 K/mcL (0.0-0.2); Basophils % 1.2 %; Eosinophils # 0.2 K/mcL (0.0-0.6); Eosinophils % 3.8 %; Hematocrit 43.1 % (37.5-50.1); Hemoglobin 13.4 g/dL (12.9-16.9); Immature Granulocytes % 0.5 % (0-4); Lymphocytes # 0.9 K/mcL (0.6-4.6); Lymphocytes % 15.6 %; Mean Corpuscular HGB Conc 31.1 g/dL (31.6-35.5); Mean Corpuscular Hemoglobin 28.3 pg (28.0-33.3); Mean Corpuscular Volume 91.1 fL (83.0-100.0); Mean Platelet Volume 11.6 fL (9.4-12.4); Monocytes # 0.6 K/mcL (0.0-1.3); Monocytes % 9.3 %; Neutrophils # 4.2 K/mcL (1.6-8.9); Platelet Count 158 K/mcL (140-400); Red Blood Count 4.73 M/mcL (4.19-5.50); Red Cell Distribution Width 14.5 % (11.5-14.5); Segmented Neutrophils % 69.6 %
[2019-08-17 00:55] LABS: Calcium 8.9 mg/dL (8.6-10.3); Chol/HDL Ratio 3.1 (0-4.9); Potassium 3.3 mEq/L (3.5-5.1)
[2019-08-17 06:52] LABS: Basophils # 0.1 K/mcL (0.0-0.2); Basophils % 0.8 %; Eosinophils # 0.3 K/mcL (0.0-0.6); Eosinophils % 4.4 %; Hematocrit 43.7 % (37.5-50.1); Hemoglobin 13.1 g/dL (12.9-16.9); Immature Granulocytes % 0.2 % (0-4); Lymphocytes % 17.2 %; Mean Corpuscular Hemoglobin 28.7 pg (28.0-33.3); Mean Corpuscular Volume 95.8 fL (83.0-100.0); Mean Platelet Volume 11.8 fL (9.4-12.4); Monocytes # 0.7 K/mcL (0.0-1.3); Monocytes % 11.1 %; Neutrophils # 3.9 K/mcL (1.6-8.9); Platelet Count 143 K/mcL (140-400); Red Blood Count 4.56 M/mcL (4.19-5.50); Red Cell Distribution Width 14.5 % (11.5-14.5); Segmented Neutrophils % 66.3 %; White Blood Count 5.9 K/mcL (4.3-11.1)
[2019-08-17] MEDS ORDERED: Furosemide 40 MG/4 ML VIAL IVP ONE (08:41)
[2019-08-17] MEDS: Apixaban 5 MG TABLET PO SCH ×2 (09:16→21:48)
[2019-08-17] MEDS: Aspirin Enteric Coated 81 MG Tablet PO SCH (09:16)
[2019-08-17] MEDS: carvediloL 25 MG TABLET PO SCH ×2 (09:16→17:09)
[2019-08-17] MEDS: Isosorbide MONOnitrate (24 HR) 60 MG TAB.ER.24H PO SCH (09:16)
[2019-08-17] MEDS: Finasteride 5 MG TABLET PO SCH (09:16)
[2019-08-17] MEDS: Insulin LISPRO 300 UNITS/3 ML VIAL SQ SCH ×3 (09:21→17:11)
[2019-08-17] MEDS: Budesonide/Formoterol 160/4.5 1 PUFF INH IH SCH ×2 (09:53→20:02)
[2019-08-18 05:15] LABS: Potassium 3.4 mEq/L (3.5-5.1)
[2019-08-18] MEDS: Budesonide/Formoterol 160/4.5 1 PUFF INH IH SCH ×2 (07:26→20:01)
[2019-08-18] MEDS: Aspirin Enteric Coated 81 MG Tablet PO SCH (07:31)
[2019-08-18] MEDS: Finasteride 5 MG TABLET PO SCH (07:31)
[2019-08-18] MEDS: Apixaban 5 MG TABLET PO SCH ×2 (07:31→22:14)
[2019-08-18] MEDS: carvediloL 25 MG TABLET PO SCH (07:31)
[2019-08-18] MEDS: Isosorbide MONOnitrate (24 HR) 60 MG TAB.ER.24H PO SCH (07:31)
[2019-08-18] MEDS: Insulin LISPRO 300 UNITS/3 ML VIAL SQ SCH ×3 (07:33→16:48)
[2019-08-18] MEDS ORDERED: Furosemide 20 MG/2 ML VIAL IVP ONE ×2 (08:46→15:00)
[2019-08-18] MEDS: carvediloL 6.25 MG TABLET PO SCH (16:48)
[2019-08-18] MEDS ORDERED: Perflutren Lipid Microsphere 1.3 ML in 0.9 % Sodium Chloride 8.7 ML IVP ONE (16:56)
[2019-08-18] MEDS: Insulin DETEMIR 100 UNIT/ML X5UNITS SQ SCH (22:14)
[2019-08-19 01:11] LABS: Calcium 9.3 mg/dL (8.6-10.3); Potassium 3.5 mEq/L (3.5-5.1)
[2019-08-19] MEDS: Budesonide/Formoterol 160/4.5 1 PUFF INH IH SCH ×2 (07:40→19:53)
[2019-08-19] MEDS ORDERED: Furosemide 20 MG/2 ML VIAL IVP ONE (08:19)
[2019-08-19] MEDS: Aspirin Enteric Coated 81 MG Tablet PO SCH (08:56)
[2019-08-19] MEDS: carvediloL 6.25 MG TABLET PO SCH ×2 (08:56→17:01)
[2019-08-19] MEDS: Apixaban 5 MG TABLET PO SCH ×2 (08:56→20:28)
[2019-08-19] MEDS: Insulin LISPRO 300 UNITS/3 ML VIAL SQ SCH ×3 (08:56→17:02)
[2019-08-19] MEDS: Isosorbide MONOnitrate (24 HR) 60 MG TAB.ER.24H PO SCH (08:56)
[2019-08-19] MEDS: Finasteride 5 MG TABLET PO SCH (08:56)
[2019-08-19] MEDS ORDERED: Furosemide 40 MG/4 ML VIAL IVP ONE (15:00)
[2019-08-19] MEDS: Insulin DETEMIR 100 UNIT/ML X5UNITS SQ SCH (20:29)
[2019-08-20 03:49] LABS: Calcium 8.9 mg/dL (8.6-10.3); Potassium 3.3 mEq/L (3.5-5.1)
[2019-08-20] MEDS: Budesonide/Formoterol 160/4.5 1 PUFF INH IH SCH ×2 (07:38→20:07)
[2019-08-20] MEDS: Insulin LISPRO 300 UNITS/3 ML VIAL SQ SCH ×3 (08:19→17:23)
[2019-08-20] MEDS ORDERED: Furosemide 40 MG/4 ML VIAL IVP SCH (09:00)
[2019-08-20] MEDS: Finasteride 5 MG TABLET PO SCH (09:21)
[2019-08-20] MEDS: Isosorbide MONOnitrate (24 HR) 60 MG TAB.ER.24H PO SCH (09:21)
[2019-08-20] MEDS: Apixaban 5 MG TABLET PO SCH ×2 (09:22→21:09)
[2019-08-20] MEDS: Aspirin Enteric Coated 81 MG Tablet PO SCH (09:22)
[2019-08-20] MEDS: carvediloL 6.25 MG TABLET PO SCH ×2 (09:22→17:23)
[2019-08-20] MEDS: Potassium Chloride Elixir 20 MEQ/15 ML UDC PO SCH ×2 (09:22→21:10)
[2019-08-20] MEDS: Furosemide 20 MG/2 ML VIAL IVP SCH (17:22)
[2019-08-20] MEDS: Insulin DETEMIR 100 UNIT/ML X5UNITS SQ SCH (21:09)
[2019-08-20] MEDS ORDERED: Acetaminophen 325 MG TABLET PO ONE (22:36)
[2019-08-21] MEDS: Budesonide/Formoterol 160/4.5 1 PUFF INH IH SCH ×2 (07:40→19:32)
[2019-08-21] MEDS: Insulin LISPRO 300 UNITS/3 ML VIAL SQ SCH ×3 (08:03→17:12)
[2019-08-21] MEDS: carvediloL 6.25 MG TABLET PO SCH ×2 (08:04→17:28)
[2019-08-21] MEDS: Aspirin Enteric Coated 81 MG Tablet PO SCH (08:04)
[2019-08-21] MEDS: Apixaban 5 MG TABLET PO SCH ×2 (08:05→20:33)
[2019-08-21] MEDS: Finasteride 5 MG TABLET PO SCH (08:05)
[2019-08-21] MEDS: Isosorbide MONOnitrate (24 HR) 60 MG TAB.ER.24H PO SCH (08:05)
[2019-08-21 09:12] LABS: Basophils # 0.1 K/mcL (0.0-0.2); Eosinophils # 0.3 K/mcL (0.0-0.6); Eosinophils % 4.8 %; Hemoglobin 13.8 g/dL (12.9-16.9); Immature Granulocytes % 0.2 % (0-4); Lymphocytes % 18.3 %; Mean Corpuscular HGB Conc 31.4 g/dL (31.6-35.5); Mean Corpuscular Hemoglobin 28.6 pg (28.0-33.3); Mean Corpuscular Volume 91.1 fL (83.0-100.0); Mean Platelet Volume 11.3 fL (9.4-12.4); Monocytes # 0.5 K/mcL (0.0-1.3); Monocytes % 9.1 %; Neutrophils # 3.5 K/mcL (1.6-8.9); Platelet Count 149 K/mcL (140-400); Red Blood Count 4.83 M/mcL (4.19-5.50); Red Cell Distribution Width 14.5 % (11.5-14.5); Segmented Neutrophils % 66.6 %; White Blood Count 5.2 K/mcL (4.3-11.1)
[2019-08-21 09:33] LABS: Calcium 9.2 mg/dL (8.6-10.3); Potassium 3.7 mEq/L (3.5-5.1)
[2019-08-21] MEDS: Furosemide 20 MG/2 ML VIAL IVP SCH ×2 (10:33→17:29)
[2019-08-21] MEDS: Insulin DETEMIR 100 UNIT/ML X5UNITS SQ SCH (20:34)
[2019-08-22 04:10] LABS: Basophils # 0.1 K/mcL (0.0-0.2); Eosinophils # 0.3 K/mcL (0.0-0.6); Eosinophils % 5.2 %; Hemoglobin 13.4 g/dL (12.9-16.9); Immature Granulocytes % 0.3 % (0-4); Lymphocytes # 1.1 K/mcL (0.6-4.6); Mean Corpuscular HGB Conc 30.5 g/dL (31.6-35.5); Mean Corpuscular Hemoglobin 28.7 pg (28.0-33.3); Mean Corpuscular Volume 94.2 fL (83.0-100.0); Mean Platelet Volume 11.6 fL (9.4-12.4); Monocytes # 0.6 K/mcL (0.0-1.3); Neutrophils # 3.8 K/mcL (1.6-8.9); Platelet Count 140 K/mcL (140-400); Red Blood Count 4.67 M/mcL (4.19-5.50); Red Cell Distribution Width 14.5 % (11.5-14.5); Segmented Neutrophils % 64.5 %; White Blood Count 5.8 K/mcL (4.3-11.1)
[2019-08-22 04:36] LABS: Calcium 9.1 mg/dL (8.6-10.3); Potassium 3.8 mEq/L (3.5-5.1)
[2019-08-22] MEDS: Aspirin Enteric Coated 81 MG Tablet PO SCH (08:32)
[2019-08-22] MEDS: carvediloL 6.25 MG TABLET PO SCH ×2 (08:33→16:30)
[2019-08-22] MEDS: Isosorbide MONOnitrate (24 HR) 60 MG TAB.ER.24H PO SCH (08:33)
[2019-08-22] MEDS: Finasteride 5 MG TABLET PO SCH (08:33)
[2019-08-22] MEDS: Apixaban 5 MG TABLET PO SCH ×2 (08:33→22:21)
[2019-08-22] MEDS: Insulin LISPRO 300 UNITS/3 ML VIAL SQ SCH ×3 (08:34→18:20)
[2019-08-22] MEDS: Furosemide 20 MG/2 ML VIAL IVP SCH ×2 (08:38→18:19)
[2019-08-22] MEDS: Budesonide/Formoterol 160/4.5 1 PUFF INH IH SCH ×2 (11:04→22:16)
[2019-08-22 17:14] LABS: Creatinine,Urine 157 mg/dL; Protein/Creatinine Ratio,Urine 0.48 mg/mg (0.00-0.20); Sodium, Urine 11.7 mEq/L
[2019-08-22] MEDS ORDERED: Insulin DETEMIR 100 UNIT/ML X5UNITS SQ SCH (21:00)
[2019-08-23 02:12] LABS: Uric Acid 7.1 mg/dL (2.3-7.6)
[2019-08-23 02:14] LABS: BUN/Creatinine Ratio 28 (6-26); Blood Urea Nitrogen 39 mg/dL (8-23); Calcium 8.4 mg/dL (8.6-10.3); Carbon Dioxide 25 mEq/L (23-29); Chloride 105 mEq/L (98-107); Glucose 245 mg/dL (70-105); Osmolality,Calculated 306 (280-300); Potassium 4.1 mEq/L (3.5-5.1); Sodium 139 mEq/L (136-145); eGFR For African Americans > 60 (> 60); eGFR For Non-African Americans 50 (> 60)
[2019-08-23] MEDS: Budesonide/Formoterol 160/4.5 1 PUFF INH IH SCH (07:10)
[2019-08-23] MEDS ORDERED: Calcium Chloride 1,000 MG in 0.9 % Sodium Chloride 100 ML IVPB ONE (07:16)
[2019-08-23] MEDS ORDERED: Calcium Gluconate 1gm/50mL 1 GM/50 ML BAG IVPB ONE (07:22)
[2019-08-23 07:36] VITALS: BP 149/91
[2019-08-23] MEDS: Isosorbide MONOnitrate (24 HR) 60 MG TAB.ER.24H PO SCH (08:23)
[2019-08-23] MEDS: Apixaban 5 MG TABLET PO SCH (08:23)
[2019-08-23] MEDS: Aspirin Enteric Coated 81 MG Tablet PO SCH (08:23)
[2019-08-23] MEDS: carvediloL 6.25 MG TABLET PO SCH (08:23)
[2019-08-23] MEDS: Finasteride 5 MG TABLET PO SCH (08:23)
[2019-08-23] MEDS: Insulin LISPRO 300 UNITS/3 ML VIAL SQ SCH (08:26)
[2019-08-23] MEDS: Furosemide 20 MG/2 ML VIAL IVP SCH (08:26)
== END 2019-08-23 10:40 | disposition home or self-care (01) | DRG 291 ==
LOC: 2ANU 11:53 → EMEROOARM 11:53 → SUATTDRO 14:54 → 2ANU 16:10 → SUATTDRO 18:14
PROVIDERS: ADMIT Internal Medicine; ATTEND Student in an Organized Health Care Education/Training Program

== ENCOUNTER 2019-09-14 22:00 | Inpatient (IN) ==
[2019-09-14] MEDS ORDERED: Azithromycin 250 MG TABLET PO ONE (22:21)
[2019-09-14 23:12] LABS: Basophils # 0.1 K/mcL (0.0-0.2); Basophils % 1.2 %; Eosinophils # 0.5 K/mcL (0.0-0.6); Eosinophils % 7.2 %; Hematocrit 38.6 % (37.5-50.1); Hemoglobin 11.2 g/dL (12.9-16.9); Immature Granulocytes % 0.4 % (0-4); Lymphocytes # 0.9 K/mcL (0.6-4.6); Lymphocytes % 12.8 %; Mean Corpuscular Hemoglobin 28.4 pg (28.0-33.3); Mean Corpuscular Volume 97.7 fL (83.0-100.0); Monocytes # 0.6 K/mcL (0.0-1.3); Monocytes % 9.1 %; Neutrophils # 4.7 K/mcL (1.6-8.9); Platelet Count 170 K/mcL (140-400); Red Blood Count 3.95 M/mcL (4.19-5.50); Red Cell Distribution Width 15.8 % (11.5-14.5); Segmented Neutrophils % 69.3 %; White Blood Count 6.7 K/mcL (4.3-11.1)
[2019-09-14 23:36] LABS: Alanine Aminotransferase 9 Units/L (7-52); Albumin 3.6 g/dL (3.5-5.7); Albumin/Globulin Ratio 1.2 (1.1-2.2); Alkaline Phosphatase 119 Units/L (34-104); Aspartate Amino Transferase 12 Units/L (13-39); BUN/Creatinine Ratio 20 (6-26); Bilirubin,Direct 0.4 mg/dL (0.0-0.2); Bilirubin,Indirect 0.7 mg/dL (0.0-1.0); Bilirubin,Total 1.1 mg/dL (0.3-1.0); Blood Urea Nitrogen 49 mg/dL (8-23); Calcium 8.6 mg/dL (8.6-10.3); Carbon Dioxide 26 mEq/L (23-29); Chloride 109 mEq/L (98-107); Glucose 79 mg/dL (70-105); Osmolality,Calculated 302 (280-300); Potassium 5.2 mEq/L (3.5-5.1); Sodium 140 mEq/L (136-145); Total Protein 6.6 g/dL (6.4-8.9); eGFR For African Americans 32 (> 60); eGFR For Non-African Americans 26 (> 60)
[2019-09-14 23:36] LABS: Bilirubin,Urine Negative (Negative); Blood,Urine Negative (Negative); Clarity,Urine Clear (Clear); Color,Urine Yellow (Yellow); Glucose,Urine (UA) Normal (Normal); Ketones,Urine Negative (Negative); Leukocyte Esterase,Urine Negative (Negative); Nitrite,Urine Negative (Negative); PH,Urine 5.5 pH Units (5.0-8.0); Protein,Urine 30 mg/dL (Neg-Trace); Specific Gravity,Urine 1.019 (1.010-1.025); Urobilinogen,Urine Normal (Normal)
[2019-09-14 23:37] LABS: Troponin I < 0.03 ng/mL (< 0.04)
[2019-09-14 23:38] LABS: Bacteria,Urine None Seen per hpf (None-Few); Hyaline Casts,Urine Few per lpf (None-Few); RBC,Urine 0-3 per hpf (0-3); Squamous Epithelial Cell,Urine Many per lpf (None-Few); WBC,Urine 0-3 per hpf (0-3)
[2019-09-15 00:21] LABS: Activated Partial Thrombo Time 33.7 Seconds (26.0-36.0); INR 1.9; Prothrombin Time 21.4 Seconds (9.4-12.1)
[2019-09-15] MEDS ORDERED: Acetaminophen 325 MG TABLET PO PRN (03:39)
[2019-09-15] MEDS ORDERED: Naloxone 0.4 MG/ML INJ IVP PRN (03:39)
[2019-09-15] MEDS ORDERED: D5% in Water 1,000 ML IVC PRN (03:56)
[2019-09-15] MEDS ORDERED: *HR* Dextrose 50 % in Water (Syg) 50 ML SYRINGE IVP PRN (03:56)
[2019-09-15] MEDS ORDERED: Dextrose Gel 15 GM/37.5 ML TUBE PO PRN ×2 (03:56)
[2019-09-15] MEDS ORDERED: Furosemide 20 MG/2 ML VIAL IVP ONE (04:09)
[2019-09-15] MEDS: Ipratropium/Albuterol Neb 3 ML IH SCH ×4 (04:30→22:12)
[2019-09-15] MEDS ORDERED: Ondansetron 4 MG/2 ML VIAL IVP PRN (04:43)
[2019-09-15 05:02] LABS: Phosphorous 4.8 mg/dL (2.7-4.5)
[2019-09-15] MEDS: Insulin LISPRO 300 UNITS/3 ML VIAL SQ SCH ×4 (09:36→21:53)
[2019-09-15] MEDS: Budesonide/Formoterol 160/4.5 1 PUFF INH IH SCH ×2 (10:46→22:12)
[2019-09-15] MEDS: Albuterol 2.5 MG/3 ML NEBULIZER IH SCH ×3 (10:46→22:16)
[2019-09-15] MEDS: Apixaban 5 MG TABLET PO SCH ×2 (11:41→21:52)
[2019-09-15] MEDS: Aspirin Enteric Coated 81 MG Tablet PO SCH (11:41)
[2019-09-15] MEDS: Azithromycin 250 MG TABLET PO SCH (11:41)
[2019-09-15] MEDS: Furosemide 20 MG/2 ML VIAL IVP SCH ×2 (11:42→21:54)
[2019-09-15] MEDS: predniSONE 20 MG TABLET PO SCH (11:42)
[2019-09-15] MEDS ORDERED: Nitroglycerin 0.4 MG TAB.SUBL SL PRN (14:45)
[2019-09-15] MEDS: carvediloL 6.25 MG TABLET PO SCH (17:48)
[2019-09-15] MEDS ORDERED: Vicks Vaporub Oint 50 GM PACKAGE TP PRN (20:29)
[2019-09-15] MEDS: acetaZOLAMIDE 250 MG TABLET PO SCH (21:51)
[2019-09-15] MEDS: Preparation H Ointment 57 GM TUBE RC SCH (22:23)
[2019-09-16] MEDS: Ipratropium/Albuterol Neb 3 ML IH SCH ×4 (03:42→22:41)
[2019-09-16 04:46] LABS: Hemoglobin 10.6 g/dL (12.9-16.9)
[2019-09-16 04:48] LABS: Basophils % 0.5 %; Hematocrit 36.6 % (37.5-50.1); Immature Granulocytes % 1.1 % (0-4); Lymphocytes # 0.6 K/mcL (0.6-4.6); Lymphocytes % 9.6 %; Mean Corpuscular Hemoglobin 29.2 pg (28.0-33.3); Mean Corpuscular Volume 100.8 fL (83.0-100.0); Mean Platelet Volume 11.5 fL (9.4-12.4); Monocytes # 0.2 K/mcL (0.0-1.3); Monocytes % 3.3 %; Platelet Count 148 K/mcL (140-400); Red Blood Count 3.63 M/mcL (4.19-5.50); Red Cell Distribution Width 15.7 % (11.5-14.5); Segmented Neutrophils % 85.5 %; White Blood Count 6.1 K/mcL (4.3-11.1)
[2019-09-16 04:50] LABS: Neutrophils # 5.2 K/mcL (1.6-8.9)
[2019-09-16 05:04] LABS: Albumin 3.4 g/dL (3.5-5.7); Albumin/Globulin Ratio 1.3 (1.1-2.2); Bilirubin,Direct 0.5 mg/dL (0.0-0.2); Bilirubin,Indirect 0.7 mg/dL (0.0-1.0); Bilirubin,Total 1.2 mg/dL (0.3-1.0); Globulin 2.7 g/dL (2.4-3.5); Total Protein 6.1 g/dL (6.4-8.9)
[2019-09-16 05:05] LABS: Calcium 8.4 mg/dL (8.6-10.3); Potassium 6.4 mEq/L (3.5-5.1)
[2019-09-16 05:08] LABS: Burr Cells 1+ (Not Present); Hypochromasia Present (Not Present); Ovalocytes 2+ (Not Present); Platelet Estimate Decreased (Normal)
[2019-09-16] MEDS ORDERED: *HR* Dextrose 50 % in Water (Syg) 50 ML SYRINGE IVP ONE (08:36)
[2019-09-16] MEDS ORDERED: Insulin Human Regular 10 UNIT in 0.9 % Sodium Chloride 10 ML IV ONE (08:36)
[2019-09-16] MEDS: Aspirin Enteric Coated 81 MG Tablet PO SCH (08:53)
[2019-09-16] MEDS: hydroCHLOROthiazide 25 MG TABLET PO SCH (08:53)
[2019-09-16] MEDS: Azithromycin 250 MG TABLET PO SCH (08:54)
[2019-09-16] MEDS: Isosorbide MONOnitrate (24 HR) 60 MG TAB.ER.24H PO SCH (08:54)
[2019-09-16] MEDS: carvediloL 6.25 MG TABLET PO SCH ×2 (08:54→17:00)
[2019-09-16] MEDS: Magnesium Oxide 400 MG TABLET PO SCH (08:54)
[2019-09-16] MEDS: Apixaban 5 MG TABLET PO SCH ×2 (08:54→20:52)
[2019-09-16] MEDS: predniSONE 20 MG TABLET PO SCH (08:54)
[2019-09-16] MEDS: Fluticasone Propionate Nasal 50 MCG/SPRAY BOTTLE NS SCH (08:55)
[2019-09-16] MEDS: Insulin LISPRO 300 UNITS/3 ML VIAL SQ SCH ×4 (08:56→21:07)
[2019-09-16] MEDS: Budesonide/Formoterol 160/4.5 1 PUFF INH IH SCH ×2 (10:15→22:41)
[2019-09-16] MEDS: Albuterol 2.5 MG/3 ML NEBULIZER IH SCH ×2 (10:15→18:17)
[2019-09-16] MEDS: acetaZOLAMIDE 250 MG TABLET PO SCH ×2 (10:44→20:51)
[2019-09-16] MEDS: Finasteride 5 MG TABLET PO SCH (10:44)
[2019-09-16] MEDS: Preparation H Ointment 57 GM TUBE RC SCH ×2 (10:45→20:54)
[2019-09-16 12:04] LABS: Calcium 8.3 mg/dL (8.6-10.3); Phosphorous 6.1 mg/dL (2.7-4.5); Potassium 6.4 mEq/L (3.5-5.1)
[2019-09-16 15:15] LABS: Albumin 3.3 g/dL (3.5-5.7); Calcium 8.5 mg/dL (8.6-10.3); Phosphorous 6.1 mg/dL (2.7-4.5); Potassium 6.2 mEq/L (3.5-5.1)
[2019-09-16 15:36] LABS: RBC,Peritoneal Fluid 0.003 M/mcL
[2019-09-16 15:42] LABS: Total Protein,Peritoneal Fluid 3.4 g/dL
[2019-09-16 15:59] LABS: Appearance of Peritoneal Fl HAZY (Clear)
[2019-09-16 16:28] LABS: Basophils,Peritoneal Fluid 0 %; Eosinophils,Peritoneal Fluid 0 %
[2019-09-16] MEDS: Albumin 25% 25gram/100mL 25 GM/100 ML IV.SOLN IVPB SCH ×2 (17:52→23:45)
[2019-09-16] MEDS: Calcium Acetate 667 MG CAPSULE PO SCH (18:53)
[2019-09-16 18:56] LABS: Calcium 8.6 mg/dL (8.6-10.3); Potassium 5.6 mEq/L (3.5-5.1)
[2019-09-16] MEDS: SODIUM ZIRCONIUM CYCLOSILICATE 5 GM POWD.PACK PO SCH (21:07)
[2019-09-17] MEDS: Albuterol 2.5 MG/3 ML NEBULIZER IH SCH ×3 (02:34→15:59)
[2019-09-17] MEDS: Ipratropium/Albuterol Neb 3 ML IH SCH ×3 (05:38→15:58)
[2019-09-17 07:52] LABS: Basophils % 0.3 %; Eosinophils % 0.1 %; Hematocrit 37.6 % (37.5-50.1); Hemoglobin 10.6 g/dL (12.9-16.9); Immature Granulocytes % 0.6 % (0-4); Lymphocytes % 11.2 %; Mean Corpuscular HGB Conc 28.2 g/dL (31.6-35.5); Mean Corpuscular Hemoglobin 28.4 pg (28.0-33.3); Mean Corpuscular Volume 100.8 fL (83.0-100.0); Mean Platelet Volume 11.7 fL (9.4-12.4); Monocytes # 0.7 K/mcL (0.0-1.3); Monocytes % 8.2 %; Neutrophils # 7.2 K/mcL (1.6-8.9); Platelet Count 172 K/mcL (140-400); Red Blood Count 3.73 M/mcL (4.19-5.50); Red Cell Distribution Width 15.9 % (11.5-14.5); Segmented Neutrophils % 79.6 %
[2019-09-17 08:12] LABS: Albumin 3.8 g/dL (3.5-5.7); Calcium 8.5 mg/dL (8.6-10.3); Phosphorous 7.5 mg/dL (2.7-4.5); Potassium 4.9 mEq/L (3.5-5.1)
[2019-09-17] MEDS: Albumin 25% 25gram/100mL 25 GM/100 ML IV.SOLN IVPB SCH (08:12)
[2019-09-17] MEDS: Calcium Acetate 667 MG CAPSULE PO SCH ×2 (08:12→12:36)
[2019-09-17] MEDS: Apixaban 5 MG TABLET PO SCH (08:12)
[2019-09-17] MEDS: Magnesium Oxide 400 MG TABLET PO SCH (08:12)
[2019-09-17] MEDS: predniSONE 20 MG TABLET PO SCH (08:12)
[2019-09-17] MEDS: Aspirin Enteric Coated 81 MG Tablet PO SCH (08:12)
[2019-09-17] MEDS: carvediloL 6.25 MG TABLET PO SCH (08:12)
[2019-09-17] MEDS: Azithromycin 250 MG TABLET PO SCH (08:12)
[2019-09-17] MEDS: Isosorbide MONOnitrate (24 HR) 60 MG TAB.ER.24H PO SCH (08:13)
[2019-09-17] MEDS: hydroCHLOROthiazide 25 MG TABLET PO SCH (08:13)
[2019-09-17] MEDS: acetaZOLAMIDE 250 MG TABLET PO SCH (08:13)
[2019-09-17] MEDS: Finasteride 5 MG TABLET PO SCH (08:13)
[2019-09-17 08:15] LABS: % Iron Saturation 15 % (20-55); Iron 40 mcg/dL (65-175); Transferrin 189 mg/dL (203-362)
[2019-09-17 08:19] LABS: Platelet Estimate Normal (Normal)
[2019-09-17 08:20] LABS: Hypochromasia Present (Not Present)
[2019-09-17] MEDS: Fluticasone Propionate Nasal 50 MCG/SPRAY BOTTLE NS SCH (08:25)
[2019-09-17] MEDS: Insulin LISPRO 300 UNITS/3 ML VIAL SQ SCH ×2 (08:26→12:36)
[2019-09-17] MEDS: Preparation H Ointment 57 GM TUBE RC SCH (08:26)
[2019-09-17 08:28] LABS: Hepatitis B Surface Antibody < 3.10 mIU/mL
[2019-09-17 08:31] LABS: Ferritin 92 ng/mL (20-250)
[2019-09-17 08:36] LABS: Folate 12.5 ng/mL (3.0-16.0)
[2019-09-17 08:40] LABS: Hepatitis B Surface Antigen Nonreactive (Nonreactive)
[2019-09-17 09:08] LABS: Hepatitis C Virus Antibody Nonreactive (Nonreactive)
[2019-09-17 09:09] LABS: Hepatitis B Core IgM Nonreactive (Nonreactive)
[2019-09-17 09:10] LABS: Hepatitis A Antibody IgM Nonreactive (Nonreactive)
[2019-09-17] MEDS ORDERED: FERROUS GLUCONATE 324 MG TAB PO SCH ×2 (10:00→17:00)
[2019-09-17] MEDS: SODIUM ZIRCONIUM CYCLOSILICATE 5 GM POWD.PACK PO SCH (10:10)
[2019-09-17] MEDS: Budesonide/Formoterol 160/4.5 1 PUFF INH IH SCH (10:17)
[2019-09-17 12:26] VITALS: BP 102/63
[2019-09-17 13:54] LABS: Protein/Creatinine Ratio,Urine 0.15 mg/mg (0.00-0.20)
== END 2019-09-17 16:30 | disposition short-term general hospital (02) ==
LOC: CDU 22:00 → EMEROOARM 22:00 → SUATTDRO 09-15 03:34 → CDU 09-15 03:58 → 3BNU 09-15 15:14
PROVIDERS: ADMIT Student in an Organized Health Care Education/Training Program; ATTEND Family Medicine